=== PATIENT | female | born 1980 | race Caucasian/White ===

== ENCOUNTER 2020-08-27 19:33 | Outpatient (REF) | payer MEDICAID, SELFPAY ==
--- NOTE | 2020-08-27 | MR_ITS ---
MR LUMBAR SPINE WITHOUT IV CONTRAST CLINICAL INFORMATION: Lumbago with left-sided sciatica. COMPARISON: Lumbar spine radiographs 01/23/2019. TECHNIQUE: MRI of the lumbar spine was obtained using routine sequences without contrast. FINDINGS: There are 5 nonrib-bearing lumbar-type vertebral bodies. Lumbar alignment is maintained. The vertebral body heights are preserved. There is disc desiccation at the L3-L4, L4-L5, and L5-S1 levels. There is no bone marrow edema. There are no acute fractures. The conus terminates at the L2 level. There are no significant soft tissue findings. L1-L2: Disc contour is normal. No central canal stenosis and no foraminal stenosis. L2-L3: Disc contour is normal. There is no central canal stenosis and there is no foraminal stenosis. L3-L4: There is a diffuse annular disc bulge exhibiting a dorsal annular fissure and there is mild to moderate bilateral facet arthropathy. No central canal stenosis. Mild foraminal encroachment bilaterally. L4-L5: There is a diffuse annular disc bulge exhibiting a dorsal annular fissure with a superimposed broad-based central disc protrusion that results in mass effect on the traversing L5 nerve roots within the subarticular zones bilaterally. There is moderate bilateral facet arthropathy. There is no central canal stenosis. There is mild foraminal encroachment bilaterally. L5-S1: There is a diffuse annular disc bulge the superimposed left paracentral disc protrusion that results in mass effect on the traversing left S1 nerve root within the left subarticular zone. There is mild bilateral facet arthropathy. There is mild foraminal encroachment bilaterally. Dorsal annular fissure IMPRESSION: - At L4-L5, a broad-based central disc protrusion results in mass effect on the traversing L5 nerve roots within the subarticular zones bilaterally. - At L5-S1, a left paracentral disc protrusion results in mass effect on the traversing left S1 nerve root within the left subarticular zone. - Additional degenerative changes as discussed above. There are dorsal annular fissures at the L3-L4, L4-L5, and L5-S1 levels.
== END 2020-08-27 19:34 | disposition home or self-care (01) ==
LOC: HO.MRI 19:33
PROVIDERS: Visit Provider Nurse Practitioner Primary Care
DX: M54.41 Lumbago with sciatica, right side (principal); M54.42 Lumbago with sciatica, left side
CPT/HCPCS: 72148

== ENCOUNTER 2020-11-15 12:49 | Emergency (ER) | payer MEDICAID, SELFPAY ==
[2020-11-15 13:51] VITALS: BP 122/78; PULSE 78; RESP 18; TEMP 36.8; O2SAT 99; BMI 28.5
--- NOTE | 2020-11-15 14:21 | ED_ITS ---
HPI - Neck Pain/Injury General Chief Complaint: Neck Pain/Injury Stated Complaint: NECK PAIN Time Seen by Provider: 11/15/20 14:21 Source: patient Mode of arrival: ambulatory Limitations: no limitations History of Present Illness HPI Narrative: 40-year-old female presenting with right-sided neck pain ongoing since this morning she woke up with this. States she usually sleeps on her left side and last night she was tired she fell asleep in a recliner in a sitting position on the right side felt sore and stiff on the right side having pain right-sided neck with certain positions pain will radiate to the right arm. States she has long history of back problems she is awaiting for drilling fluids specialist appointment by her primary care doctor. She otherwise denies any midline neck pain or lower back pain. No headache. No fever or chills. No weight loss. No history of CA. States she has had MRI here for the lower back pain and at over and referred by her primary care doctor for further evaluation by drilling fluids specialist and PT. complaint: neck pain Onset (ago): hour(s) Place: home Severity: moderate Duration: intermittent Associated symptoms: none Treatments prior to arrival: none Related Data Previous Rx's Medication Instructions Recorded cyclobenzaprine 5 mg PO TID PRN #14 tab 11/15/20 ibuprofen 800 mg PO Q8H PRN #30 tab 11/15/20 lidocaine 1 patch TOPICAL Q24H PRN #10 ea 11/15/20 Allergies Allergy/AdvReac Type Severity Reaction Status Date / Time No Known Allergies Allergy Verified 11/15/20 13:55 [No Known Allergies*] cucumbers, pickles Allergy Unknown Unknown Uncoded 11/15/20 13:55 Review of Systems Review of Systems: Constitutional: No Weight loss, No Fever, No Chills, No Night Sweats, No Fatigue, No Malaise ENT/Mouth: No Hearing loss, No Ear Pain, No Nasal Congestion, No Sinus Pain, No Hoarseness, No sore throat, No Rhinorrhea, No Swallowing Difficulty Eyes: No Eye Pain, No Swelling, No Redness, No Foreign Body, No Discharge, No Vision Changes Cardiovascular: No Chest Pain, No SOB, No Dyspnea on Exertion, No Orthopnea, No Edema, No Palpitations Respiratory: No Cough, No Sputum, No Wheezing, No Smoke Exposure, No Dyspnea Gastrointestinal: No Nausea, No Vomiting, No Diarrhea, No Constipation, No abdominal Pain, No Hematochezia, No Melena Genitourinary: no irregular bleeding, No Dysuria, No Urinary Frequency, No Hematuria, No Urinary Incontinence, No Urgency, No Flank Pain Musculoskeletal: No joint pain, No Myalgias, No Joint Swelling, noted in HPI Skin: No Skin Lesions, No rash Neuro: No Weakness, No Numbness, No Loss of Consciousness, No Dizziness, No Headache Psych: No Social Issues Heme/Lymph: No Bruising, No Bleeding,No Lymphadenopathy Endocrine: No Polyuria, No Polydipsia, No Temperature Intolerance Yes all other systems are reviewed and are negative [facility] Past Medical History Surgical History (Updated 11/15/20 @ 13:54 by Mackenzie Blank RN) Hx of laparoscopic gastric banding Physical Exam Vital Signs: Vital Signs: Last Vital Signs Temp 98.3 F 11/15/20 13:51 Pulse 78 11/15/20 13:51 Resp 18 11/15/20 13:51 BP 122/78 11/15/20 13:51 Pulse Ox 99 11/15/20 13:51 Body Mass Index 28.5 Reviewed Const: General: cooperative and healthy appearing; No acute distress or intoxicated appearing Nutritional Appearance: average body habitus Orientation/consciousness: patient oriented x3 HENMT: Head: Yes normal to inspection Ears: hearing grossly normal vanesa aterally Eyes: General: appearance normal, both eyes and all related structures Visual Shirley: normal visual shirley by confrontation Neck: Neck: Yes normal visual inspection, No lymphadenopathy, No midline deformity, No positive Brudzinski's sign, No positive Kernig's sign and Yes torticollis (Right-sided. He is with slight massaging. No swelling.) Thyroid: Thyroid normal Chest: Chest palpation & inspection: normal inspection of the chest Resp: Effort & Inspection: normal respiratory effort Auscultation: clear to auscultation bilaterally Cardio: Jugular venous distension: no JVD Rhythm: regular rhythm Heart sounds: S2 normal heart sound present : General: Yes no CVA tenderness Back/Spine/Pelvis: Back: no CVA tenderness Skin: General skin exam: no rashes or lesions noted Neuro: General: patient oriented x3 Cranial nerves: Yes CN's II-XII intact bilaterally Extrem: General: Yes normal to inspection Course Course Course Narrative: Overall nontoxic appearing. Ambulatory status with gait. No red flags. Hemodynamically stable. Will trial short course muscle relaxant, NSAID and topical item with clear return follow-up instructions. Stable for discharge. Discharge Plan Discharge Clinical Impression: Torticollis Patient Disposition: Home, Self-Care Instructions: Spasmodic Torticollis (ED) Additional Instructions: Warm compresses Gentle stretching Take medication prescribed No drinking alcohol or driving while taking the muscle relaxant Follow-up with her primary care and drilling fluids specialist as instructed Return if any concerns or worsening symptoms Thank you Prescriptions: New cyclobenzaprine 5 mg tablet 5 mg PO TID PRN (Reason: muscle spasm) Qty: 14 RF: 0 lidocaine 4 % adhesive patch,medicated 1 patch topical Q24H PRN (Reason: pain) Qty: 10 RF: 0 ibuprofen 800 mg tablet 800 mg PO Q8H PRN (Reason: pain) Qty: 30 RF: 0 Referrals: [facility] [Primary Care Provider] - 2 weeks
== END 2020-11-15 14:53 | disposition home or self-care (01) ==
LOC: HO.ED 14:45
PROVIDERS: Emergency Provider Emergency Medicine
DX: M43.6 Torticollis (principal)
CPT/HCPCS: 99283

== ENCOUNTER 2021-01-11 15:12 | Outpatient (REF) | payer MEDICAID, SELFPAY ==
--- NOTE | ~2021-01-11 | US_ITS ---
EXAMINATION: US PELVIS COMPLETE US PELVIS TRANSVAGINAL CLINICAL INFORMATION: Heavy menses. COMPARISON: None TECHNIQUE: Transabdominal and transvaginal ultrasound of the pelvis was performed. FINDINGS: The uterus is anteverted measuring 10.2 cm in length, 5.5 cm in AP and 5.9 cm in width. The uterus is homogeneous in echotexture with no focal lesions seen. The endometrial thickness is 1.6 cm. There is a hypoechoic lesion in the endometrial canal measuring 1.3 x 0.7 x 1.0 cm, question polyp. Right ovary measures 3.8 x 2.4 x 2.7 cm and volume 12.8 mL. There is anechoic cyst measuring 2.1 x 1.9 x 2.1 cm. Left ovary measures 2.3 x 1.6 x 1.5 cm, volume 3.2 mL. There is no free fluid in cul-de-sac. US/US transvaginal IMPRESSION: 1. Suspect small endometrial polyp. Consider ultrasound-guided hysterosonograph. 2. Right ovarian small cyst. The right ovary itself measures 3.8 x 2.4 x 2.7 cm. 3. Unremarkable left ovary. 4. No free fluid in the cul-de-sac.
--- NOTE | ~2021-01-11 | US_ITS ---
EXAMINATION: US PELVIS COMPLETE US PELVIS TRANSVAGINAL CLINICAL INFORMATION: Heavy menses. COMPARISON: None TECHNIQUE: Transabdominal and transvaginal ultrasound of the pelvis was performed. FINDINGS: The uterus is anteverted measuring 10.2 cm in length, 5.5 cm in AP and 5.9 cm in width. The uterus is homogeneous in echotexture with no focal lesions seen. The endometrial thickness is 1.6 cm. There is a hypoechoic lesion in the endometrial canal measuring 1.3 x 0.7 x 1.0 cm, question polyp. Right ovary measures 3.8 x 2.4 x 2.7 cm and volume 12.8 mL. There is anechoic cyst measuring 2.1 x 1.9 x 2.1 cm. Left ovary measures 2.3 x 1.6 x 1.5 cm, volume 3.2 mL. There is no free fluid in cul-de-sac. US/US pelvic complete IMPRESSION: 1. Suspect small endometrial polyp. Consider ultrasound-guided hysterosonograph. 2. Right ovarian small cyst. The right ovary itself measures 3.8 x 2.4 x 2.7 cm. 3. Unremarkable left ovary. 4. No free fluid in the cul-de-sac.
== END 2021-01-11 15:13 | disposition home or self-care (01) ==
LOC: HO.US 15:12
PROVIDERS: Visit Provider Nurse Practitioner Primary Care
DX: N92.6 Irregular menstruation, unspecified (principal); N93.9 Abnormal uterine and vaginal bleeding, unspecified
CPT/HCPCS: 76830; 76856

== ENCOUNTER 2021-09-15 09:01 | Outpatient (REF) | payer MEDICAID, SELFPAY ==
--- NOTE | ~2021-09-15 | US_ITS ---
EXAMINATION: US ABDOMEN COMPLETE CLINICAL INFORMATION: Epigastric pain. Rule out gallstones. COMPARISON: None TECHNIQUE: Real-time imaging of the abdominal viscera. FINDINGS: PANCREAS: Normal. ABDOMINAL AORTA: The proximal, mid, and distal segments are normal in caliber. INFERIOR VENA CAVA: Visualized portions are normal. LIVER: Normal. The liver is normal in size. The liver contour is normal. Parenchymal echogenicity is normal. No focal hepatic lesion. There is no intrahepatic biliary duct dilatation seen. GALLBLADDER: Normal. The gallbladder is physiologically distended without evidence of stones, sludge, polyps, wall thickening or pericholecystic fluid. COMMON BILE DUCT: Normal in caliber measuring 0.41 cm in diameter. RIGHT KIDNEY: Normal. No hydronephrosis. No renal calculi or focal parenchymal lesions. The kidney measures 11.2 cm in maximum dimension. LEFT KIDNEY: Normal. No hydronephrosis. No renal calculi or focal parenchymal lesions. The kidney measures 11.8 cm in maximum dimension. SPLEEN: Normal. The spleen measures 11.1 cm in maximum dimension. FREE FLUID: None. US/US abdomen complete IMPRESSION: Normal abdominal ultrasound.
== END 2021-09-15 09:02 | disposition home or self-care (01) ==
LOC: HO.HMGCX 09:01
PROVIDERS: PCP Nurse Practitioner Primary Care; Visit Provider Emergency Medicine
DX: R10.13 Epigastric pain (principal)
CPT/HCPCS: 76700

== ENCOUNTER 2022-07-29 15:45 | Emergency (ER) | payer MEDICAID, SELFPAY ==
[2022-07-29 16:32] VITALS: BP 118/75; PULSE 72; RESP 16; TEMP 37.2; O2SAT 98; BMI 31.6
== END 2022-07-29 21:47 | disposition left against medical advice (07) ==
PROVIDERS: Emergency Provider Emergency Medicine
DX: K08.89 Other specified disorders of teeth and supporting structures (principal); R68.84 Jaw pain
CPT/HCPCS: 99281

== ENCOUNTER 2023-07-10 15:12 | Emergency (ER) | payer MEDICAID, SELFPAY ==
[2023-07-10 15:58] VITALS: BP 146/96; PULSE 96; RESP 16; TEMP 36.7; O2SAT 94; BMI 34.3
--- NOTE | 2023-07-10 15:58 | ED.GENADULT ---
HPI - General Adult General Chief complaint: Abdominal Pain Stated complaint: stomach pain / cramping Related Data Home Medications Medication Instructions Recorded Confirmed duloxetine 30 mg capsule,delayed 30 mg PO DAILY depressive disorder 07/09/23 release hydroxyzine HCl 10 mg tablet 10 - 20 mg PO DAILY PRN anxiety 07/09/23 lidocaine 5 % topical patch 1 patch transdermal DAILY 07/09/23 meloxicam 15 mg tablet 15 mg PO DAILY 07/09/23 naproxen 500 mg tablet 500 mg PO BID 07/09/23 sertraline 50 mg tablet 75 mg PO QAM depressive disorder 07/09/23 trazodone 100 mg tablet 100 mg PO BEDTIME PRN 07/09/23 trazodone 50 mg tablet 50 mg PO BEDTIME PRN insomnia 07/09/23 Previous Rx's Medication Instructions Recorded cyclobenzaprine 5 mg tablet 5 mg PO TID PRN muscle spasm #14 11/15/20 tabs ibuprofen 800 mg tablet 800 mg PO Q8H PRN pain #30 tabs 11/15/20 lidocaine 4 % topical patch 1 patch topical Q24H PRN pain #10 11/15/20 ea Allergies Allergy/AdvReac Type Severity Reaction Status Date / Time No Known Allergies Allergy Verified 11/15/20 13:55 [No Known Allergies*] cucumbers, pickles Allergy Unknown Unknown Uncoded 11/15/20 13:55 [facility] Past Medical History Medical History (Updated 07/16/23 @ 10:52 by Oksana Marie NP) Chronic low back pain with bilateral sciatica Chronic neck pain Pain in joint, multiple sites Polymyalgia Surgical History (Updated 11/15/20 @ 13:54 by Mackenzie Blank RN) Hx of laparoscopic gastric banding Family History Family History (Updated 07/09/23 @ 14:45 by LUCAS Noel) Mother No problems noted. Father No problems noted. Social History Social History Advance Directives: No Advance Directives Information Provided: No Physical Exam ED Vital Signs: BMI result Body Mass Index 34.3 Course Course Course Narrative: This is a rapid medical exam: Additional HPI, ROS, PE not included below will be deferred to primary provider. Patient is a 42-year-old female with history of gastric sleeve presenting to the emergency department with complaint of epigastric/LUQ abdominal pain for the past few days, worse today. Yesterday had a headache. Has had one episode of diarrhea, denies nausea or vomiting. Denies fevers. Plan: labs, UA Medical Decision Making Lab Data 07/10/23 16:16 07/10/23 16:16 Labs: Lab Results 07/10/23 07/10/23 Range/Units 16:16 16:16 WBC 8.9 (4.8-10.8) X10*3/uL RBC 4.95 (4.20-5.50) X10*6/uL Hgb 12.1 (12.0-16.0) g/dl Hct 38.4 (37.0-47.0) % MCV 77.6 L (80.0-98.0) fL MCH 24.4 L (27.0-33.0) pg MCHC 31.5 (31.0-35.0) g/dl RDW 16.2 H (11.0-16.0) % Plt Count 347 (160-400) X10*3/uL MPV 9.7 (9.4-12.3) fL Immature Gran % (Auto) 0.3 (0.0-0.4) % Neut % (Auto) 65.4 (45-73) % Lymph % (Auto) 26.5 (20-40) % Crenshaw % (Auto) 5.1 (2-11) % Eos % (Auto) 2.1 (0-4) % Baso % (Auto) 0.6 (0-2) % Lymph # (Auto) 2.4 (1.2-4.9) X10*3/uL Crenshaw # (Auto) 0.5 (0.1-1.2) X10*3/uL Eos # (Auto) 0.2 (0.0-0.4) X10*3/uL Baso # (Auto) 0.1 (0.0-0.2) X10*3/uL Abs Immat Gran (auto) 0.03 (0.00-0.03) X10*3/uL Absolute Neuts (auto) 5.8 (2.0-8.3) x10*3/uL Absolute Nucleated RBC 0.000 (0.0-0.012) X10*3/uL Nucleated RBC % (auto) 0.0 (0.0-0.2) /100WBC Sodium 138 (135-145) mmol/L Potassium 4.5 (3.3-5.1) mmol/L Chloride 107 (96-108) mmol/L Carbon Dioxide 22 (22-29) mmol/L Anion Gap 14 (12-20) BUN 18 H (9-16) mg/dL Creatinine 0.75 (0.5-1.4) mg/dL Estim Creat Clear Calc 108.7 Estimated GFR > 60 Random Glucose 189 H (60-115) mg/dL Calcium 9.6 (8.4-10.2) mg/dL Total Bilirubin 0.4 (0.0-1.0) mg/dL AST 18 (5-31) U/L ALT 13 (0-31) U/L Alkaline Phosphatase 71 (39-117) U/L Total Protein 8.2 H (6.5-8.0) g/dL Albumin 4.3 (3.5-5.0) g/dL Lipase 24 (8-78) U/L Beta HCG, Quant < 2 mIU/mL Discharge Plan Discharge Clinical Impression: Abdominal pain Patient Disposition: Elopement Prescriptions: No Action cyclobenzaprine 5 mg tablet 5 mg PO TID PRN (Reason: muscle spasm) Qty: 14 0RF lidocaine 4 % adhesive patch,medicated 1 patch topical Q24H PRN (Reason: pain) Qty: 10 0RF Rx Instructions: may leave on for up to 12 hrs ibuprofen 800 mg tablet 800 mg PO Q8H PRN (Reason: pain) Qty: 30 0RF naproxen 500 mg tablet 500 mg PO BID lidocaine 5 % adhesive patch,medicated 1 patch transdermal DAILY duloxetine 30 mg capsule,delayed release(DR/EC) 30 mg PO DAILY sertraline 50 mg tablet 75 mg PO QAM trazodone 100 mg tablet 100 mg PO BEDTIME PRN hydroxyzine HCl 10 mg tablet 10 - 20 mg PO DAILY PRN (Reason: anxiety) trazodone 50 mg tablet 50 mg PO BEDTIME PRN (Reason: insomnia) meloxicam 15 mg tablet 15 mg PO DAILY Discharge Date/Time: 07/10/23 21:39
[2023-07-10 16:22] LABS: MANUAL DIFF FLAG NO
[2023-07-10 16:46] LABS: Alanine Aminotransferase 13 U/L (0-31); Albumin Level 4.3 g/dL (3.5-5.0); Alkaline Phosphatase 71 U/L (39-117); Anion Gap 14 (12-20); Aspartate Amino Transferase 18 U/L (5-31); Bilirubin Total 0.4 mg/dL (0.0-1.0); Blood Urea Nitrogen 18 mg/dL (9-16); Calcium 9.6 mg/dL (8.4-10.2); Carbon Dioxide 22 mmol/L (22-29); Chloride 107 mmol/L (96-108); Creatinine Clr Calc Pharmacy 108.7; Estimated Glomerular Filt Rate > 60; Glucose Random 189 mg/dL (60-115); HCG Quantitative < 2 mIU/mL; Lipase 24 U/L (8-78); Potassium 4.5 mmol/L (3.3-5.1); Sodium 138 mmol/L (135-145); Total Protein 8.2 g/dL (6.5-8.0)
[2023-07-10 16:58] LABS: Basophils Absolute Auto 0.1 X10*3/uL (0.0-0.2); Basophils Percent Auto 0.6 % (0-2); Eosinophils Absolute Auto 0.2 X10*3/uL (0.0-0.4); Eosinophils Percent Auto 2.1 % (0-4); Hematocrit 38.4 % (37.0-47.0); Hemoglobin 12.1 g/dl (12.0-16.0); Imm Gran Abs Auto 0.03 X10*3/uL (0.00-0.03); Imm Gran Pct Auto 0.3 % (0.0-0.4); Lymphocytes Absolute Auto 2.4 X10*3/uL (1.2-4.9); Lymphocytes Percent Auto 26.5 % (20-40); Mean Corpuscular HGB Conc 31.5 g/dl (31.0-35.0); Mean Corpuscular Hemoglobin 24.4 pg (27.0-33.0); Mean Corpuscular Volume 77.6 fL (80.0-98.0); Mean Platelet Volume 9.7 fL (9.4-12.3); Monocytes Absolute Auto 0.5 X10*3/uL (0.1-1.2); Monocytes Percent Auto 5.1 % (2-11); Neutrophils Absolute Auto 5.8 x10*3/uL (2.0-8.3); Neutrophils Percent Auto 65.4 % (45-73); Platelet Count 347 X10*3/uL (160-400); Red Blood Count 4.95 X10*6/uL (4.20-5.50); Red Cell Distribution Width 16.2 % (11.0-16.0); White Blood Count 8.9 X10*3/uL (4.8-10.8)
== END 2023-07-10 21:39 | disposition left against medical advice (07) ==
PROVIDERS: Registered Nurse Emergency; Emergency Provider Emergency Medicine; PCP Nurse Practitioner Primary Care
DX: R10.30 Lower abdominal pain, unspecified (principal); Z79.899 Other long term (current) drug therapy
CPT/HCPCS: 36415; 80053; 83690; 84702; 85025; 99281; 99283

== ENCOUNTER → 2023-07-19 09:11 | Outpatient (REF) | payer MEDICAID, SELFPAY ==
--- NOTE | 2023-07-19 09:14 | HM_ITS ---
Conclusion: 1. Patient was monitored for total period of 2 days 2. Baseline was normal sinus rhythm with average heart of 87 beats per minute 3. No significant pauses noted 4. No significant arrhythmias noted 5. No patient reported events MTDD
== END ==
LOC: HO.CARD 09:11
PROVIDERS: Visit Provider Nurse Practitioner Primary Care
DX: R42 Dizziness and giddiness (principal); R55 Syncope and collapse
CPT/HCPCS: 93225; 99202

== ENCOUNTER → 2023-07-19 09:14 | Outpatient (BNV) | payer MEDICAID, SELFPAY | PROVIDERS: Visit Provider Internal Medicine Cardiovascular Disease | DX: R55 Syncope and collapse (principal) | CPT/HCPCS: 93227 ==

== ENCOUNTER 2023-07-19 14:30 | Outpatient (AMB) | payer MEDICAID, SELFPAY ==
[2023-07-19 14:54] VITALS: BP 122/74; PULSE 79; TEMP 36.4; O2SAT 98; BMI 34.8
--- NOTE | 2023-07-19 14:54 | A.OFFVIS_ITS ---
Intake Vital Signs 07/19/23 14:54 Height 5 ft 4 in Weight 203 lb 0.732 oz BMI 34.8 BP 122/74 Blood Pressure Location Rt brachial Position Sitting Pulse 79 Pulse Source Pulse Oximeter Temp 97.5 F Temp Source Skin Pulse Oximetry (%) 98 Intake Visit Reasons: LBP Intake Note: New pt presents today for consult. C/o pain in hands, hips, back and knees [employer] Consultant Required: No Accompanied by: Son Allergies No Known Allergies [No Known Allergies*] Allergy (Verified 07/19/23 15:06) cucumbers, pickles Allergy (Unknown, Uncoded 07/19/23 15:06) Unknown Medication List - Last Reconciled 07/19/23 by Eliz Madden MD dulaglutide (Trulicity) 0.75 mg subcut QWEEK duloxetine 30 mg PO DAILY ibuprofen 800 mg PO Q8H PRN lidocaine 5% 1 patch transdermal DAILY metformin mg PO naproxen 500 mg PO BID HPI HPI Comments History of Present Illness Details This is a 43-year-old female who was referred for evaluation of diffuse pain. Patient states that she started having diffuse pain around 5 years ago. She has pain in her arms, hands, elbows, back, hips. She cannot think of anything that makes the pain better or worse. Patient takes care of her 13-year-old son who has spina bifida. She has history of obstructive sleep apnea, she had a bariatric surgery procedure a few years ago and lost more than 100 lb with resolution of obstructive sleep apnea. However over the last few years she has gained some of the weight back. She denies any history of DVT/PE. States that she has a cousin with lupus. Mother has fibromyalgia. She was recently evaluated by slip maker for syncope/presyncope and she has a Holter monitor inserted today [facility] Medical History Polymyalgia Chronic neck pain Chronic low back pain with bilateral sciatica Pain in joint, multiple sites Surgical History S/P cubital tunnel release Hx of laparoscopic gastric banding Family History Mother Hypertension Arthritis Father Diabetes Social History Household Members: Children Alcohol intake: current Alcohol intake frequency: does not drink Patient Tobacco Use Status: Never used Tobacco Current occupational status: employed 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 Female Reproductive History Menstrual Total pregnancies: 2 Number of Living Children: 2 Review of Systems Const Reports fatigue, Reports weakness and Reports weight gain Eyes Reports blurry vision ENT Reports dizziness and Reports tinnitus Musc Reports arthralgias and Reports joint swelling Skin/Breast Reports unusual bruising Neuro Reports dizziness and Reports weakness Psych Reports abnormal sleep pattern, Reports anxiety and Reports depression Endo Reports fatigue Physical Exam Vital Signs: Last Vital Signs Temp 97.5 F 07/19/23 14:54 Pulse 79 07/19/23 14:54 BP 122/74 07/19/23 14:54 Pulse Ox 98 07/19/23 14:54 BMI result Body Mass Index 34.8 Const General: cooperative, healthy appearing and comfortable Nutritional Appearance: obese Orientation/consciousness: patient oriented x3 Limitations: no limitations HEENT Head: Yes normocephalic and Yes atraumatic Mouth: moist mucous membranes Resp Effort & Inspection: normal respiratory effort and able to speak in complete sentences Auscultation: clear to auscultation bilaterally Cardio Other: Holter monitor on chest Rate: regular rate Rhythm: regular rhythm Neuro General: patient oriented x3 Extrem Other: No active synovitis Normal nailfold capillaroscopy Diffuse fibromyalgia tender points Results Reviewed Results Reviewed: Labs 03/2023 ABDIRASHID by IFA negative ESR 22 Assessment & Plan Assessment & Plan (1) Fibromyalgia, primary: Code(s): M79.7 - Fibromyalgia Plan: This is a 43-year-old female who presents for evaluation of diffuse pain. I do not see any evidence of autoimmune rheumatic disease. Clinical picture consistent with fibromyalgia Discussed management of fibromyalgia with patient. Is a noninflammatory, non- autoimmune central afferent processing disorder leading to a diffuse pain syndrome. Patient follows up regularly with a psychologist and a psychiatrist. Try to follow sleep hygiene practices. Discuss CBT for sleep with psychologist. She might need a repeat sleep study to evaluate for obstructive sleep apnea. Patient would benefit from increased physical activity, either through formal physical therapy or by joining a gym. Advised patient that she should start activity slowly and increase as tolerated. Consider low-impact exercises such as walking, swimming, aqua therapy stretching, yoga. She is on duloxetine 40 mg daily prescribed by PCP. Follow-up as needed Plan I spent 32 minutes reviewing patient's chart, evaluating patient, ordering diagnostic workup, counseling patient and documenting in the chart Coding Level of Care Code New Pt Level 3 (03642) Diagnoses Fibromyalgia, primary M79.7
== END 2023-07-19 15:35 | disposition home or self-care (01) ==
PROVIDERS: PCP Nurse Practitioner Primary Care; Visit Provider Student in an Organized Health Care Education/Training Program
DX: M79.7 Fibromyalgia (principal)
CPT/HCPCS: 99203

== ENCOUNTER 2023-08-28 10:56 | Outpatient (REF) | payer MEDICAID, SELFPAY ==
[2023-08-28 11:43] LABS: MANUAL DIFF FLAG NO
[2023-08-28 11:49] LABS: Basophils Absolute Auto 0.1 X10*3/uL (0.0-0.2); Eosinophils Absolute Auto 0.2 X10*3/uL (0.0-0.4); Eosinophils Percent Auto 3.2 % (0-4); Hematocrit 39.5 % (37.0-47.0); Imm Gran Abs Auto 0.02 X10*3/uL (0.00-0.03); Imm Gran Pct Auto 0.3 % (0.0-0.4); Lymphocytes Absolute Auto 2.4 X10*3/uL (1.2-4.9); Lymphocytes Percent Auto 38.7 % (20-40); Mean Corpuscular HGB Conc 30.4 g/dl (31.0-35.0); Mean Corpuscular Hemoglobin 24.3 pg (27.0-33.0); Mean Corpuscular Volume 80.1 fL (80.0-98.0); Mean Platelet Volume 8.8 fL (9.4-12.3); Monocytes Absolute Auto 0.6 X10*3/uL (0.1-1.2); Monocytes Percent Auto 9.1 % (2-11); Neutrophils Percent Auto 47.7 % (45-73); Platelet Count 323 X10*3/uL (160-400); Red Blood Count 4.93 X10*6/uL (4.20-5.50); White Blood Count 6.3 X10*3/uL (4.8-10.8)
[2023-08-28 11:53] LABS: Appearance Urine Clear; Color Urine Yellow; Glucose Urine UA Negative (Negative); Leukocyte Esterase Urine Negative (Negative); Nitrite Urine Negative (Negative); PH 7.5 (5.0-9.0); Specific Gravity - Urine >= 1.030 (1.005-1.025); Urine Blood Negative (Negative); Urine Ketones Negative (Negative); Urine Protein Negative (Neg-Trace)
[2023-08-28 11:59] LABS: Bacteria Urine None Seen (None Seen); Hyaline Casts Urine 0-2 /LPF (0-2); RBC Urine 0-2 /HPF (0-2); Squamous Epithelial Cell Urine 0-2 /HPF (0-2); WBC Urine 0-5 /HPF (0-5)
[2023-08-28 12:41] LABS: Iron 39 mcg/dL (30-160); Percent Iron Saturation 10 % (15-50); Total Iron Binding Capacity 388 mcg/dL (228-428); Unsaturated Iron Binding 349 ug/dL
[2023-08-28 12:45] LABS: Ferritin 9 ng/mL (10-250)
[2023-08-28 12:52] LABS: Vitamin B12 448 pg/mL (200-900)
[2023-08-28 12:54] LABS: Creatinine Urine 164.35 mg/dL; Microalbum/Creatinine Ratio Ur 4.8 ug/mg cr (<30)
== END 2023-08-28 10:57 | disposition home or self-care (01) ==
LOC: HO.HHCL 10:56
PROVIDERS: Visit Provider Nurse Practitioner Primary Care
DX: E11.59 Type 2 diabetes mellitus with other circulatory complications (principal); I15.2 Hypertension secondary to endocrine disorders; R23.3 Spontaneous ecchymoses
CPT/HCPCS: 36415; 81001; 82043; 82570; 82607; 82728; 83540; 85025

== ENCOUNTER 2023-09-12 11:46 | Emergency (ER) | payer MEDICAID, SELFPAY ==
[2023-09-12 11:56] VITALS: BP 147/104; PULSE 91; RESP 16; TEMP 36.3; O2SAT 98; BMI 34.1
--- NOTE | 2023-09-12 11:56 | ED.URI ---
HPI - URI/Sore Throat General Chief Complaint: Upper Respiratory Symptoms Stated Complaint: flu like symptoms Time Seen by Provider: 09/12/23 14:04 Source: patient Mode of arrival: ambulatory Limitations: no limitations History of Present Illness HPI Narrative: 43 yo female presenting with nasal congestion and slight cough since yesterday. here with 13 yo son who is also sick. they just went on a cruise. patient's mother who they live with has enterovirus and rhinovirus no fever, chills, N/V/D, abd pain, SOB or difficulty breathing MD elicited complaint: nasal congestion Onset (ago): day(s) (1) Consistency: constant Severity: moderate Description of mucous: clear and watery Able to tolerate fluids by mouth: Yes Exacerbating factors: nothing Relieving factors: OTC cold medicine Context: sick contacts and recent travel Associated symptoms: nasal congestion and cough Treatments prior to arrival: none Related Data Home Medications Medication Instructions Recorded Confirmed duloxetine 30 mg capsule,delayed 30 mg PO DAILY depressive disorder 07/09/23 release lidocaine 5 % topical patch 1 patch transdermal DAILY 07/09/23 naproxen 500 mg tablet 500 mg PO BID 07/09/23 dulaglutide 0.75 mg/0.5 mL 0.75 mg subcut QWEEK 07/19/23 subcutaneous pen injector (Trulicity) metformin 1,000 mg tablet mg PO 07/19/23 Previous Rx's Medication Instructions Recorded ibuprofen 800 mg tablet 800 mg PO Q8H PRN pain #30 tabs 11/15/20 prednisone 20 mg tablet See Taper PO DAILY #18 tabs 09/14/23 Allergies Allergy/AdvReac Type Severity Reaction Status Date / Time No Known Allergies Allergy Verified 07/19/23 15:06 [No Known Allergies*] cucumbers, pickles Allergy Unknown Unknown Uncoded 07/19/23 15:06 Review of Systems Review of Systems: Yes all other systems are reviewed and are negative PMFSH Past Medical History Medical History Polymyalgia Chronic neck pain Chronic low back pain with bilateral sciatica Pain in joint, multiple sites Surgical History S/P cubital tunnel release Hx of laparoscopic gastric banding Family History Family History Mother Hypertension Arthritis Father Diabetes Social History Social History Household Members: Children Alcohol intake: current Alcohol intake frequency: does not drink Patient Tobacco Use Status: Never used Tobacco Advance Directives: No Patient : No Current occupational status: employed 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 Oriented X3. No acute distress. Head: normocephalic, atraumatic. Eyes: Pupils equal, round and reactive to light. ENT: Pharynx normal. No tonsillar swelling or exudate. Neck: Normal inspection. Neck supple. CVS: Normal heart rate and rhythm. Pulses normal. Respiratory: No respiratory distress. Breath sounds normal. Skin: Skin warm and dry. Normal skin color. Normal skin turgor. No rashes. Extremities: No lower extremity edema. No joint swelling. Neuro/psych: Oriented X 3. grossly normal, nonfocal Medical Decision Making Medical Decision Making MDM Narrative: 43 yo female with history of fibromyalgia who is presenting with sinus pressure & nasal congestion that started yesterday. No fever.She is here with her 13 yo son who has similar symptoms and a sore throat. They recently traveled to [place] on a cruise. +exposure to rhinovirus and enterovirus. covid and flu swabs neg here. vss and exam unremarkable sxs likely due to rhino vs enterovirus. supportive care discussed. stable for d/c home Differential Diagnosis Differential Diagnoses: The differential diagnosis associated with the presentation includes strep, covid, flu, rsv, other viral syndrome, bronchitis, pneumonia, sinusitis Lab Data [facility] Lab Attestation statement: I reviewed the patient's lab results. Labs: Lab Results 09/12/23 Range/Units 12:07 COVID-19 ([facility]NEY) Negative (Negative) COVID-19 Clin Com See Note Influenza Type A (MARKOS) Negative (Negative) Influenza Type B ([facility]OS) Negative (Negative) Influenza A & B Note See Note Prescription Management I considered prescription management with: Antibiotic Critical Care Time Critical Care Time Critical Care Time: No Discharge Plan Discharge Clinical Impression: Acute viral syndrome Patient Disposition: Home, Self-Care Instructions: Viral Syndrome (ED) Additional Instructions: you tested negative COVID and Flu your symptoms are most likely viral and from the virus your mother has treatment is supportive care - rest and drink plenty of fluids take over the counter cold/flu medications as needed for yours symptoms follow up with your doctor as needed If you develop new or worsening symptoms call 911 or come back to the ER for further evaluation. Prescriptions: No Action ibuprofen 800 mg tablet 800 mg PO Q8H PRN (Reason: pain) Qty: 30 0RF prednisone 20 mg tablet See Taper PO DAILY Qty: 18 0RF Taper: Prednisone 60 mg daily for 3 Days and 0 Hour 40 mg daily for 3 Days and 0 Hour 20 mg daily for 3 Days and 0 Hour Rx Instructions: 60 mg for 3 days, 40 mg for 3 days, 20 mg for 3 days naproxen 500 mg tablet 500 mg PO BID lidocaine 5 % adhesive patch,medicated 1 patch transdermal DAILY duloxetine 30 mg capsule,delayed release(DR/EC) 30 mg PO DAILY metformin 1,000 mg tablet PO Trulicity 0.75 mg/0.5 mL pen injector 0.75 mg subcut QWEEK Interventions: ED Discharge Assessment Last Done: 09/12/23 14:26 Discharge Date/Time: 09/12/23 14:27
[2023-09-12 12:38] LABS: COVID-19 Test Negative (Negative); IDNOW Serial# 9DB6401D; IDNOW Serial# BCCEAD1C; Influenza A Negative (Negative); Influenza B2 Negative (Negative)
== END 2023-09-12 14:27 | disposition home or self-care (01) ==
LOC: HO.ED 14:21
PROVIDERS: Physician Assistant; Emergency Provider Emergency Medicine Emergency Medical Services; PCP Nurse Practitioner Primary Care
DX: B34.9 Viral infection, unspecified (principal); R09.81 Nasal congestion; R05.9 Cough, unspecified; Z11.52 Encounter for screening for COVID-19
CPT/HCPCS: 87502; 87635; 99283

== ENCOUNTER 2023-09-14 18:29 | Emergency (ER) | payer MEDICAID, SELFPAY ==
[2023-09-14 19:40] VITALS: BP 129/80; PULSE 92; RESP 17; TEMP 36.6; O2SAT 97; BMI 33.8
--- NOTE | 2023-09-14 19:45 | ED.GENADULT ---
HPI - General Adult General Chief complaint: General Medical Stated complaint: rash on elbow and back of knees 2-3 days Time Seen by Provider: 09/14/23 19:46 Source: patient Mode of arrival: ambulatory Limitations: no limitations History of Present Illness HPI narrative: Patient is a 43-year-old female presenting to the emergency department with complaint pruritic rash to right elbow and bilateral posterior lower legs for the past 3 days. She denies any new foods, soaps, etc.. States that she was recently on a cruise and was outdoors in [place]. Has been using a hydrocortisone cream prescribed by her PCP with little relief. States that her PCP referred her to a creative services manager and she is waiting for an appointment. Denies any recent insect bites, fevers, body aches, fatigue. complaint: rash Onset (ago): day(s) Location: upper extremity and lower extremity Radiation: non-radiation Severity: moderate Quality: other (pruritic) Relieving factors: none Associated symptoms: denies other symptoms Treatments prior to arrival: other (hydrocortisone cream) Related Data Home Medications Medication Instructions Recorded Confirmed duloxetine 30 mg capsule,delayed 30 mg PO DAILY depressive disorder 07/09/23 release lidocaine 5 % topical patch 1 patch transdermal DAILY 07/09/23 naproxen 500 mg tablet 500 mg PO BID 07/09/23 dulaglutide 0.75 mg/0.5 mL 0.75 mg subcut QWEEK 07/19/23 subcutaneous pen injector (Trulicity) metformin 1,000 mg tablet mg PO 07/19/23 Previous Rx's Medication Instructions Recorded ibuprofen 800 mg tablet 800 mg PO Q8H PRN pain #30 tabs 11/15/20 prednisone 20 mg tablet See Taper PO DAILY #18 tabs 09/14/23 Allergies Allergy/AdvReac Type Severity Reaction Status Date / Time No Known Allergies Allergy Verified 07/19/23 15:06 [No Known Allergies*] cucumbers, pickles Allergy Unknown Unknown Uncoded 07/19/23 15:06 Review of Systems Review of Systems: As per HPI. Yes all other systems are reviewed and are negative Constitutional: Constitutional: Reports as per HPI [facility] Past Medical History Medical History Polymyalgia Chronic neck pain Chronic low back pain with bilateral sciatica Pain in joint, multiple sites Surgical History S/P cubital tunnel release Hx of laparoscopic gastric banding Family History Family History Mother Hypertension Arthritis Father Diabetes Social History Social History Household Members: Children Alcohol intake: current Alcohol intake frequency: does not drink Patient Tobacco Use Status: Never used Tobacco Advance Directives: No Current occupational status: employed 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 Blood pressure normal. Heart rate normal. Respiratory rate normal. Temperature normal. Oxygen saturation normal. Const General: cooperative, healthy appearing and no acute distress Orientation/consciousness: oriented to person, oriented to place, oriented to time and patient oriented x3 Limitations: no limitations HENMT Head: Yes normocephalic and Yes atraumatic Ears: external ears normal General nose exam: Normal external nose present Face and sinus: Yes face symmetric Mouth: oropharynx normal and moist mucous membranes Throat: Yes uvula midline Eyes Pupils: Equal, round and reactive pupils present Neck Neck: Yes normal visual inspection and Yes supple Resp Effort & Inspection: normal respiratory effort and able to speak in complete sentences Auscultation: clear to auscultation bilaterally Cardio Rate: regular rate Rhythm: regular rhythm Heart sounds: S1 normal heart sound present and S2 normal heart sound present GI Palpation (GI): Soft to palpation and nontender Auscultation: normoactive bowel sounds General: Yes no CVA tenderness Back/Spine/Pelvis Back: no CVA tenderness Skin General skin exam: elasticity normal and turgor normal Rashes: rashes noted maculopapular rash right elbow borders irregular, color red and surface blanching, dry, erythematous and with an erythematous base; fluctuant not assessed and other (rash to posterior lower legs with same appearance as elbow) Neuro General: oriented to person, oriented to place, oriented to time, patient oriented x3, moves all extremities, no focal motor deficits and CN's II-XI intact bilaterally Cranial nerves: Yes Equal, round and reactive pupils present Cognition (Neuro): normal cognition Extrem General: Yes full ROM, Yes no pedal edema and Yes no calf tenderness Psych Mental Status: mental status grossly normal Affect: normal affect Thought process: Normal thought process present Medical Decision Making Medical Decision Making [facility] Narrative: Patient is a 43-year-old female presenting to the emergency department with complaint pruritic rash to right elbow and bilateral posterior lower legs for the past 3 days. On exam patient is awake, A+Ox3, VS WNL, afebrile, normal neurological exam without focal deficits, physical exam findings as above. Given reported symptoms and physical exam findings, initial differential includes contact dermatitis, atopic dermatitis, dyshydrotic eczema. Rash not consistent with zoster, scabies, tinea. Unlikely viral exanthem as patient denies other symptoms. Do not suspect DRESS, TTP, TEN/SJS, SSSS. Will prescribe prednisone taper. Patient states she has already been referred to dermatology and is awaiting an appointment. Return precautions discussed. Patient verbalized understanding of and agreement with plan. Differential Diagnosis Differential Diagnoses: The differential diagnosis associated with the presentation includes As per MDM. External Record Review External record reviewed: Inpatient record, Office record and Outpatient record Prescription Management I considered prescription management with: Other Discharge Plan Discharge Clinical Impression: Rash and nonspecific skin eruption Patient Disposition: Home, Self-Care Instructions: Contact Dermatitis (DC), Acute Rash (ED) Additional Instructions: You were evaluated in the emergency department today for a rash. You are being prescribed a tapering course of a steroid called prednisone. Please complete the full course as prescribed. You should avoid extremes in water temperature when showering, use lukewarm water. Please follow up with dermatology for further evaluation. Return to the emergency department if the rash spreads, if you develop fever, or any other concerning symptoms. Prescriptions: New prednisone 20 mg tablet See Taper PO DAILY Qty: 18 0RF Taper: Prednisone 60 mg daily for 3 Days and 0 Hour 40 mg daily for 3 Days and 0 Hour 20 mg daily for 3 Days and 0 Hour Rx Instructions: 60 mg for 3 days, 40 mg for 3 days, 20 mg for 3 days No Action ibuprofen 800 mg tablet 800 mg PO Q8H PRN (Reason: pain) Qty: 30 0RF naproxen 500 mg tablet 500 mg PO BID lidocaine 5 % adhesive patch,medicated 1 patch transdermal DAILY duloxetine 30 mg capsule,delayed release(DR/EC) 30 mg PO DAILY metformin 1,000 mg tablet PO Trulicity 0.75 mg/0.5 mL pen injector 0.75 mg subcut QWEEK
== END 2023-09-14 21:04 | disposition home or self-care (01) ==
PROVIDERS: Emergency Provider Emergency Medicine; PCP Nurse Practitioner Primary Care
DX: L29.9 Pruritus, unspecified (principal); R21 Rash and other nonspecific skin eruption; Z79.899 Other long term (current) drug therapy
CPT/HCPCS: 99283; 99284

== ENCOUNTER 2023-10-09 07:19 | Outpatient (REF) | payer MEDICAID, SELFPAY ==
--- NOTE | ~2023-10-09 | XR_ITS ---
EXAMINATION: XR SHOULDER, RIGHT CLINICAL INFORMATION: Pain in right shoulder. COMPARISON: None available. TECHNIQUE: Two views of the right shoulder. FINDINGS: Degenerative changes on limited views of the upper thoracic spine. Mild degenerative changes in the acromioclavicular joint with joint space narrowing and hypertrophic change. Small calcification in the soft tissues along the superior aspect of the acromioclavicular joint. Degenerative changes with hypertrophic change along the inferior aspect of the glenoid. XR/XR shoulder RT min 2V IMPRESSION: Mild degenerative changes.
== END 2023-10-09 07:20 | disposition home or self-care (01) ==
LOC: HO.HOSX 07:19
PROVIDERS: Visit Provider Orthopaedic Surgery
DX: M25.511 Pain in right shoulder (principal); G47.19 Other hypersomnia; G47.30 Sleep apnea, unspecified
CPT/HCPCS: 73030; 99202; 99212

== ENCOUNTER 2023-10-09 08:20 | Outpatient (AMB) | payer MEDICAID, SELFPAY ==
--- NOTE | 2023-10-09 08:33 | MHC.OFFVIS ---
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 The patient states that she injured her right shoulder approximately 1 year ago while helping lift her 15-year-old son with special needs. She had acute onset of pain. She has had cortisone injections in the past which gave her minimal relief. She has also done physical therapy for 12 weeks over the last 6 months which aggravated her pain. The patient has tried Tylenol and anti-inflammatory medicines which gave her minimal relief. The patient reports weakness when lifting her right hand above shoulder height. Allergies No Known Allergies [No Known Allergies*] Allergy (Verified 10/09/23 08:35) cucumbers, pickles Allergy (Unknown, Uncoded 10/09/23 08:35) Unknown Medication List - Last Reconciled 10/09/23 by Ash Mccoy MD dulaglutide (Trulicity) 0.75 mg subcut QWEEK duloxetine 30 mg PO DAILY ibuprofen 800 mg PO Q8H PRN lidocaine 5% 1 patch transdermal DAILY metformin mg PO naproxen 500 mg PO BID PFSH Medical History Polymyalgia Chronic neck pain Chronic low back pain with bilateral sciatica Pain in joint, multiple sites Surgical History S/P cubital tunnel release Hx of laparoscopic gastric banding Family History Mother Hypertension Arthritis Father Diabetes (Updated 10/09/23 @ 08:49 by MALLIKA Novak) Household Members: Children Alcohol intake: current Alcohol intake frequency: does not drink Patient Tobacco Use Status: Never used Tobacco Current occupational status: employed Current occupation: [employer], 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 Physical Exam Vital Signs: BMI result Body Mass Index 33.8 Const Other: Well-nourished well-developed very friendly female awake alert and oriented x3 in no acute distress Extrem Other: Bilateral upper extremity examination shows good capillary refill, no skin lesions noted, normal sensation light touch Right shoulder examination shows decreased range of motion when compared to her left shoulder, 4+ out of 5 strength with supraspinatus testing, positive impingement signs, tenderness over her acromioclavicular joint, no instability Results Reviewed Results Reviewed: X-rays of the patient's right shoulder show severe acromioclavicular joint narrowing, a type 2 acromion, no acute bony abnormalities Assessment & Plan Assessment & Plan (1) Right shoulder pain: Code(s): M25.511 - Pain in right shoulder Plan Ms. Horace Carballo presents with right shoulder pain and weakness possibly due to a rotator cuff tear. Thus, I will send the patient for an MRI of her right shoulder for further evaluation. I will see her back once the MRI is completed to discuss the findings and treatment options. She will continue with her range of motion exercises in the meantime to prevent stiffness. Feel free to call me at any time should questions regarding her orthopedic management arise. Thank you very much for asking me to see this very friendly patient. I spent 22 minutes in reviewing the patient's records and imaging studies, seeing the patient and documenting in the medical record. Orders: Orders MR shoulder RT wo con Today M25.511 - Pain in right shoulder XR shoulder RT min 2V Today M25.511 - Pain in right shoulder Coding Level of Care Code New Pt Level 2 (59327) Diagnoses Right shoulder pain M25.511
[2023-10-09 08:49] VITALS: BMI 33.8
== END 2023-10-09 08:58 | disposition home or self-care (01) ==
PROVIDERS: PCP Nurse Practitioner Primary Care; Visit Provider Orthopaedic Surgery
DX: M25.511 Pain in right shoulder (principal)
CPT/HCPCS: 99202

== ENCOUNTER 2023-10-09 10:41 | Outpatient (AMB) | payer MEDICAID, SELFPAY ==
[2023-10-09 10:49] VITALS: BP 132/82; PULSE 92; O2SAT 95; BMI 34.6
--- NOTE | 2023-10-09 10:49 | MHC.OFFVIS ---
Intake Vital Signs 10/09/23 10:49 Height 5 ft 4 in Weight 201 lb 8 oz BMI 34.6 BP 132/82 Blood Pressure Location Lt brachial Position Sitting Pulse 92 Pulse Source Pulse Oximeter Pulse Oximetry (%) 95 Oxygen Delivery Method Room Air Intake Visit Reasons: ENP-SEEMA/Confirmed Intake Note: Pt presents to the office today for a new patient visit for SEEMA. Allergies cucumbers, pickles Allergy (Unknown, Uncoded 10/09/23 10:49) Unknown HPI HPI Comments History of Present Illness Details 43 y/o female patient with hx of sleep apnea presents for new in-person visit for sleep consultation. Pt reports she was diagnosed with SEEMA about 6 years ago and treated with CPAP. Pt had a gastric sleeves done 4 years ago and lost more than 100 lb. She did not have a repeat sleep study but stopped using CPAP. Pt reports difficulty falling asleep and staying sleep. Having difficulty sleeping started after her father passed. She also can't sleep well due to body pain and shoulder pain. She reports that she was evaluated for fibromyalgia, and her vp foundation also recommend to have sleep study. Pt reports non refreshing sleep with daytime sleepiness. Sleep questionnaire: Have you ever been diagnosed with a sleep disorder? SEEMA, about 6 years ago. Have you ever had a sleep study in the past? Yes. Have you ever been treated for a sleep disorder? Yes, CPAP but stopped using it after bariatric surgery done, she lost more than 100 lb. Do you take medications for a sleep disorder? No. Do you snore? Maybe, not sure. Do you wake up gasping at night? No. Do you have episodes of apneas? No. If yes, are they witnessed? No. Do you have episodes of nocturnal chest pain or dyspnea? No. Do you have difficulty initiating sleep? Yes. Do you have difficulty maintaining sleep? Yes. Do you wake up tired? Yes. Do you have headaches upon awakening? Yes, sometimes. Do you wake up with dry mouth or throat? Yes, sometimes. Do you have GERD? Yes. Do you have nocturia? No. Do you have nocturnal leg cramps? No. Do you have symptoms of restless legs? No. Do you act out your dreams? Yes, sometimes. Sleep hygiene questionnaire: What is your usual sleep routine? Usual bedtime is at 11:30 pm; Usual wake up time is at 6 am. Do you take naps? No. Is your sleep environment cool, dark, and quiet? Yes. Do you exercise? No. Do you take caffeine or other stimulants? No. Do you use electronics in bed? Yes, sometimes. What is your work schedule? 10 am to 2:30 pm. Hypersomnolence questionnaire: Do you have daytime tiredness or fatigue? Yes. Do you easily fall asleep when inactive? Yes, sometimes. Have you ever had episodes of sudden weakness? No. Have you ever had episodes of sudden weakness associated with strong emotions? No. 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 Review of Systems Const All systems reviewed & are unremarkable except as noted in HPI and below ENT Reports Normal hearing present Neuro Reports Normal hearing present Physical Exam Vital Signs: Last Vital Signs Pulse 92 10/09/23 10:49 BP 132/82 10/09/23 10:49 Pulse Ox 95 10/09/23 10:49 Oxygen Delivery Method Room Air 10/09/23 10:49 BMI result Body Mass Index 34.6 Const General: cooperative and tired appearing Nutritional Appearance: obese Orientation/consciousness: patient oriented x3 Neck Neck: Yes full ROM and Yes supple Resp Effort & Inspection: normal respiratory effort and able to speak in complete sentences Neuro General: patient oriented x3, gait normal and moves all extremities Cranial nerves: Yes Bilaterally intact EOM present, Yes Normal facial strength present, Yes Midline tongue present, Yes Symmetric palate elevation present, Yes Normal hearing present, Yes Ability to bilaterally rotate head present and Yes Ability to bilaterally elevate shoulders present Cognition (Neuro): normal cognition Gait exam (Neuro): Normal gait present Motor exam (neuro): 5/5 motor strength present throughout, Pronator motor function not present and no tremor noted Psych Appearance: grossly normal Mental Status: mental status grossly normal Speech and movement: Normal speech and movement present Affect: normal affect Attitude: cooperative Assessment & Plan Assessment & Plan (1) Excessive daytime sleepiness: Code(s): G47.19 - Other hypersomnia (2) Sleep apnea treated with continuous positive airway pressure (CPAP): Code(s): G47.30 - Sleep apnea, unspecified Plan Pt is advised to undergo in-lab sleep study to assess for sleep apnea, PLMD. Will f/u with pt after study to discuss results and appropriate treatment options. Sleep hygiene education provided, limit electronic use, and caffeine use before bedtime. Increase physical activity and exercise. Pt to call with any worsening concerns or questions. Orders: Orders RT PSG in-lab sleep study Today E11.9 - Type 2 diabetes mellitus without complications, E66.9 - Obesity, unspecified, G47.19 - Other hypersomnia, G47.30 - Sleep apnea, unspecified, M79.7 - Fibromyalgia Coding Level of Care Code New Pt Level 3 (41293) Diagnoses Excessive daytime sleepiness G47.19 Sleep apnea treated with continuous positive airway pressure (CPAP) G47.30
== END 2023-10-09 11:26 | disposition home or self-care (01) ==
PROVIDERS: PCP Nurse Practitioner Primary Care; Visit Provider Nurse Practitioner Family
DX: G47.19 Other hypersomnia (principal); G47.30 Sleep apnea, unspecified
CPT/HCPCS: 99203

== ENCOUNTER → 2023-10-17 20:30 | Outpatient (REF) | payer MEDICAID, SELFPAY | LOC: HO.SL 20:30 | PROVIDERS: PCP Nurse Practitioner Primary Care; Visit Provider Nurse Practitioner Family | DX: G47.33 Obstructive sleep apnea (adult) (pediatric) (principal); G47.19 Other hypersomnia; E66.9 Obesity, unspecified | CPT/HCPCS: 95810 ==

== ENCOUNTER → 2023-10-17 21:23 | Outpatient (BNV) | payer MEDICAID, SELFPAY | PROVIDERS: PCP Nurse Practitioner Primary Care; Visit Provider Psychiatry & Neurology Neurology | DX: G47.33 Obstructive sleep apnea (adult) (pediatric) (principal) | CPT/HCPCS: 95810 ==

== ENCOUNTER 2023-11-16 12:10 | Emergency (ER) | payer OTHER, MEDICAID, SELFPAY ==
[2023-11-16 13:06] VITALS: BP 128/79; PULSE 107; RESP 16; TEMP 36; O2SAT 98; BMI 34.2
--- NOTE | 2023-11-16 13:06 | ED.LOWEXIN ---
HPI - Extremity Injury (Lower) General Chief Complaint: Fall Stated Complaint: fall , knee and back pain Time Seen by Provider: 11/16/23 14:42 Related Data Home Medications Medication Instructions Recorded Confirmed duloxetine 30 mg capsule,delayed 30 mg PO DAILY depressive disorder 07/09/23 10/09/23 release lidocaine 5 % topical patch 1 patch transdermal DAILY 07/09/23 10/09/23 naproxen 500 mg tablet 500 mg PO BID 07/09/23 10/09/23 dulaglutide 0.75 mg/0.5 mL 0.75 mg subcut QWEEK 07/19/23 10/09/23 subcutaneous pen injector (Trulicity) metformin 1,000 mg tablet mg PO 07/19/23 10/09/23 Previous Rx's Medication Instructions Recorded ibuprofen 800 mg tablet 800 mg PO Q8H PRN pain #30 tabs 11/15/20 Allergies Allergy/AdvReac Type Severity Reaction Status Date / Time cucumbers, pickles Allergy Intermediate Rash Uncoded 11/16/23 13:06 PMFSH Past Medical History Onset Date is defined in the Problem List Problems that require an onset date and time if occurred within 24 hrs of arrival to the ED Aortic Dissection and Rupture; Neurologic impairment; Cardiopulmonary Arrest; Endotracheal Intubation; Insertion or Replacement of Mechanical Circulatory Assist Device Medical History Polymyalgia Chronic neck pain Chronic low back pain with bilateral sciatica Pain in joint, multiple sites Surgical History S/P cubital tunnel release Hx of laparoscopic gastric banding Family History Family History Mother Hypertension Arthritis Father Diabetes Social History Social History Household Members: Children Alcohol intake: current Alcohol intake frequency: does not drink Patient Tobacco Use Status: Never used Tobacco Advance Directives: No Advance Directives Information Provided: No Current occupational status: employed 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 +hit head, denies LOC or taking AC. denies sx prior to fall, urinary incontinence or retention XRs ordered Full HPI, ROS and PE to be performed by primary ED provider. Discharge Plan Discharge Clinical Impression: Knee pain Patient Disposition: Left W/O Completing Treatment Prescriptions: No Action ibuprofen 800 mg tablet 800 mg PO Q8H PRN (Reason: pain) Qty: 30 0RF naproxen 500 mg tablet 500 mg PO BID lidocaine 5 % adhesive patch,medicated 1 patch transdermal DAILY duloxetine 30 mg capsule,delayed release(DR/EC) 30 mg PO DAILY metformin 1,000 mg tablet PO Trulicity 0.75 mg/0.5 mL pen injector 0.75 mg subcut QWEEK Discharge Date/Time: 11/16/23 16:21
== END 2023-11-16 16:21 | disposition left against medical advice (07) ==
PROVIDERS: Emergency Provider Emergency Medicine; PCP Nurse Practitioner Primary Care
DX: S39.92XA Unspecified injury of lower back, initial encounter (principal); M25.561 Pain in right knee; M54.6 Pain in thoracic spine; W01.10XA Fall on same level from slipping, tripping and stumbling with subsequent striking against unspecified object, initial encounter; Y93.9 Activity, unspecified; Y92.9 Unspecified place or not applicable; Y99.9 Unspecified external cause status; Z79.899 Other long term (current) drug therapy
CPT/HCPCS: 72072; 72100; 73562; 99281; 99283

== ENCOUNTER 2023-11-22 17:57 | Outpatient (REF) | payer MEDICAID, SELFPAY ==
--- NOTE | ~2023-11-22 | MR_ITS ---
EXAMINATION: MR SHOULDER WITHOUT CONTRAST, RIGHT CLINICAL INFORMATION: Pain in the right shoulder COMPARISON: X-ray right shoulder September 2023 TECHNIQUE: MRI of the shoulder without contrast was performed on a high-field scanner. FINDINGS: ROTATOR CUFF: Supraspinatus: This some minimal linear increased signal just proximal to the insertion of the middle third portion supraspinatus tendon compatible with focal tendinosis or some minimal interstitial intrasubstance partial tearing but no measurable defect or tendon retraction. Muscle normal. Remaining rotator cuff muscles and tendons normal. BICEPS: Normal. CORACOACROMIAL ARCH: The undersurface of the acromion is curved with no subacromial spur. Is moderate hypertrophic osteoarthritis of the acromioclavicular joint with marginal osteophytes subchondral cystic change and some edema. LABRUM/CAPSULE: Normal. GLENOHUMERAL JOINT/MARROW: Normal. MR/MR shoulder RT wo con IMPRESSION: 1. Moderate hypertrophic osteoarthritis of the acromioclavicular joint. 2. Minimal abnormality of the supraspinatus compatible with tendinosis or minimal interstitial partial tearing but no measurable defect or tendon retraction.
== END 2023-11-22 17:58 | disposition home or self-care (01) ==
LOC: HO.MRI 17:57
PROVIDERS: PCP Nurse Practitioner Primary Care; Visit Provider Orthopaedic Surgery
DX: M25.511 Pain in right shoulder (principal)
CPT/HCPCS: 73221

== ENCOUNTER 2023-12-04 08:06 | Outpatient (AMB) | payer OTHER, MEDICAID, SELFPAY ==
[2023-12-04 08:08] VITALS: BMI 34.2
--- NOTE | 2023-12-04 08:08 | A.OFFVIS_ITS ---
Intake Vital Signs 12/04/23 08:08 Height 5 ft 4 in Weight 199 lb BMI 34.2 Intake Visit Reasons: ov- Right shoulder MRI review Intake Note: [place] is a 43 year old female who presents for MRI review of her Right shoulder. The patient states that her right shoulder pain has gotten worse over the last few years in spite of continued non operative treatments. She has had multiple injections which gave her minimal relief. She has also done physical therapy exercises which aggravated her pain. She has tried Tylenol and anti- inflammatory medicines which gave her minimal relief. She reports difficulty lifting her right hand above shoulder height. Allergies cucumbers, pickles Allergy (Intermediate, Uncoded 11/16/23 13:06) Rash Medication List - Last Reconciled 12/04/23 by Ash Mccoy MD dulaglutide (Trulicity) 0.75 mg subcut QWEEK duloxetine 30 mg PO DAILY ibuprofen 800 mg PO Q8H PRN lidocaine 5% 1 patch transdermal DAILY metformin mg PO naproxen 500 mg PO BID PFSH Medical History Polymyalgia Chronic neck pain Chronic low back pain with bilateral sciatica Pain in joint, multiple sites Surgical History S/P cubital tunnel release Hx of laparoscopic gastric banding Family History Mother Hypertension Arthritis Father Diabetes Social History Household Members: Children Alcohol intake: current Alcohol intake frequency: does not drink Patient Tobacco Use Status: Never used Tobacco Current occupational status: employed 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, 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 Physical Exam Vital Signs: BMI result Body Mass Index 34.2 Const Other: Well-nourished well-developed very friendly female awake alert and oriented x3 in no acute distress Extrem Other: Bilateral upper extremity examination shows good capillary refill, no skin lesions noted, normal sensation light touch Right shoulder examination shows decreased range of motion when compared to her left shoulder, 4+ out of 5 strength with supraspinatus testing, positive impingement signs, tenderness over her acromioclavicular joint, no instability Results Reviewed Results Reviewed: MRI of the patient's right shoulder show severe acromioclavicular joint narrowing, a type 2 acromion, signal change within the supraspinatus tendon due to rotator cuff tendinosis, no full-thickness rotator cuff tear noted Assessment & Plan Assessment & Plan (1) Right shoulder pain: Code(s): M25.511 - Pain in right shoulder Plan Ms. Horace Carballo presents with right shoulder pain due to impingement syndrome and acromioclavicular joint arthritis. I had a lengthy discussion with the patient regarding the treatment options. At point she appears to failing continued non operative treatments. The risks and benefits of right shoulder surgery were discussed at length with the patient. The patient wishes to proceed with surgery later this year. She will contact my office to pick a surgery date when she is ready to do so. She will continue with her range of m otion exercises in the meantime. Feel free to call me at any time should questions regarding her orthopedic management arise. I spent 22 minutes in reviewing the patient's records and imaging studies, seeing the patient and documenting in the medical record. Coding Level of Care Code Est Pt Level 2 (82161) Diagnoses Right shoulder pain M25.511
== END 2023-12-04 08:38 | disposition home or self-care (01) ==
PROVIDERS: PCP Nurse Practitioner Primary Care; Visit Provider Orthopaedic Surgery
DX: M75.42 Impingement syndrome of left shoulder (principal); M19.011 Primary osteoarthritis, right shoulder; Z04.2 Encounter for examination and observation following work accident
CPT/HCPCS: 99213

== ENCOUNTER → 2023-12-04 08:06 | Outpatient (BNVA) | payer MEDICAID, SELFPAY | PROVIDERS: PCP Nurse Practitioner Primary Care; Visit Provider Orthopaedic Surgery | DX: M75.41 Impingement syndrome of right shoulder (principal); M19.011 Primary osteoarthritis, right shoulder | CPT/HCPCS: 99212 ==

== ENCOUNTER 2023-12-06 08:58 | Outpatient (REF) | payer OTHER, MEDICAID, SELFPAY ==
--- NOTE | 2023-12-06 09:01 | EMG_ITS ---
Left median and ulnar motor and sensory studies were performed. Left radial sensory study was performed, and paraspinal muscles were tested with a needle. IMPRESSION: Mild left ulnar neuropathy across cubital tunnel. MD ARJUN Higginbotham/ROSITA / [id number]
== END 2023-12-06 08:59 | disposition home or self-care (01) ==
LOC: HO.NEURO 08:58
PROVIDERS: PCP Nurse Practitioner Primary Care; Visit Provider Nurse Practitioner Primary Care
DX: R20.0 Anesthesia of skin (principal); R20.2 Paresthesia of skin
CPT/HCPCS: 95886; 95909

== ENCOUNTER 2023-12-27 09:28 | Outpatient (AMB) | payer OTHER, MEDICAID, SELFPAY ==
[2023-12-27 09:29] VITALS: BMI 34.2
--- NOTE | 2023-12-27 09:29 | A.OFFVIS_ITS ---
Intake Vital Signs 12/27/23 09:29 Height 5 ft 4 in Weight 199 lb BMI 34.2 Intake Visit Reasons: Pre-Rt Shld 01/11/24 Intake Note: [place] is a 43 year old female who states that her right shoulder pain has gotten worse over the last few years in spite of continued non operative treatments. She has had multiple injections which gave her minimal relief. She has also done physical therapy exercises which aggravated her pain. She has tried Tylenol and anti-inflammatory medicines which gave her minimal relief. She reports difficulty lifting her right hand above shoulder height. Allergies cucumbers, pickles Allergy (Intermediate, Uncoded 11/16/23 13:06) Rash Medication List - Last Reconciled 12/27/23 by Ash Mccoy MD dulaglutide (Trulicity) 0.75 mg subcut QWEEK duloxetine 30 mg PO DAILY ibuprofen 800 mg PO Q8H PRN lidocaine 5% 1 patch transdermal DAILY metformin mg PO naproxen 500 mg PO BID PFSH Medical History Polymyalgia Chronic neck pain Chronic low back pain with bilateral sciatica Pain in joint, multiple sites Surgical History S/P cubital tunnel release Hx of laparoscopic gastric banding Family History Mother Hypertension Arthritis Father Diabetes Social History Household Members: Children Alcohol intake: current Alcohol intake frequency: does not drink Patient Tobacco Use Status: Never used Tobacco Current occupational status: employed 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, 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 Physical Exam Vital Signs: BMI result Body Mass Index 34.2 Const Other: Well-nourished well-developed very friendly female awake alert and oriented x3 in no acute distress Lungs - clear to auscultation bilaterally with symmetric expansion Cardiovascular exam - regular rate and rhythm Abdominal exam - soft nontender nondistended Extrem Other: Bilateral upper extremity examination shows good capillary refill, no skin lesions noted, normal sensation light touch Right shoulder shows slightly decreased range of motion when compared to her left shoulder, 4+ out of 5 strength with supraspinatus testing, positive impingement signs, tenderness over her acromioclavicular joint, no instability Results Reviewed Results Reviewed: MRI of the patient's right shoulder show severe acromioclavicular joint narrowing, a type 2 acromion, signal change within the supraspinatus tendon most likely due to rotator cuff tendinosis Assessment & Plan Assessment & Plan (1) Impingement of right shoulder: Code(s): M25.811 - Other specified joint disorders, right shoulder Plan Ms. Horace Carballo presents with right shoulder pain due to impingement syndrome, acromioclavicular joint arthritis and rotator cuff tendinosis. I had a lengthy discussion with the patient regarding the treatment options. At this point she has failed continued non operative treatments. The risks and benefits of right shoulder surgery were discussed at length with the patient. The patient wishes to proceed with surgery. Surgery will most likely involve right shoulder diagnostic arthroscopy with distal clavicle excision and acromioplasty. The patient was given a prescription for Percocet at her preoperative appointment. She will follow-up as instructed. Feel free to call me at any time should questions regarding her orthopedic management arise. I spent 22 minutes in reviewing the patient's records and imaging studies, seeing the patient and documenting in the medical record. Medications: New oxycodone-acetaminophen 5-325 mg (Percocet) Partial Fill upon patient request. 2 tabs PO Q4H PRN 40 tabs 0RF pain Coding Level of Care Code Est Pt Level 2 (94939) Diagnoses Impingement of right shoulder M25.811
== END 2023-12-27 10:01 | disposition home or self-care (01) ==
PROVIDERS: PCP Nurse Practitioner Primary Care; Visit Provider Orthopaedic Surgery
DX: M25.811 Other specified joint disorders, right shoulder (principal)
CPT/HCPCS: 99213

== ENCOUNTER → 2023-12-27 09:28 | Outpatient (BNVA) | payer MEDICAID, SELFPAY | PROVIDERS: PCP Nurse Practitioner Primary Care; Visit Provider Orthopaedic Surgery | DX: M25.811 Other specified joint disorders, right shoulder (principal); M19.011 Primary osteoarthritis, right shoulder | CPT/HCPCS: 99212 ==

== ENCOUNTER 2024-01-11 08:34 | Day surgery (SDC) | payer MEDICAID, SELFPAY ==
[2024-01-09 07:34] VITALS: BMI 34.2
--- NOTE | 2024-01-10 09:28 | P.CONAN_ITS ---
Documented by User: Bernadette Garsia NP 01/10/24 09:32 HPI - Anesthesia Eval Consult details Narrative: 43yo F for Right Shoulder Arthroscopy with distal clavicle excision, acromioplasty Anesthesia Pre-Procedure Meds Is the patient on any of the following meds?: Dulaglutide (Trulicity) PMFSH Active Problems Active Problems: All Active Problems (Updated 12/27/23 @ 12:57 by Ash Mccoy MD) Impingement of right shoulder (Acute) Excessive daytime sleepiness (Acute) Sleep apnea treated with continuous positive airway pressure (CPAP) (Acute) Right shoulder pain (Acute) Fibromyalgia, primary (Acute) Past Medical History Medical History Polymyalgia Chronic neck pain Chronic low back pain with bilateral sciatica Pain in joint, multiple sites Family History Family History Mother Hypertension Arthritis Father Diabetes Surgical History Surgical History S/P cubital tunnel release Hx of laparoscopic gastric banding Social History Social History Household Members: Children Alcohol intake: current Alcohol intake frequency: does not drink Patient Tobacco Use Status: Never used Tobacco Are you DNR?: No Advance Directives: No Advance Directives Information Provided: Yes Nutrition Risks: No Nutritional Risk Current occupational status: employed 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, 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 Meds Allergies Allergy/AdvReac Type Severity Reaction Status Date / Time cucumbers, pickles Allergy Intermediate Rash Uncoded 11/16/23 13:06 Home Medications Medication Instructions Recorded Confirmed Last Taken Type duloxetine 30 mg capsule,delayed 30 mg PO DAILY depressive disorder 07/09/23 12/27/23 Unknown History release lidocaine 5 % topical patch 1 patch transdermal DAILY 07/09/23 12/27/23 Unknown History naproxen 500 mg tablet 500 mg PO BID 07/09/23 12/27/23 Unknown History dulaglutide 0.75 mg/0.5 mL 0.75 mg subcut QWEEK 07/19/23 12/27/23 Unknown History subcutaneous pen injector (Trulicity) metformin 1,000 mg tablet mg PO 07/19/23 12/27/23 Unknown History Exam Height,Weight and Vital Signs: Height 5 ft 4 in Weight 90.265 kg Pertinent Lab Results Pertinent Lab Results: Laboratory Tests 07/10/23 07/10/23 07/10/23 16:16 16:16 16:16 WBC Hgb Hct Plt Count Sodium 138 Potassium 4.5 Chloride 107 Carbon Dioxide 22 BUN 18 H Creatinine 0.75 08/28/23 08/28/23 11:02 11:02 WBC 6.3 Hgb 12.0 Hct 39.5 Plt Count 323 Sodium Potassium Chloride Carbon Dioxide BUN Creatinine Narrative Narrative: Holter 07/2023 Conclusion: 1. Patient was monitored for total period of 2 days 2. Baseline was normal sinus rhythm with average heart of 87 beats per minute 3. No significant pauses noted 4. No significant arrhythmias noted 5. No patient reported events Assessment and Plan Assessment Anesthesia Assessment: Chart Reviewed Documented by User: Antonella Lin MD 01/11/24 10:12 HPI - Anesthesia Eval Anesthesia Pre-Procedure Meds If Yes to any meds - educate patient: Pt education - increased risk of aspiration and Pt education - possibility of cancelled proc at provider's discretion PMFSH Past Medical History Medical History Polymyalgia Chronic neck pain Chronic low back pain with bilateral sciatica Pain in joint, multiple sites Family History Family History Mother Hypertension Arthritis Father Diabetes Family history of problems with anesthesia: No Surgical History Surgical History S/P cubital tunnel release Hx of laparoscopic gastric banding History of Problems with Anesthesia: No Social History Social History Household Members: Children Alcohol intake: current Alcohol intake frequency: does not drink Patient Tobacco Use Status: Never used Tobacco Are you DNR?: No Advance Directives: No Advance Directives Information Provided: Yes Nutrition Risks: No Nutritional Risk Current occupational status: employed 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, 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 Meds Allergies Allergy/AdvReac Type Severity Reaction Status Date / Time cucumbers, pickles Allergy Intermediate Rash Uncoded 11/16/23 13:06 Home Medications Medication Instructions Recorded Confirmed Last Taken Type duloxetine 30 mg capsule,delayed 30 mg PO DAILY depressive disorder 07/09/23 12/27/23 Unknown History release lidocaine 5 % topical patch 1 patch transdermal DAILY 07/09/23 12/27/23 Unknown History naproxen 500 mg tablet 500 mg PO BID 07/09/23 12/27/23 Unknown History dulaglutide 0.75 mg/0.5 mL 0.75 mg subcut QWEEK 07/19/23 12/27/23 Unknown History subcutaneous pen injector (Trulicity) metformin 1,000 mg tablet mg PO 07/19/23 12/27/23 Unknown History Exam Airway Heart: rrr Lungs: cta Assessment and Plan Assessment Anesthesia Assessment: Anesthesia Plan Discussed Final Anesthetic Review Family History of Problems with Anesthesia: No History of Problems with Anesthesia: No NPO: Yes ASA Class: III Final Preanesthetic Review: No Changes in Pt Med Stat, Meds/Allgs Chart Reviewed, Consent Obtained/Reviewed and Anes Risks/Benef Reviewed Patient Risk: Intermediate Procedure Risk: Intermediate Anesthetic Plan Anesthetic Plan: GA and Regional Block Disposition: Standard PACU
[2024-01-11] VITALS (8 sets, daily range): BP systolic 120–147; BP diastolic 71–89; PULSE 71–84; RESP 16–20; TEMP 36.1–36.6; O2SAT 94–97; BMI 36.0
[2024-01-11 10:14] LABS: Glucose, Whole Blood 117 mg/dL (60-115)
[2024-01-11] MEDS: Lactated Ringers 1,000 ML 100 ML IVCONT (10:14)
--- NOTE | 2024-01-11 14:01 | PM.OP ---
Brief Operative Note Date of Service: 01/11/24 Pre-op diagnosis: Right shoulder impingement syndrome, right shoulder acromioclavicular joint arthritis Post-op diagnosis: same Procedure: Right shoulder diagnostic arthroscopy with right shoulder arthroscopic acromioplasty, right shoulder arthroscopic distal clavicle excision Implants: None Surgeon: Ash Mccoy MD Anesthesia: GETA and regional Was an Energy Project Manager used for this Procedure?: No Estimated blood loss (mL): 10 Pathology: none sent Condition: stable Disposition: PACU
--- NOTE | 2024-01-11 14:02 | P.OP_ITS ---
Operative Note Operative Note Date of Service: 01/11/24 Narrative: After the patient was identified as [place] Carballo and her right shoulder was initialed by myself the patient was brought to the holding area where a right shoulder interscalene regional block was performed by the anesthesiologist in routine fashion. The patient was then brought to the operating room where general anesthesia was induced by the anesthesiologist in routine fashion. The patient was given 2 g of IV Ancef preoperatively for infection prophylaxis. Examination under anesthesia of the patient's right shoulder showed full passive range of motion of the patient's left shoulder when compared to the left. The patient was gently positioned in the beach chair position with all bony prominences well padded. The patient's right shoulder region and upper extremity were prepped and draped in sterile fashion. A formal time-out was completed. A #11 scalpel blade was used to make a posterior portal 2 cm inferior and 1 cm medial to the posterolateral corner of the acromion. Blunt trocar technique was used to enter the glenohumeral joint in routine fashion. An anterior portal was made just lateral to the coracoid process after proper positioning was confirmed using a spinal needle. Diagnostic arthroscopy showed minimal degenerative changes of the glenoid articular surface. There were diffuse grade 1 and 2 degenerative changes of the humeral head articular surface. The articular surface was smooth so no chondroplasty was indicated. There was no evidence of rotator cuff tearing. There was no evidence of injury to the biceps tendon or its insertion onto the glenoid. There was no inflam mation of the anterior joint capsule. The arthroscope was then placed from the posterior portal into the subacromial space. A lateral portal was made 2 fingerbreadths lateral to the anterior lateral corner of the acromion. The ArthroCare Wand was used to ablate soft tissues along the undersurface of the acromion as well as to excise the coracoacromial ligament. There was a sharp spur along the undersurface of the acromion which was removed using the hooded bur. The arthroscope was then placed into the lateral portal and the acromioplasty was completed with the bur in the posterior portal using the posterior aspect of the acromion as a cutting block. At this point the procedure the surgical physician assistant was moving the #11 scalpel blade when the blade fell and penetrated her surgical gown. The patient did suffer a laceration to her forearm. There was no contamination of the surgical field. The scalpel blade simply fell to the floor. The surgical physician assistant left the room and [facility] A 2nd surgical physician assistant assisted during the remainder of the case. The ArthroCare Wand was then brought in through the anterior portal and was used to ablate soft tissues along the acromioclavicular joint and distal clavicle. The posterior and superior ligamentous structures were left intact. A distal clavicle excision of 8 mm was performed using the hooded bur. Any remaining bursal tissue was removed using the arthroscopic shaver. The subacromial space was irrigated and then drained. All arthroscopic instruments were removed. The 3 portals were closed with 3-0 nylon interrupted suture. The subacromial space was injected with Marcaine. Dry sterile dressing was placed over all incisions. The patient's right upper extremity was placed into a sling. The patient was awoken and extubated in the operating room. The patient was transferred to the recovery room in stable condition. I had a discussion with the patient regarding the laceration that occurred on the surgical technicians forearm with the scalpel blade. The patient agreed to having her blood drawn for evaluation of possible HIV or hepatitis previous exposure.
[2024-01-11 14:55] LABS: ~HepC Num1 0.14 S/CO (0.00-0.79); ~Hepatitis C Antibody Nonreactive (Nonreactive)
[2024-01-11 14:56] LABS: HBS Num1 5.54 mIU/mL (0-7.99); HBc Num1 0.23 S/CO (0.00-0.79); HBsAGNum1 0.61 S/CO (0.00-0.99); HIV AB/AG Nonreactive (Nonreactive); HIV Num 1 0.07 S/CO (0.00-0.99); Hepatitis B Core Antibody Nonreactive (Nonreactive); Hepatitis B Surface Antigen Negative (Negative); ~Hepatitis B Surface Antibody NONREACTIVE (Nonreactive)
== END 2024-01-11 14:40 | disposition home or self-care (01) ==
PROVIDERS: PCP Nurse Practitioner Primary Care; Visit Provider Orthopaedic Surgery
PROC: (CPT 29805; principal; 2024-01-11 10:50)
DX: M75.41 Impingement syndrome of right shoulder (principal); M19.011 Primary osteoarthritis, right shoulder
CPT/HCPCS: 29824; 29826; 36415; 82947; 86704; 86706; 86803; 87340; J0131; J0171; J0665; J0690; J1100; J2250; J2405; J2704; J2795; J3010

== ENCOUNTER → 2024-01-11 08:34 | Outpatient (BNV) | payer MEDICAID, SELFPAY | PROVIDERS: PCP Nurse Practitioner Primary Care; Visit Provider Orthopaedic Surgery | DX: M19.011 Primary osteoarthritis, right shoulder (principal); M75.41 Impingement syndrome of right shoulder | CPT/HCPCS: 29824; 29826 ==

== ENCOUNTER 2024-01-24 09:50 | Outpatient (AMB) | payer MEDICAID, SELFPAY ==
--- NOTE | 2024-01-24 09:59 | A.OFFVIS_ITS ---
Intake Vital Signs 01/24/24 10:02 Height 5 ft 4 in Weight 200 lb BMI 34.3 Intake Visit Reasons: PO-Rt Shld 01/11/24 Intake Note: [place] a 43 year old female presents today for a post operative right shoulder on 01/11/24 DR. Zuniga reports tape caused skin to become red and itchy, she used her epi pen. Currently she feels sharp pain in her bicep area and that her bone is going in and out. Allergies cucumbers, pickles Allergy (Intermediate, Uncoded 01/24/24 10:01) Rash HPI PO-Rt Shld 01/11/24 HPI Details 43-year-old female who [facility] right shoulder , 01/11/[address] Mccoy. She currently states she has sharp pain in her bicep area and reports she feels that her ?bone is going in and out? with movement of her shoulder. She also c/o redness and itchiness on her skin due to tape and she used her EpiPen. She is doing well otherwise and has no other concerns today. 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 No erythema or drainage. She has good ROM is all planes. NVI. Results Reviewed Results Reviewed: Brief Operative Note Date of Service: 01/11/24 Pre-op diagnosis: Right shoulder impingement syndrome, right shoulder acromioclavicular joint arthritis Post-op diagnosis: same Procedure: Right shoulder diagnostic arthroscopy with right shoulder arthroscopic acromioplasty, right shoulder arthroscopic distal clavicle excision Implants: None Surgeon: Ash Mccoy MD Assessment & Plan Assessment & Plan (1) Impingement of right shoulder: Code(s): M25.811 - Other specified joint disorders, right shoulder Plan Sutures removed today, steri strips applied. She will begin a course of physical therapy to work on ROM, RTC and periscapular stabilization. She will remain out of work till I see her back in [address] Mccoy, sooner if needed. Orders: Orders PT Evaluation and Treatment Today M25.811 - Other specified joint disorders, right shoulder Patient Instructions: Scribed for Krista Warren PA-C, by Deo Hernandez medical care manager, on 01/24/2024 at 10:30 AM EST. I, Krista Warren PA-C, have personally reviewed and agree with the information entered by the scribe. Coding Level of Care Code Global (93042) Diagnoses Impingement of right shoulder M25.811
[2024-01-24 10:02] VITALS: BMI 34.3
== END 2024-01-24 10:53 | disposition home or self-care (01) ==
PROVIDERS: PCP Nurse Practitioner Primary Care; Visit Provider Physician Assistant
DX: M25.811 Other specified joint disorders, right shoulder (principal)
CPT/HCPCS: 99024

== ENCOUNTER → 2024-01-24 09:50 | Outpatient (BNVA) | payer OTHER, MEDICAID, SELFPAY | PROVIDERS: PCP Nurse Practitioner Primary Care; Visit Provider Physician Assistant | DX: M25.811 Other specified joint disorders, right shoulder (principal) | CPT/HCPCS: 99212 ==

== ENCOUNTER 2024-02-07 09:05 | Outpatient (AMB) | payer MEDICAID, SELFPAY ==
--- NOTE | 2024-02-07 09:06 | MHC.OFFVIS ---
Intake Vital Signs 02/07/24 09:07 Height 5 ft 4 in Weight 202 lb BMI 34.7 BP 142/84 H Blood Pressure Location Lt brachial Position Sitting Respiration 17 Pulse 100 Pulse Source Palpation Intake Visit Reasons: Follow up SEEMA Intake Note: Pt presents for 4 month follow up for SEEMA. 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 The PSG sleep study result was significant for a mild degree of sleep apnea with increased severity in REM sleep. The AHI was 9/hr, REM AHI was 24/hr and oxygen katie was 84%. The CPAP compliance and therapy response (01/08/24-02/06/24) reviewed. She is on APAP [id number]. The usage days were 63% and the average usage hours 4 hrs. The max pressure was 8.3 and the residual AHI was 0.6/hr. She had shoulder surgery and had pain. She needs to sleep on her left, and the mask keep moving and leaking. She could not sleep well with CPAP due the shoulder pain and mask leaking. 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 Review of Systems Const All systems reviewed & are unremarkable except as noted in HPI and below ENT Reports Normal hearing present Neuro Reports Normal hearing present Physical Exam Vital Signs: Last Vital Signs Pulse 100 02/07/24 09:07 Resp 17 02/07/24 09:07 BP 142/84 H 02/07/24 09:07 BMI result Body Mass Index 34.7 Const General: cooperative Nutritional Appearance: obese Orientation/consciousness: patient oriented x3 Neck Neck: Yes full ROM and Yes supple Resp Effort & Inspection: normal respiratory effort and able to speak in complete sentences Neuro General: patient oriented x3, gait normal and moves all extremities Cranial nerves: Yes Bilaterally intact EOM present, Yes Normal facial strength present, Yes Midline tongue present, Yes Symmetric palate elevation present, Yes Normal hearing present, Yes Ability to bilaterally rotate head present and Yes Ability to bilaterally elevate shoulders present Cognition (Neuro): normal cognition Gait exam (Neuro): Normal gait present Motor exam (neuro): 5/5 motor strength present throughout, Pronator motor function not present and no tremor noted Psych Appearance: grossly normal Mental Status: mental status grossly normal Speech and movement: Normal speech and movement present Affect: normal affect Attitude: cooperative Assessment & Plan Assessment & Plan (1) SEEMA on CPAP: Comment: Mild degree of sleep apnea with increased severity in REM sleep. The AHI was 9/hr, REM AHI was 24/hr and oxygen katie was 84%. Code(s): G47.33 - Obstructive sleep apnea (adult) (pediatric) Plan Advised patient to continue to use APAP at [id number]. New CPAP mask fitting order with [facility] walk in information given to patient. Stressed compliance, use CPAP nightly and more than 4 hrs. Coding Level of Care Code Est Pt Level 3 (16509) Diagnoses SEEMA on CPAP G47.33
[2024-02-07 09:07] VITALS: BP 142/84; PULSE 100; RESP 17; BMI 34.7
== END 2024-02-07 09:47 | disposition home or self-care (01) ==
PROVIDERS: PCP Nurse Practitioner Primary Care; Visit Provider Nurse Practitioner Family
DX: G47.33 Obstructive sleep apnea (adult) (pediatric) (principal)
CPT/HCPCS: 99213

== ENCOUNTER → 2024-02-07 09:05 | Outpatient (BNVA) | payer MEDICAID, SELFPAY | PROVIDERS: PCP Nurse Practitioner Primary Care; Visit Provider Nurse Practitioner Family | DX: G47.33 Obstructive sleep apnea (adult) (pediatric) (principal) | CPT/HCPCS: 99212 ==

== ENCOUNTER 2024-02-21 09:14 | Outpatient (AMB) | payer OTHER, MEDICAID, SELFPAY ==
[2024-02-21 09:17] VITALS: BMI 34.7
--- NOTE | 2024-02-21 09:17 | MHC.OFFVIS ---
Intake Vital Signs 02/21/24 09:17 Height 5 ft 4 in Weight 202 lb BMI 34.7 Intake Visit Reasons: PO-Rt Shld 01/11/24 DR-follow up Intake Note: [place] is a 43 year old Right hand dominate female who presents for her post operative appointment s/p Right shoulder 01/11/2024. Patient reports she is having some pain and difficult time with some ROM, more so with reaching forward and behind her back. She is going to physical therapy here at [facility]. She denies any fevers or chills. Allergies cucumbers, pickles Allergy (Intermediate, Uncoded 02/07/24 09:07) Rash Medication List - Last Reconciled 02/21/24 by Ash Mccoy MD dulaglutide (Trulicity) 0.75 mg subcut QWEEK duloxetine 30 mg PO DAILY hydroxyzine HCl 10 mg PO Q8H PRN 3 days ibuprofen 800 mg PO Q8H PRN lidocaine 5% 1 patch transdermal DAILY metformin mg PO naproxen 500 mg PO BID oxycodone-acetaminophen 5-325 mg (Percocet) 1 tab PO Q6H PRN PFSH Medical History (Updated 02/08/24 @ 12:04 by Pop Huitron CNP) Polymyalgia Chronic neck pain Chronic low back pain with bilateral sciatica Pain in joint, multiple sites Surgical History (Updated 02/21/24 @ 09:25 by Shantelle Rosenbaum CMA) Hx of shoulder surgery (01/11/24) Hx of hysterectomy S/P cubital tunnel release Hx of laparoscopic gastric banding Family History Mother Hypertension Arthritis Father Diabetes Social History Household Members: Children Alcohol intake: current Alcohol intake frequency: does not drink Patient Tobacco Use Status: Never used Tobacco Current occupational status: employed 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, 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 Physical Exam Vital Signs: BMI result Body Mass Index 34.7 Const Other: Well-nourished well-developed very friendly female awake alert and oriented x3 in no acute distress Extrem Other: Bilateral upper extremity examination shows good capillary refill, no skin lesions noted, normal sensation light touch Right shoulder examination shows slightly decreased range of motion when compared to her left shoulder, mild discomfort with resisted forward flexion, 5/5 strength with supraspinatus testing, no instability Assessment & Plan Assessment & Plan (1) Right shoulder pain: Code(s): M25.511 - Pain in right shoulder Plan Ms. Horace Carballo continues to do well after undergoing right shoulder arthroscopic surgery on 01/11/2024. She will continue going to formal physical therapy for now. She will gradually transition to a home exercise program. The do's and don'ts of lifting were discussed at length with the patient. I did clear the patient to return to work. She will contact me prior to her follow-up appointment in 2 months should any questions or concerns arise. Feel free to call me at any time should questions regarding her orthopedic management arise. Medications: Changed From oxycodone-acetaminophen 5-325 mg (Percocet) Partial Fill upon patient request. 2 tabs PO Q4H PRN 40 tabs 0RF pain To oxycodone-acetaminophen 5-325 mg (Percocet) Partial Fill upon patient request. 1 tab PO Q6H PRN 30 tabs 0RF pain Coding Level of Care Code Global (55210) Diagnoses Right shoulder pain M25.511
== END 2024-02-21 09:38 | disposition home or self-care (01) ==
PROVIDERS: PCP Nurse Practitioner Primary Care; Visit Provider Orthopaedic Surgery
DX: M25.511 Pain in right shoulder (principal)
CPT/HCPCS: 99024

== ENCOUNTER → 2024-02-21 09:14 | Outpatient (BNVA) | payer OTHER, MEDICAID, SELFPAY | PROVIDERS: PCP Nurse Practitioner Primary Care; Visit Provider Orthopaedic Surgery | DX: Z47.89 Encounter for other orthopedic aftercare (principal) | CPT/HCPCS: 99212 ==

== ENCOUNTER 2024-02-22 09:00 | Outpatient (RCR) | payer MEDICAID, SELFPAY ==
--- NOTE | 2024-01-29 11:58 | MHC.PT.EP ---
[facility] [place] Office [place] Office [place] Office [address] [phone] F: [phone] F: [phone] F: [phone] F: [phone] Physical Therapy Plan of Care Date of Evaluation: 01/29/24 Date of Surgery: 01/11/24 Diagnosis: R SHOULDER ARTHROSCOPIC SURGERY. PER OP REPORT: SAD, DCE, BURSECTOMY Assessment: Pt IS 43 YO F REFERRED TO PT FROM ORTHO ([facility]) S/P R SHLDER SURGERY (PER OP REPORT SAD, DCE, BURSECTOMY) ON 01/11/24. Pt IS NOW 18 DAYS PO AND PRESENTS TO PT WITH LIMITED SHLDER ROM AND STRENGTH WITH PAIN REPORTED. Pt WORKS A [employer] AND HAS A 13 YO SON WITH DISABILITIES. SHOULD BENEFIT FROM PT TO HELP DECREASE SHOULDER PAIN AND HELP IMPROVE SHOULDER/UPPER BODY MOBILITY AND STRENGTH Frequency and Duration: The patient will be seen 2X/WK X 6 WKS Short Term Goals: 1. INCREASED POSTURE AWARENESS AND AWARENESS OF SHLDER CARE 2. I KT FOR SUPPORT IF INDICATED Rehabilitation Coordinator Goals: 1. I HEP WITH DC EX PLAN 2. INCREASED R SHOULDER ROM FLEX TO 160,ABDUCTION TO 130, ER TO 60 3. DECREASED R SHLDER PAIN AT LEAST 50% WITH ADLS Treatment Plan: Modalities to reduce pain, spasms and effusion. Manual therapy to restore motion and function. Therapeutic exercise to improve strength and flexibility. Neuromuscular re-education for posture and balance. Therapeutic activities to return to functional activities of daily living. Electronically signed by: ALEXANDRA COOK PT Please sign and return to therapist. Thank you for your referral.
--- NOTE | 2024-04-30 14:09 | MHC.PT.DC ---
[facility] [place] Office [place] Office [place] Office [address] [place] [address] [phone] F: [phone] F: [phone] F: [phone] F: [phone] Physical Therapy Discharge Report Diagnosis: R SHOULDER ARTHROSCOPIC SURGERY. 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 Minimal cuiing throughout and demonstrating near full AAROM w/table slides and pulleys Pt THEN CANCELLED NEXT APPT THEN NO SHOW X 2 Electronically signed by: ALEXANDRA COOK PT Please sign and return to therapist. Thank you for your referral.
== END 2024-04-30 14:09 | disposition home or self-care (01) ==
LOC: HO.PT 09:00
PROVIDERS: PCP Nurse Practitioner Primary Care; Visit Provider Physician Assistant
DX: M25.811 Other specified joint disorders, right shoulder (principal)
CPT/HCPCS: 97110; 97140; 97161; 97535

== ENCOUNTER 2024-05-19 09:40 | Outpatient (AMB) | payer MEDICAID, SELFPAY ==
[2024-05-19 09:44] VITALS: BMI 34.3
--- NOTE | 2024-05-19 09:44 | MHC.OFFVIS ---
Vital Signs 05/19/24 09:44 Height 5 ft 4 in Weight 200 lb BMI 34.3 Intake Visit Reasons: ov-Rt shoulder follow up Intake Note: [place] is a 43 yr old female who presents with complaints of mild intermittent discomfort in her right shoulder after undergoing right shoulder arthroscopic surgery on 01/11/2024. She denies any fevers or chills. She has taken Tylenol which gives her fairly good relief. She continues with her home stretching program. Allergies cucumbers, pickles Allergy (Intermediate, Uncoded 05/19/24 09:45) Rash Medication List - Last Reconciled 05/19/24 by Ash Mccoy MD dulaglutide (Trulicity) 0.75 mg subcut QWEEK duloxetine 30 mg PO DAILY hydroxyzine HCl 10 mg PO Q8H PRN 3 days lidocaine 5% 1 patch transdermal DAILY metformin mg PO PFSH Medical History (Updated 02/08/24 @ 12:04 by Pop Huitron CNP) Polymyalgia Chronic neck pain Chronic low back pain with bilateral sciatica Pain in joint, multiple sites Surgical History (Updated 02/21/24 @ 09:25 by Shantelle Rosenbaum CMA) Hx of shoulder surgery (01/11/24) Hx of hysterectomy S/P cubital tunnel release Hx of laparoscopic gastric banding Family History Mother Hypertension Arthritis Father Diabetes Social History Household Members: Children Alcohol intake: current Alcohol intake frequency: does not drink Patient Tobacco Use Status: Never used Tobacco Current occupational status: employed 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, 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 Physical Exam Vital Signs: BMI result Body Mass Index 34.3 Const Other: Well-nourished well-developed very friendly female awake alert and oriented x3 in no acute distress Extrem Other: Bilateral upper extremity examination shows good capillary refill, no skin lesions noted, normal sensation light touch Right shoulder examination shows that the surgical incisions are well healed, no erythema, almost full range of motion when compared to her left shoulder, 5/5 strength with supraspinatus testing, mild discomfort with resisted forward flexion, no instability Assessment & Plan Assessment & Plan (1) Right shoulder pain: Code(s): M25.511 - Pain in right shoulder Category: Medical Plan Ms. Horace Carballo continues to do fairly well after undergoing right shoulder arthroscopic surgery on 01/11/2024. I discussed with the patient the fact that her discomfort should continue to improve over the next few months. The do's and don'ts of lifting were discussed at length with the patient. She will contact me prior to her follow-up appointment in 2 months should any questions or concerns arise feel free to call me at any time should questions regarding her orthopedic management arise. I spent 20 minutes in reviewing the patient's records and imaging studies, seeing the patient and documenting in the medical record. Coding Level of Care Code Est Pt Level 3 (82544) Diagnoses Right shoulder pain M25.511
== END 2024-05-19 09:59 | disposition home or self-care (01) ==
PROVIDERS: PCP Nurse Practitioner Primary Care; Visit Provider Orthopaedic Surgery
DX: M25.511 Pain in right shoulder (principal)
CPT/HCPCS: 99213

== ENCOUNTER → 2024-05-19 09:40 | Outpatient (BNVA) | payer MEDICAID, SELFPAY | PROVIDERS: PCP Nurse Practitioner Primary Care; Visit Provider Orthopaedic Surgery | DX: M25.511 Pain in right shoulder (principal) | CPT/HCPCS: 99212 ==

== ENCOUNTER 2024-07-09 07:43 | Outpatient (AMB) | payer MEDICAID, SELFPAY ==
--- NOTE | 2024-07-09 08:08 | MHC.OFFVIS ---
Vital Signs 07/09/24 08:12 Height 5 ft 4 in Weight 220 lb BMI 37.8 BP 139/82 Blood Pressure Location Rt brachial Position Sitting Intake Visit Reasons: 5 mo f/u Intake Note: Patient presents for 5 month follow up. Allergies cucumbers, pickles Allergy (Intermediate, Uncoded 07/09/24 08:10) Rash Medication List - Last Reconciled 07/09/24 by BRIAN Le dulaglutide (Trulicity) 0.75 mg subcut QWEEK duloxetine 30 mg PO DAILY hydroxyzine HCl 10 mg PO Q8H PRN 3 days lidocaine 5% 1 patch transdermal DAILY metformin mg PO HPI Comments Details: 43-yr-old female presents for follow-up visit of sleep apnea. Pt denies any significant interval medical history changes. Pt reports she has not been able to use her APAP since the last visit, as she received a new mask however it is missing the connection piece to connect the mask to the tube. When she uses the APAP, she usually sleeps better. She also notes difficulty sleeping at times due to chronic back, neck, and shoulder pain, which can make it difficult to reposition/roll-over when sleeping. She states her back pain started after her son was born, and she had to sleep on the hospital floor for 6 months while her son required hospital care. Since, she has lost the natural curve of her back. She does have to help her 14 yo disabled son w/ most ADLs- so does need to lift/transfer him. States the base of her spine feels like it twists and can be numb in that area. She has seen chiropractor before, who advised her to see pain management. She is hoping to see a back doctor and plans to discuss w/ her current ortho at 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 General: patient oriented x3 Deep tendon reflexes (DTR's): Right patellar reflex intensity grade: 2+ and Left patellar reflex intensity grade: 2+ Psych Mental Status: mental status grossly normal Speech and movement: Clear speech present Attitude: cooperative Results Reviewed Results Reviewed: PAP compliance report- see HPI Assessment & Plan Assessment & Plan (1) SEEMA on CPAP: Comment: Mild degree of sleep apnea with increased severity in REM sleep. The AHI was 9/hr, REM AHI was 24/hr and oxygen katie was 84%. Code(s): G47.33 - Obstructive sleep apnea (adult) (pediatric) Category: Medical (2) Back pain: Code(s): M54.9 - Dorsalgia, unspecified Category: Medical Plan Resume APAP 5-20 cmH2O nightly > 4 hours, as pt has had good clinical effect from use. and is only not using as she does not have adequate supplies. Will request new mask fitting and supplies. Clean CPAP machine and supplies routinely. Change CPAP supplies routinely. Pt to contact us or respiratory company with any questions or concerns. Advised simple strategies to improve bed mobility- use bed sheets w/ less friction, consider adding a bedrail. Pt will f/u w/ ortho r/t back pain- advised may f/u w/ us if ortho request neuro eval. Coding Level of Care Code Est Pt Level 3 (79311) Diagnoses SEEMA on CPAP G47.33 Back pain M54.9
[2024-07-09 08:12] VITALS: BP 139/82; BMI 37.8
== END 2024-07-09 08:39 | disposition home or self-care (01) ==
PROVIDERS: PCP Nurse Practitioner Primary Care; Visit Provider Nurse Practitioner Family
DX: G47.33 Obstructive sleep apnea (adult) (pediatric) (principal); M54.9 Dorsalgia, unspecified
CPT/HCPCS: 99213

== ENCOUNTER → 2024-07-09 07:43 | Outpatient (BNVA) | payer MEDICAID, SELFPAY | PROVIDERS: PCP Nurse Practitioner Primary Care; Visit Provider Nurse Practitioner Family | DX: G47.33 Obstructive sleep apnea (adult) (pediatric) (principal); M54.9 Dorsalgia, unspecified; Z99.89 Dependence on other enabling machines and devices | CPT/HCPCS: 99212 ==

== ENCOUNTER 2024-07-22 08:46 | Outpatient (AMB) | payer MEDICAID, SELFPAY ==
[2024-07-22 08:48] VITALS: BMI 37.8
--- NOTE | 2024-07-22 08:48 | MHC.OFFVIS ---
Vital Signs 07/22/24 08:48 Height 5 ft 4 in Weight 220 lb BMI 37.8 Intake Visit Reasons: OV-Rt shoulder follow up, Low back pain Intake Note: [place] is a 43 yr old female who presents with complaints of progressively worsening low back pain which radiates into the posterior aspects of both of her legs. The patient did undergo right shoulder arthroscopic surgery on 01/11/2024. She reports minimal discomfort in her right shoulder. She describes her low back pain as sharp in nature. The patient has low back pain has gotten worse over the last 3-4 years. The patient states that she had an MRI of her lumbar spine 3 years ago which showed ?a disc problem?. Patient states that she intermittently has ?sciatica pain? which radiates down both of her legs. She also reports intermittent weakness in her legs. She has tried Tylenol, anti-inflammatory medicines and Cymbalta which gave her minimal relief. The patient has failed the last 6 weeks of conservative treatment. Allergies cucumbers, pickles Allergy (Intermediate, Uncoded 07/09/24 08:10) Rash Medication List - Last Reconciled 07/22/24 by Ash Mccoy MD dulaglutide (Trulicity) 0.75 mg subcut QWEEK duloxetine 30 mg PO DAILY hydroxyzine HCl 10 mg PO Q8H PRN 3 days lidocaine 5% 1 patch transdermal DAILY metformin mg PO PFSH Medical History (Updated 07/22/24 @ 09:06 by Ash Mccoy MD) Polymyalgia Chronic neck pain Chronic low back pain with bilateral sciatica Pain in joint, multiple sites Surgical History Hx of shoulder surgery (01/11/24) Hx of hysterectomy S/P cubital tunnel release Hx of laparoscopic gastric banding Family History Mother Hypertension Arthritis Father Diabetes Social History Household Members: Children Alcohol intake: current Alcohol intake frequency: does not drink Patient Tobacco Use Status: Never used Tobacco Current occupational status: employed 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, 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 Physical Exam Vital Signs: BMI result Body Mass Index 37.8 Const Other: Well-nourished well-developed very friendly female awake alert and oriented x3 in no acute distress Back/Spine/Pelvis Other: Low back examination shows bilateral paraspinal muscle tenderness, pain with range of motion, positive straight leg raise test bilaterally at 70 degrees Extrem Other: Right shoulder examination shows that the surgical incisions are well healed, no erythema, full range of motion when compared to her left shoulder, minimal discomfort with range of motion Assessment & Plan Assessment & Plan (1) Low back pain radiating to both legs: Code(s): M54.50 - Low back pain, unspecified; M79.604 - Pain in right leg; M79.605 - Pain in left leg Category: Medical Plan Ms. Horace Carballo continues to do well after undergoing right shoulder arthroscopic surgery on 01/11/2024. She does have progressively worsening low back pain which radiates into both of her legs most likely due to lumbar stenosis or a disc herniation. Thus, I will send the patient for an MRI of her lumbar spine for further evaluation. I will see her back once the MRI is completed to discuss the findings and treatment options. She will call me prior to that time should her symptoms worsen in any way. Feel free to call me at any time should questions regarding her orthopedic management arise. I spent 20 minutes in reviewing the patient's records and imaging studies, seeing the patient and documenting in the medical record. Orders: Orders MR lumbar spine wo con Today M54.50 - Low back pain, unspecified, M79.604 - Pain in right leg, M79.605 - Pain in left leg Coding Level of Care Code Est Pt Level 3 (55900) Complex EM visit Add On G2211 Diagnoses Low back pain radiating to both legs M54.50; M79.604; M79.605
== END 2024-07-22 09:09 | disposition home or self-care (01) ==
PROVIDERS: PCP Nurse Practitioner Primary Care; Visit Provider Orthopaedic Surgery
DX: M54.50 Low back pain, unspecified (principal); M79.604 Pain in right leg; M79.605 Pain in left leg
CPT/HCPCS: 99213; G2211

== ENCOUNTER → 2024-07-22 08:46 | Outpatient (BNVA) | payer OTHER, MEDICAID, SELFPAY | PROVIDERS: PCP Nurse Practitioner Primary Care; Visit Provider Orthopaedic Surgery | DX: M54.50 Low back pain, unspecified (principal); M79.605 Pain in left leg; M79.604 Pain in right leg | CPT/HCPCS: 99212 ==

== ENCOUNTER 2024-07-27 18:52 | Emergency (ER) | payer MEDICAID, SELFPAY ==
--- NOTE | 2024-07-27 19:08 | ED_ITS ---
HPI - General Adult General Chief complaint: Headache Stated complaint: Headache + hypertension Time Seen by Provider: 07/27/24 22:53 Source: patient Mode of arrival: ambulatory Limitations: no limitations History of Present Illness ED Provider: geraldine CHEN narrative: Patient's history of SEEMA no CPAP for last 3 months, fibromyalgia history of hypertension off medicine for 5 years comes here for having headache on the top of the head since last night checked her blood pressure was in 160s on arrival patient's blood pressure was 1419/93 other than headache patient feel nauseated with light sensitivity no projectile vomiting no head injury Related Data Home Medications ?Medication ?Instructions ?Recorded ?Confirmed duloxetine 30 mg capsule,delayed 30 mg PO DAILY depressive disorder 07/09/23 07/22/24 release lidocaine 5 % topical patch 1 patch transdermal DAILY 07/09/23 07/22/24 dulaglutide 0.75 mg/0.5 mL 0.75 mg subcut QWEEK 07/19/23 07/22/24 subcutaneous pen injector (Trulicity) metformin 1,000 mg tablet mg PO 07/19/23 07/22/24 Previous Rx's ?Medication ?Instructions ?Recorded hydroxyzine HCl 10 mg tablet 10 mg PO Q8H PRN itching 3 days #9 01/21/24 tabs amlodipine 5 mg tablet 5 mg PO DAILY #30 tabs 07/28/24 motgsgavig-bowyzaimfmxhz-ffjfoowz 1 tab PO Q6H PRN haeadace #20 tabs 07/28/24 50 mg-325 mg-40 mg tablet Allergies Allergy/AdvReac Type Severity Reaction Status Date / Time cucumbers, pickles Allergy Intermediate Rash Uncoded 07/27/24 19:15 Review of Systems 2 Review of Systems: Yes all other systems are reviewed and are negative [facility] Past Medical History Medical History Polymyalgia Chronic neck pain Chronic low back pain with bilateral sciatica Pain in joint, multiple sites Surgical History Hx of shoulder surgery (01/11/24) Hx of hysterectomy S/P cubital tunnel release Hx of laparoscopic gastric banding Family History Family History Mother Hypertension Arthritis Father Diabetes Social History Social History Household Members: Children Alcohol intake: current Alcohol intake frequency: does not drink Patient Tobacco Use Status: Never used Tobacco Advance Directives: No Advance Directives Information Provided: No Do you have a plan to hurt others: No Plan Current occupational status: employed 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 Oriented X3. No acute distress. Eyes: PERRLA, No Nystagmus ENT: Pharynx normal. Oral Mucosa moist no temporal artery tenderness Neck: Normal inspection. Neck supple. CVS: Normal heart rate and rhythm. Pulses normal. Respiratory: No respiratory distress. Equal air entry bilateral, no wheezing/rales/rhonchi Abdomen: Soft and nontender. Bowel sounds are present, no mass palpable, no CVA tenderness Skin: Skin warm and dry. Normal skin color. Normal skin turgor. Extremities: No lower extremity edema. No calf tenderness Neuro: Oriented X 3. No motor deficit. No sensory deficit.No cerebellar signs , cranial nerves II-XII intact Course Course Course Narrative: This is an RME performed by Parker Santoro CNP: Additional HPI, ROS, PE not included below will be deferred to primary provider. Patient is a 44-year-old female who presents to the emergency department for evaluation of a bilateral parietal Headache, onset yesterday night and has been constant in nature, describes having diffuse pressure throughout the head like swelling , checked her blood pressure tonight and it was 160/107. Has a history of hypertension, has not been taking antihypertensives over the past 5 years as she lost weight and no longer needed it. Denies associated dizziness, lightheadedness, vision changes, shortness of breath, chest pain. No focal neurological deficits. Medications Administered Discontinued Medications Generic Name Dose Route Start Last Admin Trade Name Freq PRN Reason Stop Dose Admin Ondansetron HCl 4 mg 07/27/24 23:23 07/28/24 00:02 Ondansetron Odt 4 Mg Tab.Rapdis TRANSLINGU 07/27/24 23:24 4 mg ONCE ONE Administration Medical Decision Making Medical Decision Making [facility] Narrative: Patient with hypertension history came as elevated blood pressure with headache likely not thunderclap headache patient has had gradual onset of headache no focal deficit no vomiting blood pressure on the right arm was 159/93 left arm 167/88 patient does have strong family history of hypertension has gained weight again after losing weight few years ago will start patient on amlodipine 5 mg daily also for headache likely she has migraine headache will give Fioricet Differential Diagnosis Differential Diagnoses: The differential diagnosis associated with the presentation includes Subarachnoid hemorrhage/hypertension headache/migraine Lab Data [facility] Lab Attestation statement: I reviewed the patient's lab results. 07/27/24 19:32 07/27/24 19:32 Labs: Lab Results 07/27/24 Range/Units 19:32 WBC 8.0 (4.8-10.8) X10*3/uL RBC 4.52 (4.20-5.50) X10*6/uL Hgb 11.2 L (12.0-16.0) g/dl Hct 35.5 L (37.0-47.0) % MCV 78.5 L (80.0-98.0) fL MCH 24.8 L (27.0-33.0) pg MCHC 31.5 (31.0-35.0) g/dl RDW 15.7 (11.0-16.0) % Plt Count 333 (160-400) X10*3/uL MPV 8.3 L (9.4-12.3) fL Immature Gran % (Auto) 0.2 (0.0-0.4) % Neut % (Auto) 54.5 (45-73) % Lymph % (Auto) 36.0 (20-40) % Martin % (Auto) 7.2 (2-11) % Eos % (Auto) 1.6 (0-4) % Baso % (Auto) 0.5 (0-2) % Lymph # (Auto) 2.9 (1.2-4.9) X10*3/uL Martin # (Auto) 0.6 (0.1-1.2) X10*3/uL Eos # (Auto) 0.1 (0.0-0.4) X10*3/uL Baso # (Auto) 0.0 (0.0-0.2) X10*3/uL Abs Immat Gran (auto) 0.02 (0.00-0.03) X10*3/uL Absolute Neuts (auto) 4.4 (2.0-8.3) x10*3/uL Absolute Nucleated RBC 0.000 (0.0-0.012) X10*3/uL Nucleated RBC % (auto) 0.0 (0.0-0.2) /100WBC Sodium 140 (135-145) mmol/L Potassium 3.8 (3.3-5.1) mmol/L Chloride 108 (96-108) mmol/L Carbon Dioxide 21 L (22-29) mmol/L Anion Gap 15 (12-20) BUN 13 (9-16) mg/dL Creatinine 0.62 (0.5-1.4) mg/dL Estim Creat Clear Calc 128.9 Estimated GFR > 60 Random Glucose 139 H (60-115) mg/dL Calcium 9.5 (8.4-10.2) mg/dL Total Bilirubin 0.3 (0.0-1.0) mg/dL AST 16 (5-31) U/L ALT 12 (0-31) U/L Alkaline Phosphatase 70 (39-117) U/L Total Protein 7.7 (6.5-8.0) g/dL Albumin 4.2 (3.5-5.0) g/dL Influenza Type A (PCR) NEGATIVE (Negative) Influenza Type B (PCR) NEGATIVE (Negative) RSV RNA Qual (PCR) NEGATIVE (Negative) SARS-CoV-2 RNA (RT-PCR) NEGATIVE (Negative) Discharge Plan Discharge Clinical Impression: Headache, Essential hypertension Patient Disposition: Home, Self-Care Instructions: Acute Headache (ED), Hypertension (ED) Additional Instructions: Decrease salt intake Start taking blood pressure medicine daily as prescribed Check the blood pressure before taking the medicine and before going to bed it should be less than 135/85 Follow with your PCP Prescriptions: New ebupmpyisg-zyjnjvqvjalqd-faad 50-325-40 mg tablet 1 tab PO Q6H PRN (Reason: haeadace) Qty: 20 0RF amlodipine 5 mg tablet 5 mg PO DAILY Qty: 30 0RF No Action hydroxyzine HCl 10 mg tablet 10 mg PO Q8H PRN (Reason: itching) 3 Days Qty: 9 0RF lidocaine 5 % adhesive patch,medicated 1 patch transdermal DAILY duloxetine 30 mg capsule,delayed release(DR/EC) 30 mg PO DAILY metformin 1,000 mg tablet PO Trulicity 0.75 mg/0.5 mL pen injector 0.75 mg subcut QWEEK Print Language: Mexican
[2024-07-27 19:13] VITALS: BP 141/93; PULSE 99; RESP 18; TEMP 37.1; O2SAT 98; BMI 34.3
[2024-07-27 19:36] LABS: MANUAL DIFF FLAG NO
[2024-07-27 19:39] LABS: Basophils Percent Auto 0.5 % (0-2); Eosinophils Absolute Auto 0.1 X10*3/uL (0.0-0.4); Eosinophils Percent Auto 1.6 % (0-4); Hematocrit 35.5 % (37.0-47.0); Hemoglobin 11.2 g/dl (12.0-16.0); Imm Gran Abs Auto 0.02 X10*3/uL (0.00-0.03); Imm Gran Pct Auto 0.2 % (0.0-0.4); Lymphocytes Absolute Auto 2.9 X10*3/uL (1.2-4.9); Mean Corpuscular HGB Conc 31.5 g/dl (31.0-35.0); Mean Corpuscular Hemoglobin 24.8 pg (27.0-33.0); Mean Corpuscular Volume 78.5 fL (80.0-98.0); Mean Platelet Volume 8.3 fL (9.4-12.3); Monocytes Absolute Auto 0.6 X10*3/uL (0.1-1.2); Monocytes Percent Auto 7.2 % (2-11); Neutrophils Absolute Auto 4.4 x10*3/uL (2.0-8.3); Neutrophils Percent Auto 54.5 % (45-73); Platelet Count 333 X10*3/uL (160-400); Red Blood Count 4.52 X10*6/uL (4.20-5.50); Red Cell Distribution Width 15.7 % (11.0-16.0)
[2024-07-27 19:57] LABS: Alanine Aminotransferase 12 U/L (0-31); Albumin Level 4.2 g/dL (3.5-5.0); Alkaline Phosphatase 70 U/L (39-117); Anion Gap 15 (12-20); Aspartate Amino Transferase 16 U/L (5-31); Bilirubin Total 0.3 mg/dL (0.0-1.0); Blood Urea Nitrogen 13 mg/dL (9-16); Calcium 9.5 mg/dL (8.4-10.2); Carbon Dioxide 21 mmol/L (22-29); Chloride 108 mmol/L (96-108); Creatinine Clr Calc Pharmacy 128.9; Estimated Glomerular Filt Rate > 60; Glucose Random 139 mg/dL (60-115); Potassium 3.8 mmol/L (3.3-5.1); Sodium 140 mmol/L (135-145); Total Protein 7.7 g/dL (6.5-8.0)
[2024-07-27 20:17] LABS: Influenza A PCR NEGATIVE (Negative); Influenza B PCR NEGATIVE (Negative); Resp Syncy Virus RNA Qual PCR NEGATIVE (Negative); SARS COV2 PCR INHOUSE NEGATIVE (Negative)
[2024-07-28] MEDS: Ondansetron ODT 4 MG TAB.RAPDIS TRANSLINGU (00:02)
[2024-07-28 00:29] VITALS: BP 175/90; PULSE 76; RESP 17; O2SAT 98
[2024-07-28] MEDS: amLODIPine Besylate 5 MG TABLET PO ×2 (00:31→02:06)
[2024-07-28] MEDS: Butalb/Acetamin/Caff 50/325/40 TABLET 1 TAB PO (00:31)
[2024-07-28 00:42] VITALS: BP 173/78; PULSE 82; RESP 16; TEMP 36.6; O2SAT 97
[2024-07-28 01:49] VITALS: BP 190/91; PULSE 73; RESP 19; O2SAT 99
[2024-07-28 01:59] VITALS: BP 179/95
[2024-07-28 02:29] VITALS: BP 179/95; PULSE 78; RESP 20; TEMP 36.1; O2SAT 98
== END 2024-07-28 02:30 | disposition home or self-care (01) ==
PROVIDERS: Nurse Practitioner Family; Emergency Provider Internal Medicine; PCP Nurse Practitioner Primary Care
DX: R51.9 Headache, unspecified (principal); I10 Essential (primary) hypertension; Z79.899 Other long term (current) drug therapy; Z03.818 Encounter for observation for suspected exposure to other biological agents ruled out
CPT/HCPCS: 0241U; 80053; 85025; 99283

== ENCOUNTER 2024-08-06 19:23 | Outpatient (REF) | payer MEDICAID, SELFPAY ==
--- NOTE | ~2024-08-06 | MR_ITS ---
EXAMINATION: MR LUMBAR SPINE WITHOUT CONTRAST CLINICAL INFORMATION: Lower back pain COMPARISON: MRI lumbar spine 08/27/2020 TECHNIQUE: MRI of the lumbar spine was obtained using routine sequences without contrast. FINDINGS: Trace anterolisthesis of L4 on L5. No suspicious marrow signal or focal osseous lesion. T12-L1 endplate Schmorl's nodes. No significant marrow edema The vertebral body heights are maintained. Disc desiccation and mild height loss from L3-L4 to L5-S1. The conus medullaris terminates at the level of L2. The distal spinal cord is normal in appearance. The cauda equina nerve roots appear normal. No significant abnormalities of the paraspinal musculature. Limited evaluation of the intra-abdominal structures without significant abnormalities. The abdominal aorta is of normal contour and caliber. SPINAL LEVELS: T12-L1: No significant spinal canal or neural foraminal narrowing L1-L2: No significant spinal canal or neuroforaminal narrowing. L2-L3: No significant spinal canal or neuroforaminal narrowing. L3-L4: Shallow central disc protrusion with posterior annular fissure and mild facet arthropathy. No significant spinal canal or neural foraminal narrowing L4-L5: Trace anterolisthesis of posterior disc and covering. Moderate facet arthropathy, right worse than left. Shallow disc bulge with posterior annular fissure. Ligament and flavum thickening. Stable subarticular zone narrowing and mild bilateral neural foraminal narrowing. No significant central spinal canal stenosis. L5-S1: Central disc protrusion with left posterior annular fissure. Mild facet arthropathy. No significant central spinal canal stenosis. Stable left subarticular zone narrowing and mild bilateral neural foraminal narrowing. MR/MR lumbar spine wo con IMPRESSION: Mild degenerative changes of the lumbar spine as detailed above appear stable compared to MRI from 08/27/2020. No significant central spinal canal stenosis, high-grade neural foraminal narrowing, or evidence of nerve impingement. Electronically signed by: Leobardo Phipps MD 08/18/2024 09:33 PM EDT
== END 2024-08-06 19:24 | disposition home or self-care (01) ==
LOC: HO.MRI 19:23
PROVIDERS: PCP Nurse Practitioner Primary Care; Visit Provider Orthopaedic Surgery
DX: M54.50 Low back pain, unspecified (principal); M79.604 Pain in right leg; M79.605 Pain in left leg
CPT/HCPCS: 72148

== ENCOUNTER 2024-08-08 09:29 | Outpatient (REF) | payer MEDICAID, SELFPAY ==
--- NOTE | ~2024-08-08 | XR_ITS ---
EXAMINATION: XR HIP, LEFT CLINICAL INFORMATION: M25.552 - Pain in left hip, worse left side. COMPARISON: None available. TECHNIQUE: AP pelvis, and 2 views left hip. FINDINGS: Normal bone mineralization. No fracture, dislocation, or suspicious bone lesion. Hip joint spaces are largely preserved. Femoral head is normal in contour. Perhaps minimal degenerative arthritis. Overriding acetabulum noted, configuration suggestive of pincer-type GALE. This was also present on the right. Moderate degenerative changes of both SI joints. Mild degenerative disc and facet changes lower lumbar spine. Soft tissues appear normal. XR/XR hip LT min 2V IMPRESSION: 1. No acute findings left hip. 2. 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 Electronically signed by: Leovn Vazquez MD 10/17/2024 01:11 PM [facility]
--- NOTE | ~2024-08-08 | XR_ITS ---
EXAMINATION: XR HIP, RIGHT CLINICAL INFORMATION: M25.551 - Pain in right hip COMPARISON: None available. TECHNIQUE: AP pelvis, and 2 views right hip. FINDINGS: Normal bone mineralization. No fracture, dislocation, or suspicious bone lesion. Hip joint spaces are largely preserved. Femoral head is normal in contour. Perhaps minimal degenerative arthritis. Overriding acetabulum noted, configuration suggestive of pincer-type GALE. This was also present on the right. Moderate degenerative changes of both SI joints. Mild degenerative disc and facet changes lower lumbar spine. Soft tissues appear normal. XR/XR hip RT min 2V IMPRESSION: 1. No acute findings right hip. 2. 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 Electronically signed by: Levon Vazquez MD 10/17/2024 01:12 PM [facility]
== END 2024-08-08 09:30 | disposition home or self-care (01) ==
LOC: HO.XRAY 09:29
PROVIDERS: PCP Nurse Practitioner Primary Care; Visit Provider Physician Assistant
DX: M25.552 Pain in left hip (principal); M25.551 Pain in right hip
CPT/HCPCS: 20610; 73502; 99212; J1010

== ENCOUNTER → 2024-08-08 09:33 | Outpatient (BNV) | payer MEDICAID, SELFPAY | PROVIDERS: PCP Nurse Practitioner Primary Care; Visit Provider Radiology Diagnostic Radiology | DX: M25.552 Pain in left hip (principal); M25.551 Pain in right hip | CPT/HCPCS: 73502 ==

== ENCOUNTER 2024-08-08 13:33 | Outpatient (AMB) | payer MEDICAID, SELFPAY ==
--- NOTE | 2024-08-08 13:42 | MHC.OFFVIS ---
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 Patient reports her pain has been present for a while. Her pain is located on the lateral aspect of hip and radiates down her leg. Occasional numbness and tingling. NO relief with tylenol or ibuprofen. She has tried and failed PT. She had a recent MRI of her back. 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 She states she has pain at the lateral aspect of her bilateral hips that radiates down to her leg. Her pain is aggravated with stair use and at night. She also experiences occasional numbness and tingling in her feet. She finds no relief with Tylenol or ibuprofen. She has tried physical therapy with no relief. She has a history of diabetes. Her sugar level is well controlled. 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 Review of Systems Const All systems reviewed & are unremarkable except as noted in HPI and below Physical Exam Const General: cooperative, healthy appearing, comfortable, no acute distress, well developed and alert Orientation/consciousness: patient oriented x3 HEENT Head: Yes normal to inspection, Yes normocephalic and Yes atraumatic Eyes General: appearance normal, both eyes and all related structures Resp Effort & Inspection: normal respiratory effort and able to speak in complete sentences Cardio Rate: regular rate Peripheral pulses: Peripheral pulses 2+ throughout GI Palpation (GI): Soft to palpation Skin Lesions: no lesions Rashes: no rashes Neuro General: patient oriented x3 Extrem Other: Bilateral hip: Normal to inspection. No pain with ROM of the hip. Pain along the greater trochanter. No pain with hip flexion or abduction. Positive tenderness along the SI joint, Positive SLR. NVI. Office Procedures Joint Injection/Aspiration Joint Injection/Aspiration Details: left trochanteric bursa Prep: site was prepped using aseptic technique, ethochloride spray was applied and injection warnings given Injected: 40 mg of, DepoMedrol, with 8 mL of and 1% plain lidocaine Procedure: The patient tolerated the procedure well and there was some relief with the local anesthesia Coding 84645 - Glenohumeral/Tronchanteric Bursa/Intraarticular Procedure code (CPT) selection complete Results Reviewed Results Reviewed: xrays of bilat hip are negative for acute fracture or dislocations Assessment & Plan Assessment & Plan (1) Greater trochanteric bursitis of both hips: Code(s): M70.61 - Trochanteric bursitis, right hip; M70.62 - Trochanteric bursitis, left hip Category: Medical Plan We discussed options today, which include steroid injection. The patient did consent to move forward with the left hip injection, which was tolerated well. I recommended rest, ice, and elevation and OTC anti-inflammatories as needed for discomfort. We also discussed diabetes and the effect the steroid injection can have on their blood glucose levels; therefore, they will continue to monitor these very closely over the next 72 hours. If there are concerns, they should report to the ED immediately. Orders: Orders XR hip LT min 2V Today M25.552 - Pain in left hip XR hip RT min 2V Today M25.551 - Pain in right hip Patient Instructions: Scribed for Krista Warren PA-C, by Deo Hernandez, medical education coordinator, on 08/08/2024 at 2:00 PM EST.? I, Krista Warren PA-C, have personally reviewed and agree with the information entered by the scribe. Coding Level of Care Code Est Pt Level 3 (36213) Complex EM visit Add On G2211 Diagnoses Greater trochanteric bursitis of both hips M70.61; M70.62 CPT Codes Coding - Joint 7: 45623 - Glenohumeral/Tronchanteric Bursa/Intraarticular ([id number])
== END 2024-08-08 14:24 | disposition home or self-care (01) ==
PROVIDERS: PCP Nurse Practitioner Primary Care; Visit Provider Physician Assistant
DX: M70.61 Trochanteric bursitis, right hip (principal); M70.62 Trochanteric bursitis, left hip
CPT/HCPCS: 20610; 99213

== ENCOUNTER 2024-08-14 09:23 | Outpatient (AMB) | payer MEDICAID, SELFPAY ==
--- NOTE | 2024-08-14 09:39 | A.OFFVIS_ITS ---
Intake Visit Reasons: Low back pain, left knee pain Intake Note: [place] is a 44 year old female who presents with complaints of progressively worsening low back pain which radiates into both of her legs. She also reports intermittent pain in her left knee. She states that at times her left knee will give out. She has tried Tylenol and anti-inflammatory medicines which gave her minimal relief. She has also done physical therapy exercises which aggravated her pain. that presents today for bilateral knee pain. Patient states she has had pain in both knees for a while but states the left is worse than the right. Pt states she hears cracking in her knees and states it is hard to walk up stairs. Allergies cucumbers, pickles Allergy (Intermediate, Uncoded 08/14/24 09:39) Rash Medication List - Last Reconciled 08/14/24 by Ash Mccoy MD amlodipine 5 mg PO DAILY gtebshgwvm-yphzduthlkrke-dsss 50-325-40 mg 1 tab PO Q6H PRN dulaglutide (Trulicity) 0.75 mg subcut QWEEK duloxetine 30 mg PO DAILY hydroxyzine HCl 10 mg PO Q8H PRN 3 days lidocaine 5% 1 patch transdermal DAILY metformin mg PO PFSH Medical History Polymyalgia Chronic neck pain Chronic low back pain with bilateral sciatica Pain in joint, multiple sites Surgical History Hx of shoulder surgery (01/11/24) Hx of hysterectomy S/P cubital tunnel release Hx of laparoscopic gastric banding Family History Mother Hypertension Arthritis Father Diabetes Social History Household Members: Children Alcohol intake: current Alcohol intake frequency: does not drink Patient Tobacco Use Status: Never used Tobacco Current occupational status: employed 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604 - Pain in right leg; M79.605 - Pain in left leg Category: Medical Plan [place] presents with left knee pain and mechanical symptoms most likely due to a tear of her medial meniscus. She also has low back pain which radiates into both of her legs possibly due to lumbar stenosis. Thus, I will arrange for her to have a follow-up appointment in our neurosurgery department here at [facility]. She wishes to hold off on a left knee MRI for now. She will follow up with me on an as-needed basis should her symptoms worsen in any way. Feel free to call me at any time should questions regarding her orthopedic management arise. I spent 22 minutes in reviewing the patient's records and imaging studies, seeing the patient and documenting in the medical record. Orders: Orders XR knee LT 3V Today M25.562 - Pain in left knee Referrals Neuro Spine Referral M54.50 - Low back pain, unspecified, M79.604 - Pain in right leg, M79.605 - Pain in left leg Coding Level of Care Code Est Pt Level 3 (99826) Complex EM visit Add On G2211 Diagnoses Low back pain radiating to both legs M54.50; M79.604; M79.605
== END 2024-08-14 10:07 | disposition home or self-care (01) ==
PROVIDERS: PCP Nurse Practitioner Primary Care; Referring Provider Nurse Practitioner Primary Care; Visit Provider Orthopaedic Surgery
DX: M54.50 Low back pain, unspecified (principal); M79.604 Pain in right leg; M79.605 Pain in left leg; M25.562 Pain in left knee
CPT/HCPCS: 99213

== ENCOUNTER → 2024-08-14 09:26 | Outpatient (BNV) | payer MEDICAID, SELFPAY | PROVIDERS: Visit Provider Radiology Diagnostic Radiology | DX: M25.562 Pain in left knee (principal) | CPT/HCPCS: 73562 ==

== ENCOUNTER 2024-08-14 11:11 | Outpatient (REF) | payer MEDICAID, SELFPAY ==
--- NOTE | ~2024-08-14 | XR_ITS ---
EXAMINATION: XR KNEE, LEFT CLINICAL INFORMATION: M25.562 - Pain in left knee COMPARISON: None available. TECHNIQUE: Four views of the left knee. FINDINGS: Normal bone mineralization. No fracture, dislocation, or suspicious bone lesion. Normal alignment of the knee joint. Minimal medial compartment and patellofemoral compartment joint space narrowing with subtle osteophytic spurring. Lateral compartment appears preserved. There is no joint effusion in the suprapatellar bursa. Soft tissues demonstrate early vascular calcifications. XR/XR knee LT 3V IMPRESSION: 1. No acute findings left knee. 2. Early patellofemoral and medial compartment arthritis. Electronically signed by: Levon Vazquez MD 10/17/2024 01:13 PM [facility]
== END 2024-08-14 11:12 | disposition home or self-care (01) ==
LOC: HO.HOSX 11:11
PROVIDERS: Visit Provider Orthopaedic Surgery
DX: M25.562 Pain in left knee (principal); M54.50 Low back pain, unspecified; M79.604 Pain in right leg; M79.605 Pain in left leg
CPT/HCPCS: 73562; 99212

== ENCOUNTER 2024-08-18 08:42 | Outpatient (AMB) | payer MEDICAID, SELFPAY ==
--- NOTE | 2024-08-18 09:03 | HO.SPINEOV ---
Intake Visit Reasons: LBP Intake Note: Ms. Horace Carballo is here today c/o low back pain. MRI done @ [facility]. 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 She is a very nice 44 female presents today for evaluation of back pain. She does have pain throughout her whole spine but most of it is located in her lower lumbar spine. She will have occasional radicular pains down her legs, left greater than right. Occasionally urinary urgency but no priti incontinence. The pain started 14 years ago when her disabled son was in the intensive care unit in [place] and she had to sleep on the floor for about 6 months. Since that time, she has had on and off daily back pain the only seems to have gotten worse. 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 She has to carry him up the stairs multiple times a day, sometimes putting him over her shoulder and walking him up a flight of stairs. She will also have to do all of his basic health care, showering, hygiene etc., lifting him in and out of her car etc.. She has tried to treat this back pain with conservative treatments including physical therapy, chiropractic, acupuncture. She has been to see the [facility] and did have an injection in her neck but nothing in her back yet. She comes in today to follow-up on an MRI that was done here at [place]. PMH: Diabetic, or A1cs usually between 6 and 7, hypertension, elbow surgery, right shoulder surgery, hysterectomy, gastric sleeve, Social hx: She does not smoke, drink or use any recreational drugs Medications: Please see the [employer] list Allergies: No medication allergies Physical exam: She is awake alert oriented no acute distress, she is slow to get up on the examining table but can do it independently. Strength and reflexes are normal. Imaging review: Lumbar MRI done at [place], does not have a formal radiology read back on a yet, but to my eyes it looks very similar to what she had in 2020 where she has some mild disc bulging at L4-5 and L5-S1. There is no misalignment, no significant facet arthropathy and really no nerve compression despite the radiology read from 2020 suggesting that there is lateral recess stenosis. I do not see any evidence of Modic endplate changes or severe discogenic disease. Impression: This is a 44-year-old female who has had back pain for the last 14 years that started when she was sleeping on a floor for 6 months in [place], that has only gotten steadily worse over time. Her MRI shows some mild degenerative changes. 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 She also has to do all of his basic hygiene care, transitioning him in and out of bed, car etc.. I think what she is dealing with here is muscular strain an overuse. She does not need surgery as her MRI does show some mild degenerative changes, and no evidence of any overt nerve compression. What she needs some kind of social assistance to make her living arrangement with her son a bit more manageable in terms of how much physical stress yet to place on her body. She is working on getting a new living environment on the 1st floor housing but it has been difficult. She has also been looking into getting a new vehicle that will make the situation with the wheelchair more manageable. If something changes down the road I told her to give me a call and we could re-evaluate. Thank you for allowing us to care for your patient. The total time spent with this visit with this patient was 45 minutes reviewing history, physical exam, lumbar imaging review, and implementation of treatment plan or further diagnostic testing Maykel Schuler MD,PhD [facility] Coding Level of Care Code New Pt Level 4 (68056) Diagnoses Back pain M54.9
== END 2024-08-18 09:37 | disposition home or self-care (01) ==
PROVIDERS: PCP Nurse Practitioner Primary Care; Referring Provider Orthopaedic Surgery; Visit Provider Physician Assistant
DX: M54.9 Dorsalgia, unspecified (principal)
CPT/HCPCS: 99204

== ENCOUNTER → 2024-08-18 08:42 | Outpatient (BNVA) | payer MEDICAID, SELFPAY | PROVIDERS: PCP Nurse Practitioner Primary Care; Visit Provider Physician Assistant | DX: M54.9 Dorsalgia, unspecified (principal) | CPT/HCPCS: 99212 ==

== ENCOUNTER 2024-08-19 12:44 | Outpatient (AMB) | payer MEDICAID, SELFPAY ==
--- NOTE | 2024-08-19 13:05 | MHC.OFFVIS ---
Intake Visit Reasons: OV-Right hip injection Intake Note: [place] a 44 year old female who presents today for a right hip injection. Allergies cucumbers, pickles Allergy (Intermediate, Uncoded 08/19/24 13:06) Rash Medication List - Last Reconciled 08/19/24 by Krista Warren PA-C amlodipine 5 mg PO DAILY hxxtbxfbbh-jxedfbifsvsfq-msaa 50-325-40 mg 1 tab PO Q6H PRN dulaglutide (Trulicity) 0.75 mg subcut QWEEK duloxetine 30 mg PO DAILY hydroxyzine HCl 10 mg PO Q8H PRN 3 days lidocaine 5% 1 patch transdermal DAILY metformin mg PO HPI HPI OV-Right hip injection: Details: 44-year-old female returns to the office today for right hip pain. She had an injection in the left hip a few weeks ago which gave her some good relief. She continues to have pain in the right hip with sleeping on the right side and standing for long periods of time. 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 No pain with ROM of the hip. Pain along the greater trochanter. No pain with hip flexion or abduction.There is tenderness along the si joint, Negative SLR. NVI. Office Procedures Joint Injection/Aspiration Joint Injection/Aspiration Details: Right trochanteric bursa Prep: site was prepped using aseptic technique, ethochloride spray was applied and injection warnings given Injected: 40 mg of, DepoMedrol, with 8 mL of and 1% plain lidocaine Procedure: The patient tolerated the procedure well and there was some relief with the local anesthesia Coding 92284 - Glenohumeral/Tronchanteric Bursa/Intraarticular Procedure code (CPT) selection complete Assessment & Plan Assessment & Plan (1) Trochanteric bursitis, right hip: Code(s): M70.61 - Trochanteric bursitis, right hip Category: Medical Plan: We discussed options today, which include steroid injection. The patient did consent to move forward with the injection, which was tolerated well.? I recommended rest, ice and elevation and OTC antiinflammatories prn for discomfort. If symptoms persist over the next 6-8 weeks, they will contact our office, otherwise, prn We also discussed their diabetes and the effect the steroid can have on thier blood glucose levels; therefore, they will continue to monitor these very closely over the next 72 hours Coding Level of Care Code Est Pt Level 3 (73966) Complex EM visit Add On G2211 Diagnoses Trochanteric bursitis, right hip M70.61 CPT Codes Coding - Joint 7: 75981 - Glenohumeral/Tronchanteric Bursa/Intraarticular ([id number])
== END 2024-08-19 13:24 | disposition home or self-care (01) ==
PROVIDERS: PCP Nurse Practitioner Primary Care; Visit Provider Physician Assistant
DX: M70.61 Trochanteric bursitis, right hip (principal)
CPT/HCPCS: 20610; 99213

== ENCOUNTER → 2024-08-19 12:44 | Outpatient (BNVA) | payer MEDICAID, SELFPAY | PROVIDERS: PCP Nurse Practitioner Primary Care; Visit Provider Physician Assistant | DX: M70.61 Trochanteric bursitis, right hip (principal) | CPT/HCPCS: 20610; 99212; J1010; J2003 ==

== ENCOUNTER 2024-09-10 10:56 | Outpatient (AMB) | payer MEDICAID, SELFPAY ==
--- NOTE | 2024-09-10 11:03 | A.OFFVIS_ITS ---
Intake Visit Reasons: OV-Rt shoulder follow up Intake Note: [place] is a 44 year old female who presents with complaints of mild intermittent discomfort in her right shoulder after undergoing right shoulder arthroscopic surgery on 01/11/2024. She denies any fevers or chills. She does not take any medicines for her discomfort. She continues with her home stretching program. Allergies cucumbers, pickles Allergy (Intermediate, Uncoded 08/19/24 13:06) Rash Medication List - Last Reconciled 09/10/24 by Ash Mccoy MD amlodipine 5 mg PO DAILY mxlicppniy-yqzhsrfohlupb-qqtz 50-325-40 mg 1 tab PO Q6H PRN dulaglutide (Trulicity) 0.75 mg subcut QWEEK duloxetine 30 mg PO DAILY hydroxyzine HCl 10 mg PO Q8H PRN 3 days lidocaine 5% 1 patch transdermal DAILY metformin mg PO PFSH Medical History Polymyalgia Chronic neck pain Chronic low back pain with bilateral sciatica Pain in joint, multiple sites Surgical History Hx of shoulder surgery (01/11/24) Hx of hysterectomy S/P cubital tunnel release Hx of laparoscopic gastric banding Family History Mother Hypertension Arthritis Father Diabetes Social History Household Members: Children Alcohol intake: current Alcohol intake frequency: does not drink Patient Tobacco Use Status: Never used Tobacco Current occupational status: employed 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, 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 Physical Exam Const Other: Well-nourished well-developed very friendly female awake alert and oriented x3 in no acute distress Extrem Other: Bilateral upper extremity examination shows good capillary refill, no skin lesions noted, normal sensation light touch Right shoulder examination shows that the surgical incisions are well healed, no erythema, full range of motion when compared to her left shoulder, 5/5 strength with supraspinatus testing, no instability Assessment & Plan Assessment & Plan (1) Right shoulder pain: Code(s): M25.511 - Pain in right shoulder Category: Medical Plan [place] continues to do well after undergoing right shoulder arthroscopic surgery on 01/11/2024. She will continue with her home stretching program to prevent stiffness. The do's and don'ts of lifting were discussed at length with the patient. She will follow up with me on an as-needed basis should her symptoms worsen in any way. Feel free to call me at any time should questions regarding her orthopedic management arise. I spent 21 minutes in reviewing the patient's records and imaging studies, seeing the patient and documenting in the medical record. Coding Level of Care Code Est Pt Level 3 (78136) Complex EM visit Add On G2211 Diagnoses Right shoulder pain M25.511
== END 2024-09-10 11:17 | disposition home or self-care (01) ==
LOC: HO.HOS 10:56
PROVIDERS: PCP Nurse Practitioner Primary Care; Visit Provider Orthopaedic Surgery
DX: M25.511 Pain in right shoulder (principal)
CPT/HCPCS: 99213

== ENCOUNTER → 2024-09-10 10:56 | Outpatient (BNVA) | payer MEDICAID, SELFPAY | PROVIDERS: PCP Nurse Practitioner Primary Care; Visit Provider Orthopaedic Surgery | DX: M25.511 Pain in right shoulder (principal) | CPT/HCPCS: 99212 ==

== ENCOUNTER 2025-01-29 10:46 | Outpatient (REF) | payer MEDICAID, SELFPAY ==
--- NOTE | ~2025-01-29 | XR_ITS ---
CLINICAL HISTORY: bilateral shoulder pain, history of right shoulder surgery 2 view bilateral shoulder Comparison: None Findings: Bones intact. No dislocations. No significant loss of joint space or osteophytes. No erosions. No radiopaque foreign body. IMPRESSION: 1. No acute findings This document has been electronically signed by: Reinier Steinberg MD on 01/30/2025 08:14:02
--- NOTE | ~2025-01-29 | XR_ITS ---
CLINICAL HISTORY: pain in right shoulder 2 view right shoulder Comparison: 10/09/2023 Findings: Bones intact. No dislocations. No significant loss of joint space or osteophytes. No erosions. No radiopaque foreign body. IMPRESSION: 1. No acute findings This document has been electronically signed by: Reinier Steinberg MD on 01/30/2025 08:30:25
== END 2025-01-29 10:47 | disposition home or self-care (01) ==
LOC: HO.XRAY 10:46
PROVIDERS: PCP Nurse Practitioner Primary Care; Visit Provider Family Medicine
DX: M25.511 Pain in right shoulder (principal); M25.512 Pain in left shoulder; G89.29 Other chronic pain
CPT/HCPCS: 73030

== ENCOUNTER → 2025-01-29 10:52 | Outpatient (BNV) | payer MEDICAID, SELFPAY | PROVIDERS: PCP Nurse Practitioner Primary Care; Visit Provider Specialist | DX: M25.512 Pain in left shoulder (principal); M25.511 Pain in right shoulder | CPT/HCPCS: 73030 ==

== ENCOUNTER 2025-01-30 08:50 | Outpatient (REF) | payer MEDICAID, SELFPAY ==
--- NOTE | ~2025-01-30 | US_ITS ---
EXAMINATION: MM DIAGNOSTIC DIGITAL BREAST TOMOSYNTHESIS, RIGHT Right breast ultrasound. CLINICAL INFORMATION: Right palpable lump lower inner quadrant. Patient does not feel the palpable area today. COMPARISON: Mammography: [facility] on PACS. TECHNIQUE: Digital breast tomosynthesis is performed in both the craniocaudal and mediolateral oblique views along with computer-aided detection (CAD). Synthesized 2D images are generated from the tomosynthesis. FINDINGS: There are scattered areas of fibroglandular density (ACR BI-RADS breast composition Category b). There are no significant masses, abnormal calcifications, or other abnormalities. Targeted color Doppler ultrasound scanning in the right lower inner quadrant at 6:00 in area of previous palpable lump demonstrates normal fibroglandular breast tissue. There is no sonographic abnormality. US/US breast RT limited mamm only IMPRESSION: No mammographic or sonographic abnormality to account for the patient's intermittent and right lower inner quadrant palpable lump. Recommend clinical evaluation follow-up. ASSESSMENT: BI-RADS BI-RADS 1 - Negative RECOMMENDATION: 1 year F/U Results were provided to the patient at time of visit by the technologist. This patient's information was entered into a reminder system with a target due date for their next mammogram. Electronically signed by: Noy Haddad DO 01/30/2025 10:20 AM EDT
== END 2025-01-30 08:51 | disposition home or self-care (01) ==
LOC: HO.MAMMO 08:50
PROVIDERS: PCP Nurse Practitioner Primary Care; Visit Provider Internal Medicine
DX: N63.14 Unspecified lump in the right breast, lower inner quadrant (principal)
CPT/HCPCS: 76642; 77061; 77065

== ENCOUNTER → 2025-01-30 09:00 | Outpatient (BNV) | payer MEDICAID, SELFPAY | PROVIDERS: PCP Nurse Practitioner Primary Care; Visit Provider Internal Medicine | DX: N63.14 Unspecified lump in the right breast, lower inner quadrant (principal) | CPT/HCPCS: 76642; 77061; 77065 ==

== ENCOUNTER 2025-02-17 07:51 | Outpatient (AMB) | payer MEDICAID, SELFPAY ==
--- NOTE | 2025-02-17 07:52 | MHC.OFFVIS ---
Vital Signs 02/17/25 07:59 Height 5 ft 4 in Weight 200 lb BMI 34.3 Intake Visit Reasons: Right knee pain and giving way Intake Note: [place] is a 44 year old female who presents with complaints of progressively worsening bilateral knee pains and giving way, right greater than left. She describes her right knee pain as sharp in nature. Most of the pain is along the medial and anterior aspects of her knee. The patient states that she has difficulty going up and down stairs because of her pain and instability. She continues to take Cymbalta for fibromyalgia. She has also tried Tylenol and anti-inflammatory medicines which gave her minimal relief. Her symptoms have gotten worse over the last year in spite of continued non operative treatments. She has failed the last 6 weeks of conservative treatment which has included a home exercise program and physical therapy exercises. She states that her right knee will give out several times per day. Allergies cucumbers, pickles Allergy (Intermediate, Uncoded 02/17/25 08:03) Rash Medication List - Last Reconciled 02/17/25 by Ash Mccoy MD amlodipine 5 mg PO DAILY uxgqdiusbi-xzzbyxfzutzpj-mrvl 50-325-40 mg 1 tab PO Q6H PRN dulaglutide (Trulicity) 0.75 mg subcut QWEEK duloxetine 60 mg PO DAILY enalapril maleate 10 mg PO DAILY hydroxyzine HCl 10 mg PO Q8H PRN 3 days lidocaine 5% 1 patch transdermal DAILY metformin mg PO terbinafine HCl 250 mg PO DAILY PFSH Medical History Polymyalgia Chronic neck pain Chronic low back pain with bilateral sciatica Pain in joint, multiple sites Surgical History Hx of shoulder surgery (01/11/24) Hx of hysterectomy S/P cubital tunnel release Hx of laparoscopic gastric banding Family History Mother Hypertension Arthritis Father Diabetes Social History Household Members: Children Alcohol intake: current Alcohol intake frequency: does not drink Patient Tobacco Use Status: Never used Tobacco Current occupational status: employed 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, 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 Physical Exam Vital Signs: BMI result Body Mass Index 34.3 Const Other: Well-nourished well-developed very friendly female awake alert and oriented x3 in no acute distress Extrem Other: Bilateral lower extremity examination shows good capillary refill, no skin lesions noted, normal sensation light touch Right knee examination shows a minimal effusion, mild crepitus with range of motion, tenderness along her medial joint line, positive Lissa's test, no instability Results Reviewed Results Reviewed: Standing full weight-bearing x-rays of the patient's right knee taken previously show minimal joint space narrowing, no acute bony abnormalities Assessment & Plan Assessment & Plan (1) Tear of medial meniscus of right knee: Code(s): S83.241A - Other tear of medial meniscus, current injury, right knee, initial encounter Category: Medical Plan Ms. Horace Carballo presents with progressively worsening right knee pain and mechanical symptoms most likely due to a medial meniscus tear. Thus, I will send the patient for an MRI of her right knee for further evaluation. I will see her back once the MRI is completed to discuss the findings and treatment options. Feel free to call me at any time should questions regarding her orthopedic management arise. I spent 21 minutes in reviewing the patient's records and imaging studies, seeing the patient and documenting in the medical record. Orders: Orders MR knee RT wo con Today S83.241A - Other tear of medial meniscus, current injury, right knee, initial encounter Coding Level of Care Code Est Pt Level 3 (92641) Complex EM visit Add On G2211 Diagnoses Tear of medial meniscus of right knee S83.241A
--- OUTSIDE RECORDS SUMMARY | 2025-02-17 07:55 | XMS_ITS | Encounter Summary ---
Author Organization [facility] Address [address] [place] [address] Care Team Providers Care Application Developer Manager Name Role Phone Ivania Magallon CHLOE Primary Care Provider Encounter Details Date Type Department Care Team ([facility] st Contact Info) Description 02/13/2025 1:45 PM EDT Office Visit [facility] MEDICINE [address], [place] [id number] Derek Peña MD [address] [place] [address] Nummular dermatitis (Primary Dx) Social History Tobacco Use Types Packs/Day Years Used Date Smoking Tobacco: Never Passive Smoke Exposure: Never Smokeless Tobacco: Never Alcohol Use Standard Drinks/Week Comments Never 0 (1 standard drink = 0.6 oz pur e alcohol) Depression Answer Date Recorded Patient Health Questionnaire-9 Score 9 01/20/2025 Patient Health Questionnaire-9 Score 9 01/20/2025 Last PHQ-9: Questionnaire Data Not on file 0 01/20/2025 Housing Stability Answer Date Recorded What is your housing situation today? I have segundowillie agosto 10/02/[address] you li ve. Do you have problems with any of the following? None of the above 10/02/2024 Food Insecurity Answer Date Recorded Within the past 12 months, y ou worried that your food would run out before you got money to buy more: Never True 10/02/2024 Within the past 12 months,th e food you bought just didn't last and you didn't have enough money to get more: Never True Transportation Answer Date Recorded In the past 12 months, has l ack of transportation kept you from medical appts, meetings, work or from getting things needed for daily living? No 10/02/2024 Utilities Answer Date Recorded In the past 12 months, has t he electric, gas, oil or water company threatened to shut off services in your home? No 10/02/2024 Depression Answer Date Recorded Patient Health Questionnaire-2 Score 3 01/20/2025 Internet Access Answer Date Recorded Internet Access Q1 Yes 10/02/2024 Internet Access Q2 Not on file 10/02/2024 Comments No Sex and Gender Information Value Date Recorded Sex Assigned at Female 09/11/2022 10:29 AM EDT Legal Sex Female 10:29 AM EDT Gender Identity Female 09/11/2022 10:29 AM EDT Sexual Orientation Straight 09/11/2022 10 :29 AM EDT documented as of this encounter Last Filed Vital Signs Vital Sign Reading Time Taken Comments Blood Pressure 130/78 02/13/2025 1:52 PM EDT Pulse 74 02/13/2025 1:52 PM EDT Temperature 36.6 ??C (97.8 ??F) 02/13/2025 1:52 PM ED T Respiratory Rate 14 02/13/2025 1:52 PM EDT Oxygen Saturation - - Inhaled Oxygen Concentration - - Weight 96.8 kg (213 lb 8 oz) 02/13/2025 1:52 PM EDT Height 162.6 cm (5' 4 ) 02/13/2025 1:52 PM EDT Body Mass Index 36.65 02/13/2025 1:52 PM EDT documented in this encounter Progress Notes * Derek Peña MD - 02/13/2025 1:45 PM EDT Subjective Patient ID: [place] Carballo is a 44 y.o. female who presents for No chief complaint on file.. HPI 44 yr old woman with more than a year of recurring rash on extremities, itchy. Review of Systems Constitutional: Negative for diaphoresis, fatigue and fever. HENT: Negative for ear discharge, ear pain, facial swelling and hearing loss. Respiratory: Negative for cough, choking, chest tightness and shortness of breath. Cardiovascular: Negative for chest pain and leg swelling. Gastrointestinal: Negative for abdominal distention, abdominal pain and anal bleeding. Endocrine: Negative for cold intolerance and heat intolerance. Genitourinary: Negative for enuresis, flank pain and frequency. Musculoskeletal: Negative for arthralgias, back pain and gait problem. Neurological: Negative for dizziness, facial asymmetry and headaches. Psychiatric/Behavioral: Negative for agitation, behavioral problems and confusion. Objective Physical Exam Constitutional: Appearance: Normal appearance. HENT: Head: Normocephalic and atraumatic. Nose: Nose normal. Eyes: Pupils: Pupils are equal, round, and reactive to light. Pulmonary: Effort: Pulmonary effort is normal. Musculoskeletal: General: Normal range of motion. Cervical back: Normal range of motion. Skin: Comments: Erythematous scaly patches on extremities. Neurological: General: No focal deficit present. Mental Status: She is alert. Assessment/Plan Diagnoses and all orders for this visit: Nummular dermatitis Has not responded to Tac 0.1% with cerave Switch to Diprolene ointment bid for 2 weeks RTC in 4-6 weeks - betamethasone, augmented, (Diprolene) 0.05 % ointment; Apply topically 2 times daily. documented in this encounter Plan of Treatment Upcoming Encounters Date Type Department Care Team ([facility] st Contact Info) Description 02/27/2025 9:00 AM EDT Office Visit [facility] OPTOMETRY [address] [place] [address] Justus, Anjali, OD [address] [place] [address] 03/13/2025 10:00 AM EDT Office Visit [facility] MEDICINE [address] [place] [address] Derek Peña MD [address] [place] [address] documented as of this encounter Visit Diagnoses Diagnosis Nummular dermatitis- Primary Contact dermatitis and other eczema, due to unspecified cause documented in this encounter Additional Health Concerns Assessment Noted Time PHQ-9 Depression Total Score: 9 01/21/20 25 1:36 PM EDT documented as of this encounter Care Teams Application Developer Manager Relationship Specialty Start Date End Date Ivania Magallon ANP [address] [place] [address] PCP - General Family Medicine 04/30/20 documented as of this encounter
--- OUTSIDE RECORDS SUMMARY | 2025-02-17 07:55 | XMS_ITS | Clinical Summary ---
Author Organization [facility] Address [address] [place] [address] Care Team Providers Care Manager Business Planning Name Role Phone Shona Cheng CHLOE Primary Care Provider [phone] Allergies Active Allergy Reactions Criticality Noted Date Comments Paris Extract High 09/07/2021 Other reaction(s): GI Problems, Hives / Skin Rash Mixed Vespid Venom Hives 09/07/2021 mosquito Medications DULoxetine (Cymbalta) [address] capsuleIndicat ions:Fibromyal reva Syndrome Take 60 mg by mouth Once per day. 023 Active EPINEPHrine (Epipen) 0.3 MG/0.3ML injection syringeIndicat ions:Allergy to insect bites INJECT 0.3 ML INTRAMUSCULARLY ONCE NEEDED FOR ANAPHYLAXIS 1 each 1 023 Active triamcinolone (Kenalog) 0.1 % creamIndicatio ns:Atopic dermatitis, unspecified type Apply topically if needed in the morning and at bedtime (pain and swelling). Mix with Cerave and apply after showers 80 g 2 023 Active dulaglutide (Trulicity) 3 MG/0.5ML solution pen-injectorIn dications:Hype rtension associated with diabetes (CMS/HCC) Inject 3 mg under the skin 1 (one) time per week. 4 each 11 024 Active metFORMIN (Glucophage) 1000 MG tabletIndicati ons:Hypertensi on associated with diabetes (CMS/HCC) 1 TAB TWICE A DAY WITH MEALS 180 tablet 1 024 Active enalapril (Vasotec) 10 MG tablet Take 1 tablet (10 mg) by mouth Once per day. 90 tablet 1 024 2024 Active butalbital-qian taminophen-caf feine 50-325-40 MG tablet TAKE 1 TABLET BY MOUTH EVERY 6 HOURS NEEDED FOR HEADACHE 20 tablet 024 Active fexofenadine (Marianne) 180 MG tabletIndicati ons:Atopic dermatitis, unspecified type TAKE 1 TABLET (180 MG) BY MOUTH IF NEEDED EACH DAY (ALLERGIES). 90 tablet 1 024 Active naproxen (Naprosyn) 500 MG tabletIndicati ons:Polyarthra lgia,Chronic neck pain,Chronic bilateral low back pain with bilateral sciatica TAKE 1 TABLET (500 MG) BY MOUTH WITH BREAKFAST AND WITH EVENING MEAL as needed for pain 60 tablet 024 Active nystatin (Mycostatin) 237805 UNIT/GM powder Apply topically 2 times daily. 60 g 1 025 2025 Active triamcinolone (Kenalog) 0.1 % cream Apply topically if needed in the morning and at bedtime (pain and swelling). 30 g 5 025 Active lidocaine (Lidoderm) 5 % patch APPLY 1 PATCH BY TRANSDERMAL ROUTE EVERY DAY (MAY WEAR UP TO 12 HOURS) 30 patch 3 025 Active celecoxib (CeleBREX) 200 MG capsule Take 1 capsule by mouth once or twice daily as needed for moderate to severe pain 60 capsule 025 Active betamethasone, augmented, (Diprolene) 0.05 % ointmentIndica tions:Nummular dermatitis Apply topically 2 times daily. 45 g 025 Active lidocaine (Lidoderm) 5 % patch APPLY 1 PATCH BY TRANSDERMAL ROUTE EVERY DAY (MAY WEAR UP TO 12 HOURS) 30 patch 3 024 2024 Discontinued Active Problems Problem Noted Date Diagnosed Date COVID-19 12/16/2024 Assessment & Plan (12/16/2024 1:11 PM EST): Pt with c/o new onset of nasal congestion and dry cough x 1 day, no fever or any other associated symptoms, exam unremarkable Plan: Paxlovid, supportive measures Follow up if worsening or no improvement Mass of lower inner quadrant of right breast 02/2025 Assessment & Plan (12/16/2024 1:18 PM EST): Pt c/o noticing a tiny lump on her right inner breast, she also reports she had a mammogram back in June but I was unable to locate it. On exam she has a small area of nodularity/induration around 3 O'clock right breast no larger than 2-3 mm, very superficial Plan: diagnostic mammogram on the right. Follow up with PCP, pt tells me she already has an appointment in January Adjustment disorder with mixed emotional feature s 07/04/2023 Binge eating disorder 07/04/2023 History of surgical procedure 07/04/2023 Morbid obesity with BMI of 40.0-44.9, adult 06/13 Weight loss 07/04/2023 Obstructive sleep apnea syndrome 05/31/2018 08/27/2023 Overview (07/11/2024): On APAP and following with sleep medicine Pt cont to benefit from and require CPAP/APAP/BiPAP therapy. Chronic low back pain 04/26/2018 Diabetes mellitus 03/07/2016 Hypertension associated with diabetes 03/07/2016 Overview (07/11/2024): A1c goal </= 7.0 A1c above goal Agrees to Trulicity increase. Stop Trulicity 1.5. Start Trulicity 3 mg once weekly. Continue metformin 1000 mg twice daily. Assessment & Plan (01/28/2025 6:40 PM EDT): Pt states home BP readings are always < 140/80 usually in 120s Here elevated BP today -advised pt to bring home BP readings at next apt w PCP -scheduled for next week - Ordered X-Rays on 01/28/25 Assessment & Plan (08/22/2023 10:08 AM EDT): Pt states home BP readings are always < 140/80 usually in 120s Here elevated BP today -advised pt to bring home BP readings at next apt w PCP -scheduled for next week Resolved Problems Problem Noted Date Diagnosed Date Resolved Date Stye 08/22/2023 08/21/2024 Assessment & Plan (08/22/2023 10:09 AM EDT): Reports initially left which resolved and now right stye with mild blepharitis currently only in right eye otherwise normal eye exam -advised to use warm compresses QID in eye -hand hygiene -px doxycycline BID for 7 days-explained possible SE and to avoid sun exposure -ophthalmology pt has apt in 09/2023 -alarm signs and symptoms discussed -if continue to recur will need to eval if possible from uncontrol DM -last h1AC was 7.9 in 07/12/2023 -Pt has apt w PCP next week to monitor chronic conditions Subconjunctival hemorrhage 04/17/2018 1 Encounters Date Type Department Care Team Description 02/13/2025 1:45 PM EDT Office Visit [facility] MEDICINE [address] [place] [phone] Derek Peña MD Nummular dermatitis (Primary Dx) 02/13/2025 Travel 02/05/2025 Telephone [facility] MEDICINE [address] [place] [address] Shona Cheng ANP [facility] 02/03/[address] [phone] Shona Cheng ANP Appointment Request 02/03/[address] [phone] Shona Cheng ANP DME from [facility] 01/30/2025 Telephone [facility] MEDICINE [address] [place] [phone] Patricia Mcgregor RN Results 01/28/2025 11:00 AM EDT Office Visit [address] [address] Ange Enciso MD Hypertension associated with diabetes (CMS/HCC) (CMS/HCC) (Primary Dx); Chronic pain of both shoulders 01/28/2025 Travel 01/26/2025 Telephone [facility] MEDICINE [address] [place] [phone] Shona Cheng ANP Nurse Triage 01/23/2025 Population Health Risk Score [facility] ([facility]) [address] [phone] Provider, Population Health Generic 01/23/2025 Refill [facility] MEDICINE [address] [place] [phone] Johanny Downey DO 01/21/[address] [address] Shona Cheng ANP Durable Medical Equipment (Liners/incontinenc e pads) 01/20/2025 1:00 PM EDT Office Visit [address] [address] Shona Cheng ANP Hypertension associated with diabetes (CMS/HCC) (CMS/HCC) (Primary Dx); Urinary incontinence, mixed 01/20/2025 Travel 01/09/2025 Patient Outreach [address] [address] Shona Cheng ANP Pre-visit Planning (SDOH Screening negative and Tobacco screening negative) 01/01/2025 Orders Only [address] [address] Dayton Llamas MD Mass of lower inner quadrant of right breast (Primary Dx) 12/31/2024 Telephone [facility] [address] [place] [phone] Dyaton Llamas MD MAMMO DIAGNOSTIC ORDER 12/24/2024 5:20 PM EST Office Visit [facility] WALK[facility] [address] [place] [address] Brayan Lynch MD Tinea corporis (Primary Dx); Allergic eczema 12/24/2024 Travel 12/24/[address] [phone] Shona Cheng ANP Nurse Triage 12/16/2024 1:00 PM EST Office Visit [address] [address] Dayton Llamas MD COVID-19 (Primary Dx); Nasal congestion; Mass of lower inner quadrant of right breast 12/16/2024 Travel 12/15/[address] [address] Shona Cheng ANP Nurse Triage 11/21/2024 Telephone [facility] MEDICINE [address] [place], [place] [phone] Hiral Bower [place] January recall from Last 3 Months Immunizations Name Administration Dates Next Due Hep B, adult 02/27/2024,09/25/2023,08/28/2023 Influenza Injectable Quadriv alant Preservative Free IIV4 MDCK 09/22/2022 Influenza injectable quadriv alent IIV4 with preservative 10/09/2016 Influenza injectable quadriv alent preservative free 08/08/2021,09/27/2020,08/08/2019,2016 Influenza, Injectable, MDCK, preservative free 07/30/2024 Pfizer Covid-19 Vaccine 12+ 11/23/2023 Pneumococcal Conjugate PCV 20 11/23/2023 Tdap 01/08/2017 Family History Medical History Relation Name Comments Prostate cancer Maternal Grandfather Fibromyalgia Mother Breast cancer Mother's Sister Lupus Other Relation Name Status Comments Maternal Grandfather Mother Mother's Sister Other Social History Tobacco Use Types Packs/Day Years Used Date Smoking Tobacco: Never Passive Smoke Exposure: Never Smokeless Tobacco: Never Tobacco Cessation:Counseling Given: Not Answered Alcohol Use Standard Drinks/Week Comments Never 0 (1 standard drink = 0.6 oz pur e alcohol) Depression Answer Date Recorded Patient Health Questionnaire-9 Score 9 01/20/2025 Patient Health Questionnaire-9 Score 9 01/20/2025 Last PHQ-9: Questionnaire Data Not on file 0 01/20/2025 Housing Stability Answer Date Recorded What is your housing situation today? I have [place] ag[place] 10/02/[address] you [...] Orientation Straight 09/11/2022 10 :29 AM EDT Last Filed Vital Signs Vital Sign Reading Time Taken Comments Blood Pressure 130/78 02/13/2025 1:52 PM EDT Pulse 74 02/13/2025 1:52 PM EDT Temperature 36.6 ??C (97.8 ??F) 02/13/2025 1:52 PM ED T Respiratory Rate 14 02/13/2025 1:52 PM EDT Oxygen Saturation 98% 01/20/2025 1:09 PM EDT Inhaled Oxygen Concentration - - Weight 96.8 kg (213 lb 8 oz) 02/13/2025 1:52 PM EDT Height 162.6 cm (5' 4 ) 02/13/2025 1:52 PM EDT Body Mass Index 36.65 02/13/2025 1:52 PM EDT Plan of Treatment Upcoming Encounters Date Type Department Care Team (Late st Contact Info) Description 02/27/2025 9:00 AM EDT Office Visit [facility] OPTOMETRY [address] [place] [address] Anjali Jerome, OD [address] [place] [address] 03/13/2025 10:00 AM EDT Office Visit [facility] MEDICINE [address] [place] [address] Derek Peña MD [address] [place] [address] Health Maintenance Due Date Last Done Comments Diabetes: Foot Exam 1992 Family Planning (PISQ) 1997 Lipid Panel 09/07/2023 09/07/2022, 12/30/2020 Diabetes: Urine Protein Screening 08/28/2024 08/28/2023, 08/04/2020 Depression Monitoring (PHQ-9) 07/23/2025 01/20/2025, 01/20/2025 Diabetes: Hemoglobin A1C 07/23/2025 025, 10/14/2024, 07/11/2024, Additional history exists Eye Exam 10/02/2025 10/02/2023, 09/13, 10/02/2023, Additional history exists SDOH Screening 01/09/2026 01/09/2025 Alcohol/Substance Use Screening 01/20/2026 01/20/2025 Depression Screening 01/20/2026 01/20/2025, 01/21/20 25 Tobacco Screening 01/28/2026 01/28/2025 Mammogram 01/30/2026 01/30/2025, 01/11, 01/30/2025 DTaP/Tdap/Td Vaccines (2 - Td or Tdap) 01/08/2027 01/08/2017 Zoster Vaccines (1 of 2) 2032 RSV Patients and Patients Aged 60 years or older (1 - 1-dose 75+ series) 2057 Cervical Cancer Screening Discontinued HPV/Cotest Discontinued 01/30/2018, 11/01/2016 Pneumococcal Vaccine: Pediatrics (0 to 5 Years) and At-Risk Patients (6 to 49) Years) Completed 11/23/2023 HIV Screening Completed 01/11/2024 Hepatitis C Screening Completed 01/11/2024 Hepatitis B Vaccines Completed 02/27/2024, 09/25/2023, 08/28/2023 COVID-19 Vaccine Completed 07/30/2024, 10/2024, 08/11/2021, Additional history exists Influenza Vaccine Completed 07/30/2024, , 08/08/2021, Additional history exists HIB Vaccines Aged Out No longer eligi ble based on patient's age to complete this topic HPV Vaccines Aged Out No longer eligi ble based on patient's age to complete this topic Hepatitis A Vaccines Aged Out No long er eligible based on patient's age to complete this topic IPV Vaccines Aged Out No longer eligi ble based on patient's age to complete this topic Meningococcal Vaccine Aged Out No kalia nelli eligible based on patient's age to complete this topic Pap Smear Discontinued RSV under 20 months Aged Out No longe r eligible based on patient's age to complete this topic Rotavirus Vaccines Aged Out No longer eligible based on patient's age to complete this topic Procedures Procedure Name Priority Date/Time Associated Diagnosis Comments BI US BREAST LIMITED RIGHT Routine 01/30/2025 9:12 AM EDT Mass of lower inner quadrant of right breast BI MAMMOGRAM DIAGNOSTIC TOMOSYNTHESIS RIGHT Routine 01/30/2025 9:00 AM EDT Mass of lower inner quadrant of right breast XR SHOULDER 2+ VIEWS RIGHT Routine 01/30/2025 8:30 AM EDT Hypertension associated with diabetes (CMS/HCC) (CMS/HCC) Chronic pain of both shoulders XR SHOULDER 2+ VIEWS LEFT Routine 01/30/2025 8:14 AM EDT Hypertension associated with diabetes (CMS/HCC) (CMS/HCC) Chronic pain of both shoulders AMB REFERRAL TO ORTHOPAEDIC SURGERY Routine 01/23/2025 Bilateral hip pain Chronic pain of both knees POCT GLYCATED HEMOGLOBIN, TOTAL Routine 01/20/2025 1:12 PM EDT Hypertension associated with diabetes (CMS/HCC) (CMS/HCC) POCT GLUCOSE Routine 01/20/2025 1:11 PM EDT Hypertension associated with diabetes (CMS/HCC) (CMS/HCC) POC RUEDA ID NOW STREP A Routine 12/16/2024 1:10 PM EST Nasal congestion POCT RAPID COVID ANTIGEN Routine 12/16/2024 1:10 PM EST Nasal congestion HEPATITIS C ANTIBODY Routine 01/11/2024 2:05 PM EST HIV AB/AG EXPOSURE SOURCE Routine 01/11/2024 2:05 PM EST ALBUMIN, RANDOM URINE W/CREATININE Routine 08/28/2023 10:58 AM EDT Hypertension associated with diabetes (CMS/HCC) LIPID PANEL, STANDARD Routine 09/07/2022 8:37 AM EDT ZZZ HISTORICAL HPV MRNA E6/E7 Routine 01/30/2018 10:13 AM EDT from Last 3 Months or Most Recently Relevant to Health Maintenance Results * BI US Breast Limited Right (01/30/2025 9:12 AM EDT) Anatomical Region Laterality Modality Breast Right Ultrasound 01/30/2025 9:12 AM EDT Narrative 01/30/2025 10:23 AM EDT ? [facility] [place] ? [address] ?[place] [address] ? Ultrasound Report ? Signed ? Patient: [place]ia Robles ?MR#: [id number] ?? [id number] ? : 1980 ?Acct:[id number] ? Age/Sex: 44 / F ?ADM Date: 01/30/25 ? Loc: HO.MAMMO ? Attending Dr: Dayton Frazier MD ? Ordering Physician: Dayton Frazier MD ?? Date of Service: 01/30/25 ?? Procedure(s): US breast RT limited mamm only ?? Accession Number(s): [id number] ? cc: Dayton Frazier MD; SHONA CHENG NP ? EXAMINATION: ?? MM DIAGNOSTIC DIGITAL BREAST TOMOSYNTHESIS, RIGHT ?? Right breast ultrasound. ? CLINICAL INFORMATION: ? Right palpable lump lower inner quadrant. Patient does not feel the ?? palpable area today. ? COMPARISON: ?? Mammography: [facility] on PACS. ? TECHNIQUE: ?? Digital breast tomosynthesis is performed in both the craniocaudal and ?? mediolateral oblique views along with computer-aided detection (CAD). ?? Synthesized 2D images are generated from the tomosynthesis. ? FINDINGS: ?? There are scattered areas of fibroglandular density (ACR BI-RADS breast ?? composition Category b). ? There are no significant masses, abnormal calcifications, or other ?? abnormalities. ? Targeted color Doppler ultrasound scanning in the right lower inner ?? quadrant at 6:00 in area of previous palpable lump demonstrates normal ?? fibroglandular breast tissue. ??There is no sonographic abnormality. ? US/US breast RT limited mamm only ?? IMPRESSION: ?? No mammographic or sonographic abnormality to account for the patient's ?? intermittent and right lower inner quadrant palpable lump. Recommend ?? clinical evaluation follow-up. ? ASSESSMENT: ? BI-RADS BI-RADS 1 - Negative ? RECOMMENDATION: ?? 1 year F/U ? Results were provided to the patient at time of visit by the ?? technologist. ? This patient's information was entered into a reminder system with a ?? target due date for their next mammogram. ? Electronically signed by: ??Noy Haddad DO ??01/30/2025 10:20 AM EDT ? Dictated By: ?Noy Haddad DO ? Signed By: ?<Electronically signed by Noy Haddad, DO in OV> ? 01/30/25 1020 ? DD/ 0912 ? TD/TT: 01/30/25 0935 ? Theatrical Agent: ? Procedure Note Raymon, Image - 01/30/2025 [facility] [address] [place] [address] Ultrasound Report Signed Patient: Robert Robles#: [id number] : 1980Acct:[id number] Age/Sex: 44 / FADM Date: 01/30/25 Loc: HO.[place] Attending Dr: Dayton Frazier MD Ordering Physician: Dayton Frazier MD Date of Service: 01/30/25 Procedure(s): US breast RT limited mamm only Accession Number(s): [id number] cc: Dayton Frazier MD; SHONA CHENG NP EXAMINATION: MM DIAGNOSTIC DIGITAL BREAST TOMOSYNTHESIS, RIGHT Right breast ultrasound. CLINICAL INFORMATION: Right palpable lump lower inner quadrant. Patient does not feel the palpable area today. COMPARISON: Mammography: [facility] on PACS. TECHNIQUE: Digital breast tomosynthesis is performed in both the craniocaudal and mediolateral oblique views along with computer-aided detection (CAD). Synthesized 2D images are generated from the tomosynthesis. FINDINGS: There are scattered areas of fibroglandular density (ACR BI-RADS breast composition Category b). There are no significant masses, abnormal calcifications, or other abnormalities. Targeted color Doppler ultrasound scanning in the right lower inner quadrant at 6:00 in area of previous palpable lump demonstrates normal fibroglandular breast tissue. There is no sonographic abnormality. US/US breast RT limited mamm only IMPRESSION: No mammographic or sonographic abnormality to account for the patient's intermittent and right lower inner quadrant palpable lump. Recommend clinical evaluation follow-up. ASSESSMENT: BI-RADS BI-RADS 1 - Negative RECOMMENDATION: 1 year F/U Results were provided to the patient at time of visit by the technologist. This patient's information was entered into a reminder system with a target due date for their next mammogram. Electronically signed by: Noy Haddad DO 01/30/2025 10:20 AM EDT Dictated By: Noy Haddad DO Signed By: <Electronically signed by Noy Haddad DO in OV> 01/30/25 1020 DD/ 0912 TD/TT: 01/30/25 0935 Theatrical Agent: us Dayton Perez MD IMG US PROCEDURES Fin al Result * BI Mammogram Diagnostic Tomosynthesis Right (01/30/2025 9:00 AM EDT) Anatomical Region Laterality Modality Breast Right Mammography 01/30/2025 9:00 AM EDT Narrative 01/30/2025 10:23 AM EDT ? [facility] ? [address] ?[place] [address] ?[phone] ? Mammography Report ? Signed ? Patient: Vu Carballo,[place] ?MR#: [id number] ?? [id number] ? : 1980 ?Acct:[id number] ? Age/Sex: 44 / F ?ADM Date: 01/30/25 ? Loc: HO.MAMMO ? Attending Dr: Dayton Frazier MD ? Ordering Physician: Dayton Frazier MD ?Resu ?? lts: 1Negative ? Date of Service: 01/30/25 ?Follow Up: 1 Year From Orig ?? inal Mammogram ? Procedure(s): MM tomosynthesis diagnostic RT ?? Accession Number(s): [id number] ? cc: Dayton Frazier MD; SHONA CHENG NP ? EXAMINATION: ?? MM DIAGNOSTIC DIGITAL BREAST TOMOSYNTHESIS, RIGHT ?? Right breast ultrasound. ? CLINICAL INFORMATION: ? Right palpable lump lower inner quadrant. Patient does not feel the ?? palpable area today. ? COMPARISON: ?? Mammography: [facility] on PACS. ? TECHNIQUE: ?? Digital breast tomosynthesis is performed in both the craniocaudal and ?? mediolateral oblique views along with computer-aided detection (CAD). ?? Synthesized 2D images are generated from the tomosynthesis. ? FINDINGS: ?? There are scattered areas of fibroglandular density (ACR BI-RADS breast ?? composition Category b). ? There are no significant masses, abnormal calcifications, or other ?? abnormalities. ? Targeted color Doppler ultrasound scanning in the right lower inner ?? quadrant at 6:00 in area of previous palpable lump demonstrates normal ?? fibroglandular breast tissue. ??There is no sonographic abnormality. ? MM/MM tomosynthesis diagnostic RT ?? IMPRESSION: ?? No mammographic or sonographic abnormality to account for the patient's ?? intermittent and right lower inner quadrant palpable lump. Recommend ?? clinical evaluation follow-up. ? ASSESSMENT: ? BI-RADS BI-RADS 1 - Negative ? RECOMMENDATION: ?? 1 year F/U ? Results were provided to the patient at time of visit by the ?? technologist. ? This patient's information was entered into a reminder system with a ?? target due date for their next mammogram. ? Electronically signed by: ??Noy Haddad DO ??01/30/2025 10:20 AM EDT ? Dictated By: ?Noy Haddad DO ? Signed By: ?<Electronically signed by Noy Haddad, DO in OV> ? 01/30/25 1020 ? DD/ 0900 ? TD/TT: 01/30/25 0910 ? Theatrical Agent: ? Procedure Note Demarcusashleighemilyanderson, Image - 01/30/2025 [facility] [address] [place] [address] Mammography Report Signed Patient: Robert Robles#: [id number] : 1980Acct:[id number] Age/Sex: 44 / FADM Date: 01/30/25 Loc: [facility] Attending Dr: Dayton Frazier MD Ordering Physician: Dayton Frazier MDResu lts: 1Negative Date of Service: 01/30/25Follow Up: 1 Year From Orig inal Mammogram Procedure(s): MM tomosynthesis diagnostic RT Accession Number(s): [id number] cc: aDyton Frazier MD; SHONA CHENG NP EXAMINATION: MM DIAGNOSTIC DIGITAL BREAST TOMOSYNTHESIS, RIGHT Right breast ultrasound. CLINICAL INFORMATION: Right palpable lump lower inner quadrant. Patient does not feel the palpable area today. COMPARISON: Mammography: [facility] on PACS. TECHNIQUE: Digital breast tomosynthesis is performed in both the craniocaudal and mediolateral oblique views along with computer-aided detection (CAD). Synthesized 2D images are generated from the tomosynthesis. FINDINGS: There are scattered areas of fibroglandular density (ACR BI-RADS breast composition Category b). There are no significant masses, abnormal calcifications, or other abnormalities. Targeted color Doppler ultrasound scanning in the right lower inner quadrant at 6:00 in area of previous palpable lump demonstrates normal fibroglandular breast tissue. There is no sonographic abnormality. MM/MM tomosynthesis diagnostic RT IMPRESSION: No mammographic or sonographic abnormality to account for the patient's intermittent and right lower inner quadrant palpable lump. Recommend clinical evaluation follow-up. ASSESSMENT: BI-RADS BI-RADS 1 - Negative RECOMMENDATION: 1 year F/U Results were provided to the patient at time of visit by the technologist. This patient's information was entered into a reminder system with a target due date for their next mammogram. Electronically signed by: Noy Haddad DO 01/30/2025 10:20 AM EDT Dictated By: oNy Haddad DO Signed By: <Electronically signed by Noy Haddad DO in OV> 01/30/25 1020 DD/ 0900 TD/TT: 01/30/25 0910 Theatrical Agent: us Dayton Perez MD IMG BI PROCEDURES Fin al Result * XR Shoulder 2+ Views Right (01/30/2025 8:30 AM EDT) Anatomical Region Laterality Modality Upper Extremities, Shoulder Right Radi ographic Imaging 01/30/2025 8:30 AM EDT Narrative 01/30/2025 8:31 AM EDT ? [facility] ?[address] ?[place] [address] ?XRay Report ? Signed ? Patient: Vu Carballo,[place] ?MR#: [id number] ?? [id number] ? : 1980 ?Acct:[id number] ? Age/Sex: 44 / F ?ADM Date: 01/29/25 ? Loc: HO.XRAY ? Attending Dr: Ange Enciso MD ? Ordering Physician: Ange Enciso MD ?? Date of Service: 01/29/25 ?? Procedure(s): XR shoulder RT min 2V ?? Accession Number(s): [id number] ? cc: SHONA CHENG NP; Ange Enciso MD ? CLINICAL HISTORY: pain in right shoulder ? 2 view right shoulder ? Comparison: 10/09/2023 ? Findings: ?? Bones intact. No dislocations. ?? No significant loss of joint space or osteophytes. ?? No erosions. No radiopaque foreign body. ? IMPRESSION: ?? 1. No acute findings ? This document has been electronically signed by: Reinier Steinberg MD on ?? 01/30/2025 08:30:25 ? Dictated By: ?Reinier Steinberg MD ? Signed By: ?<Electronically signed by Reinier Steinberg MD in OV> ?01/30/25 0830 ? DD/ 9 ? TD/TT: 01/30/25829 ? Theatrical Agent: ? Procedure Note Mar Ennis - 01/30/2025 [place] [address] XRay Report Signed Patient: Robert Robles#: [id number] : 1980Acct:[id number] Age/Sex: 44 / FADM Date: 01/29/25 Loc: HO.GRETAAY Attending Dr: Ange Enciso MD Ordering Physician: Ange Enciso MD Date of Service: 01/29/25 Procedure(s): XR shoulder RT min 2V Accession Number(s): [id number] cc: SHONA CHENG [employer]; Ange Enciso MD CLINICAL HISTORY: pain in right shoulder 2 view right shoulder Comparison: 10/09/2023 Findings: Bones intact. No dislocations. No significant loss of joint space or osteophytes. No erosions. No radiopaque foreign body. IMPRESSION: 1. No acute findings This document has been electronically signed by: Reinier Steinberg MD on 01/30/2025 08:30:25 Dictated By: Reinier Steinberg MD Signed By: <Electronically signed by Reinier Steinberg MD in OV> 01/30/25829 DD/ 9 TD/TT: 01/30/25829 Theatrical Agent: us Ange Enciso MD IMG XR PROCEDURES Final Result * XR Shoulder 2+ Views Left (01/30/2025 8:14 AM EDT) Anatomical Region Laterality Modality Upper Extremities, Shoulder Left Radi ographic Imaging 01/30/2025 8:14 AM EDT Narrative 01/30/2025 8:15 AM EDT ? [facility] ?[address] ?[place] [address] ?XRay Report ? Signed ? Patient: Albania Robles ?MR#: [id number] ? : 1980 ?Acct:[id number] ? Age/Sex: 44 / F ?ADM Date: 01/29/25 ? Loc: HO.XRAY ? Attending Dr: Ange Enciso MD ? Ordering Physician: Ange Enciso MD ?? Date of Service: 01/29/25 ?? Procedure(s): XR shoulder LT min 2V ?? Accession Number(s): [id number] ? cc: SHONA CHENG NP; Ange Enciso MD ? CLINICAL HISTORY: bilateral shoulder pain, history of right shoulder surgery ? 2 view bilateral shoulder ? Comparison: None ? Findings: ?? Bones intact. No dislocations. ?? No significant loss of joint space or osteophytes. ?? No erosions. No radiopaque foreign body. ? IMPRESSION: ?? 1. No acute findings ? This document has been electronically signed by: Reinier Steinberg MD on ?? 01/30/2025 08:14:02 ? Dictated By: ?Reinier Steinberg MD ? Signed By: ?<Electronically signed by Reinier Steinberg MD in OV> ?01/30/25 0815 ? DD/ 0814 ? TD/TT: 01/30/25 0814 ? Theatrical Agent: ? Procedure Note Raymon, Image - 01/30/[address] [address] XRay Report Signed Patient: Robert Robles#: [id number] : 1980Acct:[id number] Age/Sex: 44 / FADM Date: 01/29/25 Loc: HO.GRETAAY Attending Dr: Ange Enciso MD Ordering Physician: Ange Enciso MD Date of Service: 01/29/25 Procedure(s): XR shoulder LT min 2V Accession Number(s): [id number] cc: SHONA CHENG [employer]; Ange Enciso MD CLINICAL HISTORY: bilateral shoulder pain, history of right shouldersurgery 2 view bilateral shoulder Comparison: None Findings: Bones intact. No dislocations. No significant loss of joint space or osteophytes. No erosions. No radiopaque foreign body. IMPRESSION: 1. No acute findings This document has been electronically signed by: Reinier Steinberg MD on 01/30/2025 08:14:02 Dictated By: Reinier Steinberg MD Signed By: <Electronically signed by Reinier Steinberg MD in OV> 01/30/25814 DD/ 3 TD/TT: 01/30/25813 Theatrical Agent: Ange Enciso MD IMG XR PROCEDURES Final Result * Referral to Orthopaedic Surgery (01/23/2025) us Shona CORONA OUTPATIENT REFERRAL ORDERABLES F inal Result * (ABNORMAL) POCT HGB A1C (01/20/2025 1:12 PM EDT) Hemoglobin A1C 6.6(A) 4.0 - 6.0 % QC Media Lot # [id number] Lot# Expiration Date Blood 01/20/2025 1:12 PM EDT us Shona CORONA POINT OF CARE TEST ENTER/EDIT OR DERABLES Final Result * POCT Glucose (01/20/2025 1:11 PM EDT) [facility] Glucose Blood, POC 158 60 - 200 mg/dL QC Media Lot # [id number] Lot# Expiration Date Blood Capillary blood specimen / Unknown 01/20/2025 1:11 PM EDT Shona CORONA POINT OF CARE TEST ENTER/EDIT OR DERABLES Final Result * POCT Rapid Strep A RUEDA ID NOW (12/16/2024 1:10 PM EST) [facility] Rapid Strep A Screen Negative Negative, None Detected QC Media Lot # [id number] Lot# Expiration Date Swab 12/16/2024 1:10 PM EST Dayton Perez MD POINT OF CARE TEST EN TER/EDIT ORDERABLES Final Result * (ABNORMAL) POCT Rapid Covid-19 BinaxNOW (12/16/2024 1:10 PM EST) [facility] Rapid COVID Ag Positive QC Media Lot # [id number] Lot# Expiration Date Swab 12/16/2024 1:10 PM EST Result [facility] Dayton Perez MD POINT OF CARE TEST EN TER/EDIT ORDERABLES Final Result * HIV Ab/Ag Exposure Source (01/11/2024 2:05 PM EST) [facility] HIV AB/AG Nonreactive Nonreactive [facility] Comment:HIV-1 p24 Ag and/or HIV-1/HIV-2 Ab not detected.A test result that is nonreactive does not exclude thepossibility of exposure to or infection with HIV-1 and/orHIV-2. Nonreactive results in this assay for individualswith prior exposure to HIV-1 and/or HIV-2 may be due toantigen and antibody levels that are below the limit ofdetection of this assay.The Rueda AliniNanoTune HIV Ag/Ab Combo assay result andsupplemental assay results should be interpreted inconjunction with the patient's clinical presentation,history and other laboratory results. If the results areinconsistent with clinical evidence, additional testing issuggested to confirm the result. 01/11/2024 2:05 PM EST 01/11/2024 2:07 PM EST Generic External Data Provider LAB BLOOD ORDERAB LES Final Result Performing Organization Address [facility] de Phone Number [facility] [address] [place] [phone] * Hepatitis C Ab (01/11/2024 2:05 PM EST) Hepatitis C Antibody Nonreactive Nonreactive [facility] Comment:Antibodies to HCV no t detected; does not exclude early acuteHCV infection. 01/11/2024 2:05 PM EST 01/11/2024 2:07 PM EST Generic External Data Provider LAB BLOOD ORDERAB LES Final Result Performing Organization Address [facility] Phone Number [facility] [address] [place] [phone] * Albumin, Random Urine W/Creatinine (08/28/2023 10:58 AM EDT) Creatinine, Urine 164.35 mg/dL [facility] Microalbumin Urine 8.0 mg/L [facility] Microalbum Creatinine Ratio Ur 4.8 <30 ug/mg cr [facility] Comment:Albumin/Creatinine R atio Reference Ranges: Normal: < 30 ug/mg creatinine Microalbuminuria: 30 - 300 ug/mg creatinineClinical Albuminuria: > 300 ug/mg creatinine Urine (Urine, Random) 08/28/2023 10:58 AM EDT 08/28/2023 11:38 AM EDT Shona Cheng ANP LAB URINE ORDERABLES Final Resul t Performing Organization Address City/[facility]/ZIP Co de Phone Number [facility] [address] [place] [address] [phone] * (ABNORMAL) LIPID PANEL, STANDARD (09/07/2022 8:37 AM EDT) Chol/HDLC Ratio 3.7 <5.0 (calc) [facility] Cholesterol, Total 205(H) <200 mg/dL [facility] HDL Cholesterol 56 > OR = 50 mg/dL [facility] LDL Cholesterol 127(H) mg/dL (calc) [facility] Comment: Reference range: <100 ?? Desirable range <100 mg/dL for primary prevention; ?? <70 mg/dL for patients with CHD or diabetic patients ?? with > or = 2 CHD risk factors. ?? LDL-C is now calculated using the Chirag ?? calculation, which is a validated novel method providing ?? better accuracy than the Friedewald equation in the ?? estimation of LDL-C. ?? Gualberto CHO et al. MORGAN. 2013;310(19): 3681-4531 ?? (http://education.USB Prom[employer].com/faq/ANO733) Non-HDL Cholesterol 149(H) <130 mg/dL (calc) [facility] Comment: For patients with diabetes plus 1 major ASCVD risk ?? factor, treating to a non-HDL-C goal of <100 mg/dL ?? (LDL-C of <70 mg/dL) is considered a therapeutic ?? option. Triglycerides 111 <150 mg/dL [facility] 09/07/2022 8:37 AM EDT Shona Cheng ANP LAB BLOOD ORDERABLES Final Resul t [facility] * HPV mRNA E6/E7 (01/30/2018 10:13 AM EDT) HPV mRNA E6/E7 Not Detected NOT DETECTED [facility] Comment: This test was performed using the APTIMA(R) HPV Assay ([employer] This assay detects E6/E7 viral messenger RNA (mRNA) from 14 high-risk HPV types (16,18,31,33,35,39,45,51, 52,56,58,59,66,68). For additional information please refer to: http://yepme.com.[employer]/faq/GHS067f8 (This link is being provided for informational/ educational purposes only.) Test Performed by [employer] [facility], [address] [place] [id number] Jameel Swan M.D., Ph.D., Director of Laboratories , [place] [id number] Please note: ??Effective 07/24/2016, HPV testing will be performed using [employer]'s APTIMA test which targets mRNA. Detecting mRNA instead of DNA, as in older methods, offers significant improvements in specificity. 01/30/2018 10:1 3 AM EDT Tosin Putnam CNM HISTORICAL/NON ORDERABLE LABS Final Result [facility] Anywhere [address] from Last 3 Months or Most Recently Relevant to Health Maintenance Insurance C3 Care Teams Manager Business Planning Relationship Specialty Start Date End Date Shona Cheng ANP [address] [place] [phone] PCP - General Family Medicine 04/30/20
--- OUTSIDE RECORDS SUMMARY | 2025-02-17 07:55 | XMS_ITS | Encounter Summary ---
Author Organization [id number] [facility] Address [address] 7t [place] [address] Care Team Providers Care Thermal Surfacing Machine Operator Name Role Phone Ivania Magallon Primary Care Provider [phone] Reason for Visit * Reason Comments Med Refill Encounter Details Date Type Department Care Team ([facility] st Contact Info) Description 07/21/2024 Refill [facility] MEDICINE [address] [place] [address] Ivania Magallon ANP [address] [place] [address] Hypertension associated with diabetes ([facility]/HCC) [facility] Social History Tobacco Use Types Packs/Day Years Used Date Smoking Tobacco: Never Passive Smoke Exposure: Never Smokeless Tobacco: Never Alcohol Use Standard Drinks/Week Comments Never 0 (1 standard drink = 0.6 oz pur e alcohol) Depression Answer Date Recorded Patient Health Questionnaire-9 Score 0 07/12/2023 Housing Stability Answer Date Recorded What is your housing situation today? I have segundo agosto 08/27/[address] you li ve. Do you have problems with any of the following? None of the above 08/27/2023 Food Insecurity Answer Date Recorded Within the past 12 months, y ou worried that your food would run out before you got money to buy more: Never True 08/27/2023 Within the past 12 months,th e food you bought just didn't last and you didn't have enough money to get more: Never True Transportation Answer Date Recorded In the past 12 months, has l ack of transportation kept you from medical appts, meetings, work or from getting things needed for daily living? No 08/27/2023 Utilities Answer Date Recorded In the past 12 months, has t he electric, gas, oil or water company threatened to shut off services in your home? No 08/27/2023 Depression Answer Date Recorded Patient Health Questionnaire-2 Score 0 07/12/2023 Comments Unknown Sex and Gender Information Value Date Recorded Sex Assigned at Female 09/11/2022 10:29 AM EDT Legal Sex Female 10:29 AM EDT Gender Identity Female 09/11/2022 10:29 AM EDT Sexual Orientation Straight 09/11/2022 10 :29 AM EDT documented as of this encounter Plan of Treatment Upcoming Encounters Date Type Department Care Team (Late st Contact Info) Description 02/27/2025 9:00 AM EDT Office Visit [facility] OPTOMETRY [address] [place], [place] [phone] Anjali Jerome, OD [address] [place] [address] 03/13/2025 10:00 AM EDT Office Visit [facility] MEDICINE [address] [place] [address] Derek Peña MD [address] [place] [address] documented as of this encounter Visit Diagnoses Diagnosis Hypertension associated with diabetes (CMS/HCC) Unspecified essential hypertension documented in this encounter Additional Health Concerns Assessment Noted Time PHQ-9 Depression Total Score: 0 07/12/20 23 12:00 PM EDT documented as of this encounter Care Teams Thermal Surfacing Machine Operator Relationship Specialty Start Date End Date Ivania Magallon ANP [address] [place] [address] PCP - General Family Medicine 04/30/20 documented as of this encounter
--- OUTSIDE RECORDS SUMMARY | 2025-02-17 07:55 | XMS_ITS | Encounter Summary ---
Author Organization [employer] [facility] Address [address] [place] [address] 7 [place] [address] Care Team Providers Care Vegetable Vendor Name Role Phone Ivania Magallon Primary Care Provider [phone] Reason for Visit * Reason Onset Date Comments Med Refill 08/01/2023 Encounter Details Date Type Department Care Team (Late st Contact Info) Description 08/01/2023 Refill [facility] MEDICINE [address] [place] [address] Ivania Magallon ANP [address] [place] [address] Hypertension associated with diabetes (CMS/HCC) Social History Tobacco Use Types Packs/Day Years Used Date Smoking Tobacco: Never Smokeless Tobacco: Never Alcohol Use Standard Drinks/Week Comments Never 0 (1 standard drink = 0.6 oz pur e alcohol) Depression Answer Date Recorded Patient Health Questionnaire-9 Score 0 07/12/2023 Depression Answer Date Recorded Patient Health Questionnaire-2 [...] Description 02/27/2025 9:00 AM EDT Office Visit [facility] OPTOMETRY [address] [place] [address] Anjali Jerome, OD [address] [place] [address] 03/13/2025 10:00 AM EDT Office Visit [facility] [address] [facility] [place] [address] Derek Peña MD [address] [place] [address] documented as of this encounter Visit Diagnoses Diagnosis Hypertension associated with diabetes (CMS/[facility]) Unspecified essential hypertension documented in this encounter Additional Health Concerns Assessment Noted Time PHQ-9 Depression Total Score: 0 07/12/20 23 12:00 PM EDT documented as of this encounter Care Teams Vegetable Vendor Relationship Specialty Start Date End Date Ivania Magallon ANP [address] [facility] [place] [address] PCP - General Family Medicine 04/30/20 documented as of this encounter
--- OUTSIDE RECORDS SUMMARY | 2025-02-17 07:55 | XMS_ITS | Clinical Summary ---
Author Organization [address] [facility] Address [address] [place] [address] Phone Care Team Providers Care Storage Management Consultant Name Role Phone NaunIvania Mark Anthony MOSCOSO Primary Care Provider [phone] Allergies No known active allergies Medications terbinafine (LamISIL) 250 mg tabletIndication s:Onychomycosis Take 1 tablet (250 mg total) by mouth 1 (one) time each day. 30 tablet 2 02/12/2025 5 Active Encounters Date Type Department Care Team Description 01/29/2025 9:00 AM EDT Consult Orthopedic Surgery [facility] [address] [phone] Noe Randhawa DPM Controlled type 2 diabetes with neuropathy (CMS/HCC) (Primary Dx); Ingrown left big toenail; Tinea unguium from Last 3 Months Social History Tobacco Use Types Packs/Day Years Used Date Smoking Tobacco: Never Assessed Comments Unknown Sex and Gender Information Value Date Recorded Sex Assigned at Not on file Legal Sex Female 10:20 AM EST Gender Identity Not on file Sexual Orientation Not on file Plan of Treatment Health Maintenance Due Date Last Done Comments Breast Cancer Screening 1982 Diabetes: Annual GFR (Glomerular Filtration Rate) 1982 Diabetes: Annual Foot Exam 1992 Diabetes: Annual Retina Eye Exam 1992 Cervical Cancer Screening: Pap Smear 2003 HIV Screening 12/09/2024 Hepatitis C Screening 12/09/2024 Social Influencers of Health Screening 12/09/2024 Diabetes: Annual Urine Albumin-Creatinine Ratio (uACR) 01/29/2025 Hypertension/CHF/CAD Annual BMP Blood Test 01/29/2025 Diabetes: Blood Sugar Control Test (HGBA1C) 07/23/2025 01/20/2025 Depression Screening 01/20/2026 01/20/2025 DTaP,Tdap,and Td Vaccines (2 - Td or Tdap) 01/08/2027 01/08/2017 Cholesterol Screening (Lipid Panel) 09/07/2027 09/07/2022 Pneumococcal Vaccine: Pediatrics (0 to 5 Years) and At-Risk Patients (6 to 64 Years) Completed 11/23/2023 Hepatitis B Vaccines Completed 02/27/2024, 09/25/2023, 08/28/2023 [...] on patient's age to complete this topic MMR Vaccines Aged Out No longer eligi ble based on patient's age to complete this topic Meningococcal ACWY Vaccine Aged Out N o longer eligible based on patient's age to complete this topic Meningococcal B Vaccine Aged Out No l onger eligible based on patient's age to complete this topic RSV Immunization Patients Under 20 months Aged Out No longer eligible based on patient's age to complete this topic Varicella Vaccines Aged Out No longer eligible based on patient's age to complete this topic Insurance [place]ICAID - [place] Care Teams Storage Management Consultant Relationship Specialty Start Date End Date Ivania Magallon NP [address] [place] [phone] PCP - General 12/09/24
--- OUTSIDE RECORDS SUMMARY | 2025-02-17 07:55 | XMS_ITS | Encounter Summary ---
Author Organization [facility] Address [address] [place] [address] [address] [place] [address] Care Team Providers Care Director Of Sustainability Programs Name Role Phone Ivania Magallon Primary Care Provider [phone] Encounter Details Date Type Department Care Team (Latest Contact Info) Description 04/14/2021 Abstract [facility] CONVERSIONS Dental, Provider, DDS Social History Tobacco Use Types Packs/Day Years [...] Upcoming Encounters Date Type Department Care Team ( st Contact Info) Description 02/27/2025 9:00 AM EDT Office Visit [facility] OPTOMETRY [address] [place] [address] Anjali Jerome, OD [address] [place] [address] 03/13/2025 10:00 AM EDT Office Visit [facility] MEDICINE [address] [place] [address] Derek Peña MD [address] [place] [address] documented as of this encounter Visit Diagnoses Not on filedocumented in this encounter Care Teams Director Of Sustainability Programs Relationship Specialty Start Date End Date Ivania Magallon ANP [address] [place] [address] PCP - General Family Medicine 04/30/20 documented as of this encounter
--- OUTSIDE RECORDS SUMMARY | 2025-02-17 07:55 | XMS_ITS | Encounter Summary ---
Author Organization [employer] Address [address] [place] [address] Care Team Providers Care Sewage Reticulation Drafting Officer Name Role Phone Ivania Magallon CHLOE Primary Care Provider [phone] Encounter Details Date Type Department Care Team (Latest Contact Info) Description 02/13/2025 Travel Social History Tobacco Use Types Packs/Day Years [...] Description 02/27/2025 9:00 AM EDT Office Visit [facility] OPTOMETRY [address] [place] [address] Anjali Jerome, OD [address] [place] [address] 03/13/2025 10:00 AM EDT Office Visit [facility] MEDICINE [address] [place] [address] Derek Peña MD [address] [place] [address] documented as of this encounter Visit Diagnoses Not on filedocumented in this encounter Additional Health Concerns Assessment Noted Time PHQ-9 Depression Total Score: 9 01/21/20 25 1:36 PM EDT documented as of this encounter Care Teams Sewage Reticulation Drafting Officer Relationship Specialty Start Date End Date Ivania Magallon ANP [address] [place] [address] PCP - General Family Medicine 04/30/20 documented as of this encounter
--- OUTSIDE RECORDS SUMMARY | 2025-02-17 07:55 | XMS_ITS | Encounter Summary ---
Author Organization [employer] [facility] Address [address] [place] [address] Care Team Providers Care Apparel Sales Leader Name Role Phone Ivania Magallon Primary Care Provider [phone] Reason for Visit * Reason Onset Date Comments Med Refill 09/25/2023 Encounter Details Date Type Department Care Team ([facility] st Contact Info) Description 09/25/2023 Refill [facility] MEDICINE [address] [place], [place] [phone] Ivania Magallon ANP [address] [place] [address] Hypertension associated with diabetes (CMS/HCC) Social History [...] Description 02/27/2025 9:00 AM EDT Office Visit [facility] OPTOMETRY [address] [place] [address] Anjali Jerome, OD [address] [place] [address] 03/13/2025 10:00 AM EDT Office Visit [facility] MEDICINE [address] [place] [address] Derek Peña MD [address] [place] [address] documented as of this encounter Visit Diagnoses Diagnosis Hypertension associated with diabetes (CMS/HCC) Unspecified essential hypertension documented in this encounter Additional Health Concerns Assessment Noted Time PHQ-9 Depression Total Score: 0 07/12/20 23 12:00 PM EDT documented as of this encounter Care Teams Apparel Sales Leader Relationship Specialty Start Date End Date Ivania Magallon ANP [address] [place] [address] PCP - General Family Medicine 04/30/20 documented as of this encounter
--- OUTSIDE RECORDS SUMMARY | 2025-02-17 07:55 | XMS_ITS | Encounter Summary ---
Author Organization [employer] [facility] Address [address] 7t [place] [address] Care Team Providers Care Tray Setter Name Role Phone Ivania Magallon Primary Care Provider [phone] Reason for Visit * Reason Onset Date Comments Nurse Triage 12/24/2024 Encounter Details Date Type Department Care Team ([facility] st Contact Info) Description 12/24/2024 Telephone [facility] MEDICINE [address] [place], [place] [phone] Ivania Magallon ANP [address] [place] [address] Nurse Triage Social History Tobacco Use Types Packs/Day Years Used Date Smoking Tobacco: Never Passive Smoke Exposure: Never Smokeless Tobacco: Never Alcohol Use Standard Drinks/Week Comments Never 0 (1 standard drink = 0.6 oz pur e alcohol) Depression Answer Date Recorded Patient Health Questionnaire-9 Score 16 10/14/2024 Patient Health Questionnaire-9 Score 16 10/14/2024 Last PHQ-9: Questionnaire Data Not on file 1 12/15/2023 Housing Stability Answer Date Recorded What is [...] Answer Date Recorded Patient Health Questionnaire-2 Score 5 10/14/2024 Internet Access Answer Date Recorded Internet Access Q1 Yes 10/02/2024 Internet Access Q2 Not on file 10/02/2024 Comments Unknown Sex and Gender Information Value Date Recorded Sex Assigned at Female 09/11/2022 10:29 AM EDT Legal Sex Female 10:29 AM EDT Gender Identity Female 09/11/2022 10:29 AM EDT Sexual Orientation Straight 09/11/2022 10 :29 AM EDT documented as of this encounter Miscellaneous Notes * Telephone Encounter - Reina Scott RN - 12/24/2024 4:10 PM EST Triage call Pt reports wide spread rash , red, itchy with hive like bumps on hands. Pt was dx with covid 12/16/24 in [facility] and was feeling better. Then rash developed over the last few days. Very itchy all over. Pt has tried antihistamine , jemal and hydrocortisone cream without effect. Pt reports did not take paxlovid as prescribed because it wasn't available in pharmacy and since was feeling better didn't feel it was needed. Pt is advised to come to [facility] after 5pm for provider to see Pt. [facility] is open till 8pm. Pt agrees with disposition . Unable to verify insurance due to computer error. Protocol Used: Rash or Redness - Widespread (Adult) Protocol-Based Disposition: See in Office or Video Visit Today or Tomorrow Video visit not offered Positive Triage Question: * Mild widespread rash (Exception: Heat rash lasting 3 days or less.) * All higher-acuity triage questions were negative Care Advice Discussed: * Reassurance and Education - Widespread Rash * Antihistamine Medicines for Moderate to Severe Itching * Hydrocortisone Cream for Itching * Reasons To Call Back - Rash becomes purple or blood-colored or blister-like - Fever occurs or severe itching - You become worse * Telephone Encounter - Brandy Lee - 12/24/2024 3:54 PM EST Symptom: Hives Outcome: Schedule an urgent appointment (within 1 hour) or talk to a nurse or provider soon Reason: Hives or rash all over the body The caller accepted this outcome. documented in this encounter Plan of Treatment Upcoming Encounters Date Type Department Care Team (Late st Contact Info) Description 02/27/2025 9:00 AM EDT Office Visit [facility] OPTOMETRY [address] [place] [address] Anjali Jerome, OD [address] [place] [address] 03/13/2025 10:00 AM EDT Office Visit [facility] MEDICINE [address] [place] [address] Derek Peña MD [address] [place] [address] documented as of this encounter Visit Diagnoses Not on filedocumented in this encounter Additional Health Concerns Assessment Noted Time PHQ-9 Depression Total Score: 16 024 9:54 AM EST documented as of this encounter Care Teams Tray Setter Relationship Specialty Start Date End Date Ivania Magallon ANP [address] [place] [address] PCP - General Family Medicine 04/30/20 documented as of this encounter
--- OUTSIDE RECORDS SUMMARY | 2025-02-17 07:55 | XMS_ITS | Encounter Summary ---
Author Organization [employer] [facility] Address [address] [place] [address] 7 [place] [address] Care Team Providers Care Rod Mill Operator Name Role Phone Ivania Magallon Primary Care Provider [phone] Encounter Details Date Type Department Care Team (Latest Contact Info) Description 07/14/2022 Abstract [facility] CONVERSIONS Dental, Provider, DDS Social History [...] Description 02/27/2025 9:00 AM EDT Office Visit [facility] OPTOMETRY [address] [place] [address] Anjali Jerome, OD [address] [place] [address] 03/13/2025 10:00 AM EDT Office Visit [facility] MEDICINE [address] [place] [address] Derek Peña MD [address] [place] [address] documented as of this encounter Visit Diagnoses Not on filedocumented in this encounter Care Teams Rod Mill Operator Relationship Specialty Start Date End Date Ivania Magallon ANP [address] [place] [address] PCP - General Family Medicine 04/30/20 documented as of this encounter
--- OUTSIDE RECORDS SUMMARY | 2025-02-17 07:55 | XMS_ITS | Data Portability ---
Author Organization [facility] [facility], [facility] Address [address] [place] [address] Care Team Providers Care Sports Marketing Specialist Name Role Phone SHONA CHENG Primary Care Provider Assessment Encounter Date Assessment Date Assessment LastModified by Organization Details LastModified Time 11/07/2024 11/07/2024 A/ L cubital tunnel syndrome, now ready to proceed with surgical scheduling for ulnar nerve decompression with possible transposition. P/surgical booking sheet is completed for left ulnar nerve decompression, possible transposition. We have discussed the postoperative recovery course for the recommended surgery. Risks of surgery include but are not limited to: Infection, bleeding, damage normal tissues, need for future surgeries, and recurrent or recalcitrant symptoms after surgery. Questions asked and answered to the patient's satisfaction; surgery to be scheduled with my dental secretary. [email or web address] Not available 11/07/2024 10:54:05 01/23/2025 01/23/2025 A/ status post left ulnar nerve transposition 12/04/2024 Plan: Return to work note is provided today. Follow-up as scheduled for what may be final recheck for this problem in about 6 to 8 weeks time. [email or web address] Not available 01/23/2025 14:28:36 Plan of Treatment Reminders Order Date Submit Date Provider Last Modified By Organization Details Last Modified Time Details Appointments RECHECK 15 2024 01:00P M Maribel carrasco MD Not available Not available Not available Lab None recorde d. Referral None recorde d. Procedures None recorde d. Surgeries None recorde d. Imaging None recorde d. Medication Orders None recorde d. Patient TargetsNo targets recorded. Patient InstructionsNo instructions recorded. Reason for Referral None Reported. Results Created Date Observation Date Name Description Value Unit Range Abnormal Flag Note LastModifiedBy Organization Detail LastModifiedTime 11/26/1911/26/2024 GLUCO SE glucose 120 mg/dL 70-99 above high normal Not Available [facility] ([facility]) [address], [place], [address], 11/27/2024 00:05:19 Result Notes None recorded. Problems Name Problem SNOMED Code Status Onset Date Resolution Date Notes Provider Name and Address Organization Details Recorded Time No complaints [id number] Active Status : 'A'; Not Available [facility] 09:24:13 Problem Notes None recorded. Procedures Surgical History Date Name Laterality Status Provider Name and Address Organization Details Recorded Time 12/04/19 ULNAR NERVE TRANSPOSITION SUBCUTANEOUS ELBOW (SURG) completed DORA GAONA [place] - [facility] 12/05/2024 14:16:03 Imaging Results None recorded. Procedure Notes None recorded. Medical Equipment None Reported. Allergies No known drug allergies Medications Name Sig Start Date Stop Date Status Note LastModified by Organization Details LastModified Time enalapril maleate 10 mg tablet TAKE 1 TABLET BY MOUTH ONCE DAILY active Not Available Not Available No t Available fexofenadine 180 mg tablet TAKE 1 TABLET (180 MG) BY MOUTH IF NEEDED EACH DAY (ALLERGIES) . active Not Available Not Available No t Available amlodipine 5 mg tablet TAKE 1 TABLET BY MOUTH ONCE DAILY active Not Available Not Available No t Available triamcinolon e acetonide 0.1 % topical cream APPLY TOPICALLY TO THE AFFECTED AREA, MIX WITH cerave AND APPLY AFTER showers - IF needed IN THE MORNING AND AT BEDTIME FOR pain/swelli ng active Not Available Not Available No t Available butalbital-a cetaminophen -caffeine 50 mg-325 mg-40 mg tablet TAKE 1 TABLET BY MOUTH EVERY 6 HOURS NEEDED FOR HEADACHE active Not Available Not Available No t Available oxycodone-ac etaminophen 5 mg-325 mg tablet TAKE 1 TABLET BY MOUTH EVERY 6 HOURS NEEDED FOR PAIN active Not Available Not Available No t Available metformin 1,000 mg tablet TAKE 1 TABLET BY MOUTH two (2) times a day WITH MEALS active Not Available Not Available No t Available lidocaine 5 % topical patch APPLY 1 PATCH BY TRANSDERMAL ROUTE EVERY DAY (MAY WEAR UP TO 12 HOURS) active Not Available Not Available No t Available hydroxyzine HCl 10 mg tablet TAKE 1 TO 2 TABLETS BY MOUTH EVERY NIGHT AT BEDTIME NEEDED FOR SLEEP active Not Available Not Available No t Available naproxen 500 mg tablet TAKE 1 TABLET (500 MG) BY MOUTH WITH BREAKFAST AND WITH EVENING MEAL as needed for pain active Not Available Not Available No t Available oxycodone 5 mg tablet Take 1 tablet every 6 hours by oral route as needed, for pain. 2024 active Not Available Not Available Not Avai lable hydroxyzine pamoate 25 mg capsule Take 1-2 capsule by mouth every night at bedtime as needed for insomnia active Not Available Not Available No t Available duloxetine 60 mg capsule,leticia yed release TAKE 1 CAPSULE BY MOUTH ONCE DAILY active Not Available Not Available No t Available guanfacine ER 1 mg tablet,exten ded release 24 hr TAKE 1 TABLET BY MOUTH EVERY MORNING FOR ANXIETY active Not Available Not Available No t Available Trulicity 1.5 mg/0.5 mL subcutaneous pen injector Inject 1.5 mg under the skin 1 (one) time per week. Do not start before June 10, 2024. active Not Available Not Available No t Available Trulicity 3 mg/0.5 mL subcutaneous pen injector INJECT 3 MG UNDER THE SKIN EVERY WEEK active Not Available Not Available No t Available Vitals Date Recorded Body height Body mass index (BMI) Body weight Provider Name and Address Organization Details Last Updated DateTime 11/07/2024 162.56 cm 36.4 kg/m2 07467.58 g [facility] 11/07/2024 10:33:54 Date Recorded Body height Body mass index (BMI) Body weight Provider Name and Address Organization Details Last Updated DateTime 01/23/2025 162.56 cm 36.6 kg/m2 60759.17 g [facility] 01/23/2025 13:10:11 Social History None recorded. Functional Status None recorded. Mental Status None recorded. Family History Nothing Reported. Medical History No medical history recorded. Gynecological HistoryNo gynecological history recorded. Obstetrics History GPAL:G 0 P 0 0 0 0 Past Encounters Encounter ID Performer Location Encounter Start Date Encounter Closed Date Diagnosis/Indication Diagnosis SNOMED-CT Code Diagnosis ICD10 Code Diagnosis Note [id number] MD [facility] [address] [place] [address] 11/07/2024 10:22:58 11/27/2024 07:17:19 Lesion of left ulnar nerve [id number] 48860 G56.22 [id number] Jimmy Figueroa PA-C [facility] [place] [address] [place] [address] 12/07/2024 11:38:39 12/07/2024 11:40:36 [id number] Alexandra Anton, OTR/L,CHT [facility] [place] [address] [place] [address] 12/22/2024 09:31:07 12/22/2024 10:10:55 Postoperative visit [id number] Z48.89 The suture tails are clipped. Scar massage was instructed with a handout given to the patient. Home exercises focusing on AROM of the shoulder, elbow, forearm and wrist are reviewed with a handout issued. If any redness, swelling, drainage were to appear from the incision site, the patient is instructed to call us immediatel y. Patient is instructed in the following: not lift anything heavier than a coffee cup with the involved extremity ; to remain non weight bearing of the upper extremity; to continue participat ing in active range of motion to the elbow without straining for the next 4 weeks. The next post op follow up appointmen t will be in 4 weeks time at 6 weeks post op. Entrapment of left ulnar nerve [id number] 90768 G56.22 This visit was completed today under the supervisio n of Dr. Aguirre. Examinatio n: The incision is inspected. It is found to be clean and dry with an intact running suture with tails. The patient had removed the postoperat skylar dressing at day 3 after having allergic reaction. She identifies several areas on her skin which she calls fox where there is some obvious discolorat ions which she states was not there prior to surgery. Patient has intact neurovascu lar structures with only slight tenderness along the sides of the distal portion of the incision. No surroundin g erythema, wound drainage, warmth or signs of infection. Full motion of the digits. Shoulder AROM not limited. Elbow and forearm active range of motion not limited. Impression : 19 days postop - status post ulnar nerve transposit ion [id number] MD [facility] [address] [place] [address] 01/23/2025 12:33:28 02/09/2025 07:36:31 Lesion of left ulnar nerve [id number] 83654 G56.22 Health Concerns Section Related Observation LastModified by Organization Detai ls LastModified Time None Recorded Concern Status LastModified by Organization Details LastModified Time None Recorded Advance Directives Directive None Recorded Payers Encounter Date Sequence Insurance Name Policy Number Policy Moreno Covered Member ID Moreno Member ID Guarantor Name 11/07/2024 1 [place] Vu Carballo [id number] [place] Vu Carballo 12/07/2024 1 [place] Vu Carballo [id number] [place] Vu Carballo 12/22/2024 1 [place] Vu Carballo [id number] [place] Vu Carballo 01/23/2025 1 [place] Vu Carballo [id number] [place] Vu Carballo Notes Date Note Type Note Provider Name and Address Organization Details Recorded Time 11/07/2024 text/html 44-year-old sulma devine last seen in January 2024 who has been treated for left cubital tunnel syndrome, we had planned to proceed with scheduling for a left ulnar nerve decompression with possible transposition but surgery was put off due to other issues in her life such as a different surgery for herself and the of a grandchild which occurred last week. Maribel Sherman MD [facility] [address], [place], [address], [facility] - [facility] 11/07/2024 10:58:52 12/07/2024 text/html Patient contacte d the on-call service on 12/06/2024. She is 4 days status post medial ulnar nerve decompression. States that she noticed some blistering and some redness around the incision. Incision area itchy. Some things happen similar to the contralateral side at that surgery. May trial Benadryl or other antihistamine Swinger symptoms seem most consistent with allergic dermatitis can clean the area not the incision itself if progressively gets worse to contact our office. Jimmy Figueroa PA-C [address], [place], [address], [facility] 12/07/2024 11:40:35 12/22/2024 text/html This is a 44-year-old mother with a child in a wheelchair who had the nondominant left elbow ulnar nerve anterior transposition surgery on 12/04/[address] Sherman. She previously had the dominant right elbow same procedure several years ago at an outside institution and did quite well. She presents to the office today for first postoperative hand therapy visit to assess the surgical sites and advise on the home program Alexandra Anton, OTR/L,CHT [address], [place], [address], [facility] 12/22/2024 10:07:34 01/23/2025 text/html 44-year-old femklaudia devine seen for postoperative evaluation status post left ulnar nerve transposition 12/04/2024. She is doing well, except that she had a fall last week, landed on both arms. She has had some pain and swelling around the surgical site after that injury happened. Otherwise denies numbness in the hands. Feels she could return to work in the next couple of weeks. Maribel Sherman MD [address], [place], [address], [facility] 01/23/2025 14:28:52 OBGyn Episode No OBEpisode recorded.
[2025-02-17 07:59] VITALS: BMI 34.3
== END 2025-02-17 08:21 | disposition home or self-care (01) ==
LOC: HO.HOS 07:51
PROVIDERS: PCP Nurse Practitioner Primary Care; Visit Provider Orthopaedic Surgery
DX: S83.241A Other tear of medial meniscus, current injury, right knee, initial encounter (principal)
CPT/HCPCS: 99213

== ENCOUNTER → 2025-02-17 07:51 | Outpatient (BNVA) | payer MEDICAID, SELFPAY | PROVIDERS: PCP Nurse Practitioner Primary Care; Visit Provider Orthopaedic Surgery | DX: S83.241A Other tear of medial meniscus, current injury, right knee, initial encounter (principal) | CPT/HCPCS: 99212 ==

== ENCOUNTER → 2025-02-21 10:24 | Outpatient (BNV) | payer MEDICAID, SELFPAY | PROVIDERS: PCP Nurse Practitioner Primary Care; Visit Provider Radiology Diagnostic Radiology | DX: M22.41 Chondromalacia patellae, right knee (principal) | CPT/HCPCS: 73721 ==

== ENCOUNTER 2025-02-21 10:25 | Outpatient (REF) | payer MEDICAID, SELFPAY ==
--- NOTE | ~2025-02-21 | MR_ITS ---
EXAMINATION: MRI RIGHT KNEE WITHOUT CONTRAST HISTORY: S83.241A - Other tear of medial meniscus, current injury, right knee COMPARISON: Correlation is made with plain films of the right knee dated 11/16/2023. TECHNIQUE: Coronal T1 and fat-suppressed proton density, sagittal proton density and fat-suppressed proton density, and axial fat suppressed T2 weighted MR images of the right knee were obtained. FINDINGS: Bone marrow: There is a small focus of marrow edema in the medial aspect of the patella, which could represent a bone contusion. Bone marrow signal intensity is otherwise normal. Joint effusion: There is no significant joint effusion. Lara's cyst: There is no Lara's cyst. Articular cartilage: There is moderate thinning of the patellar cartilage involving the lateral patellar facet. Muscles/soft tissues: The visualized muscles demonstrate normal signal intensity. Anterior cruciate ligament: Intact Posterior cruciate ligament: Intact Medial collateral ligament: Intact Lateral collateral ligament: Intact Medial meniscus: Intact Lateral meniscus: There is degenerative signal involving the anterior horn of the lateral meniscus, without evidence of a tear. The remainder of the lateral meniscus is unremarkable in appearance. Flexor mechanism: The popliteus, gastrocnemius, and hamstring tendons are intact. Quadriceps tendon: Intact Patellar tendon: Intact Patellar retinacula: Intact MR/MR knee RT wo con IMPRESSION: 1. Moderate thinning of the patellar cartilage involving the lateral patellar facet. 2. Probable small bone contusion involving the medial aspect of the patella. Electronically signed by: Easton Lopez MD 02/23/2025 07:58 AM EDT
--- OUTSIDE RECORDS SUMMARY | 2025-02-21 10:28 | XMS_ITS | Encounter Summary ---
Author Organization [employer] [facility] Address [address] [place] [address] 7t [place] [address] Care Team Providers Care Pattern Weaver Name Role Phone Ivania Magallon Primary Care Provider [phone] Encounter Details Date Type Department Care Team (Latest Contact Info) Description 04/14/2021 Abstract [facility] CONVERSIONS Dental, Provider, DDS Social History [...] Description 02/27/2025 9:00 AM EDT Office Visit [facility] OPTOMETRY [address] [place] [address] Anjali Jerome, OD [address] [place] [address] 03/13/2025 10:00 AM EDT Office Visit [facility] MEDICINE [address] [place] [address] Derek Peña MD [address] [place] [address] 06/02/2025 10:15 AM EDT Office Visit [facility] MEDICINE [address] [place] [address] Ivania Magallon ANP [address] [place] [address] documented as of this encounter Visit Diagnoses Not on filedocumented in this encounter Care Teams Pattern Weaver Relationship Specialty Start Date End Date Ivania Magallon ANP [address] [place] [address] PCP - General Family Medicine 04/30/20 documented as of this encounter
--- OUTSIDE RECORDS SUMMARY | 2025-02-21 10:28 | XMS_ITS | Encounter Summary ---
Author Organization [email or web address] [facility] Address [address] [place] [address] 7t [place] [address] Care Team Providers Care Concept Artist Name Role Phone Ivania Magallon Primary Care Provider [phone] Encounter Details Date Type Department Care Team (Latest Contact Info) Description 07/14/2022 Abstract [facility] CONVERSIONS Dental, Provider, DDS Social History [...] Description 02/27/2025 9:00 AM EDT Office Visit [facility] OPTOMETRY [address] [place] [address] Anjali Jerome, OD [address] [place] [address] 03/13/2025 10:00 AM EDT Office Visit [facility] MEDICINE [address] [place] [address] Derek Peña MD [address] [place] [address] 06/02/2025 10:15 AM EDT Office Visit [facility] MEDICINE [address] [place] [address] Ivania Maglalon ANP [address] [place] [address] documented as of this encounter Visit Diagnoses Not on filedocumented in this encounter Care Teams Concept Artist Relationship Specialty Start Date End Date Ivania Magallon ANP [address] [place] [address] PCP - General Family Medicine 04/30/20 documented as of this encounter
--- OUTSIDE RECORDS SUMMARY | 2025-02-21 10:28 | XMS_ITS | Encounter Summary ---
Author Organization [employer] [facility] Address [address] [facility] [address] [place] [address] Care Team Providers Care Refractory Grinder Operator Name Role Phone Ivania Magallon Primary Care Provider [phone] Reason for Visit * Reason Onset Date Comments Med Refill 09/25/2023 Encounter Details Date Type Department Care Team ([facility] st Contact Info) Description 09/25/2023 Refill [facility] MEDICINE [address] [place], [place] [phone] Ivania Magallon ANP [address] [place] [address] Hypertension associated with diabetes (CMS/HCC) Social History [...] Description 02/27/2025 9:00 AM EDT Office Visit [facility] OPTOMETRY [address] [place] [address] JustusAnjali trejo, OD [address] [place] [address] 03/13/2025 10:00 AM EDT Office Visit [facility] MEDICINE [address] [place] [address] Derek Peña MD [address] [place] [address] 06/02/2025 10:15 AM EDT Office Visit [facility] MEDICINE [address] [place] [address] Ivania Magallon ANP [address] [place] [address] documented as of this encounter Visit Diagnoses Diagnosis Hypertension associated with diabetes (CMS/HCC) Unspecified essential hypertension documented in this encounter Additional Health Concerns Assessment Noted Time PHQ-9 Depression Total Score: 0 07/12/20 23 12:00 PM EDT documented as of this encounter Care Teams Refractory Grinder Operator Relationship Specialty Start Date End Date Ivania Magallon ANP [address] [place] [address] PCP - General Family Medicine 04/30/20 documented as of this encounter
--- OUTSIDE RECORDS SUMMARY | 2025-02-21 10:28 | XMS_ITS | Encounter Summary ---
Author Organization [employer] [facility] Address [address] [place] [address] [address] [place] [address] Care Team Providers Care Soft Tile Setter Name Role Phone Ivania Magallon Primary Care Provider [phone] Reason for Visit * Reason Onset Date Comments Med Refill 08/01/2023 Encounter Details Date Type Department Care Team (Late st Contact Info) Description 08/01/[address] [facility] MEDICINE [address] [place] [address] Ivania Magallon ANP [address] [place] [address] Hypertension associated with diabetes (CMS/HCC) Social History [...] Description 02/27/2025 9:00 AM EDT Office Visit [facility] OPTOMETRY [address] [place] [address] Anjali Jerome, OD [address] [place] [address] 03/13/2025 10:00 AM EDT Office Visit [facility] MEDICINE [address] [place] [address] Derek Peña MD [address] [place] [address] 06/02/2025 10:15 AM EDT Office Visit [facility] MEDICINE [address] [place] [address] Ivania Magallon ANP [address] [place] [address] documented as of this encounter Visit Diagnoses Diagnosis Hypertension associated with diabetes (CMS/HCC) Unspecified essential hypertension documented in this encounter Additional Health Concerns Assessment Noted Time PHQ-9 Depression Total Score: 0 07/12/20 23 12:00 PM EDT documented as of this encounter Care Teams Soft Tile Setter Relationship Specialty Start Date End Date Ivania Magallon ANP [address] [place] [address] PCP - General Family Medicine 04/30/20 documented as of this encounter
--- OUTSIDE RECORDS SUMMARY | 2025-02-21 10:28 | XMS_ITS | Encounter Summary ---
Author Organization [employer] [facility] Address [address] 7[address] [place] [address] Care Team Providers Care Fish Smoker Name Role Phone Ivania Magallon Primary Care Provider [phone] Reason for Visit * Reason Onset Date Comments Nurse Triage 12/24/2024 Encounter Details Date Type Department Care Team ([facility] st Contact Info) Description 12/24/2024 Telephone [facility] MEDICINE [address] [place], [place] [phone] Ivania Magallon ANP [address] [place] [address] Nurse Triage Social History Tobacco Use Types [...] needed. Pt is advised to come to [facility] after 5pm for provider to see Pt. [facility] is open till 8pm. Pt [...] You become worse * Telephone Encounter - Augieaurelia Lee - 12/24/2024 3:54 PM EST Symptom: Hives Outcome: Schedule an urgent appointment (within 1 hour) or talk to a nurse or provider soon Reason: Hives or rash all over the body The caller accepted this outcome. documented in this encounter Plan of Treatment Upcoming Encounters Date Type Department Care Team (Late st Contact Info) Description 02/27/2025 9:00 AM EDT Office Visit [facility] OPTOMETRY [address] [place] [address] Anjali Jerome, OD [address] [place] [address] 03/13/2025 10:00 AM EDT Office Visit [facility] MEDICINE [address] [place] [address] Derek Peña MD [address] [place] [address] 06/02/2025 10:15 AM EDT Office Visit [facility] MEDICINE [address] [place] [address] Ivania Magallon ANP [address] [place] [address] documented as of this encounter Visit Diagnoses Not on filedocumented in this encounter Additional Health Concerns Assessment Noted Time PHQ-9 Depression Total Score: 16 024 9:54 AM EST documented as of this encounter Care Teams Fish Smoker Relationship Specialty Start Date End Date Ivania Magallon ANP [address] [place] [address] PCP - General Family Medicine 04/30/20 documented as of this encounter
--- OUTSIDE RECORDS SUMMARY | 2025-02-21 10:28 | XMS_ITS | Data Portability ---
Author Organization [facility], [facility] Address [address] [place] [address] Care Team Providers Care Pneumatic Hoist Operator Name Role Phone SHONA CHENG Primary Care [...] satisfaction; surgery to be scheduled with my corporate secretary. [email or web address] Not available 11/07/2024 10:54:05 01/23/2025 [...] 70-99 above high normal Not Available [facility] ([facility]) [address], [place], [address], 11/27/2024 00:05:19 Result Notes None recorded. Problems Name Problem SNOMED Code Status Onset Date Resolution Date Notes Provider Name and Address Organization Details Recorded Time No complaints 944081518 Active Status : 'A'; Not Available [facility] 09:24:13 Problem Notes None recorded. Procedures Surgical History Date Name Laterality Status Provider Name and Address Organization Details Recorded Time 12/04/19 ULNAR NERVE TRANSPOSITION SUBCUTANEOUS ELBOW (SURG) completed DORA GAONA [place] - [place] [facility] 12/05/2024 14:16:03 Imaging Results None recorded. [...] Updated DateTime 11/07/2024 162.56 cm 36.4 kg/m2 33783.58 g [facility] 11/07/2024 10:33:54 Date Recorded Body height Body mass index (BMI) Body weight Provider Name and Address Organization Details Last Updated DateTime 01/23/2025 162.56 cm 36.6 kg/m2 59177.17 g [facility] 01/23/2025 13:10:11 Social History None recorded. Functional Status None recorded. Mental Status None recorded. Family History Nothing Reported. Medical History No medical history recorded. Gynecological HistoryNo gynecological history recorded. Obstetrics History GPAL:G 0 P 0 0 0 0 Past Encounters Encounter ID Performer Location Encounter Start Date Encounter Closed Date Diagnosis/Indication Diagnosis SNOMED-CT Code Diagnosis ICD10 Code Diagnosis Note [id number] MD Sanjana Braga [address] [place] [address] 11/07/2024 10:22:58 11/27/2024 07:17:19 Lesion of left ulnar nerve 0464559844 60567 G56.22 [id number] Jimmy Figueroa PA-C [facility] [place] [address] [place] [address] 12/07/2024 11:38:39 12/07/2024 11:40:36 [id number] Alexandra Anton, OTR/L,CHT [facility] [place] [address] [place] [address] 12/22/2024 09:31:07 12/22/2024 10:10:55 Postoperative visit [id number] Z48.89 The suture tails are clipped. Scar [...] post op. Entrapment of left ulnar nerve 2876480135 06461 G56.22 This visit was completed today under [...] - status post ulnar nerve transposit ion [id number] MD [facility] Br[facility] [address] [place] [address] 01/23/2025 12:33:28 02/09/2025 07:36:31 Lesion of left ulnar nerve 8417342292 54942 G56.22 Health Concerns Section Related Observation LastModified by Organization Detai ls LastModified Time None Recorded Concern Status LastModified by Organization Details LastModified Time None Recorded Advance Directives Directive None Recorded Payers Encounter Date Sequence Insurance Name Policy Number Policy Moreno Covered Member ID Moreno Member ID Guarantor Name 11/07/2024 1 [place] Vu Carballo [id number] [place] Vu Carballo 12/07/2024 1 [place] Vu Carballo [id number] [place] Carballo 12/22/2024 1 [place] Vu Carballo [id number] [place] Vu Carballo 01/23/2025 1 [place] Vu Carballo [id number] [place] Vu Carballo Notes Date Note Type [...] which occurred last week. Maribel Sherman MD [facility] [address], [place], [address], [facility] - [facility] 11/07/2024 10:58:52 12/07/2024 text/html [...] contact our office. Jimmy Figueroa PA-C [address], [place], [address], [facility] 12/07/2024 11:40:35 12/22/2024 text/html This is [...] the home program Alexandra Anton, OTR/L,CHT [address], [place], [address], [facility] 12/22/2024 10:07:34 01/23/2025 text/html 44-year-old femklaudia [...] couple of weeks. Maribel Sherman MD [address], [place], [address], [facility] 01/23/2025 14:28:52 OBGyn Episode No OBEpisode recorded.
--- OUTSIDE RECORDS SUMMARY | 2025-02-21 10:28 | XMS_ITS | Clinical Summary ---
Author Organization [address] [facility] Address [address] [place] [address] Phone Care Team Providers Care Chemical Laboratory Tester Name Role Phone MagallonIvania Mark Anthony MOSCOSO Primary Care Provider [phone] Allergies No known active allergies Medications terbinafine (LamISIL) 250 mg tabletIndication s:Onychomycosis Take 1 tablet (250 mg total) by mouth 1 (one) time each day. 30 tablet 2 02/12/2025 5 Active Encounters Date Type Department Care Team Description 01/29/2025 9:00 AM EDT Consult Orthopedic Surgery [facility] [address] [address] Noe Randhawa DPM Controlled type 2 diabetes with neuropathy (CMS/HCC V24, CMS/HCC V28) (Primary Dx); Ingrown left big toenail; Tinea [...] to complete this topic Insurance [place] Care Teams Chemical Laboratory Tester Relationship Specialty Start Date End Date Ivania Magallon NP [address] [place] [phone] PCP - General 12/09/24
--- OUTSIDE RECORDS SUMMARY | 2025-02-21 10:28 | XMS_ITS | Encounter Summary ---
Author Organization [employer] [facility] Address [address] [place] [address] Care Team Providers Care Health Program Director Name Role Phone Ivania Magallon Primary Care Provider [phone] Reason for Visit * Reason Onset Date Comments May recall 02/19/2025 Encounter Details Date Type Department Care Team ([facility] st Contact Info) Description 02/19/2025 Telephone [facility] MEDICINE [address] [place], [place] [phone] Ivania Magallon ANP [address] [place] [address] May recall Social History Tobacco Use Types Packs/Day Years [...] encounter Miscellaneous Notes * Telephone Encounter - Hiral Bower MA - 02/19/2025 10:29 AM EDT Telephone call to patient to schedule the following recall: Visit type: Office visit Appointment notes: DM Patient agree to appointment on 06/02/25 at 10:15 AM with Naun. documented in this encounter Plan of Treatment Upcoming Encounters Date Type Department Care Team (Late st Contact Info) Description 02/27/2025 9:00 AM EDT Office Visit [facility] OPTOMETRY [address] [place] [address] Anjali Jerome, OD [address] [place] [address] 03/13/2025 10:00 AM EDT Office Visit [facility] MEDICINE [address] [place] [address] Derek Peña MD [address] [place] [address] 06/02/2025 10:15 AM EDT Office Visit [facility] MEDICINE [address] [place] [address] Ivania Magallon ANP [address] [place] [address] documented as of this encounter Visit Diagnoses Not on filedocumented in this encounter Additional Health Concerns Assessment Noted Time PHQ-9 Depression Total Score: 9 01/21/20 25 1:36 PM EDT documented as of this encounter Care Teams Health Program Director Relationship Specialty Start Date End Date Ivania Magallon ANP [address] [place] [address] PCP - General Family Medicine 04/30/20 documented as of this encounter
--- OUTSIDE RECORDS SUMMARY | 2025-02-21 10:28 | XMS_ITS | Clinical Summary ---
Author Organization [employer] [facility] Address [address] [place] [address] Care Team Providers Care Unified Communications Architect Name Role Phone Shona Cheng CHLOE Primary Care Provider [phone] Allergies Active Allergy Reactions Criticality Noted Date Comments Burden Extract High 09/07/2021 Other reaction(s): GI Problems, [...] pain 60 tablet 024 Active nystatin (Mycostatin) 021767 UNIT/GM powder Apply topically 2 times daily. [...] Encounters Date Type Department Care Team Description 02/19/2025 Telephone [facility] [place] [address] Shona Cheng ANP May02/13/2025 1:45 PM EDT Office Visit [facility] [place] [address] Derek Peña MD Nummular dermatitis (Primary Dx) 02/13/2025 Travel 02/05/2025 Telephone [facility] [place] [address] Shona Cheng ANP [facility] 02/03/2025 Telephone [facility] [place] [address] Shona Cheng ANP Appointment Request 02/03/2025 Telephone [facility] [place] [address] Shona Cheng ANP DME from [employer] 01/30/2025 Telephone [facility] [place] [address] Patricia Mcgregor, RN Results 01/28/2025 11:00 AM EDT Office Visit [facility] [place] [address] Ange Enciso MD Hypertension associated with diabetes (CMS/HCC) (CMS/HCC) (Primary Dx); Chronic pain of both shoulders 01/28/2025 Travel 01/26/2025 Telephone [facility] [place] [address] Shona Cheng ANP Nurse Triage 01/23/2025 Population Health Risk Score [facility] (C3) Department [address] [place] [phone] Provider, Population Health Generic 01/23/2025 Refill [facility] [address] [place] [address] Johanny Downey DO 01/21/[address] [address] Shona Cheng ANP Durable Medical Equipment (Liners/incontinenc e pads) 01/20/2025 1:00 PM EDT Office Visit [address] [address] Shona Cheng ANP Hypertension associated with diabetes (CMS/HCC) (CMS/HCC) (Primary Dx); Urinary incontinence, mixed 01/20/2025 Travel 01/09/2025 Patient Outreach [address] [address] Shona Cheng ANP Pre-visit Planning (SDOH Screening negative and Tobacco screening negative) 01/01/2025 Orders Only [address] [address] Dayton Llamas MD Mass of lower inner quadrant of right breast (Primary Dx) 12/31/2024 Telephone [facility] [address] [place] [address] Dayton Llamas MD MAMMO DIAGNOSTIC ORDER 12/24/2024 5:20 PM EST Office Visit [facility] [address] [place] [address] Brayan Lynch MD Tinea corporis (Primary Dx); Allergic eczema 12/24/2024 Travel 12/24/2024 Telephone [facility] [address] [place] [address] Shona Cheng ANP Nurse Triage 12/16/2024 1:00 PM EST Office Visit [address] [address] Dayton Llamas MD COVID-19 (Primary Dx); Nasal congestion; Mass of lower inner quadrant of right breast 12/16/2024 Travel 12/15/2024 Telephone [facility] [address] [place] [address] Shona Cheng, ANP Nurse Triage from Last 3 Months Immunizations Name Administration [...] Description 02/27/2025 9:00 AM EDT Office Visit [facility] [address] [place] [address] Justus, Anjali, OD [address] [place] [address] 03/13/2025 10:00 AM EDT Office Visit [facility] [address] [place] [address] Derek Peña MD [address] [place] [address] 06/02/2025 10:15 AM EDT Office Visit [facility] [address] [place] [address] Shona Cheng ANP [address] [place] [address] Health Maintenance Due Date Last Done Comments Diabetes: Foot Exam 1992 Family Planning (PISQ) 1997 Lipid Panel 09/07/2023 09/07/2022, 12/30/2020 Diabetes: Urine Protein Screening 08/28/2024 08/28/2023, 08/04/2020 Depression Monitoring 07/23/2025 01/20/2025, 025 Diabetes: Hemoglobin A1C 07/23/2025 025, 10/14/2024, 07/11/2024, [...] EDT Narrative 01/30/2025 10:23 AM EDT ? [facility] ? [address] ?[place] [address] ? Ultrasound Report ? Signed ? Patient: [place]ia Robles ?MR#: [id number] ?? [id number] ? : 1980 ?Acct:[id number] ? Age/Sex: 44 / F ?ADM Date: 01/30/25 ? Loc: HO.MAMMO ? Attending Dr: Dayton Frazier MD ? Ordering Physician: Dayton Frazier MD ?? Date of Service: 01/30/25 ?? Procedure(s): US breast RT limited mamm only ?? Accession Number(s): [id number] ? cc: Dayton Frazier MD; SHONA CHENG [...] ??Noy Haddad DO ??01/30/2025 10:20 AM EDT ?? RP ? Dictated By: ?Noy Haddad DO ? Signed By: ?<Electronically signed by Noy Haddad DO in OV> ? 01/30/25 1020 ? DD/ 0912 ? TD/TT: 01/30/25 0935 ? Rolfer: ? Procedure Note Raymon, Image - 01/30/2025 [facility] [address] [place] [address] Dr. [place], [place] [address] Ultrasound Report Signed Patient: Robert Robles#: [id number] : 1980Acct:[id number] Age/Sex: 44 / FADM Date: 01/30/25 Loc: HO.MAMMO Attending Dr: Dayton Frazier MD Ordering Physician: Dayton Frazier MD Date of Service: 01/30/25 Procedure(s): US breast RT limited mamm only Accession Number(s): [id number] cc: Dayton Frazier MD; SHONA CHENG NP [...] 01/30/25 1020 DD/ 0912 TD/TT: 01/30/25 0935 Rolfer: aDyton Perez MD IMG US PROCEDURES Fin al Result * BI Mammogram Diagnostic Tomosynthesis Right (01/30/2025 9:00 AM EDT) Anatomical Region Laterality Modality Breast Right Mammography 01/30/2025 9:00 AM EDT Narrative 01/30/2025 10:23 AM EDT ? [place] [facility] ? [address] ?[place] [address] ?[phone] ? Mammography Report ? Signed ? Patient: Albania Robles ?MR#: [id number] ?? [id number] ? : 1980 ?Acct:[id number] ? Age/Sex: 44 / F ?ADM Date: 01/30/25 ? Loc: HO.MAMMO ? Attending Dr: Dayton Frazier MD ? Ordering Physician: Dayton Frazier MD ?Resu ?? lts: 1Negative ? Date of Service: 01/30/25 ?Follow Up: 1 Year From Orig ?? inal Mammogram ? Procedure(s): MM tomosynthesis diagnostic RT ?? Accession Number(s): [id number] ? cc: Dayton Frazier MD; SHONA CHENG [...] DD/ 0900 ? TD/TT: 01/30/25 0910 ? Rolfer: ? Procedure Note Raymon, Image - 01/30/2025 [facility] [address] [place] [address] [place] [address] Mammography Report Signed Patient: Robert Robles#: [id number] : 1980Acct:[id number] Age/Sex: 44 / FADM Date: 01/30/25 Loc: HO.MAMMO Attending Dr: Dayton Frazier MD Ordering Physician: Dayton Frazier lts: 1Negative Date of Service: 01/30/25Follow Up: 1 Year From Orig inal Mammogram Procedure(s): MM tomosynthesis diagnostic RT Accession Number(s): [id number] cc: Dayton Frazier MD; SHONA CHENG NP [...] 01/30/25 1020 DD/ 0900 TD/TT: 01/30/25 0910 Rolfer: us Dayton Perez MD IMG BI PROCEDURES Fin al Result * XR Shoulder 2+ Views Right (01/30/2025 8:30 AM EDT) Anatomical Region Laterality Modality Upper Extremities, Shoulder Right Radi ographic Imaging 01/30/2025 8:30 AM EDT Narrative 01/30/2025 8:31 AM EDT ? [facility] ?[address] ?[place] [address] ?XRay Report ? Signed ? Patient: Horace Carballo,[place] ?MR#: [id number] ?? [id number] ? : 1980 ?Acct:[id number] ? Age/Sex: 44 / F ?ADM Date: 01/29/25 ? Loc: HO.XRAY ? Attending Dr: Ange Enciso MD ? Ordering Physician: Ange Enciso MD ?? Date of Service: 01/29/25 ?? Procedure(s): XR shoulder RT min 2V ?? Accession Number(s): [id number] ? cc: SHONA CHENG NP; Ange Enciso [...] signed by Reinier Steinberg MD in OV> ?01/30/[address] ? DD/ 9 ? TD/TT: 01/30/258[address] ? Rolfer: ? Procedure Note Raymon, Mar - 01/30/[address] [address] XRay Report Signed Patient: Robert Robles#: [id number] : 1980Acct:[id number] Age/Sex: 44 / FADM Date: 01/29/25 Loc: AUGUSTIN Attending Dr: Ange Enciso MD Ordering Physician: Ange Enciso MD Date of Service: 01/29/25 Procedure(s): XR shoulder RT min 2V Accession Number(s): [id number] cc: SHONA CHENG NP; Ange Enciso MD CLINICAL HISTORY: pain in [...] in OV> 01/30/25829 DD/ 9 TD/TT: 01/30/25829 Rolfer: Ange Enciso MD IMG XR PROCEDURES Final Result * XR Shoulder 2+ Views Left (01/30/2025 8:14 AM EDT) Anatomical Region Laterality Modality Upper Extremities, Shoulder Left Radi ographic Imaging 01/30/2025 8:14 AM EDT Narrative 01/30/2025 8:15 AM EDT ? [facility] ?[address] ?[place] [address] ?XRay Report ? Signed ? Patient: Albania Robles ?MR#: [id number] ?? [id number] ? : 1980 ?Acct:[id number] ? Age/Sex: 44 / F ?ADM Date: 01/29/25 ? Loc: HO.XRAY ? Attending Dr: Ange Enciso MD ? Ordering Physician: Ange Enciso MD ?? Date of Service: 01/29/25 ?? Procedure(s): XR shoulder LT min 2V ?? Accession Number(s): [id number] ? cc: SHONA CHENG NP; Ange Encsio MD ? CLINICAL HISTORY: bilateral shoulder pain, [...] DD/ 0814 ? TD/TT: 01/30/25 0814 ? Rolfer: ? Procedure Note Raymon, Image - 01/30/2025 [place] [address] XRay Report Signed Patient: Robert Robles#: [id number] : 1980Acct:[id number] Age/Sex: 44 / FADM Date: 01/29/25 Loc: AUGUSTIN Attending Dr: Ange Enciso MD Ordering Physician: Ange Enciso MD Date of Service: 01/29/25 Procedure(s): XR shoulder LT min 2V Accession Number(s): [id number] cc: SHONA CHNEG QUANTITATIVE CONSULTANT; Ange Enciso MD CLINICAL HISTORY: bilateral shoulder [...] in OV> 01/30/25814 DD/ 3 TD/TT: 01/30/25813 Rolfer: Ange Enciso MD IMG XR PROCEDURES Final Result * Referral to Orthopaedic Surgery (01/23/2025) us Shona Cheng ANP OUTPATIENT REFERRAL ORDERABLES F inal Result * (ABNORMAL) POCT HGB A1C (01/20/2025 1:12 PM EDT) Hemoglobin A1C 6.6(A) 4.0 - 6.0 % QC Media Lot # [id number] Lot# Expiration Date Blood 01/20/2025 1:12 PM EDT us Shona CORONA POINT OF CARE TEST ENTER/EDIT OR DERABLES Final Result * POCT Glucose (01/20/2025 1:11 PM EDT) [facility] Glucose Blood, POC 158 60 - 200 mg/dL QC Media Lot # [id number] Lot# Expiration Date Blood Capillary blood specimen / Unknown 01/20/2025 1:11 PM EDT Result [facility] Shona CORONA POINT OF CARE TEST ENTER/EDIT OR DERABLES Final Result * POCT Rapid Strep A RUEDA ID NOW (12/16/2024 1:10 PM EST) [facility] Rapid Strep A Screen Negative Negative, None Detected Media Lot # [id number] Lot# Expiration Date Swab 12/16/2024 1:10 PM EST Result [facility] Dayton Perez MD POINT OF CARE TEST EN TER/EDIT ORDERABLES Final Result * (ABNORMAL) POCT Rapid Covid-19 BinaxNOW (12/16/2024 1:10 PM EST) [facility] Rapid COVID Ag Positive QC Media Lot # [id number] Lot# Expiration Date Swab 12/16/2024 1:10 PM EST Result [facility] Dayton Perez MD POINT OF CARE TEST EN TER/EDIT ORDERABLES Final Result * HIV Ab/Ag Exposure Source (01/11/2024 2:05 PM EST) [facility] HIV AB/AG Nonreactive Nonreactive [facility] Comment:HIV-1 p24 Ag and/or HIV-1/HIV-2 Ab not detected.A test result that is nonreactive does not exclude thepossibility of exposure to or infection with HIV-1 and/orHIV-2. Nonreactive results in this assay for individualswith prior exposure to HIV-1 and/or HIV-2 may be due toantigen and antibody levels that are below the limit ofdetection of this assay.The [employer] HIV Ag/Ab Combo assay result andsupplemental assay results should be interpreted inconjunction with the patient's clinical presentation,history and other laboratory results. If the results areinconsistent with clinical evidence, additional testing issuggested to confirm the result. 01/11/2024 2:05 PM EST 01/11/2024 2:07 PM EST Generic External Data Provider LAB BLOOD ORDERAB LES Final Result Performing Organization Address [facility]/ZIP Co de Phone Number [facility] [address] [place] [phone] * Hepatitis C Ab (01/11/2024 2:05 PM EST) Hepatitis C Antibody Nonreactive Nonreactive [facility] Comment:Antibodies to HCV no t detected; does not exclude early acuteHCV infection. 01/11/2024 2:05 PM EST 01/11/2024 2:07 PM EST Generic External Data Provider LAB BLOOD ORDERAB LES Final Result Performing Organization Address [facility] Co de Phone Number [facility] [address] [place] [phone] * Albumin, Random Urine W/Creatinine (08/28/2023 10:58 AM EDT) Creatinine, Urine 164.35 mg/dL [facility] Microalbumin Urine 8.0 mg/L [facility] Microalbum Creatinine Ratio Ur 4.8 <30 ug/mg cr [facility] Comment:Albumin/Creatinine R atio Reference Ranges: Normal: < 30 ug/mg creatinine Microalbuminuria: 30 - 300 ug/mg creatinineClinical Albuminuria: > 300 ug/mg creatinine Urine (Urine, Random) 08/28/2023 10:58 AM EDT 08/28/2023 11:38 AM EDT us Shona Cheng ANP LAB URINE ORDERABLES Final Resul t Performing Organization Address City/[facility]/ZIP Co de Phone Number [facility] [address] [place] [phone] * (ABNORMAL) LIPID PANEL, STANDARD (09/07/2022 [...] ?? LDL-C is now calculated using the Gualberto-Romero ?? calculation, which is a validated novel method providing ?? better accuracy than the Friedewald equation in the ?? estimation of LDL-C. ?? Gualberto CHO et al. MORGAN. 2013;310(19): 9874-3339 ?? (http://education.Fabulyzer.com/faq/BUU836) Non-HDL Cholesterol 149(H) <130 mg/dL (calc) [facility] Comment: For patients with diabetes plus 1 major ASCVD risk ?? factor, treating to a non-HDL-C goal of <100 mg/dL ?? (LDL-C of <70 mg/dL) is considered a therapeutic ?? option. Triglycerides 111 <150 mg/dL [facility] 09/07/2022 8:37 AM EDT us Shona Cheng ANP LAB BLOOD ORDERABLES Final Resul t Performing Organization Address City/[facility]/ZIP Co de Phone Number [facility] * HPV mRNA E6/E7 (01/30/2018 10:13 AM EDT) HPV mRNA E6/E7 Not Detected NOT DETECTED [facility] Comment: This test was performed using the APTIMA(R) HPV Assay ([employer] This assay detects E6/E7 viral messenger RNA (mRNA) from 14 high-risk HPV types (16,18,31,33,35,39,45,51, 52,56,58,59,66,68). For additional information please refer to: http://education.QFPay/faq/OMY479c2 (This link is being provided for informational/ educational purposes only.) Test Performed by [employer], [facility], [address] [place] [phone] Jameel Swan M.D., Ph.D., Director of Laboratories , [facility] [id number] Please note: ??Effective 07/24/2016, HPV testing will be performed using [employer]'s APTIMA test which targets mRNA. Detecting mRNA instead of DNA, as in older methods, offers significant improvements in specificity. 01/30/2018 10:1 3 AM EDT us [place] Putnam CNM HISTORICAL/NON ORDERABLE LABS Final Result [facility] [address] from Last 3 Months or Most Recently Relevant to Health Maintenance [facility] Care Teams Unified Communications Architect Relationship Specialty Start Date End Date Shona Cheng ANP [address] [place] [phone] PCP - General Family Medicine 04/30/20
--- OUTSIDE RECORDS SUMMARY | 2025-02-21 10:28 | XMS_ITS | Encounter Summary ---
Author Organization [employer] [facility] Address [address] 7[address] [place] [address] Care Team Providers Care Mediation Commissioner Name Role Phone Ivania Magallon Primary Care Provider [phone] Reason for Visit * Reason Comments Med Refill Encounter Details Date Type Department Care Team ([facility] st Contact Info) Description 07/21/2024 Refill [facility] [address] [place] [address] Ivania Magallon ANP [address] [place] [address] Hypertension associated with diabetes (CMS/HCC) ([facility]/HCC) Social History Tobacco Use Types Packs/Day [...] Description 02/27/2025 9:00 AM EDT Office Visit [facility] [address] [place] [address] Anjali Jerome, OD [address] [place] [address] 03/13/2025 10:00 AM EDT Office Visit [facility] [address] [place] [address] Derek Peña MD [address] [place] [address] 06/02/2025 10:15 AM EDT Office Visit [facility] [address] [place] [address] Ivania Magallon ANP [address] [place] [address] documented as of this encounter Visit Diagnoses Diagnosis Hypertension associated with diabetes (CMS/HCC) Unspecified essential hypertension documented in this encounter Additional Health Concerns Assessment Noted Time PHQ-9 Depression Total Score: 0 07/12/20 23 12:00 PM EDT documented as of this encounter Care Teams Mediation Commissioner Relationship Specialty Start Date End Date Ivania Magallon ANP [address] [place] [phone] PCP - General Family Medicine 04/30/20 documented as of this encounter
== END 2025-02-21 10:26 | disposition home or self-care (01) ==
LOC: HO.MRI 10:25
PROVIDERS: PCP Nurse Practitioner Primary Care; Visit Provider Orthopaedic Surgery
DX: S83.241A Other tear of medial meniscus, current injury, right knee, initial encounter (principal)
CPT/HCPCS: 73721

== ENCOUNTER 2025-02-24 11:38 | Outpatient (AMB) | payer MEDICAID, SELFPAY ==
--- NOTE | 2025-02-24 11:41 | MHC.OFFVIS ---
Vital Signs 02/24/25 11:46 Height 5 ft 4 in Weight 200 lb BMI 34.3 Intake Visit Reasons: Right knee pain and giving way Intake Note: [place] is a 44 year old female who presents with complaints of progressively worsening bilateral knee pains and giving way, right greater than left. She describes her right knee pain as sharp in nature. Most of the pain is along the medial and anterior aspects of her knee. The patient states that she has difficulty going up and down stairs because of her pain and instability. She continues to take Cymbalta for fibromyalgia. She has also tried Tylenol and anti-inflammatory medicines which gave her minimal relief. Her symptoms have gotten worse over the last year in spite of continued non operative treatments. She has failed the last 6 weeks of conservative treatment which has included a home exercise program and physical therapy exercises. She states that her right knee will give out several times per day. Allergies cucumbers, pickles Allergy (Intermediate, Uncoded 02/24/25 11:45) Rash Medication List - Last Reconciled 02/24/25 by Ash Mccoy MD amlodipine 5 mg PO DAILY gdezeqitep-nalfackgljbue-izde 50-325-40 mg 1 tab PO Q6H PRN dulaglutide (Trulicity) 0.75 mg subcut QWEEK duloxetine 60 mg PO DAILY enalapril maleate 10 mg PO DAILY hydroxyzine HCl 10 mg PO Q8H PRN 3 days lidocaine 5% 1 patch transdermal DAILY metformin mg PO terbinafine HCl 250 mg PO DAILY PFSH Medical History Polymyalgia Chronic neck pain Chronic low back pain with bilateral sciatica Pain in joint, multiple sites Surgical History Hx of shoulder surgery (01/11/24) Hx of hysterectomy S/P cubital tunnel release Hx of laparoscopic gastric banding Family History Mother Hypertension Arthritis Father Diabetes Social History Household Members: Children Alcohol intake: current Alcohol intake frequency: does not drink Patient Tobacco Use Status: Never used Tobacco Current occupational status: employed 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, 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 Physical Exam Vital Signs: BMI result Body Mass Index 34.3 Const Other: Well-nourished well-developed very friendly female awake alert and oriented x3 in no acute distress Extrem Other: Bilateral lower extremity examination shows good capillary refill, no skin lesions noted, normal sensation light touch Right knee examination shows a minimal effusion, minimal crepitus with range of motion, tenderness along her lateral joint line, positive Lissa's test, no instability Results Reviewed Results Reviewed: Standing full weight-bearing x-rays of the patient's right knee show mild diffuse joint space narrowing, no acute bony abnormalities MRI of the patient's right knee shows mild diffuse degenerative changes as well as a tear of the lateral meniscus Assessment & Plan Assessment & Plan (1) Tear of lateral meniscus of right knee: Code(s): S83.281A - Other tear of lateral meniscus, current injury, right knee, initial encounter Category: Medical Plan Ms. Horace Carballo presents with progressively worsening right knee pain and mechanical symptoms due to knee lateral meniscus tear. I had a lengthy discussion with the patient regarding the treatment options. At this point she has failed continued non operative treatments. The risks and benefits of right knee arthroscopic surgery were discussed at length with the patient. The patient wishes to proceed with surgery. Surgery will most likely involve right knee arthroscopic partial lateral meniscectomy. She does understand that she may not get 100% relief of her symptoms depending on the severity of her degenerative changes. The patient will be scheduled for next available date. She will follow-up as instructed. Feel free to call me at any time should questions regarding her orthopedic management arise. I spent 22 minutes in reviewing the patient's records and imaging studies, seeing the patient and documenting in the medical record. Coding Level of Care Code Est Pt Level 3 (11895) Complex EM visit Add On G2211 Diagnoses Tear of lateral meniscus of right knee S83.281A
[2025-02-24 11:46] VITALS: BMI 34.3
--- OUTSIDE RECORDS SUMMARY | 2025-02-24 14:26 | XMS_ITS | Encounter Summary ---
Author Organization [facility] Address [address] [facility] 7t [place] [address] Care Team Providers Care Coating And Baking Operator Name Role Phone Ivania Magallon Primary Care Provider [phone] Reason for Visit * Reason Comments Med Refill Encounter Details Date Type Department Care Team ([facility] st Contact Info) Description 07/21/2024 Refill [facility] MEDICINE [address] [place] [address] Ivania Magallon ANP [address] [place] [address] Hypertension associated with diabetes (CMS/HCC) ([facility]/HCC) Social History Tobacco Use Types Packs/Day Years [...] 02/27/2025 9:00 AM EDT Office Visit [facility] OPTOMETRY [address] [place] [address] Anjali Jerome, OD [address] [place] [address] 03/13/2025 10:00 AM EDT Office Visit [facility] MEDICINE [address] [place] [address] Derek Peña MD [address] [place] [address] 06/02/2025 10:15 AM EDT Office Visit [facility] MEDICINE [address] [place] [address] Ivania Magallon ANP [address] [place] [address] documented as of this encounter Visit Diagnoses Diagnosis Hypertension associated with diabetes (CMS/HCC) Unspecified essential hypertension documented in this encounter Additional Health Concerns Assessment Noted Time PHQ-9 Depression Total Score: 0 07/12/20 23 12:00 PM EDT documented as of this encounter Care Teams Coating And Baking Operator Relationship Specialty Start Date End Date Ivania Magallon ANP [address] [place] [address] PCP - General Family Medicine 04/30/20 documented as of this encounter
--- OUTSIDE RECORDS SUMMARY | 2025-02-24 14:26 | XMS_ITS | Encounter Summary ---
Author Organization [facility] Address [address] [place] [address] 7t [place] [address] Care Team Providers Care Airway Controller Name Role Phone Ivania Magallon Primary Care Provider [phone] Encounter Details Date Type Department Care Team (Latest Contact Info) Description 07/14/2022 Abstract [facility] CONVERSIONS Dental, Provider, DDS Social History [...] Description 02/27/2025 9:00 AM EDT Office Visit [facility] OPTOMETRY [address] [place] [address] Anjali Jerome, OD [address] [place] [address] 03/13/2025 10:00 AM EDT Office Visit [facility] MEDICINE [address] [place] [address] Derek Peña MD [address] [place] [address] 06/02/2025 10:15 AM EDT Office Visit [facility] MEDICINE [address] [place] [address] Ivania Magallon ANP [address] [place] [address] documented as of this encounter Visit Diagnoses Not on filedocumented in this encounter Care Teams Airway Controller Relationship Specialty Start Date End Date Ivania Magallon ANP [address] [place] [address] PCP - General Family Medicine 04/30/20 documented as of this encounter
--- OUTSIDE RECORDS SUMMARY | 2025-02-24 14:26 | XMS_ITS | Encounter Summary ---
Author Organization [facility] Address [address] [facility] 7t [place] [address] Care Team Providers Care Electrical Installation Inspector Name Role Phone Ivania Magallon Primary Care Provider [phone] Reason for Visit * Reason Onset Date Comments Med Refill 09/25/2023 Encounter Details Date Type Department Care Team ([facility] st Contact Info) Description 09/25/2023 Refill [facility] MEDICINE [address] [place], [place] [phone] Ivania Magallon ANP [address] [place] [address] Hypertension associated with diabetes (CMS/HCC) Social History [...] Description 02/27/2025 9:00 AM EDT Office Visit [facility] OPTOMETRY [address] [place] [address] JustusAnjali trejo, OD [address] [place] [address] 03/13/2025 10:00 AM EDT Office Visit [facility] MED[facility]INE [address] [place] [address] Derek Peña MD [address] [place] [address] 06/02/2025 10:15 AM EDT Office Visit [facility] MEDIC[facility] [address] [place] [address] Ivania Magallon ANP [address] [place] [address] documented as of this encounter Visit Diagnoses Diagnosis Hypertension associated with diabetes (CMS/HCC) Unspecified essential hypertension documented in this encounter Additional Health Concerns Assessment Noted Time PHQ-9 Depression Total Score: 0 07/12/20 23 12:00 PM EDT documented as of this encounter Care Teams Electrical Installation Inspector Relationship Specialty Start Date End Date Ivania Magallon ANP [address] [place] [address] PCP - General Family Medicine 04/30/20 documented as of this encounter
--- OUTSIDE RECORDS SUMMARY | 2025-02-24 14:26 | XMS_ITS | Encounter Summary ---
Author Organization [facility] Address [address] [address] [facility] [address] 7[address] [place] [address] Care Team Providers Care Board Handler Name Role Phone Naun Shona CORONA Primary Care Provider [phone] Encounter Details Date Type Department Care Team (Late st Contact Info) Description 02/21/2025 Orders Only [facility] External Provider, [facility] Social History Tobacco Use Types Packs/Day Years [...] Description 02/27/2025 9:00 AM EDT Office Visit [facility] OPTOMETRY [address] [place] [address] Anjali Jerome, OD [address] [place] [address] 03/13/2025 10:00 AM EDT Office Visit [facility] MEDICINE [address] [place] [address] Derek Peña MD [address] [place] [address] 06/02/2025 10:15 AM EDT Office Visit [facility] MEDICINE [address] [place] [address] Shona Cheng ANP [address] [place] [address] documented as of this encounter Procedures Procedure Name Priority Date/Time Associated Diagnosis Comments MR KNEE WO CONTRAST RIGHT Routine 02/21/2025 10:35 AM EDT documented in this encounter Results * MR Knee w/o Contrast Right (02/21/2025 10:35 AM EDT) Anatomical Region Laterality Modality Magnetic Resonan ce 02/21/2025 10:3 5 AM EDT Narrative 02/23/2025 8:01 AM EDT ? [facility] ?[address] ?[place] [address] ? Magnetic Resonance Report ? Signed ? Patient: Vu Carballo,[place] ?MR#: [id number] ?? [id number] ? : 1980 ?Acct:[id number] ? Age/Sex: 44 / F ?ADM Date: 02/21/25 ? Loc: HO.MRI ? Attending Dr: Ash Mccoy MD ? Ordering Physician: Ash Mccoy MD ?? Date of Service: 02/21/25 ?? Procedure(s): MR knee RT wo con ?? Accession Number(s): [id number] ? cc: Ash Mccoy MD; SHONA CHENG NP ? EXAMINATION: MRI RIGHT KNEE WITHOUT CONTRAST ? HISTORY: S83.241A - Other tear of medial meniscus, current injury, ?? right knee ? COMPARISON: Correlation is made with plain films of the right knee ?? dated 11/16/2023. ? TECHNIQUE: ??Coronal T1 and fat-suppressed proton density, sagittal ?? proton density and fat-suppressed proton density, and axial fat ?? suppressed T2 weighted MR images of the right knee were obtained. ? FINDINGS: ? Bone marrow: There is a small focus of marrow edema in the medial ?? aspect of the patella, which could represent a bone contusion. Bone ?? marrow signal intensity is otherwise normal. ? Joint effusion: There is no significant joint effusion. ? Lara's cyst: There is no Lara's cyst. ? Articular cartilage: There is moderate thinning of the patellar ?? cartilage involving the lateral patellar facet. ? Muscles/soft tissues: The visualized muscles demonstrate normal signal ?? intensity. ? Anterior cruciate ligament: Intact ? Posterior cruciate ligament: Intact ? Medial collateral ligament: Intact ? Lateral collateral ligament: Intact ? Medial meniscus: Intact ? Lateral meniscus: There is degenerative signal involving the anterior ?? horn of the lateral meniscus, without evidence of a tear. The remainder ?? of the lateral meniscus is unremarkable in appearance. ? Flexor mechanism: The popliteus, gastrocnemius, and hamstring tendons ?? are intact. ? Quadriceps tendon: Intact ? Patellar tendon: Intact ? Patellar retinacula: Intact ? MR/MR knee RT wo con ?? IMPRESSION: ? 1. Moderate thinning of the patellar cartilage involving the lateral ?? patellar facet. ? 2. Probable small bone contusion involving the medial aspect of the ?? patella. ? Electronically signed by: ??Easton Lopez MD ??02/23/2025 07:58 AM EDT ? Dictated By: ?Easton Lopez MD ? Signed By: ?<Electronically signed by Easton Lopez MD in OV> ?02/23/25 0758 ? DD/ 1035 ? TD/TT: 02/21/25 1050 ? Card Cleaner: ? Procedure Note Raymon, Mar - 02/23/2025 [place] [address] Magnetic Resonance Report Signed Patient: Robert Robles#: [id number] : 1980Acct:[id number] Age/Sex: 44 / FADM Date: 02/21/25 Loc: HO.MRI Attending Dr: Ash Mccoy MD Ordering Physician: Ash Mccoy MD Date of Service: 02/21/25 Procedure(s): MR knee RT wo con Accession Number(s): [id number] cc: Ash Mccoy MD; SHONA CHENG NP EXAMINATION: MRI RIGHT KNEE WITHOUT CONTRAST HISTORY: S83.241A - Other tear of medial meniscus, current injury, right knee COMPARISON: Correlation is made with plain films of the right knee dated 11/16/2023. TECHNIQUE: Coronal T1 and fat-suppressed proton density, sagittal proton density and fat-suppressed proton density, and axial fat suppressed T2 weighted MR images of the right knee were obtained. FINDINGS: Bone marrow: There is a small focus of marrow edema in the medial aspect of the patella, which could represent a bone contusion. Bone marrow signal intensity is otherwise normal. Joint effusion: There is no significant joint effusion. Lara's cyst: There is no Lara's cyst. Articular cartilage: There is moderate thinning of the patellar cartilage involving the lateral patellar facet. Muscles/soft tissues: The visualized muscles demonstrate normal signal intensity. Anterior cruciate ligament: Intact Posterior cruciate ligament: Intact Medial collateral ligament: Intact Lateral collateral ligament: Intact Medial meniscus: Intact Lateral meniscus: There is degenerative signal involving the anterior horn of the lateral meniscus, without evidence of a tear. The remainder of the lateral meniscus is unremarkable in appearance. Flexor mechanism: The popliteus, gastrocnemius, and hamstring tendons are intact. Quadriceps tendon: Intact Patellar tendon: Intact Patellar retinacula: Intact MR/MR knee RT wo con IMPRESSION: 1. Moderate thinning of the patellar cartilage involving the lateral patellar facet. 2. Probable small bone contusion involving the medial aspect of the patella. Electronically signed by: Easton Lopez MD 02/23/2025 07:58 AM EDT RP Dictated By: Easton Lopez MD Signed By: <Electronically signed by Easton Lopez MD in OV> 02/23/25 0758 DD/ 1035 TD/TT: 02/21/25 1050 Card Cleaner: [facility] External Provider IMG MRI PROCEDURES Edited Result - Final documented in this encounter Visit Diagnoses Not on filedocumented in this encounter Additional Health Concerns Assessment Noted Time PHQ-9 Depression Total Score: 9 01/21/20 25 1:36 PM EDT documented as of this encounter Care Teams Board Handler Relationship Specialty Start Date End Date Shona Cheng ANP [address] [place] [address] PCP - General Family Medicine 04/30/20 documented as of this encounter
--- OUTSIDE RECORDS SUMMARY | 2025-02-24 14:26 | XMS_ITS | Clinical Summary ---
Author Organization [facility] Address [address] [place] [address] Phone Care Team Providers Care Deck Cadet Name Role Phone MagallonIvania Mark Anthony MOSCOSO Primary Care Provider [phone] Allergies No known active allergies Medications terbinafine (LamISIL) 250 mg tabletIndication s:Onychomycosis Take 1 tablet (250 mg total) by mouth 1 (one) time each day. 30 tablet 2 02/12/2025 5 Active Encounters Date Type Department Care Team Description 01/29/2025 9:00 AM EDT Consult Orthopedic Surgery [facility] [address] [phone] Noe Randhawa DPM Controlled type [...] to complete this topic Insurance MEDICAID - [place] Care Teams Deck Cadet Relationship Specialty Start Date End Date Ivania Magallon NP [address] [place] [phone] PCP - General 12/09/24
--- OUTSIDE RECORDS SUMMARY | 2025-02-24 14:26 | XMS_ITS | Encounter Summary ---
Author Organization [employer] [facility] Address [address] [place] [address] 7 [place] [address] Care Team Providers Care Dietary Aide Teacher Name Role Phone Ivania Magallon Primary Care Provider [phone] Reason for Visit * Reason Onset Date Comments Med Refill 08/01/2023 Encounter Details Date Type Department Care Team (Late st Contact Info) Description 08/01/2023 Refill [facility] MEDICINE [address] [place] [address] Ivania Magallon ANP [address] [place] [address] Hypertension associated with diabetes (CMS/HCC) Social History [...] Description 02/27/2025 9:00 AM EDT Office Visit [facility] OPTOMETRY [address] [place] [address] Anjali Jerome, OD [address] [place] [address] 03/13/2025 10:00 AM EDT Office Visit [facility] MEDICINE [address] [place] [address] Derek Peña MD [address] [place] [address] 06/02/2025 10:15 AM EDT Office Visit [facility] MEDICINE [address] [place] [address] Ivania Magallon ANP [address] [place] [address] documented as of this encounter Visit Diagnoses Diagnosis Hypertension associated with diabetes (CMS/HCC) Unspecified essential hypertension documented in this encounter Additional Health Concerns Assessment Noted Time PHQ-9 Depression Total Score: 0 07/12/20 23 12:00 PM EDT documented as of this encounter Care Teams Dietary Aide Teacher Relationship Specialty Start Date End Date Ivania Magallon ANP [address] [place] [address] PCP - General Family Medicine 04/30/20 documented as of this encounter
--- OUTSIDE RECORDS SUMMARY | 2025-02-24 14:26 | XMS_ITS | Clinical Summary ---
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 07/04/20 23 Active EPINEPHrine (Epipen) 0.3 MG/0.3ML injection syringeIndicati ons:Allergy to insect bites INJECT 0.3 ML INTRAMUSCULARLY ONCE NEEDED FOR ANAPHYLAXIS 1 each 1 07/12/20 23 Active triamcinolone (Kenalog) 0.1 % creamIndication s:Atopic dermatitis, unspecified type Apply topically if needed in the morning and at bedtime (pain and swelling). Mix with Cerave and apply after showers 80 g 2 09/21/20 23 Active dulaglutide (Trulicity) 3 MG/0.5ML solution pen-injectorInd ications:Hypert ension associated with diabetes (CMS/HCC) Inject 3 mg under the skin 1 (one) time per week. 4 each 07/11/20 24 Active metFORMIN (Glucophage) 1000 MG tabletIndicatio ns:Hypertension associated with diabetes (CMS/HCC) 1 TAB TWICE A DAY WITH MEALS 180 tablet 1 07/11/20 24 Active enalapril (Vasotec) 10 MG tablet Take 1 tablet (10 mg) by mouth Once per day. 90 tablet 1 08/21/20 24 025 Active butalbital-acet aminophen-caffe ine 50-325-40 MG tablet TAKE 1 TABLET BY MOUTH EVERY 6 HOURS NEEDED FOR HEADACHE 20 tablet 08/26/20 24 Active fexofenadine (Marianne) 180 MG tabletIndicatio ns:Atopic dermatitis, unspecified type TAKE 1 TABLET (180 MG) BY MOUTH IF NEEDED EACH DAY (ALLERGIES). 90 tablet 1 09/25/20 24 Active naproxen (Naprosyn) 500 MG tabletIndicatio ns:Polyarthralg ia,Chronic neck pain,Chronic bilateral low back pain with bilateral sciatica TAKE 1 TABLET (500 MG) BY MOUTH WITH BREAKFAST AND WITH EVENING MEAL as needed for pain 60 tablet 10/14/20 24 Active nystatin (Mycostatin) 571167 UNIT/GM powder Apply topically 2 times daily. 60 g 1 12/24/19 25 026 Active triamcinolone (Kenalog) 0.1 % cream Apply topically if needed in the morning and at bedtime (pain and swelling). 30 g 5 12/24/19 25 Active lidocaine (Lidoderm) 5 % patch APPLY 1 PATCH BY TRANSDERMAL ROUTE EVERY DAY (MAY WEAR UP TO 12 HOURS) 30 patch 3 01/24/20 25 Active celecoxib (CeleBREX) 200 MG capsule Take 1 capsule by mouth once or twice daily as needed for moderate to severe pain 60 capsule 01/29/20 25 Active betamethasone, augmented, (Diprolene) 0.05 % ointmentIndicat ions:Nummular dermatitis Apply topically 2 times daily. 45 g 02/14/20 25 Active Active Problems Problem Noted Date Diagnosed Date [...] Encounters Date Type Department Care Team Description 02/21/2025 Orders Only [facility] External Provider, [facility] 02/19/2025 Telephone [facility] [place] [address] Shona Cheng ANP May02/13/2025 1:45 PM EDT Office Visit [address] [address] Derek Peña MD Nummular dermatitis (Primary Dx) 02/13/2025 Travel 02/05/2025 Telephone [facility] [place] [address] Shona Cheng ANP [facility] 02/03/[address] [address] Shona Cheng ANP Appointment Request 02/03/[address] [address] Shona Cheng ANP DME from [facility] 01/30/[address] [address] Patricia Mcgregor, RN Results 01/28/2025 11:00 AM EDT Office Visit [address] [address] Ange Enciso MD Hypertension associated with diabetes (CMS/HCC) (CMS/HCC) (Primary Dx); Chronic pain of both shoulders 01/28/2025 Travel 01/26/2025 Telephone [facility] [address] [place] [address] [phone] Shona Cheng ANP Nurse Triage 01/23/2025 Population Health Risk Score [facility] (C3) Department [address] [place] [phone] Provider, Population Health Generic 01/23/2025 Refill [facility] [address] [place] [address] Johanny Downey DO 01/21/[address] [address] Shona Cheng ANP Durable Medical Equipment (Liners/incontinenc e pads) 01/20/2025 1:00 PM EDT Office Visit [address] [address] Shona Cheng ANP Hypertension associated with diabetes (CMS/HCC) (CMS/HCC) (Primary Dx); Urinary incontinence, mixed 01/20/2025 Travel 01/09/2025 Patient Outreach [address] [address] Shona Cheng ANP Pre-visit Planning (SDOH Screening negative and Tobacco screening negative) 01/01/2025 Orders Only [address] [address] Dayton Llamas MD Mass of lower inner quadrant of right breast (Primary Dx) 12/31/2024 Telephone [facility] [address] [place] [address] Dayton Llamas MD MAMMO DIAGNOSTIC ORDER 12/24/2024 5:20 PM EST Office Visit [facility] [address] [place] [address] [phone] Brayan Lynch MD Tinea corporis (Primary Dx); Allergic eczema 12/24/2024 Travel 12/24/[address] [phone] Shona Cheng ANP Nurse Triage 12/16/2024 1:00 PM EST Office Visit [address] [address] Dayton Llamas MD COVID-19 (Primary Dx); Nasal congestion; Mass of lower inner quadrant of right breast 12/16/2024 Travel 12/15/2024 Telephone [facility] [address] [place] [address] Shona Cheng, CHLOE Nurse Triage from Last 3 Months Immunizations [...] Description 02/27/2025 9:00 AM EDT Office Visit [facility] [address] [place] [address] Anjali Jerome, ROBERTA [address] [place] [address] 03/13/2025 10:00 AM EDT Office Visit [facility] [address] [place] [address] Derek Peña MD [address] [place] [address] 06/02/2025 10:15 AM EDT Office Visit [facility] [address] [place] [address] Shona Cheng, CHLOE [address] [place] [address] Health Maintenance Due Date Last Done Comments [...] CONTRAST RIGHT Routine 02/21/2025 10:35 AM EDT BI US BREAST LIMITED RIGHT Routine 01/30/2025 [...] Recently Relevant to Health Maintenance Results * MR Knee w/o Contrast Right (02/21/2025 10:35 AM EDT) Anatomical Region Laterality Modality Magnetic Resonan ce 02/21/2025 10:3 5 AM EDT Narrative 02/23/2025 8:01 AM EDT ? [facility] ?[address] ?[place] [address] ? Magnetic Resonance Report ? Signed ? Patient: Albania Robles ?MR#: [id number] ?? [id number] ? : 1980 ?Acct:[id number] ? Age/Sex: 44 / F ?ADM Date: 02/21/25 ? Loc: HO.MRI ? Attending Dr: Ash Mccoy MD ? Ordering Physician: Ash Mccoy MD ?? Date of Service: 02/21/25 ?? Procedure(s): MR knee RT wo con ?? Accession Number(s): [id number] ? cc: Ash Mccoy MD; SHONA CHENG NP ? EXAMINATION: MRI RIGHT KNEE WITHOUT CONTRAST ? HISTORY: S83.681A - Other tear of medial meniscus, current [...] ??Easton Lopez MD ??02/23/2025 07:58 AM EDT ?? RP ? Dictated By: ?Easton Lopez MD ? Signed By: ?<Electronically signed by Easton Lopez MD in OV> ?02/23/25 0758 ? DD/ 1035 ? TD/TT: 02/21/25 1050 ? [employer] Converter: ? Procedure Note Raymon, Image - 02/23/[address] [address] Magnetic Resonance Report Signed Patient: Robert Robles#: [id number] : 1980Acct:[id number] Age/Sex: 44 / FADM Date: 02/21/25 Loc: HO.MRI Attending Dr: Ash Mccoy MD Ordering Physician: Ash Mccoy MD Date of Service: 02/21/25 Procedure(s): MR knee RT wo con Accession Number(s): [id number] cc: Ash Mccoy MD; SHONA CHENG NP [...] 02/23/25 0758 DD/ 1035 TD/TT: 02/21/25 1050 [employer] Converter: [facility] External Provider IMG MRI PROCEDURES Edited Result - Final * BI US Breast Limited Right (01/30/2025 9:12 AM EDT) Anatomical Region Laterality Modality Breast Right Ultrasound 01/30/2025 9:12 AM EDT Narrative 01/30/2025 10:23 AM EDT ? [facility] ? [address] ?[place] [address] ? Ultrasound Report ? Signed ? Patient: Horace HarisAlbania ?MR#: [id number] ?? [id number] ? : 1980 ?Acct:[id number] ? Age/Sex: 44 / F ?ADM Date: 01/30/25 ? Loc: HO.MAMMO ? Attending Dr: Dayton Frazier MD ? Ordering Physician: Dayton Frazier MD ?? Date of Service: 01/30/25 ?? Procedure(s): US breast RT limited mamm only ?? Accession Number(s): [id number] ? cc: Dayton Frazier MD; SHONA CHENG [...] 01/30/25 1020 ? DD/ 0912 ? TD/TT: 01/30/2535 ? [employer] Converter: ? Procedure Note Mar Ennis - 01/30/2025 [facility] [facility] [address] [place] [address] Ultrasound Report Signed Patient: Robert Robles#: [id number] : 1980Acct:[id number] Age/Sex: 44 / FADM Date: 01/30/25 Loc: HO.MAMMO Attending Dr: Dayton Frazier MD Ordering Physician: Dayton Frazier MD Date of Service: 01/30/25 Procedure(s): US breast RT limited mamm only Accession Number(s): [id number] cc: Dayton Frazier MD; SHONA CHENG NP [...] 01/30/25 1020 DD/ 0912 TD/TT: 01/30/25 0935 [employer] Converter: Dayton Perez MD IMG US PROCEDURES Fin al Result * BI Mammogram Diagnostic Tomosynthesis Right (01/30/2025 9:00 AM EDT) Anatomical Region Laterality Modality Breast Right Mammography 01/30/2025 9:00 AM EDT Narrative 01/30/2025 10:23 AM EDT ? [facility] ? [address] ?[place] [address] ?[phone] ? Mammography Report ? Signed ? Patient: Vu Carballo,Albania ?MR#: [id number] ?? [id number] ? : 1980 ?Acct:[id number] ? Age/Sex: 44 / F ?ADM Date: 03/21/25 ? Loc: HO.MAMMO ? Attending Dr: Dayton Frazier MD ? Ordering Physician: Dayton Frazier MD ?Resu ?? lts: 1Negative ? Date of Service: 01/30/25 ?Follow Up: 1 Year From Orig ?? inal Mammogram ? Procedure(s): MM tomosynthesis diagnostic RT ?? Accession Number(s): [id number] ? cc: Dayton Frazier MD; SHONA CHENG [...] DD/ 0900 ? TD/TT: 01/30/25 0910 ? [employer] Converter: ? Procedure Note Raymon, Image - 01/30/2025 [place] [facility] [address] [place] [address] Mammography Report Signed Patient: Robert Robles#: [id number] : 1980Acct:[id number] Age/Sex: 44 / FADM Date: 01/30/25 Loc: ZULMA Attending Dr: Dayton Frazier MD Ordering Physician: Dayton Frazier MDResu lts: 1Negative Date of Service: 01/30/25Follow Up: 1 Year From Orig inal Mammogram Procedure(s): MM tomosynthesis diagnostic RT Accession Number(s): [id number] cc: Dayton Frazier MD; SHONA CHENG NP [...] 01/30/25 1020 DD/ 0900 TD/TT: 01/30/25 0910 [employer] Converter: us Dayton Perez MD IMG BI PROCEDURES Fin al Result * XR Shoulder 2+ Views Right (01/30/2025 8:30 AM EDT) Anatomical Region Laterality Modality Upper Extremities, Shoulder Right Radi ographic Imaging 01/30/2025 8:30 AM EDT Narrative 01/30/2025 8:31 AM EDT ? [facility] ?[address] ?[place] [address] ?XRay Report ? Signed ? Patient: Vu Carballo,Albania ?MR#: [id number] ?? [id number] ? : 1980 ?Acct:[id number] ? Age/Sex: 44 / F ?ADM Date: 03/20/25 ? Loc: HO.XRAY ? Attending Dr: Ange Enciso MD ? Ordering Physician: Ange Enciso MD ?? Date of Service: 01/29/25 ?? Procedure(s): XR shoulder RT min 2V ?? Accession Number(s): [id number] ? cc: SHONA CHENG NP; Ange Enciso [...] MD in OV> ?01/30/25 0830 ? DD/ ? TD/TT: 01/30/25829 ? [employer] Converter: ? Procedure Note Mar Ennis - 01/30/[address] [address] XRay Report Signed Patient: Robert Robles#: [id number] : 1980Acct:[id number] Age/Sex: 44 / FADM Date: 01/29/25 Loc: HO.GRETAAY Attending Dr: Ange Enciso MD Ordering Physician: Ange Enciso MD Date of Service: 01/29/25 Procedure(s): XR shoulder RT min 2V Accession Number(s): [id number] cc: SHONA CHENG MANAGER DECISION SUPPORT; Ange Enciso MD CLINICAL HISTORY: pain in [...] in OV> 01/30/25829 DD/ 9 TD/TT: 01/30/25829 [employer] Converter: us Ange Enciso MD IMG XR PROCEDURES Final Result * XR Shoulder 2+ Views Left (01/30/2025 8:14 AM EDT) Anatomical Region Laterality Modality Upper Extremities, Shoulder Left Radi ographic Imaging 01/30/2025 8:14 AM EDT Narrative 01/30/2025 8:15 AM EDT ? [facility] ?[address] ?[place] [address] ?XRay Report ? Signed ? Patient: Horace BrionesAlbania thornton ?MR#: [id number] ?? [id number] ? : 1980 ?Acct:[id number] ? Age/Sex: 44 / F ?ADM Date: 01/29/25 ? Loc: HO.XRAY ? Attending Dr: Ange Enciso MD ? Ordering Physician: Ange Enciso MD ?? Date of Service: 01/29/25 ?? Procedure(s): XR shoulder LT min 2V ?? Accession Number(s): [id number] ? cc: SHONA CHENG NP; Ange Enciso [...] DD/ 0814 ? TD/TT: 01/30/25 0814 ? [employer] Converter: ? Procedure Note Mar Ennis - 01/30/2025 [place] [address] [facility] [place] [address] XRay Report Signed Patient: Robert Robles#: [id number] : 1980Acct:[id number] Age/Sex: 44 / FADM Date: 01/29/25 Loc: HO.GRETAAY Attending Dr: Ange Enciso MD Ordering Physician: Ange Enciso MD Date of Service: 01/29/25 Procedure(s): XR shoulder LT min 2V Accession Number(s): [id number] cc: SHONA CHENG MANAGER DECISION SUPPORT; Ange Enciso MD CLINICAL HISTORY: bilateral shoulder [...] in OV> 01/30/25814 DD/ 3 TD/TT: 01/30/25813 [employer] Converter: Ange Enciso MD IMG XR PROCEDURES Final Result * Referral to Orthopaedic Surgery (01/23/2025) Result Nicole Cheng ANP OUTPATIENT REFERRAL ORDERABLES F inal Result * (ABNORMAL) POCT HGB A1C (01/20/2025 1:12 PM EDT) Hemoglobin A1C 6.6(A) 4.0 - 6.0 % QC Media Lot # [id number] Lot# Expiration Date ,026 Blood 01/20/2025 1:12 PM EDT Result Nicole Cheng ANP POINT OF CARE TEST ENTER/EDIT OR DERABLES Final Result * POCT Glucose (01/20/2025 1:11 PM EDT) Glucose Blood, POC 158 60 - 200 mg/dL QC Media Lot # [id number] Lot# Expiration Date ,224 Blood Capillary blood specimen / Unknown 01/20/2025 1:11 PM EDT Shona Cheng CHLOE POINT OF CARE TEST ENTER/EDIT OR DERABLES Final Result * POCT Rapid Strep A RUEDA ID NOW (12/16/2024 1:10 PM EST) [facility] Rapid Strep A Screen Negative Negative, None Detected QC Media Lot # [id number] Lot# Expiration Date Swab 12/16/2024 1:10 PM EST Result [facility] Dayton Perez MD POINT OF CARE TEST EN TER/EDIT ORDERABLES Final Result * (ABNORMAL) POCT Rapid Covid-19 BinaxNOW (12/16/2024 1:10 PM EST) [facility] Rapid COVID Ag Positive QC Media Lot # [id number] Lot# Expiration Date Swab 12/16/2024 1:10 PM EST Result [facility] Dayton Perez MD POINT OF CARE TEST EN TER/EDIT ORDERABLES Final Result * HIV Ab/Ag Exposure Source (01/11/2024 2:05 PM EST) [facility] HIV AB/AG Nonreactive Nonreactive [facility] Comment:HIV-1 p24 Ag and/or HIV-1/HIV-2 Ab not detected.A test result that is nonreactive does not exclude thepossibility of exposure to or infection with HIV-1 and/orHIV-2. Nonreactive results in this assay for individualswith prior exposure to HIV-1 and/or HIV-2 may be due toantigen and antibody levels that are below the limit ofdetection of this assay.The Rueda Alinity HIV Ag/Ab Combo assay result andsupplemental assay results should be interpreted inconjunction with the patient's clinical presentation,history and other laboratory results. If the results areinconsistent with clinical evidence, additional testing issuggested to confirm the result. 01/11/2024 2:05 PM EST 01/11/2024 2:07 PM EST Generic External Data Provider LAB BLOOD ORDERAB LES Final Result Performing Organization Address [facility] Co de Phone Number [facility] [address] [place] [phone] * Hepatitis C Ab (01/11/2024 2:05 PM EST) Hepatitis C Antibody Nonreactive Nonreactive [facility] Comment:Antibodies to HCV no t detected; does not exclude early acuteHCV infection. 01/11/2024 2:05 PM EST 01/11/2024 2:07 PM EST [facility] External Data Provider LAB BLOOD ORDERAB LES Final Result Performing Organization Address [facility] Phone Number [facility] [address] [place] [phone] * Albumin, Random Urine W/Creatinine (08/28/2023 10:58 AM EDT) Creatinine, Urine 164.35 mg/dL [facility] Microalbumin Urine 8.0 mg/L [facility] Microalbum Creatinine Ratio Ur 4.8 <30 ug/mg cr [facility] Comment:Albumin/Creatinine R atio Reference Ranges: Normal: < 30 ug/mg creatinine Microalbuminuria: 30 - 300 ug/mg creatinineClinical Albuminuria: > 300 ug/mg creatinine Urine (Urine, Random) 08/28/2023 10:58 AM EDT 08/28/2023 11:38 AM EDT us [facility] LAB URINE ORDERABLES Final Resul t Performing Organization Address [facility] Co de Phone Number [facility] [address] [place] [phone] * (ABNORMAL) LIPID PANEL, STANDARD (09/07/2022 8:37 AM EDT) Pathologist [facility] Chol/HDLC Ratio 3.7 <5.0 (calc) CONVERTED LEGACY [...] ?? Gualberto CHO et al. MORGAN. 2013;310(19): 5464-0230 ?? (http://education.iGrow - Dein Lernprogramm im Leben/faq/CQG598) Non-HDL Cholesterol 149(H) <130 mg/dL (calc) CONVERTED LEGACY LABS Comment: For patients with diabetes plus 1 major ASCVD risk ?? factor, treating to a non-HDL-C goal of <100 mg/dL ?? (LDL-C of <70 mg/dL) is considered a therapeutic ?? option. Triglycerides 111 <150 mg/dL CONVE RTED LEGACY LABS 09/07/2022 8:37 AM EDT [facility] LAB BLOOD ORDERABLES Final Resul t CONVERTED LEGACY LABS * HPV mRNA E6/E7 (01/30/2018 10:13 AM EDT) Pathologist [facility] HPV mRNA E6/E7 Not Detected NOT DETECTED [facility] Comment: This test was performed using the APTIMA(R) HPV Assay ([employer] This assay detects E6/E7 viral messenger RNA (mRNA) from 14 high-risk HPV types (16,18,31,33,35,39,45,51, 52,56,58,59,66,68). For additional information please refer to: http://education.Jiberish/faq/FLJ882i5 (This link is being provided for informational/ educational purposes only.) Test Performed by Veronica Gr, [employer] [facility], [address] [place] [phone] Jameel Swan M.D., Ph.D., Director of Laboratories , [facility] [id number] Please note: ??Effective 07/24/2016, HPV testing will be performed using [employer]'s APTIMA test which targets mRNA. Detecting mRNA instead of DNA, as in older methods, offers significant improvements in specificity. 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
--- OUTSIDE RECORDS SUMMARY | 2025-02-24 14:26 | XMS_ITS | Encounter Summary ---
Author Organization [email or web address] [facility] Address [address] [facility] 7t [place] [address] Care Team Providers Care Rn Occupational Name Role Phone Ivania Magallon Primary Care Provider [phone] Reason for Visit * Reason Onset Date Comments May recall 02/19/2025 Encounter Details Date Type Department Care Team ([facility] st Contact Info) Description 02/19/2025 Telephone [facility] [address] [place], [place] [phone] Ivania Magallon ANP [address] [place] [address] May recall Social History Tobacco Use Types [...] Description 02/27/2025 9:00 AM EDT Office Visit [facility] [address] [place] [address] Anjali Jerome, OD [address] [place] [address] 03/13/2025 10:00 AM EDT Office Visit [facility] [address] [place] [address] Derek Peña MD [address] [place] [address] 06/02/2025 10:15 AM EDT Office Visit [facility] [address] [place] [address] Ivania Magallon ANP [address] [place] [address] documented as of this encounter Visit Diagnoses Not on filedocumented in this encounter Additional Health Concerns Assessment Noted Time PHQ-9 Depression Total Score: 9 01/21/20 25 1:36 PM EDT documented as of this encounter Care Teams Rn Occupational Relationship Specialty Start Date End Date Ivania Magallon ANP [address] [place] [address] PCP - General Family Medicine 04/30/20 documented as of this encounter
--- OUTSIDE RECORDS SUMMARY | 2025-02-24 14:26 | XMS_ITS | Encounter Summary ---
Author Organization [employer] [facility] Address [address] [facility] [address]t [place] [address] Care Team Providers Care Tamale Machine Feeder Name Role Phone Ivania Magallon Primary Care Provider [phone] Reason for Visit * Reason Onset Date Comments Nurse Triage 12/24/2024 Encounter Details Date Type Department Care Team ([facility] st Contact Info) Description 12/24/2024 Telephone [facility] [address] [place], [place] [phone] Ivania Magallon ANP [address] [place] [address] Nurse Triage Social History Tobacco Use Types [...] needed. Pt is advised to come to [facility] after 5pm for provider to see Pt. [facility] is open till 8pm. Pt agrees [...] Description 02/27/2025 9:00 AM EDT Office Visit [facility] [address] [place] [address] Anjali Jerome, OD [address] [place] [address] 03/13/2025 10:00 AM EDT Office Visit [facility] [address] [place] [address] Derek Peña MD [address] [place] [address] 06/02/2025 10:15 AM EDT Office Visit [facility] [address] [place] [address] Ivania Magallon ANP [address] [place] [address] documented as of this encounter Visit Diagnoses Not on filedocumented in this encounter Additional Health Concerns Assessment Noted Time PHQ-9 Depression Total Score: 16 024 9:54 AM EST documented as of this encounter Care Teams Tamale Machine Feeder Relationship Specialty Start Date End Date Ivania Magallon ANP [address] [place] [address] PCP - General Family Medicine 04/30/20 documented as of this encounter
--- OUTSIDE RECORDS SUMMARY | 2025-02-24 14:26 | XMS_ITS | Encounter Summary ---
Author Organization [employer] [facility] Address [address] [place] [address] 7t [place] [address] Care Team Providers Care Flute Polisher Name Role Phone Ivania Magallon Primary Care Provider [phone] Encounter Details Date Type Department Care Team (Latest Contact Info) Description 04/14/2021 Abstract [facility] CONVERSIONS Dental, Provider, DDS Social History Tobacco [...] Office Visit [facility] OPTOMETRY [address] [place] [address] Anjali Jerome, OD [address] [place] [address] 03/13/2025 10:00 AM EDT Office Visit [facility] MEDICINE [address] [place] [address] Derek Peña MD [address] [place] [address] 06/02/2025 10:15 AM EDT Office Visit [facility] MEDICINE [address] [place] [address] Ivania Magallon ANP [address] [place] [address] documented as of this encounter Visit Diagnoses Not on filedocumented in this encounter Care Teams Flute Polisher Relationship Specialty Start Date End Date Ivania Magallon ANP [address] [place] [address] PCP - General Family Medicine 04/30/20 documented as of this encounter
== END 2025-02-24 11:58 | disposition home or self-care (01) ==
LOC: HO.HOS 11:38
PROVIDERS: PCP Nurse Practitioner Primary Care; Visit Provider Orthopaedic Surgery
DX: S83.281A Other tear of lateral meniscus, current injury, right knee, initial encounter (principal)
CPT/HCPCS: 99213

== ENCOUNTER → 2025-02-24 11:38 | Outpatient (BNVA) | payer MEDICAID, SELFPAY | PROVIDERS: PCP Nurse Practitioner Primary Care; Visit Provider Orthopaedic Surgery | DX: S83.281A Other tear of lateral meniscus, current injury, right knee, initial encounter (principal); M79.7 Fibromyalgia; X58.XXXA Exposure to other specified factors, initial encounter; Y93.9 Activity, unspecified; Y92.9 Unspecified place or not applicable; Y99.9 Unspecified external cause status; Z79.899 Other long term (current) drug therapy | CPT/HCPCS: 99212 ==

== ENCOUNTER 2025-03-03 19:06 | Emergency (ER) | payer MEDICAID, SELFPAY ==
--- NOTE | ~2025-03-03 | XR_ITS ---
CLINICAL HISTORY: Chemical expposure 1 view chest x-ray. Comparison: None Findings: The lungs are adequately expanded. No focal consolidation. No effusion or pneumothorax. Cardiac and mediastinal contours are within normal limits. No acute osseous abnormality Impression: No acute process. This document has been electronically signed by: Karlos Dyson MD on 03/03/2025 20:54:50
[2025-03-03 20:14] VITALS: BP 129/80; PULSE 101; RESP 17; TEMP 36.8; O2SAT 99; BMI 36.6
--- NOTE | 2025-03-03 20:21 | ED.MEDCLEAR ---
HPI - Medical Clearance General Chief complaint: Dyspnea Stated complaint: Chemical exposure/Difficulty breathing Time Seen by Provider: 03/03/25 23:28 Source: patient Mode of arrival: ambulatory Limitations: no limitations History of Present Illness ED Provider: DR. Bass HPI Narrative: 44-year-old female presented after had an episode of chest tightness with shortness of breath with sore throat after smelling a detergent while she cleaning the bathroom, patient has no history of asthma used updraft bronchodilator at home belong to her boyfriend, patient was given bronchodilator when she the ED before I have seen the patient and reported improved. No recent travel, no recent prolonged immobilization, no lower extremity swelling or tenderness. Related Information Home Medications ?Medication ?Instructions ?Recorded ?Confirmed lidocaine 5 % topical patch 1 patch transdermal DAILY 07/09/23 02/24/25 dulaglutide 0.75 mg/0.5 mL 0.75 mg subcut QWEEK 07/19/23 02/24/25 subcutaneous pen injector (Trulicity) metformin 1,000 mg tablet mg PO 07/19/23 02/24/25 duloxetine 60 mg capsule,delayed 60 mg PO DAILY 02/17/25 02/24/25 release enalapril maleate 10 mg tablet 10 mg PO DAILY 02/17/25 02/24/25 terbinafine HCl 250 mg tablet 250 mg PO DAILY 02/17/25 02/24/25 Previous Rx's ?Medication ?Instructions ?Recorded hydroxyzine HCl 10 mg tablet 10 mg PO Q8H PRN itching 3 days #9 01/21/24 tabs amlodipine 5 mg tablet 5 mg PO DAILY #30 tabs 07/28/24 ixcjpuccri-mjwzitvsrhela-nxwkdizn 1 tab PO Q6H PRN haeadace #20 tabs 07/28/24 50 mg-325 mg-40 mg tablet albuterol sulfate 2.5 mg/3 mL 2.5 mg (3 mL) inhalation QID PRN 03/03/25 (0.083 %) solution for nebulization shortness of breath or wheezing #75 mL prednisone 20 mg tablet 20 mg PO BID #4 tabs 03/03/25 Allergies Allergy/AdvReac Type Severity Reaction Status Date / Time cucumbers, pickles Allergy Intermediate Rash Uncoded 03/03/25 20:18 Review of Systems Review of Systems: All other systems are reviewed and are negative Constitutional: Reports as per HPI and Reports no additional constitutional complaints Eyes: Reports as per HPI and Reports no additional eye complaints Reports system reviewed and no additional complaints, except as documented Cardiovascular: Reports as per HPI and Reports no additional cardiovascular complaints Respiratory: Reports as per HPI and Reports no additional respiratory complaints Gastrointestinal: Reports as per HPI and Reports no additional gastrointestinal complaints Genitourinary: Reports no additional female genitourinary complaints Musculoskeletal: Reports no additional musculoskeletal complaints Skin/Breast: Reports system reviewed and no additional complaints, except as docu Psychiatric: Reports no additional psychiatric complaints Endocrine: Reports no additional endocrine complaints Hematologic/Lymphatic: Reports no additional hematologic/lymphatic complaints Allergic/Immunologic: Reports no additional allergic/immunologic complaints Reports system reviewed and no additional complaints, except as documented and Reports Abnormal speech present [facility] Past Medical History Medical History Polymyalgia Chronic neck pain Chronic low back pain with bilateral sciatica Pain in joint, multiple sites Surgical History Hx of shoulder surgery (01/11/24) Hx of hysterectomy S/P cubital tunnel release Hx of laparoscopic gastric banding Family History Family History Mother Hypertension Arthritis Father Diabetes Social History Social History Household Members: Children Alcohol intake: current Alcohol intake frequency: does not drink Patient Tobacco Use Status: Never used Tobacco Smoked in Last 30 Days: No Use of substances other than those prescribed or required for medical reasons: No Advance Directives: No Advance Directives Information Provided: No Do you have a plan to hurt others: No Plan Current occupational status: employed 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 Blood pressure elevated. Heart rate normal. Respiratory rate normal. Temperature normal. Oxygen saturation normal. Appearance: Alert. Oriented X3. No acute distress. Head: Normal external exam. Normocephalic. Atraumatic. No Ventura signs noted. No raccoon eyes noted Eyes: PERRLA. EOMI. Conjunctiva and sclera normal. Eyelids normal. ENT: TM's Normal. Pharynx normal. Uvula midline. Moist mucous membranes. No trismus noted. No drooling noted. No muffled voice noted. Neck: Normal inspection. Neck supple. FROM. No adenopathy. Thyroid Normal. No meningeal signs. No neck mass noted. CVS: Normal heart rate and rhythm. Heart sound normal. No murmurs noted. Pulses normal throughout. Respiratory: No respiratory distress. Painless inspiration. Breath sounds normal. No wheezes/rales/rhonchi noted. Chest nontender. No accessory muscle usage noted or decreased air movement noted. Abdomen: Soft and nontender. Bowel sounds normal in all 4 quadrants. No distention noted. No organomegaly noted. No visible injury noted. Back: No CVA tenderness. Full range of motion noted. Skin: Skin warm and dry. Normal skin color. Normal skin turgor. No rashes/lesions/lacerations noted. Extremities: No lower extremity edema. Extremities exhibit normal range of motion. Extremities nontender. Neuro: Oriented X 3. Cranial nerve exam: II-XII are grossly intact No motor deficit. No sensory deficit. Reflexes normal. Course Course Course Narrative: RME: 44-year-old female presents to ED for chest tightness headache shortness of breath after exposure to large amounts of bleed while she was cleaning in the bathroom. Patient states when she felt extreme amount of bleed she felt chest tightness and wheezing. Patient states no relief with nebulizer. Patient states also coughing. Patient denies any oral ingestion of bleach. Lungs are tight on exam. ED brown chest x-ray SARs strep ordered. Reevaluation(s) Reevaluation #1: 03/04/2025: Dr. Bass's progress note: Chest tightness after smell at detergent while she is cleaning bathroom, improved with atrial in the ED. Cardiac workup is unremarkable. No risk for pulmonary embolism with stable vital signs. Will discharge on few days of prednisone, bronchodilator, and refrain from using the same detergent. Time: 12:30 Medications Administered Discontinued Medications Generic Name Dose Route Start Last Admin Trade Name Marly PRN Reason Stop Dose Admin Prednisone 40 mg 03/03/25 23:34 03/04/25 00:10 Prednisone 20 Mg Tablet PO 03/03/25 23:35 40 mg ONCE ONE Administration Medical Decision Making Differential Diagnosis Differential Diagnoses: The differential diagnosis associated with the presentation includes (Allergic reaction, reactionary asthma, pneumonia, pneumothorax, pleural effusion, ACS, electrolyte derangement, severe anemia.) Admission/Observation Consideration of admission/observation: Escalation of care including admission/observation considered Lab Data MDM Lab Attestation statement: I reviewed the patient's lab results. 03/03/25 23:54 03/03/25 23:54 Labs: Lab Results 03/03/25 03/03/25 Range/Units 20:38 23:54 WBC 10.5 (4.8-10.8) X10*3/uL RBC 4.47 (4.20-5.50) X10*6/uL Hgb 10.9 L (12.0-16.0) g/dl Hct 34.1 L (37.0-47.0) % MCV 76.3 L (80.0-98.0) fL MCH 24.4 L (27.0-33.0) pg MCHC 32.0 (31.0-35.0) g/dl RDW 17.8 H (11.0-16.0) % Plt Count 327 (160-400) X10*3/uL MPV 8.1 L (9.4-12.3) fL Immature Gran % (Auto) 0.4 (0.0-0.4) % Neut % (Auto) 64.4 (45-73) % Lymph % (Auto) 28.8 (20-40) % Holmes % (Auto) 5.1 (2-11) % Eos % (Auto) 0.8 (0-4) % Baso % (Auto) 0.5 (0-2) % Lymph # (Auto) 3.0 (1.2-4.9) X10*3/uL Holmes # (Auto) 0.5 (0.1-1.2) X10*3/uL Eos # (Auto) 0.1 (0.0-0.4) X10*3/uL Baso # (Auto) 0.1 (0.0-0.2) X10*3/uL Abs Immat Gran (auto) 0.04 H (0.00-0.03) X10*3/uL Absolute Neuts (auto) 6.8 (2.0-8.3) x10*3/uL Absolute Nucleated RBC 0.000 (0.0-0.012) X10*3/uL Nucleated RBC % (auto) 0.0 (0.0-0.2) /100WBC Sodium 138 (135-145) mmol/L Potassium 3.8 (3.3-5.1) mmol/L Chloride 107 (96-108) mmol/L Carbon Dioxide 22 (22-29) mmol/L Anion Gap 13 (12-20) BUN 9 (9-16) mg/dL Creatinine 0.68 (0.5-1.4) mg/dL Estim Creat Clear Calc 121.6 Estimated GFR > 60 Random Glucose 136 H (60-115) mg/dL Calcium 8.7 D (8.4-10.2) mg/dL Total Bilirubin 0.2 (0.0-1.0) mg/dL Direct Bilirubin < 0.2 (0.0-0.5) mg/dL AST 21 (5-31) U/L ALT 17 (0-31) U/L Alkaline Phosphatase 72 (39-117) U/L Troponin I High Sens < 2.7 (<3.5-17.0) ng/L Total Protein 7.1 (6.5-8.0) g/dL Albumin 4.0 (3.5-5.0) g/dL Lipase 51 (8-78) U/L Influenza Type A (PCR) NEGATIVE (Negative) Influenza Type B (PCR) NEGATIVE (Negative) RSV RNA Qual (PCR) NEGATIVE (Negative) SARS-CoV-2 RNA (RT-PCR) NEGATIVE (Negative) Independent Interpretation I performed an independent interpretation of an: Plain X-Ray (Chest: No acute intrathoracic pathology.) Radiology Impression Discussion of test interpretation with radiology: I have reviewed the radiologist's reading. Discharge Plan Discharge Clinical Impression: Allergic reaction to chemical substance Patient Disposition: Home, Self-Care Instructions: General Allergic Reaction (ED) Additional Instructions: Avoid using or smelling the detergent that use today. Prescriptions: New prednisone 20 mg tablet 20 mg PO BID Qty: 4 0RF albuterol sulfate 2.5 mg /3 mL (0.083 %) solution for nebulization 2.5 mg inhalation QID PRN (Reason: shortness of breath or wheezing) Qty: 75 0RF No Action hydroxyzine HCl 10 mg tablet 10 mg PO Q8H PRN (Reason: itching) 3 Days Qty: 9 0RF gvdofgxsvl-lodewhtmdmkbk-uqrc 50-325-40 mg tablet 1 tab PO Q6H PRN (Reason: haeadace) Qty: 20 0RF amlodipine 5 mg tablet 5 mg PO DAILY Qty: 30 0RF terbinafine HCl 250 mg tablet 250 mg PO DAILY duloxetine 60 mg capsule,delayed release(DR/EC) 60 mg PO DAILY enalapril maleate 10 mg tablet 10 mg PO DAILY lidocaine 5 % adhesive patch,medicated 1 patch transdermal DAILY metformin 1,000 mg tablet PO Trulicity 0.75 mg/0.5 mL pen injector 0.75 mg subcut QWEEK Referrals: Ivania Magallon PHOTOGRAPHER APPRENTICE [employer]APH[employer] [Primary Care Provider] - Interventions: ED Discharge Assessment Last Done: 03/04/25 02:19 Discharge Date/Time: 03/04/25 02:19 Print Language: Welsh
[2025-03-03 21:21] LABS: Influenza A PCR NEGATIVE (Negative); Influenza B PCR NEGATIVE (Negative); Resp Syncy Virus RNA Qual PCR NEGATIVE (Negative); SARS COV2 PCR INHOUSE NEGATIVE (Negative)
[2025-03-03 23:16] VITALS: BP 116/73; PULSE 89; RESP 16; TEMP 36.7; O2SAT 98
--- NOTE | 2025-03-03 23:35 | ECG_ITS ---
Test Reason : CHEST PAIN Blood Pressure : */* mmHG Vent. Rate : 88 BPM Atrial Rate : 88 BPM P-R Int : 112 ms QRS Dur : 82 ms QT Int : 364 ms P-R-T Axes : 9 -9 13 degrees QTcB Int : 440 ms Normal sinus rhythm Normal ECG When compared with ECG of 15-Dec-2017 12:07, No significant change was found Referred By: Casey Bass Electronically Signed By: DANIELLE DE LA O
[2025-03-03 23:58] LABS: MANUAL DIFF FLAG NO
[2025-03-03 23:59] LABS: Basophils Absolute Auto 0.1 X10*3/uL (0.0-0.2); Basophils Percent Auto 0.5 % (0-2); Eosinophils Absolute Auto 0.1 X10*3/uL (0.0-0.4); Eosinophils Percent Auto 0.8 % (0-4); Hematocrit 34.1 % (37.0-47.0); Hemoglobin 10.9 g/dl (12.0-16.0); Imm Gran Abs Auto 0.04 X10*3/uL (0.00-0.03); Imm Gran Pct Auto 0.4 % (0.0-0.4); Lymphocytes Percent Auto 28.8 % (20-40); Mean Corpuscular Hemoglobin 24.4 pg (27.0-33.0); Mean Corpuscular Volume 76.3 fL (80.0-98.0); Mean Platelet Volume 8.1 fL (9.4-12.3); Monocytes Absolute Auto 0.5 X10*3/uL (0.1-1.2); Monocytes Percent Auto 5.1 % (2-11); Neutrophils Absolute Auto 6.8 x10*3/uL (2.0-8.3); Neutrophils Percent Auto 64.4 % (45-73); Platelet Count 327 X10*3/uL (160-400); Red Blood Count 4.47 X10*6/uL (4.20-5.50); Red Cell Distribution Width 17.8 % (11.0-16.0); White Blood Count 10.5 X10*3/uL (4.8-10.8)
[2025-03-04] MEDS: predniSONE 20 MG TABLET 40 MG PO (00:10)
[2025-03-04 00:12] LABS: Alanine Aminotransferase 17 U/L (0-31); Alkaline Phosphatase 72 U/L (39-117); Anion Gap 13 (12-20); Aspartate Amino Transferase 21 U/L (5-31); Bilirubin Direct < 0.2 mg/dL (0.0-0.5); Bilirubin Total 0.2 mg/dL (0.0-1.0); Blood Urea Nitrogen 9 mg/dL (9-16); Calcium 8.7 mg/dL (8.4-10.2); Carbon Dioxide 22 mmol/L (22-29); Chloride 107 mmol/L (96-108); Creatinine Clr Calc Pharmacy 121.6; Estimated Glomerular Filt Rate > 60; Glucose Random 136 mg/dL (60-115); Lipase 51 U/L (8-78); Potassium 3.8 mmol/L (3.3-5.1); Sodium 138 mmol/L (135-145); Total Protein 7.1 g/dL (6.5-8.0)
[2025-03-04 00:20] LABS: Troponin-I High Sensitivity < 2.7 ng/L (<3.5-17.0)
[2025-03-04 02:19] VITALS: BP 116/73; PULSE 89; RESP 16; TEMP 36.7; O2SAT 98
== END 2025-03-04 02:19 | disposition home or self-care (01) ==
PROVIDERS: Physician Assistant; Emergency Provider Emergency Medicine; PCP Nurse Practitioner Primary Care
DX: R06.02 Shortness of breath (principal); R07.89 Other chest pain; Z03.818 Encounter for observation for suspected exposure to other biological agents ruled out; Z79.899 Other long term (current) drug therapy
CPT/HCPCS: 0241U; 36415; 71045; 80048; 80076; 83690; 84484; 85025; 93005; 99283; 99285

== ENCOUNTER → 2025-03-03 20:21 | Outpatient (BNV) | payer MEDICAID, SELFPAY | PROVIDERS: PCP Nurse Practitioner Primary Care; Visit Provider Radiology Vascular & Interventional Radiology | DX: R06.02 Shortness of breath (principal); Z77.098 Contact with and (suspected) exposure to other hazardous, chiefly nonmedicinal, chemicals | CPT/HCPCS: 71045 ==

== ENCOUNTER → 2025-03-03 23:35 | Outpatient (BNV) | payer MEDICAID, SELFPAY | PROVIDERS: Emergency Provider Emergency Medicine; PCP Nurse Practitioner Primary Care; Visit Provider Internal Medicine | DX: R07.9 Chest pain, unspecified (principal) | CPT/HCPCS: 93010 ==

== ENCOUNTER 2025-03-20 09:03 | Outpatient (REF) | payer MEDICAID, SELFPAY ==
--- OUTSIDE RECORDS SUMMARY | 2025-03-20 09:15 | XMS_ITS | Clinical Summary ---
Author Organization 175 [facility] Address [address] [place] [address] Phone Care Team Providers Care Nurse Technician Name Role Phone MagallonIvania Mark Anthony [place] Primary Care Provider [phone] Allergies No known active allergies Medications terbinafine (LamISIL) 250 mg tabletIndication s:Onychomycosis Take 1 tablet (250 mg total) by mouth 1 (one) time each day. 30 tablet 2 02/12/2025 5 Active Encounters Date Type Department Care Team Description 01/29/2025 9:00 AM EDT Consult Orthopedic Surgery [facility] [address] [address] Noe Randhawa DPM Controlled type [...] to complete this topic Insurance [place] - [place] Care Teams Nurse Technician Relationship Specialty Start Date End Date Ivania Magallon NP [address] [place] [phone] PCP - General 12/09/24
[2025-03-20 11:07] LABS: MANUAL DIFF FLAG NO
[2025-03-20 11:17] LABS: Basophils Percent Auto 0.6 % (0-2); Eosinophils Absolute Auto 0.1 X10*3/uL (0.0-0.4); Eosinophils Percent Auto 1.4 % (0-4); Hematocrit 36.7 % (37.0-47.0); Hemoglobin 11.4 g/dl (12.0-16.0); Imm Gran Abs Auto 0.01 X10*3/uL (0.00-0.03); Imm Gran Pct Auto 0.2 % (0.0-0.4); Lymphocytes Absolute Auto 2.4 X10*3/uL (1.2-4.9); Lymphocytes Percent Auto 36.8 % (20-40); Mean Corpuscular HGB Conc 31.1 g/dl (31.0-35.0); Mean Corpuscular Volume 77.3 fL (80.0-98.0); Monocytes Absolute Auto 0.5 X10*3/uL (0.1-1.2); Monocytes Percent Auto 7.2 % (2-11); Neutrophils Absolute Auto 3.5 x10*3/uL (2.0-8.3); Neutrophils Percent Auto 53.8 % (45-73); Platelet Count 363 X10*3/uL (160-400); Red Blood Count 4.75 X10*6/uL (4.20-5.50); Red Cell Distribution Width 18.4 % (11.0-16.0); White Blood Count 6.5 X10*3/uL (4.8-10.8)
[2025-03-20 11:33] LABS: Anion Gap 14 (12-20); Blood Urea Nitrogen 11 mg/dL (9-16); Calcium 8.9 mg/dL (8.4-10.2); Carbon Dioxide 21 mmol/L (22-29); Chloride 105 mmol/L (96-108); Estimated Glomerular Filt Rate > 60; Glucose Random 132 mg/dL (60-115); Iron 29 mcg/dL (30-160); Percent Iron Saturation 7 % (15-50); Potassium 3.9 mmol/L (3.3-5.1); Sodium 136 mmol/L (135-145); Total Iron Binding Capacity 411 mcg/dL (228-428); Unsaturated Iron Binding 382 ug/dL
[2025-03-20 11:36] LABS: Anion Gap 12 (12-20); Blood Urea Nitrogen 12 mg/dL (9-16); Calcium 8.9 mg/dL (8.4-10.2); Carbon Dioxide 22 mmol/L (22-29); Chloride 105 mmol/L (96-108); Cholesterol 185 mg/dL (<200); Estimated Glomerular Filt Rate > 60; Glucose Random 133 mg/dL (60-115); HDL Cholesterol 52 mg/dL (>40); Iron 29 mcg/dL (30-160); LDL Cholesterol Calculated 98 mg/dL (<100); Percent Iron Saturation 7 % (15-50); Potassium 3.9 mmol/L (3.3-5.1); Sodium 135 mmol/L (135-145); Total Iron Binding Capacity 406 mcg/dL (228-428); Triglycerides 178 mg/dL (<150); Unsaturated Iron Binding 377 ug/dL
[2025-03-20 11:51] LABS: TSH reflex Free T4 1.79 uIU/mL (0.32-4.0)
[2025-03-20 11:54] LABS: Vitamin B12 218 pg/mL (200-900)
[2025-03-20 11:55] LABS: Ferritin 8 ng/mL (10-250); Free T4 (Free Thyroxine) 0.95 ng/dL (0.71-1.85); Thyroid Stimulating Hormone 1.79 uIU/mL (0.32-4.0)
== END 2025-03-20 09:04 | disposition home or self-care (01) ==
LOC: HO.HHCL 09:03
PROVIDERS: Family Medicine; Visit Provider Nurse Practitioner Primary Care
DX: I10 Essential (primary) hypertension (principal); R00.2 Palpitations; R07.9 Chest pain, unspecified; R51.9 Headache, unspecified; G89.29 Other chronic pain; E11.59 Type 2 diabetes mellitus with other circulatory complications; I15.2 Hypertension secondary to endocrine disorders; D64.9 Anemia, unspecified; G57.93 Unspecified mononeuropathy of bilateral lower limbs
CPT/HCPCS: 36415; 80048; 80061; 82043; 82570; 82607; 82728; 83540; 84439; 84443; 85025

== ENCOUNTER 2025-03-20 09:29 | Outpatient (REF) | payer MEDICAID, SELFPAY ==
--- OUTSIDE RECORDS SUMMARY | 2025-03-20 09:49 | XMS_ITS | Clinical Summary ---
Author Organization 175 [facility] Address [address] [place] [address] Phone Care Team Providers Care Lens Polisher Hand Name Role Phone MagallonIvania Mark Anthony [place]O Primary Care Provider [phone] Allergies No known active allergies Medications terbinafine (LamISIL) 250 mg tabletIndication s:Onychomycosis Take 1 tablet (250 mg total) by mouth 1 (one) time each day. 30 tablet 2 02/12/2025 5 Active Encounters Date Type Department Care Team Description 01/29/2025 9:00 AM EDT Consult Orthopedic Surgery [facility] [address] [address] Noe Randhawa DPM Controlled type [...] to complete this topic Insurance [place] - [place] Care Teams Lens Polisher Hand Relationship Specialty Start Date End Date Ivania Magallon NP [address] [place] [phone] PCP - General 12/09/24
[2025-03-20 11:37] LABS: Creatinine Urine 213.97 mg/dL; Microalbum/Creatinine Ratio Ur 5.6 ug/mg cr (<30)
== END 2025-03-20 09:30 | disposition home or self-care (01) ==
LOC: HO.HHCL 09:29
PROVIDERS: Visit Provider Nurse Practitioner Primary Care
DX: Z13.89 Encounter for screening for other disorder (principal)
CPT/HCPCS: 82043; 82570

== ENCOUNTER 2025-04-02 08:32 | Emergency (ER) | payer MEDICAID, SELFPAY ==
[2025-04-02 08:37] VITALS: BP 135/85; PULSE 124; RESP 18; TEMP 36.6; O2SAT 100; BMI 36.0
[2025-04-02 09:09] LABS: Basophils Percent Auto 0.3 % (0-2); Eosinophils Absolute Auto 0.1 X10*3/uL (0.0-0.4); Eosinophils Percent Auto 0.5 % (0-4); Hematocrit 37.5 % (37.0-47.0); Hemoglobin 12.1 g/dl (12.0-16.0); Imm Gran Abs Auto 0.03 X10*3/uL (0.00-0.03); Imm Gran Pct Auto 0.3 % (0.0-0.4); Lymphocytes Absolute Auto 0.5 X10*3/uL (1.2-4.9); Lymphocytes Percent Auto 4.8 % (20-40); MANUAL DIFF FLAG SCAN; Mean Corpuscular HGB Conc 32.3 g/dl (31.0-35.0); Mean Corpuscular Hemoglobin 24.5 pg (27.0-33.0); Mean Corpuscular Volume 76.1 fL (80.0-98.0); Mean Platelet Volume 8.4 fL (9.4-12.3); Monocytes Absolute Auto 0.2 X10*3/uL (0.1-1.2); Monocytes Percent Auto 2.4 % (2-11); Neutrophils Absolute Auto 9.1 x10*3/uL (2.0-8.3); Neutrophils Percent Auto 91.7 % (45-73); Platelet Count 331 X10*3/uL (160-400); Red Blood Count 4.93 X10*6/uL (4.20-5.50); Red Cell Distribution Width 18.1 % (11.0-16.0); SCAN SMEAR FLAG 1; White Blood Count 9.9 X10*3/uL (4.8-10.8)
[2025-04-02] MEDS: Lactated Ringers 1,000 ML 999 ML IV (09:09)
[2025-04-02] MEDS: diphenhydrAMINE HCL 50 MG/ML VIAL 25 MG IVPUSH (09:10)
[2025-04-02] MEDS: Metoclopramide HCl 10 MG/2 ML VIAL IVPUSH (09:10)
--- NOTE | 2025-04-02 09:13 | ED.NAVMDI ---
HPI - Nausea/Vomiting/Diarrhea General Chief complaint: General Medical Stated complaint: N/V/D, body aches Time Seen by Provider: 04/02/25 08:45 Source: patient and old records reviewed Mode of arrival: ambulatory Limitations: no limitations History of Present Illness ED Provider: TAMMIE CHEN Narrative: 44 yo female with PMH of polyarthralgia, SEEMA on CPAP, fibromyalgia, obesity s/p gastric sleeve 4 years ago at [facility] with Fam, she notes she developed sudden onset nausea and dry heaving at 3am but no diarrhea, had normal BM yesterday and was passing gas. She has no abdominal pain. She notes she feels all over body pain, nausea and like she has ants crawling on her. She denies CP/SOB, fevers, cough, dysuria. No recent travel or procedures no sick contacts. MD elicited complaint: nausea, vomiting and other (tingling, body pain) Onset (ago): hour(s) (3am today) Associated nausea: Yes Associated abdominal pain: No Severity: moderate Quality: other (tingling and achy body pains) Exacerbating factors: movement Relieving factors: none Associated symptoms: myalgias, loss of appetite, malaise, nausea/vomiting, weakness and anxiety Related Data Home Medications ?Medication ?Instructions ?Recorded ?Confirmed lidocaine 5 % topical patch 1 patch transdermal DAILY 07/09/23 02/24/25 dulaglutide 0.75 mg/0.5 mL 0.75 mg subcut QWEEK 07/19/23 02/24/25 subcutaneous pen injector (Trulicity) metformin 1,000 mg tablet mg PO 07/19/23 02/24/25 duloxetine 60 mg capsule,delayed 60 mg PO DAILY 02/17/25 02/24/25 release enalapril maleate 10 mg tablet 10 mg PO DAILY 02/17/25 02/24/25 terbinafine HCl 250 mg tablet 250 mg PO DAILY 02/17/25 02/24/25 Previous Rx's ?Medication ?Instructions ?Recorded hydroxyzine HCl 10 mg tablet 10 mg PO Q8H PRN itching 3 days #9 01/21/24 tabs amlodipine 5 mg tablet 5 mg PO DAILY #30 tabs 07/28/24 eesqmvbvrs-rzyrptptowoor-lyfwmmbg 1 tab PO Q6H PRN haeadace #20 tabs 07/28/24 50 mg-325 mg-40 mg tablet albuterol sulfate 2.5 mg/3 mL 2.5 mg (3 mL) inhalation QID PRN 03/03/25 (0.083 %) solution for nebulization shortness of breath or wheezing #75 mL prednisone 20 mg tablet 20 mg PO BID #4 tabs 03/03/25 ondansetron 4 mg disintegrating 4 mg PO Q8H PRN nausea and 04/02/25 tablet vomiting #20 tabs Allergies Allergy/AdvReac Type Severity Reaction Status Date / Time latex AdvReac Rash Verified 04/02/25 08:39 cucumbers, pickles Allergy Intermediate Rash Uncoded 04/02/25 08:39 Review of Systems Review of Systems: Constitutional : No Weight loss, No Fever, No Chills ENT/Mouth : No sore throat, No Rhinorrhea Eyes: No Swelling, No Redness Cardiovascular : No Chest Pain, No SOB, NoEdema Respiratory : No Cough, No Sputum, No Wheezing Gastrointestinal : Positive Nausea, Positive Vomiting, no Diarrhea, no abdominal Pain, No Hematochezia, No Melena Genitourinary : No Dysuria, No Urinary Frequency, No Hematuria, No Urgency Musculoskeletal : No joint pain, pos Myalgias, No Joint Swelling Skin : No Skin Lesions, No rash Neuro : No Weakness, pos Numbness, No Dizziness, No Headache Psych : No Anxiety/Panic, No Depression All other systems reviewed and are negative. Gastrointestinal: Gastrointestinal: Reports nausea PMFSH Past Medical History Attestation statement: The following information was validated with the patient. Source: old records reviewed Medical History Polymyalgia Chronic neck pain Chronic low back pain with bilateral sciatica Pain in joint, multiple sites Surgical History Hx of shoulder surgery (01/11/24) Hx of hysterectomy S/P cubital tunnel release Hx of laparoscopic gastric banding Family History Family History Mother Hypertension Arthritis Father Diabetes Social History Social History Household Members: Children Alcohol intake: current Alcohol intake frequency: does not drink Patient Tobacco Use Status: Never used Tobacco Advance Directives: No Advance Directives Information Provided: Yes Current occupational status: employed 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 Oriented X3. No acute distress. Anxious Eyes: Pupils equal, round and reactive to light. ENT: Pharynx normal. Neck: Normal inspection. Neck supple. CVS: Normal heart rate and rhythm. Pulses normal. Respiratory: No respiratory distress. Breath sounds normal. Abdomen: Soft and nontender. not distended, benign Skin: Skin warm and dry. Normal skin color. Normal skin turgor. Extremities: No lower extremity edema. No calf ttp Neuro: Oriented X 3. No motor deficit. No sensory deficit. CN2-12 intact Medications Administered Discontinued Medications Generic Name Dose Route Start Last Admin Trade Name Freq PRN Reason Stop Dose Admin Diphenhydramine HCl 25 mg 04/02/25 08:54 04/02/25 09:10 Diphenhydramine Hcl 50 Mg/Ml Vial IVPUSH 04/02/25 08:55 25 mg ONCE ONE Administration Lactated Ringer's 1,000 mls @ 999 mls/hr 04/02/25 08:46 04/02/25 10:10 Lr IV 04/02/25 09:46 Infused .Q1H1M ONE Infusion Metoclopramide HCl 10 mg 04/02/25 08:54 04/02/25 09:10 Metoclopramide Hcl 10 Mg/2 Ml Vial IVPUSH 04/02/25 08:55 10 mg ONCE ONE Administration Medical Decision Making Medical Decision Making MDM Narrative: 44 yo female with PMH of polyarthralgia, SEEMA on CPAP, fibromyalgia, obesity s/p gastric sleeve 4 years ago at [facility] with Fam now here with c/o body aches, nausea and tingling after waking up at 3am. She has no abdominal pain no diarrhea, she had BM yesterday her abdomen is benign she has no symptoms to suggest ischemia/internal hernia/SBO. IVF and supportive medications ordered. Differential Diagnosis Differential Diagnoses: The differential diagnosis associated with the presentation includes viral syndrome, dehydration, weakness, n/v Admission/Observation Consideration of admission/observation: Escalation of care including admission/observation considered feels much better, tolerating PO, no abdominal pain on discharge will DC with zofran and monitor at home given precautions to return Lab Data MDM Lab Attestation statement: I reviewed the patient's lab results. 04/02/25 09:04 04/02/25 09:04 Labs: Lab Results 04/02/25 Range/Units 09:04 WBC 9.9 (4.8-10.8) X10*3/uL RBC 4.93 (4.20-5.50) X10*6/uL Hgb 12.1 (12.0-16.0) g/dl Hct 37.5 (37.0-47.0) % MCV 76.1 L (80.0-98.0) fL MCH 24.5 L (27.0-33.0) pg MCHC 32.3 (31.0-35.0) g/dl RDW 18.1 H (11.0-16.0) % Plt Count 331 (160-400) X10*3/uL MPV 8.4 L (9.4-12.3) fL Immature Gran % (Auto) 0.3 (0.0-0.4) % Neut % (Auto) 91.7 H (45-73) % Lymph % (Auto) 4.8 L (20-40) % [place] % (Auto) 2.4 (2-11) % Eos % (Auto) 0.5 (0-4) % Baso % (Auto) 0.3 (0-2) % Lymph # (Auto) 0.5 L (1.2-4.9) X10*3/uL [place] # (Auto) 0.2 (0.1-1.2) X10*3/uL Eos # (Auto) 0.1 (0.0-0.4) X10*3/uL Baso # (Auto) 0.0 (0.0-0.2) X10*3/uL Abs Immat Gran (auto) 0.03 (0.00-0.03) X10*3/uL Absolute Neuts (auto) 9.1 H (2.0-8.3) x10*3/uL Absolute Nucleated RBC 0.000 (0.0-0.012) X10*3/uL Nucleated RBC % (auto) 0.0 (0.0-0.2) /100WBC Smear Tech's Comments VERIFIED Sodium 136 (135-145) mmol/L Potassium 4.4 (3.3-5.1) mmol/L Chloride 104 (96-108) mmol/L Carbon Dioxide 21 L (22-29) mmol/L Anion Gap 15 (12-20) BUN 13 (9-16) mg/dL Creatinine 0.62 (0.5-1.4) mg/dL Estim Creat Clear Calc 132.2 Estimated GFR > 60 Random Glucose 154 H (60-115) mg/dL Calcium 8.8 (8.4-10.2) mg/dL Magnesium 1.6 (1.6-2.6) mg/dL Total Bilirubin 0.5 (0.0-1.0) mg/dL Direct Bilirubin 0.2 (0.0-0.5) mg/dL AST 21 (5-31) U/L ALT 11 (0-31) U/L Alkaline Phosphatase 63 (39-117) U/L Total Creatine Kinase 95 (26-140) U/L C-Reactive Protein 0.65 H (< or = 0.50) mg/dL Total Protein 7.4 (6.5-8.0) g/dL Albumin 4.3 (3.5-5.0) g/dL Lipase 19 (8-78) U/L Beta HCG, Quant < 2 mIU/mL Influenza Type A (PCR) NEGATIVE (Negative) Influenza Type B (PCR) NEGATIVE (Negative) RSV RNA Qual (PCR) NEGATIVE (Negative) SARS-CoV-2 RNA (RT-PCR) NEGATIVE (Negative) External Record Review External record reviewed: Outpatient record Prescription Management I considered prescription management with: Other Discharge Plan Discharge Clinical Impression: Nausea, Paresthesia Patient Disposition: Home, Self-Care Instructions: Acute Nausea and Vomiting (DC), Paresthesia (ED) Additional Instructions: rest and stay hydrated today return for pain, fevers, no bowel movements, distended swollen stomach and lack of passing gas from rectum, or any other concerns very bland diet for 24 hours Prescriptions: New ondansetron 4 mg tablet,disintegrating 4 mg PO Q8H PRN (Reason: nausea and vomiting) Qty: 20 0RF No Action hydroxyzine HCl 10 mg tablet 10 mg PO Q8H PRN (Reason: itching) 3 Days Qty: 9 0RF lbwyunhcxs-beemthhcbzysu-fxts 50-325-40 mg tablet 1 tab PO Q6H PRN (Reason: haeadace) Qty: 20 0RF amlodipine 5 mg tablet 5 mg PO DAILY Qty: 30 0RF prednisone 20 mg tablet 20 mg PO BID Qty: 4 0RF albuterol sulfate 2.5 mg /3 mL (0.083 %) solution for nebulization 2.5 mg inhalation QID PRN (Reason: shortness of breath or wheezing) Qty: 75 0RF terbinafine HCl 250 mg tablet 250 mg PO DAILY duloxetine 60 mg capsule,delayed release(DR/EC) 60 mg PO DAILY enalapril maleate 10 mg tablet 10 mg PO DAILY lidocaine 5 % adhesive patch,medicated 1 patch transdermal DAILY metformin 1,000 mg tablet PO Trulicity 0.75 mg/0.5 mL pen injector 0.75 mg subcut QWEEK Print Language: Hebrew
[2025-04-02 09:28] LABS: Alanine Aminotransferase 11 U/L (0-31); Albumin Level 4.3 g/dL (3.5-5.0); Alkaline Phosphatase 63 U/L (39-117); Anion Gap 15 (12-20); Aspartate Amino Transferase 21 U/L (5-31); Bilirubin Direct 0.2 mg/dL (0.0-0.5); Bilirubin Total 0.5 mg/dL (0.0-1.0); Blood Urea Nitrogen 13 mg/dL (9-16); C Reactive Protein 0.65 mg/dL (< or = 0.50); Calcium 8.8 mg/dL (8.4-10.2); Carbon Dioxide 21 mmol/L (22-29); Chloride 104 mmol/L (96-108); Creatinine Clr Calc Pharmacy 132.2; Estimated Glomerular Filt Rate > 60; Glucose Random 154 mg/dL (60-115); Lipase 19 U/L (8-78); Magnesium 1.6 mg/dL (1.6-2.6); Potassium 4.4 mmol/L (3.3-5.1); SLIDE REVIEW VERIFIED; Sodium 136 mmol/L (135-145); Total Protein 7.4 g/dL (6.5-8.0)
[2025-04-02 09:38] LABS: HCG Quantitative < 2 mIU/mL
--- OUTSIDE RECORDS SUMMARY | 2025-04-02 09:41 | XMS_ITS | Clinical Summary ---
Author Organization [address] [facility] Address [address] [place] [address] Phone Care Team Providers Care Service Center Technician Name Role Phone MagallonIvania Mark Anthony MOSCOSO Primary Care Provider [phone] Allergies No known active allergies Medications terbinafine (LamISIL) 250 mg tabletIndication s:Onychomycosis Take 1 tablet (250 mg total) by mouth 1 (one) time each day. 30 tablet 2 02/12/2025 5 Active Encounters Date Type Department Care Team Description 01/29/2025 9:00 AM EDT Consult Orthopedic Surgery [facility] [address] [address] Noe Randhawa DPM Controlled type [...] to complete this topic Insurance MEDICAID - [place] Care Teams Service Center Technician Relationship Specialty Start Date End Date Ivania Magallon NP [address] [place] [id number] PCP - General 12/09/24
[2025-04-02 10:06] LABS: Influenza A PCR NEGATIVE (Negative); Influenza B PCR NEGATIVE (Negative); Resp Syncy Virus RNA Qual PCR NEGATIVE (Negative); SARS COV2 PCR INHOUSE NEGATIVE (Negative)
[2025-04-02 10:38] VITALS: BP 130/72; PULSE 88; RESP 15; TEMP 37; O2SAT 99
[2025-04-02 11:26] VITALS: BP 139/89; PULSE 113; RESP 16; TEMP 37; O2SAT 99
[2025-04-02 11:28] VITALS: BP 139/89; PULSE 113; RESP 16; TEMP 37; O2SAT 99
== END 2025-04-02 11:28 | disposition home or self-care (01) ==
PROVIDERS: Emergency Provider Emergency Medicine; PCP Nurse Practitioner Primary Care
DX: R11.2 Nausea with vomiting, unspecified (principal); R20.2 Paresthesia of skin; Z03.818 Encounter for observation for suspected exposure to other biological agents ruled out; E11.9 Type 2 diabetes mellitus without complications; Z79.84 Long term (current) use of oral hypoglycemic drugs; Z79.85 Long-term (current) use of injectable non-insulin antidiabetic drugs; Z79.899 Other long term (current) drug therapy
CPT/HCPCS: 0241U; 36415; 80048; 80076; 82550; 83690; 83735; 84702; 85025; 86140; 96361; 96374; 96375; 99284; J1200; J2765; J7120

== ENCOUNTER 2025-04-17 06:58 | Day surgery (SDC) | payer MEDICAID, SELFPAY ==
--- OUTSIDE RECORDS SUMMARY | 2025-03-12 08:02 | XMS_ITS | Clinical Summary ---
Author Organization [facility] Address [address] [place] [address] Care Team Providers Care Window Shade Cloth Sewer Name Role Phone Shona Cheng CHLOE Primary Care Provider [phone] Allergies Active Allergy Reactions Criticality Noted Date Comments [place] Extract High 09/07/2021 Other reaction(s): GI Problems, [...] 1 (one) time per week. 4 each 024 Active butalbital-qian taminophen-caf feine 50-325-40 MG tablet [...] pain 60 tablet 024 Active nystatin (Mycostatin) 770011 UNIT/GM powder Apply topically 2 times daily. [...] 2 times daily. 45 g 025 Active metFORMIN (Glucophage) 1000 MG tabletIndicati ons:Hypertensi on associated with diabetes (CMS/HCC) TAKE 1 TABLET BY MOUTH two (2) times a day WITH MEALS 180 tablet 1 025 Active enalapril (Vasotec) 10 MG tablet TAKE 1 TABLET BY MOUTH ONCE DAILY 90 tablet 1 025 Active metFORMIN (Glucophage) 1000 MG tabletIndicati ons:Hypertensi on associated with diabetes (CMS/HCC) 1 TAB TWICE A DAY WITH MEALS 180 tablet 1 024 2024 Discontinued enalapril (Vasotec) 10 MG tablet Take 1 tablet (10 mg) by mouth Once per day. 90 tablet 1 024 2024 Discontinued Active Problems Problem Noted Date Diagnosed Date Status post hysterectomy 03/04/2025 COVID-19 12/16/2024 Assessment & Plan (12/16/2024 1:11 [...] Encounters Date Type Department Care Team Description 03/06/2025 Travel 03/04/2025 3:00 PM EDT Office Visit [facility] MEDICINE [address] [place] [address] Shona Cheng ANP Fatigue, unspecified type (Primary Dx); Anemia, unspecified type; Generalized weakness; Neuropathic pain of both legs; Status post hysterectomy 03/04/2025 Travel 03/03/2025 Orders Only GENERIC EXTERNAL DATA DEPARTMENT Provider, Generic External Data 03/03/2025 Travel 03/03/2025 Telephone [facility] MEDICINE [address] [place] [address] Shona Cheng ANP CHART PREP 02/27/2025 9:00 AM EDT Office Visit [facility] OPTOMETRY [address] [place] [address] Justus, Anjali, OD Type 2 diabetes mellitus without complication, without long-term current use of insulin ([facility]) (Primary Dx); Lattice degeneration of left retina; Dry eye syndrome of both eyes; Myopia of both eyes 02/27/2025 Travel 02/25/2025 Refill [facility] [address] [place] [address] Shona Cheng, ANP Hypertension associated with diabetes (CMS/HCC) 02/25/2025 Telephone [facility] [address] [facility] [address] Shona Cheng ANP Nurse Triage 02/21/2025 Orders Only [facility] External Provider, [facility] 02/19/2025 Telephone [facility] [place] [address] Shona Cheng ANP May recall 02/13/2025 1:45 PM EDT Office Visit [facility] [address] Derek Peña MD Nummular dermatitis (Primary Dx) 02/13/2025 Travel 02/05/2025 Telephone [facility] [place] [address] Shona Cheng ANP [facility] 02/03/2025 Telephone [facility] [place] [address] Shona Cheng ANP Appointment Request 02/03/2025 Telephone [facility] [place] [address] Shona Cheng ANP DME from [employer] 01/30/2025 Telephone [facility] [place] [address] Patricia Mcgregor, RN Results 01/28/2025 11:00 AM EDT Office Visit [facility] [place] [address] Ange Enciso MD Hypertension associated with diabetes (CMS/HCC) (CMS/HCC) (Primary Dx); Chronic pain of both shoulders 01/28/2025 Travel 01/26/2025 Telephone [facility] [place] [address] Shona Cheng ANP Nurse Triage 01/23/2025 Population Health Risk Score [facility] ([facility]) Department [address] [phone] Provider, Population Health Generic 01/23/2025 Refill [facility] [place] [address] Johanny Downey DO 01/21/2025 Telephone [facility] [place] [address] Shona Cheng ANP Durable Medical Equipment (Liners/incontinenc e pads) 01/20/2025 1:00 PM EDT Office Visit [facility] MEDICINE [address] [place] [address] Shona Cheng ANP Hypertension associated with diabetes (CMS/HCC) (CMS/HCC) (Primary Dx); Urinary incontinence, mixed 01/20/2025 Travel 01/09/2025 Patient Outreach [address] [address] Shona Cheng ANP Pre-visit Planning (SDOH Screening negative and Tobacco screening negative) 01/01/2025 Orders Only [address] [address] Dayton Llamas MD Mass of lower inner quadrant of right breast (Primary Dx) 12/31/2024 Telephone [facility] [address] [place] [phone] Dayton Llamas MD MAMMO DIAGNOSTIC ORDER 12/24/2024 5:20 PM EST Office Visit [facility] WALK-IN CENTER [address] [place] [address] Brayan Lynch MD Tinea corporis (Primary Dx); Allergic eczema 12/24/2024 Travel 12/24/[address] [address] Shona Cheng ANP Nurse Triage 12/16/2024 1:00 PM EST Office Visit [address] [address] Dayton Llamas MD COVID-19 (Primary Dx); Nasal congestion; Mass of lower inner quadrant of right breast 12/16/2024 Travel 12/15/[address] [address] Shona Cheng ANP Nurse Triage from Last 3 Months [...] Sign Reading Time Taken Comments Blood Pressure 132/84 03/04/2025 3:35 PM EDT Pulse 100 03/04/2025 3:37 PM EDT Temperature 36.6 ??C (97.8 ??F) 02/13/2025 1:52 PM ED T Respiratory Rate 18 03/04/2025 2:57 PM EDT Oxygen Saturation 98% 01/20/2025 1:09 PM EDT Inhaled Oxygen Concentration - - Weight 95.3 kg (210 lb) 03/04/2025 2:57 PM EDT Height 162.6 cm (5' 4 ) 03/04/2025 2:57 PM EDT Body Mass Index 36.05 03/04/2025 2:57 PM EDT Plan of Treatment Upcoming Encounters Date Type Department Care Team (Late st Contact Info) Description 03/13/2025 10:00 AM EDT Office Visit [facility] [address] [place] [address] Derek Peña MD [address] [place] [address] 06/02/2025 10:15 AM EDT Office Visit [facility] MED[facility]INE [address] [place] [phone] Shona Cheng ANP [address] [place] [address] Health Maintenance Due Date Last Done Comments Diabetes: Foot Exam 1992 Family Planning (PISQ) 1997 Lipid Panel 09/07/2023 09/07/2022, 12/30/2020 Diabetes: Urine Protein Screening 08/28/2024 08/28/2023, 08/04/2020 Diabetes: Hemoglobin A1C 07/23/2025 03 025, 10/14/2024, 07/11/2024, Additional history exists SDOH Screening 01/09/2026 01/09/2025 Alcohol/Substance Use Screening 01/20/2026 01/20/2025 Depression Screening 01/20/2026 01/20/2025, 01/21/20 25 Mammogram 01/30/2026 01/30/2025, 01/11, 01/30/2025 Tobacco Screening 03/04/2026 03/04/2025 DTaP/Tdap/Td Vaccines (2 - Td or Tdap) 01/08/2027 01/08/2017 Eye Exam 02/27/2027 02/27/2025, 02/10, 02/27/2025, Additional history exists Zoster Vaccines (1 of 2) 2032 RSV [...] Procedure Name Priority Date/Time Associated Diagnosis Comments HIGH SENSITIVITY TROPONIN I Routine 03/03/2025 11:54 PM EDT LIPASE Routine 03/03/2025 11:54 PM EDT BASIC METABOLIC PANEL Routine 03/03/2025 11:54 PM EDT HEPATIC FUNCTION PANEL Routine 11:54 PM EDT CBC WITH AUTO DIFFERENTIAL Routine 03/03/2025 11:54 PM EDT XR CHEST 1 VIEW Routine 03/03/2025 8:54 PM EDT SARS COV2/INFLUENZA A/B AND RSV RNA QL NAAT Routine 03/03/2025 8:38 PM EDT MR KNEE WO CONTRAST RIGHT Routine 02/21/2025 [...] Recently Relevant to Health Maintenance Results * High Sensitivity Troponin I (03/03/2025 11:54 PM EDT) Pathologist [facility] TROPONIN I HIGH SENSITIVITY <2.7 <3.5 - 17.0 ng/L [facility] Comment:The Rueda high sens itivity Troponin-I results should beused in conjunction with other diagnostic information suchas ECG, clinical observations and information, and patientsymptoms to aid in the diagnosis of MT. 03/03/2025 11:5 4 PM EDT 03/03/2025 11:57 PM EDT us Generic External Data Provider LAB BLOOD ORDERAB LES Final Result [facility] [address] [place] [phone] * (ABNORMAL) CBC auto differential (03/03/2025 11:54 PM EDT) Pathologist [facility] White Blood Count 10.5 4.8 - 10.8 X10*3/uL [facility] Red Blood Count 4.47 4.20 - 5.50 X10*6/uL [facility] Hemoglobin 10.9(L) 12.0 - 16.0 g/dl [facility] Hematocrit 34.1(L) 37.0 - 47.0 % [facility] Mean Corpuscular Volume 76.3(L) 80.0 - 98.0 fL [facility] Mean Corpuscular Hemoglobin 24.4(L) 27.0 - 33.0 pg [facility] Mean Corpuscular HGB Conc 32.0 31.0 - 35.0 g/dl [facility] Red Cell Distribution Width 17.8(H) 11.0 - 16.0 % [facility] Platelet Count 327 160 - 400 X10*3/uL [facility] Mean Platelet Volume 8.1(L) 9.4 - 12.3 fL [facility] Neutrophils Percent Auto 64.4 45 - 73 % [facility] Imm Gran Pct Auto 0.4 0.0 - 0.4 % [facility] Lymphocytes Percent Auto 28.8 20 - 40 % [facility] Monocytes Percent Auto 5.1 2 - 11 % [facility] Eosinophils Percent Auto 0.8 0 - 4 % [facility] Basophils Percent Auto 0.5 0 - 2 % [facility] NRBC Pct Auto 0.0 0.0 - 0.2 /100WBC [facility] Neutrophils Absolute Auto 6.8 2.0 - 8.3 x10*3/uL [facility] Imm Gran Abs Auto 0.04(H) 0.00 - 0.03 X10*3/uL [facility] Lymphocytes Absolute Auto 3.0 1.2 - 4.9 X10*3/uL [facility] Monocytes Absolute Auto 0.5 0.1 - 1.2 X10*3/uL [facility] Eosinophils Absolute Auto 0.1 0.0 - 0.4 X10*3/uL [facility] Basophils Absolute Auto 0.1 0.0 - 0.2 X10*3/uL [facility] NRBC Abs Auto 0.000 0.0 - 0.012 X10*3/uL [facility] 03/03/2025 11:5 4 PM EDT 03/03/2025 11:57 PM EDT us Generic External Data Provider LAB BLOOD ORDERAB LES Final Result Performing Organization Address City/[facility]/ZIP Co de Phone Number [facility] [address] [place] [phone] * Lipase (03/03/2025 11:54 PM EDT) Lipase 51 8 - 78 U/L [facility] 03/03/2025 11:5 4 PM EDT 03/03/2025 11:57 PM EDT us Generic External Data Provider LAB BLOOD ORDERAB LES Final Result Performing Organization Address [facility] Co nh Phone Number [facility] [address] [place] [phone] * Hepatic Function Panel (03/03/2025 11:54 PM EDT) Bilirubin, Total 0.2 0.0 - 1.0 mg/dL [facility] Bilirubin, Direct <0.2 0.0 - 0.5 mg/dL [facility] Aspartate Amino Transferase 21 5 - 31 U/L [facility] Alanine Aminotransferase 17 0 - 31 U/L [facility] Total Protein 7.1 6.5 - 8.0 g/dL [facility] Albumin Level 4.0 3.5 - 5.0 g/dL [facility] Alkaline Phosphatase 72 39 - 117 U/L [facility] 03/03/2025 11:5 4 PM EDT 03/03/2025 11:57 PM EDT us Generic External Data Provider LAB BLOOD ORDERAB LES Final Result Performing Organization Address City/[facility] Co de Phone Number [facility] [address] [place] [phone] * (ABNORMAL) Basic Metabolic Panel (03/03/2025 11:54 PM EDT) Sodium 138 135 - 145 mmol/L [facility] Potassium 3.8 3.3 - 5.1 mmol/L [facility] Chloride 107 96 - 108 mmol/L [facility] Carbon Dioxide 22 22 - 29 mmol/L [facility] Anion Gap 13 12 - 20 [facility] Urea Nitrogen (BUN) 9 9 - 16 mg/dL [facility] Creatinine, Serum 0.68 0.5 - 1.4 mg/dL [facility] Creatinine Clr Calc Pharmacy 121.6 [facility] Comment:Provided height and weight: 162.56 cm,96.8 kg.eGFR (calculated from the MDRD study equation) and eCrCl(calculated from the Cockcroft-Gault equation) are based ondifferent parameters and may not yield comparable results.If eCrCl result is absurd, please check patient'sheight/weight. Estimated Glomerular Filt Rate >60 [facility] Comment:Chronic Kidney Disea se: Estimated GFR < 60 mL/min/1.74g2Edftsk Kidney Disease: Estimated GFR < 15 mL/min/1.73m2 Glucose 136(H) 60 - 115 mg/dL [facility] Calcium 8.7 8.4 - 10.2 mg/dL [facility] 03/03/2025 11:5 4 PM EDT 03/03/2025 11:57 PM EDT us Generic External Data Provider LAB BLOOD ORDERAB LES Final Result [facility] [address] [place] [phone] * XR Chest 1 View (03/03/2025 8:54 PM EDT) Anatomical Region Laterality Modality Chest Radiographic Rylee ging 03/03/2025 8:54 PM EDT Narrative 03/03/2025 8:56 PM EDT ? [facility] ?[address] ?[place] [address] ?XRay Report ? Signed ? Patient: Vu Carballo,[place] ?MR#: [id number] ?? [id number] ? : 1980 ?Acct:[id number] ? Age/Sex: 44 / F ?ADM Date: 03/03/25 ? Loc: HO.ED ? Attending Dr: ? Ordering Physician: Robert Trotter ?? Date of Service: 03/03/25 ?? Procedure(s): XR chest 1V ?? Accession Number(s): [id number] ? cc: Robert Trotter; SHONA CHENG NP ? CLINICAL HISTORY: Chemical expposure ? 1 view chest x-ray. ? Comparison: None ? Findings: ?? The lungs are adequately expanded. ?? No focal consolidation. No effusion or pneumothorax. ?? Cardiac and mediastinal contours are within normal limits. ?? No acute osseous abnormality ? Impression: ?? No acute process. ? This document has been electronically signed by: Karlos Dyson MD on ?? 03/03/2025 20:54:50 ? Dictated By: ?Karlos Dyson MD ? Signed By: ?<Electronically signed by Karlos Dyson MD in OV> ? 03/03/252054 ? DD/ 53 ? TD/TT: 03/03/252053 ? Picker Machine Operator: ? Procedure Note Raymon, Image - 03/03/2025 [place] [address] XRay Report Signed Patient: Robert Robles#: [id number] : 1980Acct:[id number] Age/Sex: 44 / FADM Date: 03/03/25 Loc: HO.ED Attending Dr: Ordering Physician: Robert Trotter Date of Service: 03/03/25 Procedure(s): XR chest 1V Accession Number(s): [id number] cc: Robert Trotter; SHONA CHENG NP CLINICAL HISTORY: Chemical expposure 1 view chest x-ray. Comparison: None Findings: The lungs are adequately expanded. No focal consolidation. No effusion or pneumothorax. Cardiac and mediastinal contours are within normal limits. No acute osseous abnormality Impression: No acute process. This document has been electronically signed by: Karlos Dyson MD on 03/03/2025 20:54:50 Dictated By: Karlos Dyson MD Signed By: <Electronically signed by Karlos Dyson MD in OV> 03/03/252054 DD/ 53 TD/TT: 03/03/252053 Picker Machine Operator: [facility] External Provider IMG XR PROCEDURES Final Result * SARS-CoV-2 RNA, Influenza A/B, and RSV RNA, Ql NAAT (03/03/2025 8:38 PM EDT) Influenza A PCR NEGATIVE Negative [facility] Influenza B PCR NEGATIVE Negative [facility] Resp Syncy Virus RNA Qual PCR NEGATIVE Negative [facility] SARS COV2 PCR NEGATIVE Negative [facility] Comment:All test results mus t be correlated with clinical findings.Negative results do not preclude SARS-CoV2, influenza Avirus, influenza B virus and/or RSV infectionand should not be used as the sole basis for treatment orother patient management decisions. Negative results must becombined with clinical observations, patient history, andepidemiological information.This test has not been evaluated for monitoring treatment ofinfection.This test has been authorized by the FDA under an EmergencyUse Authorization (EUA) for use by authorized laboratories.Testing performed on the Photo[employer] GeneXpert utilizingreal-time RT-PCR.All SARS CoV2 and positive influenza A/B results arereported to [facility]. 03/03/2025 8:38 PM EDT 03/03/2025 8:42 PM EDT Generic External Data Provider LAB MICROBIOLOGY - GENERAL ORDERABLES Final Result [facility] [address] [place] [phone] * MR Knee w/o Contrast Right (02/21/2025 10:35 AM EDT) Anatomical Region Laterality Modality Magnetic Resonan ce 02/21/2025 10:3 5 AM EDT Narrative 02/23/2025 8:01 AM EDT ? [facility] ?[address] ?[place] [address] ? Magnetic Resonance Report ? Signed ? Patient: Horace Carballo,[place] ?MR#: [id number] ?? [id number] ? : 1980 ?Acct:[id number] ? Age/Sex: 44 / F ?ADM Date: 02/21/25 ? Loc: HO.MRI ? Attending Dr: Ash Mccoy MD ? Ordering Physician: Ash Mccoy MD ?? Date of Service: 02/21/25 ?? Procedure(s): MR knee RT wo con ?? Accession Number(s): [id number] ? cc: Ash Mccoy MD; SHONA CHENG [...] DD/ 1035 ? TD/TT: 02/21/25 1050 ? Picker Machine Operator: ? Procedure Note Mar Ennis - 02/23/2025 [place] [address] Magnetic Resonance Report Signed Patient: Robert Robles#: [id number] : 1980Acct:[id number] Age/Sex: 44 / FADM Date: 02/21/25 Loc: HO.MRI Attending Dr: Ash Mccoy MD Ordering Physician: Ash Mccoy MD Date of Service: 02/21/25 Procedure(s): MR knee RT wo con Accession Number(s): [id number] cc: Ash Mccoy MD; SHONA CHENG NP [...] Easton Lopez MD 02/23/2025 07:58 AM EDT Dictated By: Easton Lopez MD Signed By: <Electronically signed by Easton Lopez MD in OV> 02/23/25 0758 DD/ 1035 TD/TT: 02/21/25 1050 Picker Machine Operator: [facility] External Provider IMG MRI PROCEDURES Edited Result - Final * BI US Breast Limited Right (01/30/2025 9:12 AM EDT) Anatomical Region Laterality Modality Breast Right Ultrasound 01/30/2025 9:12 AM EDT Narrative 01/30/2025 10:23 AM EDT ? [facility] ? [address] ?[place] [address] ? Ultrasound Report ? Signed ? Patient: Vu Carballo,[place] ?MR#: [id number] ?? [id number] ? : 1980 ?Acct:[id number] ? Age/Sex: 44 / F ?ADM Date: 03/21/25 ? Loc: HO.MAMMO ? Attending Dr: Dayton Frazier MD ? Ordering Physician: Dayton Frazier MD ?? Date of Service: 01/30/25 ?? Procedure(s): US breast RT limited mamm only ?? Accession Number(s): [id number] ? cc: Dayton Frazier MD; SHONA CHENG [...] DD/ 0912 ? TD/TT: 01/30/25 0935 ? Picker Machine Operator: ? Procedure Note Donotuseinterpreter, Image - 01/30/2025 [facility] [address] [place] [address] Ultrasound Report Signed Patient: Robert Robles#: [id number] : 1980Acct:[id number] Age/Sex: 44 / FADM Date: 01/30/25 Loc: HO.MAMMO Attending Dr: Dayton Frazier MD Ordering Physician: Dayton Frazier MD Date of Service: 01/30/25 Procedure(s): US breast RT limited mamm only Accession Number(s): [id number] cc: Dayton Frazier MD; SHONA CHENG NP [...] Noy Haddad DO 01/30/2025 10:20 AM EDT RP Dictated By: Noy Haddad DO Signed By: <Electronically signed by Noy Haddad DO in OV> 01/30/25 1020 DD/ 0912 TD/TT: 01/30/25 0935 Picker Machine Operator: us Dayton Perez MD IMG US PROCEDURES Fin al Result * BI Mammogram Diagnostic Tomosynthesis Right (01/30/2025 9:00 AM EDT) Anatomical Region Laterality Modality Breast Right Mammography 01/30/2025 9:00 AM EDT Narrative 01/30/2025 10:23 AM EDT ? [facility] ? [address] ?[place] [address] ?[phone] ? Mammography Report ? Signed ? Patient: [place] Robles ?MR#: [id number] ?? [id number] ? : 1980 ?Acct:[id number] ? Age/Sex: 44 / F ?ADM Date: 01/30/25 ? Loc: HO.MAMMO ? Attending Dr: Dayton Frazier MD ? Ordering Physician: Dayton Frazier MD ?Resu ?? lts: 1Negative ? Date of Service: 01/30/25 ?Follow Up: 1 Year From Orig ?? inal Mammogram ? Procedure(s): MM tomosynthesis diagnostic RT ?? Accession Number(s): [id number] ? cc: Dayton Frazier MD; SHONA CHENG [...] DD/ 0900 ? TD/TT: 01/30/25 0910 ? Picker Machine Operator: ? Procedure Note Raymon Image - 01/30/2025 [place] [facility] [address] [place], [place] [address] Mammography Report Signed Patient: Robert Robles#: [id number] : 1980Acct:[id number] Age/Sex: 44 / FADM Date: 01/30/25 Loc: HO.MAMMO Attending Dr: Dayton Frazier MD Ordering Physician: Dayton Frazier MDResu lts: 1Negative Date of Service: 01/30/25Follow Up: 1 Year From Orig inal Mammogram Procedure(s): MM tomosynthesis diagnostic RT Accession Number(s): [id number] cc: Dayton Frazier MD; SHONA CHENG NP [...] Noy Haddad DO 01/30/2025 10:20 AM EDT RP Dictated By: Noy Haddad DO Signed By: <Electronically signed by Noy Haddad DO in OV> 01/30/25 1020 DD/ 0900 TD/TT: 01/30/25 0910 Picker Machine Operator: us Dayton Perez MD IMG BI PROCEDURES Fin al Result * XR Shoulder 2+ Views Right (01/30/2025 8:30 AM EDT) Anatomical Region Laterality Modality Upper Extremities, Shoulder Right Radi ographic Imaging 01/30/2025 8:30 AM EDT Narrative 01/30/2025 8:31 AM EDT ? [facility] ?[address] ?[place] [address] ?XRay Report ? Signed ? Patient: [place] Robles ?MR#: [id number] ?? [id number] ? : 1980 ?Acct:[id number] ? Age/Sex: 44 / F ?ADM Date: 01/29/25 ? Loc: HO.XRAY ? Attending Dr: Ange Enciso MD ? Ordering Physician: Ange Enciso MD ?? Date of Service: 01/29/25 ?? Procedure(s): XR shoulder RT min 2V ?? Accession Number(s): [id number] ? cc: SHONA CHENG NP; Ange Enciso MD ? CLINICAL HISTORY: pain in right shoulder ? 2 view right shoulder ? Comparison: 10/09/2023 ? Findings: ?? Bones intact. No dislocations. ?? No significant loss of joint space or osteophytes. ?? No erosions. No radiopaque foreign body. ? IMPRESSION: ?? 1. No acute findings ? This document has been electronically signed by: Reiiner Steinberg MD on ?? 01/30/2025 08:30:25 ? Dictated By: ?Reinier Steinberg MD ? Signed By: ?<Electronically signed by Reinier Steinberg MD in OV> ?01/30/25 0830 ? DD/ 0830 ? TD/TT: 01/30/25 0830 ? Picker Machine Operator: ? Procedure Note Raymon, Image - 03/21/2025 [facility] [address] [facility] [address] XRay Report Signed Patient: Robert Robles#: [id number] : 1980Acct:[id number] Age/Sex: 44 / FADM Date: 01/29/25 Loc: HO.XRAY Attending Dr: Ange Enciso MD Ordering Physician: Ange Enciso MD Date of Service: 01/29/25 Procedure(s): XR shoulder RT min 2V Accession Number(s): [id number] cc: SHONA CHENG MANUFACTURING ENGINEERING PROFESSOR; Ange Enciso MD CLINICAL HISTORY: pain in [...] signed by Reinier Steinberg MD in OV> 01/30/25 0830 DD/ 0830 TD/TT: 01/30/25 0830 Picker Machine Operator: us Ange Enciso MD IMG XR PROCEDURES Final Result * XR Shoulder 2+ Views Left (01/30/2025 8:14 AM EDT) Anatomical Region Laterality Modality Upper Extremities, Shoulder Left Radi ographic Imaging 01/30/2025 8:14 AM EDT Narrative 01/30/2025 8:15 AM EDT ? [facility] ?[address] ?[place] [address] ?XRay Report ? Signed ? Patient: Vu Carballo,[place] ?MR#: [id number] ?? [id number] ? : 1980 ?Acct:[id number] ? Age/Sex: 44 / F ?ADM Date: 03/20/25 ? Loc: HO.XRAY ? Attending Dr: Ange Enciso MD ? Ordering Physician: Ange Enciso MD ?? Date of Service: 01/29/25 ?? Procedure(s): XR shoulder LT min 2V ?? Accession Number(s): [id number] ? cc: SHONA CHENG NP; Ange Enciso [...] ?01/30/25 0815 ? DD/ 0814 ? TD/TT: 01/30/2514 ? Picker Machine Operator: ? Procedure Note Donkarenter, Image - 01/30/2025 [place] [address] XRay Report Signed Patient: Robert Robles#: [id number] : 1980Acct:[id number] Age/Sex: 44 / FADM Date: 01/29/25 Loc: [place] Attending Dr: Ange Enciso MD Ordering Physician: Ange Enciso MD Date of Service: 01/29/25 Procedure(s): XR shoulder LT min 2V Accession Number(s): [id number] cc: SHONA CHENG MANUFACTURING ENGINEERING PROFESSOR; Ange Enciso MD CLINICAL HISTORY: bilateral shoulder [...] MD in OV> 01/30/25814 DD/ 3 TD/TT: 01/30/2514 Picker Machine Operator: Result [facility] Ange Enciso MD IMG XR PROCEDURES Final Result * Referral to Orthopaedic Surgery (01/23/2025) Result [facility] Shona Cheng ANP OUTPATIENT REFERRAL ORDERABLES F inal Result * (ABNORMAL) POCT HGB A1C (01/20/2025 1:12 PM EDT) [facility] Hemoglobin A1C 6.6(A) 4.0 - 6.0 % QC Media Lot # [id number] Lot# Expiration Date 026 Blood 01/20/2025 1:12 PM EDT Result [facility] Shona Cheng ANP POINT OF CARE TEST ENTER/EDIT OR DERABLES Final Result * POCT Glucose (01/20/2025 1:11 PM EDT) [facility] Glucose Blood, POC 158 60 - 200 mg/dL QC Media Lot # [id number] Lot# Expiration Date Blood Capillary blood specimen / Unknown 01/20/2025 1:11 PM EDT Result [facility] Shona Cheng ANP POINT OF CARE TEST ENTER/EDIT OR DERABLES Final Result * POCT Rapid Strep A RUEDA ID NOW (12/16/2024 1:10 PM EST) [facility] Rapid Strep A Screen Negative Negative, None Detected QC Media Lot # [id number] Lot# Expiration Date Swab 12/16/2024 1:10 PM EST Result [facility] Dayton Perez MD POINT OF CARE TEST EN TER/EDIT ORDERABLES Final Result * (ABNORMAL) POCT Rapid Covid-19 BinaxNOW (12/16/2024 1:10 PM EST) [facility] Rapid COVID Ag Positive QC Media Lot # [id number] Lot# Expiration Date Swab 12/16/2024 1:10 PM EST [place] Perez MD POINT OF CARE TEST EN TER/EDIT ORDERABLES Final Result * HIV Ab/Ag Exposure Source (01/11/2024 2:05 PM EST) HIV AB/AG Nonreactive Nonreactive [facility] Comment:HIV-1 p24 Ag and/or HIV-1/HIV-2 Ab not detected.A test result that is nonreactive does not exclude thepossibility of exposure to or infection with HIV-1 and/orHIV-2. Nonreactive results in this assay for individualswith prior exposure to HIV-1 and/or HIV-2 may be due toantigen and antibody levels that are below the limit ofdetection of this assay.The [employer]29[employer] HIV Ag/Ab Combo assay result andsupplemental assay results should be interpreted inconjunction with the patient's clinical presentation,history and other laboratory results. If the results areinconsistent with clinical evidence, additional testing issuggested to confirm the result. 01/11/2024 2:05 PM EST 01/11/2024 2:07 PM EST [employer] External Data Provider LAB BLOOD ORDERAB LES Final Result Performing Organization Address [facility] Co de Phone Number [facility] [address] [place] [phone] * Hepatitis C Ab (01/11/2024 2:05 PM EST) Hepatitis C Antibody Nonreactive Nonreactive [facility] Comment:Antibodies to HCV no t detected; does not exclude early acuteHCV infection. 01/11/2024 2:05 PM EST 01/11/2024 2:07 PM EST Generic External Data Provider LAB BLOOD ORDERAB LES Final Result Performing Organization Address [facility]/ZIP Co de Phone Number [facility] [address] [place] [phone] * Albumin, Random Urine W/Creatinine (08/28/2023 10:58 AM EDT) Creatinine, Urine 164.35 mg/dL [facility] Microalbumin Urine 8.0 mg/L H [facility] Microalbum Creatinine Ratio Ur 4.8 <30 ug/mg cr [facility] Comment:Albumin/Creatinine R atio Reference Ranges: Normal: < 30 ug/mg creatinine Microalbuminuria: 30 - 300 ug/mg creatinineClinical Albuminuria: > 300 ug/mg creatinine Urine (Urine, Random) 08/28/2023 10:58 AM EDT 08/28/2023 11:38 AM EDT Shona Cheng [facility] URINE ORDERABLES Final Resul t [facility] [address] [place] [phone] * (ABNORMAL) LIPID PANEL, STANDARD (09/07/2022 8:37 AM EDT) Pathologist [facility] Chol/HDLC Ratio 3.7 <5.0 (calc) CONVERTED LEGACY [...] ?? Gualberto CHO et al. MORGAN. 2013;310(19): 4604-0674 ?? (http://education.We[employer] Works/faq/JAJ231) Non-HDL Cholesterol 149(H) <130 mg/dL (calc) [facility] Comment: For patients with diabetes plus 1 major ASCVD risk ?? factor, treating to a non-HDL-C goal of <100 mg/dL ?? (LDL-C of <70 mg/dL) is considered a therapeutic ?? option. Triglycerides 111 <150 mg/dL CONVE RTED LEGACY LABS 09/07/2022 8:37 AM EDT us [facility] LAB BLOOD ORDERABLES Final Resul t [facility] * HPV mRNA E6/E7 (01/30/2018 10:13 AM EDT) Pathologist [facility] HPV mRNA E6/E7 Not Detected NOT DETECTED [facility] Comment: This test was performed using the APTIMA(R) HPV Assay ([employer] This assay detects E6/E7 viral messenger RNA (mRNA) from 14 high-risk HPV types (16,18,31,33,35,39,45,51, 52,56,58,59,66,68). For additional information please refer to: http://education.[employer]/faq/VYT881b6 (This link is being provided for informational/ educational purposes only.) Test Performed by [facility], ADINCON [facility], [address] [place] [address] Jameel Swan M.D., Ph.D., Director of Laboratories , [facility] [id number] Please note: ??Effective 07/24/2016, HPV testing will be performed using [employer]'s APTIMA test which targets mRNA. Detecting mRNA instead of DNA, as in older methods, offers significant improvements in specificity. 01/30/2018 10:1 3 AM EDT Tosin Putnam CNM HISTORICAL/NON ORDERABLE LABS Final Result Performing Organization Address City/[facility]/ZIP Co de Phone Number [facility] [address] from Last 3 Months or Most Recently Relevant to Health Maintenance Insurance [facility] C3 Care Teams Window Shade Cloth Sewer Relationship Specialty Start Date End Date Shona Cheng ANP [address] [place] [phone] PCP - General Family Medicine 04/30/20
--- OUTSIDE RECORDS SUMMARY | 2025-03-12 08:02 | XMS_ITS | Encounter Summary ---
Author Organization [[employer] [facility] Address [address] [place] [address] 7 [place] [address] Care Team Providers Care Plant Maintenance Supervisor Name Role Phone Ivania Magallon Primary Care Provider [phone] Encounter Details Date Type Department Care Team (Latest Contact Info) Description 07/14/2022 Abstract [facility] CONVERSIONS Dental, Provider, DDS Social History Tobacco [...] Description 03/13/2025 10:00 AM EDT Office Visit [facility] MEDICINE [address] [place] [phone] Derek Peña MD [address] [place] [address] 06/02/2025 10:15 AM EDT Office Visit [facility] MEDICINE [address] [place] [address] Ivania Magallon ANP [address] [place] [address] documented as of this encounter Visit Diagnoses Not on filedocumented in this encounter Care Teams Plant Maintenance Supervisor Relationship Specialty Start Date End Date Ivania Magallon ANP [address] [place] [address] [place] [address] PCP - General Family Medicine 04/30/20 documented as of this encounter
--- OUTSIDE RECORDS SUMMARY | 2025-03-12 08:02 | XMS_ITS | Encounter Summary ---
Author Organization [employer] [facility] Address [address] [place] [address] 7 [place] [address] Care Team Providers Care Traveling Plant Operator Name Role Phone Ivania Magallon Primary Care Provider [phone] Reason for Visit * Reason Onset Date Comments Med Refill 08/01/2023 Encounter Details Date Type Department Care Team (Late st Contact Info) Description 08/01/[address] [facility] [address] [place], [place] [phone] Ivania Magallon ANP [address] [place] [address] Hypertension associated with diabetes (CMS/HCC) Social History [...] Description 03/13/2025 10:00 AM EDT Office Visit [facility] [address] [place] [phone] Derek Peña MD [address] [place] [address] 06/02/2025 10:15 AM EDT Office Visit [facility] [address] [place] [address] Ivania Magallon ANP [address] [place] [address] documented as of this encounter Visit Diagnoses Diagnosis Hypertension associated with diabetes (CMS/HCC) Unspecified essential hypertension documented in this encounter Additional Health Concerns Assessment Noted Time PHQ-9 Depression Total Score: 0 07/12/20 23 12:00 PM EDT documented as of this encounter Care Teams Traveling Plant Operator Relationship Specialty Start Date End Date Ivania Magallon ANP [address] [place] [address] PCP - General Family Medicine 04/30/20 documented as of this encounter
--- OUTSIDE RECORDS SUMMARY | 2025-03-12 08:02 | XMS_ITS | Encounter Summary ---
Author Organization [employer] [facility] Address [address] [place] [address] 7 [place] [address] Care Team Providers Care Entry Level Manager Name Role Phone Ivania Magallon Primary Care Provider [phone] Encounter Details Date Type Department Care Team (Latest Contact Info) Description 04/14/2021 Abstract [facility] CONVERSIONS Dental, Provider, DDS Social History [...] 10:00 AM EDT Office Visit [facility] MEDICINE [address] [place] [phone] Derek Peña MD [address] [place] [address] 06/02/2025 10:15 AM EDT Office Visit [facility] MEDICINE [address] [place] [phone] Ivania Magallon ANP [address] [place] [address] documented as of this encounter Visit Diagnoses Not on filedocumented in this encounter Care Teams Entry Level Manager Relationship Specialty Start Date End Date Ivania Magallon ANP [address] [place] [address] [place] [address] PCP - General Family Medicine 04/30/20 documented as of this encounter
--- OUTSIDE RECORDS SUMMARY | 2025-03-12 08:02 | XMS_ITS | Encounter Summary ---
Author Organization [employer] [facility] Address [address] [facility] 7t [place] [address] Care Team Providers Care Rn Ccu Name Role Phone Ivania Magallon Primary Care Provider [phone] Reason for Visit * Reason Comments Med Refill Encounter Details Date Type Department Care Team ([facility] st Contact Info) Description 07/21/[address] [facility] MEDICINE [address] [place] [address] Ivania Magallon ANP 230 [place] [address] Hypertension associated with diabetes (CMS/HCC) ([facility]/HCC) Social History Tobacco Use Types Packs/Day Years [...] Description 03/13/2025 10:00 AM EDT Office Visit [facility] MEDICINE [address] [place] [phone] Derek Peña MD [address] [place] [phone] 06/02/2025 10:15 AM EDT Office Visit [facility] MEDICINE [address] [place] [phone] Ivania Magallon ANP [address] [place] [address] documented as of this encounter Visit Diagnoses Diagnosis Hypertension associated with diabetes (CMS/HCC) Unspecified essential hypertension documented in this encounter Additional Health Concerns Assessment Noted Time PHQ-9 Depression Total Score: 0 07/12/20 23 12:00 PM EDT documented as of this encounter Care Teams Rn Ccu Relationship Specialty Start Date End Date Ivania Magallon ANP [address] [place] [phone] PCP - General Family Medicine 04/30/20 documented as of this encounter
--- OUTSIDE RECORDS SUMMARY | 2025-03-12 08:02 | XMS_ITS | Encounter Summary ---
Author Organization [employer] [facility] Address [address] [facility] 7t [place] [address] Care Team Providers Care Cuff Maker Name Role Phone Ivania Magallon Primary Care Provider [phone] Reason for Visit * Reason Onset Date Comments Med Refill 09/25/2023 Encounter Details Date Type Department Care Team ([facility] st Contact Info) Description 09/25/2023 Refill [facility] MED[facility]INE [address] [place], [place] [phone] Ivania Magallon ANP [address] [place] [address] Hypertension associated with diabetes (CMS/HCC) Social History [...] Description 03/13/2025 10:00 AM EDT Office Visit [facility] [address] [place] [phone] Derek Peña MD [address] [place] [address] 06/02/2025 10:15 AM EDT Office Visit [facility] MED[facility] [address] [place] [phone] Ivania Magallon ANP [address] [place] [address] documented as of this encounter Visit Diagnoses Diagnosis Hypertension associated with diabetes (CMS/HCC) Unspecified essential hypertension documented in this encounter Additional Health Concerns Assessment Noted Time PHQ-9 Depression Total Score: 0 07/12/20 23 12:00 PM EDT documented as of this encounter Care Teams Cuff Maker Relationship Specialty Start Date End Date Ivania Magallon ANP [address] [place] [phone] PCP - General Family Medicine 04/30/20 documented as of this encounter
--- OUTSIDE RECORDS SUMMARY | 2025-03-12 08:02 | XMS_ITS | Clinical Summary ---
Author Organization 175 [facility] Address [address] [place] [address] Phone Care Team Providers Care Consultative Sales Associate Name Role Phone MagallonIvania Mark Anthony [place] Primary Care Provider [phone] Allergies No known active allergies Medications terbinafine (LamISIL) 250 mg tabletIndication s:Onychomycosis Take 1 tablet (250 mg total) by mouth 1 (one) time each day. 30 tablet 2 02/12/2025 5 Active Encounters Date Type Department Care Team Description 01/29/2025 9:00 AM EDT Consult Orthopedic Surgery [facility] [address] [phone] Noe Randhawa DPM Controlled type [...] to complete this topic Insurance [place] - [place] Care Teams Consultative Sales Associate Relationship Specialty Start Date End Date Ivania Magallon NP [address] [place] [phone] PCP - General 12/09/24
--- OUTSIDE RECORDS SUMMARY | 2025-03-12 08:02 | XMS_ITS | Encounter Summary ---
Author Organization [employer] [facility] Address [address] [facility] 7t [place] [address] Care Team Providers Care Outdoor Illuminating Engineer Name Role Phone Ivania Magallon Primary Care Provider Reason for Visit * Reason Onset Date Comments Nurse Triage 12/24/2024 Encounter Details Date Type Department Care Team ([facility] st Contact Info) Description 12/24/2024 Telephone [facility] MEDICINE [address] [place], [place] [phone] Ivania Magallon ANP 230 [place] [address] Nurse Triage Social History Tobacco Use Types [...] needed. Pt is advised to come to [facility] after 5pm for provider to see Pt. [facility] is open till 8pm. Pt agrees with [...] Office Visit [facility] MEDICINE [address] [place] [phone] Derek Peña MD [address] [place] [phone] 06/02/2025 10:15 AM EDT Office Visit [facility] MEDICINE [address] [place] [address] Ivania Magallon ANP [address] [place] [address] documented as of this encounter Visit Diagnoses Not on filedocumented in this encounter Additional Health Concerns Assessment Noted Time PHQ-9 Depression Total Score: 16 024 9:54 AM EST documented as of this encounter Care Teams Outdoor Illuminating Engineer Relationship Specialty Start Date End Date Ivania Maagllon ANP [address] [place] [phone] PCP - General Family Medicine 04/30/20 documented as of this encounter
[2025-04-15 11:14] VITALS: BMI 34.3
[2025-04-17] VITALS (7 sets, daily range): BP systolic 132–145; BP diastolic 72–92; PULSE 89–100; RESP 16–18; TEMP 36.6–37.2; O2SAT 95–98; BMI 35.6
[2025-04-17 07:38] LABS: Glucose, Whole Blood 207 mg/dL (60-115)
[2025-04-17] MEDS: Lactated Ringers 1,000 ML 100 ML IVCONT (07:42)
--- NOTE | 2025-04-17 08:40 | HO.ANESPROP2 ---
Documented by User: Bernadette Garsia NP 04/16/25 09:37 HPI - Anesthesia Eval Consult details Narrative: 44yo F for Right Knee Arthroscopy, lateral meniscectomy s/p shoulder scope 2023 with GA-ETT 7 PMFSH Active Problems Active Problems: All Active Problems Tear of lateral meniscus of right knee (Acute) Tear of medial meniscus of right knee (Acute) Trochanteric bursitis, right hip (Acute) Greater trochanteric bursitis of both hips (Acute) Left knee pain (Acute) Low back pain radiating to both legs (Acute) Back pain (Acute) SEEMA on CPAP (Acute) Impingement of right shoulder (Acute) Excessive daytime sleepiness (Acute) Sleep apnea treated with continuous positive airway pressure (CPAP) (Acute) Right shoulder pain (Acute) Fibromyalgia, primary (Acute) Past Medical History Medical History (Updated 04/17/25 @ 07:36 by Amanda Solano, RN) Diabetes SEEMA (obstructive sleep apnea) Polymyalgia Chronic neck pain Chronic low back pain with bilateral sciatica Pain in joint, multiple sites Family History Family History Mother Hypertension Arthritis Father Diabetes Family history of problems with anesthesia: No Surgical History Surgical History (Updated 04/17/25 @ 07:17 by Amanda Solano RN) History of surgery on upper extremity Hx of shoulder surgery (01/11/24) Hx of hysterectomy Hx of laparoscopic gastric banding History of Problems with Anesthesia: No Social History Social History Household Members: Children Are you a primary healthcare facility administrator to a significant other at home: No Do you presently have visiting nurse or other home services: No Alcohol intake: current Alcohol intake frequency: does not drink Patient Tobacco Use Status: Never used Tobacco Use of substances other than those prescribed or required for medical reasons: No Have you been hit, kicked, punched, or otherwise hurt by someone within the past year? 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 Meds Allergies Allergy/AdvReac Type Severity Reaction Status Date / Time latex AdvReac Intermediate Rash Verified 04/17/25 07:18 cucumbers, pickles Allergy Intermediate Rash Uncoded 04/17/25 07:18 Active Medications: Current Medications Cefazolin Sodium/Dextrose (Ancef) 2 gm in 50 mls @ 100 mls/hr IV PREOP ONE Stop: 04/17/25 05:39 Home Medications ?Medication ?Instructions ?Recorded ?Confirmed ?Last Taken ?Type lidocaine 5 % topical patch 1 patch transdermal DAILY 07/09/23 04/17/25 Unknown History dulaglutide 0.75 mg/0.5 mL 0.75 mg subcut QWEEK 07/19/23 04/17/25 04/03/25 History subcutaneous pen injector (Trulicity) metformin 1,000 mg tablet 1,000 mg PO BID 07/19/23 04/17/25 04/16/25 History duloxetine 60 mg capsule,delayed 60 mg PO DAILY 02/17/25 04/17/25 Unknown History release enalapril maleate 10 mg tablet 10 mg PO DAILY 02/17/25 04/17/25 04/17/25 History terbinafine HCl 250 mg tablet 250 mg PO DAILY 02/17/25 04/17/25 Unknown History Exam Height,Weight and Vital Signs: Height 5 ft 4 in Weight 90.718 kg Pertinent Lab Results Pertinent Lab Results: Laboratory Tests 04/02/25 09:04 WBC 9.9 Hgb 12.1 Hct 37.5 Plt Count 331 Sodium 136 Potassium 4.4 Chloride 104 Carbon Dioxide 21 L BUN 13 Creatinine 0.62 Narrative Narrative: EKG 02/2025 Vent. Rate : 88 BPM Atrial Rate : 88 BPM P-R Int : 112 ms QRS Dur : 82 ms QT Int : 364 ms P-R-T Axes : 9 -9 13 degrees QTcB Int : 440 ms Normal sinus rhythm Normal ECG When compared with ECG of 15-Dec-2017 12:07, No significant change was found Assessment and Plan Assessment Anesthesia Assessment: Chart Reviewed Final Anesthetic Review Family History of Problems with Anesthesia: No History of Problems with Anesthesia: No Documented by User: Molly Garcia DO 04/17/25 09:19 PMFSH Past Medical History Medical History (Updated 04/17/25 @ 07:36 by Amanda Solano, RN) Diabetes SEEMA (obstructive sleep apnea) Polymyalgia Chronic neck pain Chronic low back pain with bilateral sciatica Pain in joint, multiple sites Family History Family History Mother Hypertension Arthritis Father Diabetes Family history of problems with anesthesia: No Surgical History Surgical History (Updated 04/17/25 @ 07:17 by Amanda Solano, RN) History of surgery on upper extremity Hx of shoulder surgery (01/11/24) Hx of hysterectomy Hx of laparoscopic gastric banding History of Problems with Anesthesia: No Social History Social History Household Members: Children Are you a primary healthcare facility administrator to a significant other at home: No Do you presently have visiting nurse or other home services: No Alcohol intake: current Alcohol intake frequency: does not drink Patient Tobacco Use Status: Never used Tobacco Use of substances other than those prescribed or required for medical reasons: No Have you been hit, kicked, punched, or otherwise hurt by someone within the past year? 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 Meds Allergies Allergy/AdvReac Type Severity Reaction Status Date / Time latex AdvReac Intermediate Rash Verified 04/17/25 07:18 cucumbers, pickles Allergy Intermediate Rash Uncoded 04/17/25 07:18 Home Medications ?Medication ?Instructions ?Recorded ?Confirmed ?Last Taken ?Type lidocaine 5 % topical patch 1 patch transdermal DAILY 07/09/23 04/17/25 Unknown History dulaglutide 0.75 mg/0.5 mL 0.75 mg subcut QWEEK 07/19/23 04/17/25 04/03/25 History subcutaneous pen injector (Trulicity) metformin 1,000 mg tablet 1,000 mg PO BID 07/19/23 04/17/25 04/16/25 History duloxetine 60 mg capsule,delayed 60 mg PO DAILY 02/17/25 04/17/25 Unknown History release enalapril maleate 10 mg tablet 10 mg PO DAILY 02/17/25 04/17/25 04/17/25 History terbinafine HCl 250 mg tablet 250 mg PO DAILY 02/17/25 04/17/25 Unknown History Exam Exam Date and Time: 04/17/25 0840 Height,Weight and Vital Signs: Height 5 ft 4 in Weight 90.718 kg Height 5 ft 4 in Weight 94.2 kg Vital Signs Temperature 98.0 F 04/17/25 07:20 Pulse Rate 98 04/17/25 07:20 Respiratory Rate 16 04/17/25 07:20 Blood Pressure 145/92 H 04/17/25 07:20 Pulse Oximetry 98 04/17/25 07:20 Oxygen Delivery Method Room Air 04/17/25 07:20 Temperature 98.0 F 04/17/25 07:20 Pulse Rate 98 04/17/25 07:20 Respiratory Rate 16 04/17/25 07:20 Blood Pressure 145/92 H 04/17/25 07:20 Pulse Oximetry 98 04/17/25 07:20 Oxygen Delivery Method Room Air 04/17/25 07:20 Airway Mallampati Class: III TM Dist: >3cm Neck ROM: Full Loose/Missing/Broken Teeth: No (patient denies any loose or broken teeth) Heart: S1S2 Lungs: CTAB Assessment and Plan Assessment Anesthesia Assessment: Anesthesia Plan Discussed and Chart Reviewed Final Anesthetic Review Family History of Problems with Anesthesia: No History of Problems with Anesthesia: No NPO: Yes ASA Class: II Final Preanesthetic Review: No Changes in Pt Med Stat, Meds/Allgs Chart Reviewed, Consent Obtained/Reviewed and Anes Risks/Benef Reviewed Patient Risk: Low Procedure Risk: Low Anesthetic Plan Anesthetic Plan: GA and Agree w/ Assess. and Plan Disposition: Standard PACU
[2025-04-17] MEDS: ceFAZolin Sodium/Dextrose,Iso 2 GM/50 ML PIGGYBACK IV (09:05)
[2025-04-17] MEDS: Acetaminophen 1,000 MG/100 ML PIGGYBACK 400 MG IV (09:30)
--- NOTE | 2025-04-17 09:57 | P.BOP_ITS ---
Brief Operative Note Date of Service: 04/17/25 Pre-op diagnosis: Right knee lateral meniscus tear, right knee degenerative joint disease Post-op diagnosis: other (Right knee lateral meniscus tear, right knee medial meniscus tear, right knee degenerative joint disease) Procedure: Right knee arthroscopic partial medial and lateral meniscectomies, right knee arthroscopic chondroplasty of the undersurface of the patella Implants: None Surgeon: Ash Mccoy MD Anesthesia: GLMA Was an District Sales Representative used for this Procedure?: No Estimated blood loss (mL): 10 Pathology: none sent Condition: stable Disposition: PACU
--- NOTE | 2025-04-17 09:58 | W.PM.OPN ---
Operative Note Operative Note Date of Service: 04/17/25 Narrative: After the patient was identified as [place]ia Carballo and her right knee was initialed by myself they were brought to the operating room where general anesthesia was induced by the anesthesiologist in routine fashion. The patient was given 2 g of IV Ancef for infection prophylaxis. A formal time-out was completed. The patient's right lower extremity was prepped and draped in sterile fashion. Marcaine with epinephrine was injected into the planned incision sites as well as their right knee joint. A # 11 scalpel blade was used to make an anterolateral portal 1 cm proximal to the joint line and 1 cm lateral to the patellar tendon. Blunt trocar technique was used into the suprapatellar pouch with the knee in extension. Diagnostic arthroscopy showed multiple bands of thickened plica which would be excised at the end of the procedure. There were no loose bodies or abnormalities found in either the medial or lateral gutters. There were diffuse grades 1 and 2 degenerative changes of the undersurface of the patella as well as minimal degenerative changes of the trochlear groove. The patient's knee was flexed to 45 degrees and a valgus force was placed upon it. The medial compartment was entered. An anteromedial portal was made 1 cm proximal to the joint line and 1 cm medial to the patellar tendon. Probing of the medial meniscus showed a radial tear of the anterior horn. A partial medial meniscectomy was performed using the arthroscopic shaver. Following the partial meniscectomy the remainder of the meniscus tissue was stable. There were minimal degenerative changes of the medial femoral condyle and medial tibial plateau. The patient's knee was then placed into a neutral position. There was no injury to the anterior cruciate ligament. The patient's knee was then placed into the figure of 4 position and the lateral compartment was entered. There were minimal degenerative changes of the lateral femoral condyle and lateral tibial plateau. There was a radial tear of the anterior horn of the lateral meniscus. A partial lateral meniscectomy was performed using the arthroscopic shaver. The patient's knee was once again brought into extension and the suprapatellar pouch was entered. The arthroscopic shaver and the ArthroCare Wand were used to excise the thickened bands of plica. The undersurface of the patella was then made smooth using the arthroscopic shaver. The articular surface of the trochlear groove was already smooth so no chondroplasty was indicated. The knee joint was irrigated and then drained. All arthroscopic instruments were removed. The 2 portals were closed with 3-0 nylon interrupted suture. The knee joint was injected with Marcaine. Dry sterile dressing and Bob bandages were placed over the patient's knee. The patient was awoken and extubated in the operating room. They were transferred to the recovery room in stable condition.
[2025-04-17] MEDS: cefTRIAXone sodium 1 GM VIAL IVPUSH (10:05)
== END 2025-04-17 10:51 | disposition home or self-care (01) ==
PROVIDERS: PCP Nurse Practitioner Primary Care; Visit Provider Orthopaedic Surgery
PROC: (CPT 29870; principal; 2025-04-17 09:00)
DX: S83.281A Other tear of lateral meniscus, current injury, right knee, initial encounter (principal); S83.241A Other tear of medial meniscus, current injury, right knee, initial encounter; X58.XXXA Exposure to other specified factors, initial encounter; Y93.9 Activity, unspecified; Y92.9 Unspecified place or not applicable; Y99.9 Unspecified external cause status; M17.11 Unilateral primary osteoarthritis, right knee; G89.29 Other chronic pain; M25.561 Pain in right knee; M25.361 Other instability, right knee; M67.51 Plica syndrome, right knee; M79.7 Fibromyalgia; M54.2 Cervicalgia; M54.42 Lumbago with sciatica, left side; M54.41 Lumbago with sciatica, right side; G47.33 Obstructive sleep apnea (adult) (pediatric); Z79.82 Long term (current) use of aspirin; Z79.84 Long term (current) use of oral hypoglycemic drugs; Z79.85 Long-term (current) use of injectable non-insulin antidiabetic drugs; Z79.899 Other long term (current) drug therapy; Z99.89 Dependence on other enabling machines and devices; Z98.84 Bariatric surgery status; Z98.890 Other specified postprocedural states; Z91.040 Latex allergy status
CPT/HCPCS: 29880; 29876; 82947; J0131; J0171; J0690; J0696; J1100; J1885; J2003; J2250; J2371; J2405; J2704; J2795; J3010

== ENCOUNTER → 2025-04-17 06:58 | Outpatient (BNV) | payer MEDICAID, SELFPAY | PROVIDERS: PCP Nurse Practitioner Primary Care; Visit Provider Orthopaedic Surgery | DX: S83.241A Other tear of medial meniscus, current injury, right knee, initial encounter (principal); S83.281A Other tear of lateral meniscus, current injury, right knee, initial encounter | CPT/HCPCS: 29880 ==

== ENCOUNTER 2025-04-30 10:25 | Outpatient (AMB) | payer MEDICAID, SELFPAY ==
--- OUTSIDE RECORDS SUMMARY | 2025-04-27 17:20 | XMS_ITS | Encounter Summary ---
Author Organization [employer] Address [address] [place] [address] Care Team Providers Care Surveillance Director Name Role Phone Ivania Magallon CHLOE Primary Care Provider [phone] Reason for Visit * Reason Comments Oral Pain Encounter Details Date Type Department Care Team ([facility] Contact Info) Description 04/27/2025 5:20 PM EDT Office Visit [facility] [place] [address] [place] [address] Social History Tobacco Use Types Packs/Day Years [...] Sign Reading Time Taken Comments Blood Pressure 141/86 04/27/2025 5:34 PM EDT Pulse 109 04/27/2025 5:34 PM EDT Temperature 36.9 C (98.4 F) 04/27/2025 5:34 PM EDT Respiratory Rate 19 04/27/2025 5:34 PM EDT Oxygen Saturation 97% 04/27/2025 5:34 PM EDT Inhaled Oxygen Concentration - - Weight 95 kg (209 lb 6.4 oz) 04/27/2025 5:34 PM EDT Height 162.6 cm (5' 4 ) 04/27/2025 5:34 PM EDT Body Mass Index 35.94 04/27/2025 5:34 PM EDT documented in this encounter Plan of Treatment Upcoming Encounters Date Type Department Care Team (Late st Contact Info) Description 06/02/2025 10:15 AM EDT Office Visit [facility] [address] [place] [address] Ivania Magallon ANP [address] [place] [address] documented as of this encounter Visit Diagnoses Not on filedocumented in this encounter Additional Health Concerns Assessment Noted Time PHQ-9 Depression Total Score: 9 01/21/20 25 1:36 PM EDT documented as of this encounter Care Teams Surveillance Director Relationship Specialty Start Date End Date Ivania Magallon ANP [address] [place] [address] PCP - General Family Medicine 04/30/20 documented as of this encounter
[2025-04-30 10:33] VITALS: BMI 35.5
--- NOTE | 2025-04-30 10:33 | A.OFFVIS_ITS ---
Vital Signs 04/30/25 10:33 Height 5 ft 4 in Weight 207 lb BMI 35.5 Intake Visit Reasons: PO RT knee 04/17/25 DR Intake Note: [place] is a 44 year old female who presents today for her first post-operative visit after undergoing a right knee arthroscopy on 04/17/25. She reports mild intermittent discomfort in her right knee. She denies any fevers or chills. She states that her leg is weak at times and feels like her right knee will ?give out?. Impersonator Character Required: Yes Impersonator Character Language: Director Of Architecture Services: Impersonator Character Present Impersonator Character Name: JoyceMALLIKA/MARISEL Allergies latex Adverse Reaction (Intermediate, Verified 04/30/25 10:34) Rash cucumbers, pickles Allergy (Intermediate, Uncoded 04/30/25 10:34) Rash Medication List - Last Reconciled 04/30/25 by Ash Mccoy MD albuterol sulfate 2.5 mg (3 mL) inhalation QID PRN [id number]-wmjjihpdtewwx-nlgq 50-325-40 mg 1 tab PO Q6H PRN dulaglutide (Trulicity) 0.75 mg subcut QWEEK duloxetine 60 mg PO DAILY enalapril maleate 10 mg PO DAILY hydroxyzine HCl 10 mg PO Q8H PRN 3 days lidocaine 5% 1 patch transdermal DAILY metformin 1,000 mg PO BID ondansetron 4 mg PO Q8H PRN prednisone 20 mg PO BID terbinafine HCl 250 mg PO DAILY PFSH Medical History (Updated 04/30/25 @ 10:36 by Ash Mccoy MD) Diabetes SEEMA (obstructive sleep apnea) Polymyalgia Chronic neck pain Chronic low back pain with bilateral sciatica Pain in joint, multiple sites Surgical History (Updated 04/17/25 @ 07:17 by Amanda Solano RN) History of surgery on upper extremity Hx of shoulder surgery (01/11/24) Hx of hysterectomy Hx of laparoscopic gastric banding Family History Mother Hypertension Arthritis Father Diabetes Social History Household Members: Children Are you a primary medicare sales representative to a significant other at home: No Do you presently have visiting nurse or other home services: No Alcohol intake: current Alcohol intake frequency: does not drink Patient Tobacco Use Status: Never used Tobacco Current occupational status: employed 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 Her sutures were removed and Steri-Strips placed over her incisions. I did have her fitted with a knee brace because of her weakness and feelings of instability. I do find that the knee brace is a medical necessity to help prevent future falls. She will contact me prior to her follow-up appointment in 2-3 months should any questions or concerns arise. Feel free to call me at any time should questions regarding her orthopedic management arise. Coding Level of Care Code Global (59594) Diagnoses Right knee pain M25.561
== END 2025-04-30 10:45 | disposition home or self-care (01) ==
LOC: HO.HOS 10:25
PROVIDERS: PCP Nurse Practitioner Primary Care; Visit Provider Orthopaedic Surgery
DX: M25.561 Pain in right knee (principal)
CPT/HCPCS: 99024

== ENCOUNTER → 2025-04-30 10:25 | Outpatient (BNVA) | payer MEDICAID, SELFPAY | PROVIDERS: PCP Nurse Practitioner Primary Care; Visit Provider Orthopaedic Surgery | DX: M25.561 Pain in right knee (principal) | CPT/HCPCS: 99212 ==

== ENCOUNTER 2025-06-10 14:25 | Outpatient (AMB) | payer MEDICAID, SELFPAY ==
--- NOTE | 2025-06-10 14:34 | A.OFFVIS_ITS ---
Vital Signs 06/10/25 14:44 Height 5 ft 4 in Weight 206 lb 12.697 oz BMI 35.5 BP 132/70 Blood Pressure Location Lt radial Pulse 101 H Pulse Source Pulse Oximeter Pulse Oximetry (%) 98 Oxygen Delivery Method Room Air Intake Visit Reasons: fibromyalgia Intake Note: Patient presents for Fibromyalgia follow up. Allergies latex Adverse Reaction (Intermediate, Verified 06/10/25 14:41) Rash cucumbers, pickles Allergy (Intermediate, Uncoded 04/30/25 10:34) Rash Medication List - Last Reconciled 06/10/25 by Mili Wilcox MD albuterol sulfate 2.5 mg (3 mL) inhalation QID PRN wmiavkxaqv-lmibcudavaoiv-gsnq 50-325-40 mg 1 tab PO Q6H PRN dulaglutide (Trulicity) 0.75 mg subcut QWEEK duloxetine 60 mg PO DAILY enalapril maleate 10 mg PO DAILY hydroxyzine HCl 10 mg PO Q8H PRN 3 days lidocaine 5% 1 patch transdermal DAILY metformin 1,000 mg PO BID ondansetron 4 mg PO Q8H PRN prednisone 20 mg PO BID terbinafine HCl 250 mg PO DAILY HPI Comments Details: Patient is a 44-year-old female with depression, hypertension, and fibromyalgia here today for follow up Interval History: Patient last seen 07/19/[address] Madden - New patient - Eval for polyarthralgias - Diagnosed with fibromyalgia - Recommended light exercise and psych follow up Since then - has been having worsening pain - Feels like she is loosing strength and balance - Had bilateral cubital tunnel release - Had right knee meniscal repair and planning to do left knee as well Today - Continues to complain of whole body pain Rheumatologic History: Diagnosed with fibromyalgia 07/2023 Current Rheumatology Medication(s): [facility] Medical History (Updated 04/30/25 @ 10:36 by Ash Mccoy MD) Diabetes SEEMA (obstructive sleep apnea) Polymyalgia Chronic neck pain Chronic low back pain with bilateral sciatica Pain in joint, multiple sites Surgical History History of surgery on upper extremity Hx of shoulder surgery (01/11/24) Hx of hysterectomy Hx of laparoscopic gastric banding Family History Mother Hypertension Arthritis Father Diabetes Social History Household Members: Children Are you a primary rn critical care to a significant other at home: No Do you presently have visiting nurse or other home services: No Alcohol intake: current Alcohol intake frequency: does not drink Patient Tobacco Use Status: Never used Tobacco Current occupational status: employed 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, 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 Review of Systems Const Details: Review of Systems Constitutional: Denies fever, chills, weight loss ENT: Denies vision changes, eye pain or eye redness, dental caries, dry mouth GI: Denies nausea, vomiting, diarrhea, abdominal pain, change in BM Pulm: Denies SOB, CARDOZO, hemoptysis, wheezing Cards: Denies chest pain, palpitations Skin: Denies Raynaud's, rash, nail changes, photosensitivity, PERFORMANCE MANAGER: Denies headaches, weakness, paresthesias, recurrent falls MSK: as per HPI All other systems reviewed and are unremarkable except noted above Physical Exam Exam Exam: Vital signs reviewed Physical Examination CONSTITUITIONAL Patient alert and cooperative. Well appearing and in no apparent painful distress MSK Hands * Right Hand: Able to make a fist. No swelling or tenderness to palpation of these joints. No deformities noted. * Left Hand: Able to make a fist. No swelling or tenderness to palpation of these joints. No deformities noted. Wrists * Right Wrist: Full ROM. 70 degrees of wrist flexion, 80 degrees of wrist extension. No swelling or TTP * Left Wrist: Full ROM. 70 degrees of wrist flexion, 80 degrees of wrist extension. No swelling or TTP Elbows * Right Elbow: Full ROM. No swelling or TTP. TTP of the medial epicondyles * Left Elbow: Full ROM. No swelling or TTP. TTP of the lateral epicondyles Shoulders * Right shoulder: Full ROM. No swelling noted. No TTP of the AC joint, subacromial bursa or posterior shoulder * Left shoulder: Full ROM. No swelling noted. No TTP of the AC joint, subacromial bursa or posterior shoulder Hip bursa: Tenderness to palpation bilaterally Knees * Right knee: Full ROM. No swelling noted. No TTP of the knee joint lie * Left knee: Full ROM. No swelling noted. No TTP of the knee joint lie * TTP of the pes anserine bursa Ankles * Right ankle: Good ankle dorsiflexion and plantar flexion. No swelling. No TTP of the ankle joint * Left ankle: Good ankle dorsiflexion and plantar flexion. No swelling. No TTP of the ankle joint Feet * Right foot: Negative squeeze test * Left foot: Negative squeeze test Tender points? * Tenderness to palpation of the bilateral trapezius, supraspinatus, anterior costochondral junctions, bilateral suboccipital muscle insertions SKIN No rashes Vital Signs: Last Vital Signs Pulse 101 H 06/10/25 14:44 BP 132/70 06/10/25 14:44 Pulse Ox 98 06/10/25 14:44 Oxygen Delivery Method Room Air 06/10/25 14:44 BMI result Body Mass Index 35.5 Results Reviewed Results Reviewed: Laboratory Tests 04/02/25 09:04 WBC 9.9 RBC 4.93 Hgb 12.1 Hct 37.5 Plt Count 331 Sodium 136 Potassium 4.4 Chloride 104 Carbon Dioxide 21 L BUN 13 Creatinine 0.62 AST 21 ALT 11 Total Creatine Kinase 95 C-Reactive Protein 0.65 H ABDIRASHID negative Assessment & Plan Assessment & Plan (1) Fibromyalgia, primary: Code(s): M79.7 - Fibromyalgia Category: Medical Plan: #Fibromylagia Patient is a 44-year-old female with fibromyalgia here today for follow up. Having a difficult time with her diagnosis and having worsening whole-body pain. Did not tolerate gabapentin and currently only on duloxetine. We will try low- dose naltrexone Plan - Naltrexone 4.5mg nightly (instructions given on how to dilute the medication) - Encouraged exercise and stretching - RTC 4 months Plan I spent 20 minutes reviewing the record and labs, taking a history, examining the patient, discussing the treatment plan, and documenting in the medical record Medications: New naltrexone 50 mg PO QWEEK 13 tabs 1RF 90 days M79.7 - Fibromyalgia Discontinued prednisone Discontinued Reason: Patient Completed Course 20 mg PO BID 4 tabs 0RF Coding Level of Care Code Est Pt Level 3 (64818) Diagnoses Fibromyalgia, primary M79.7
[2025-06-10 14:44] VITALS: BP 132/70; PULSE 101; O2SAT 98; BMI 35.5
--- OUTSIDE RECORDS SUMMARY | 2025-06-10 15:07 | XMS_ITS | Encounter Summary ---
Author Organization [employer] Address [address] [facility] [address] [place] [address] Care Team Providers Care Hand Cloth Examiner Name Role Phone Ivania Magallon Primary Care Provider [phone] Reason for Visit * Reason Comments Med Refill Encounter Details Date Type Department Care Team ([facility] st Contact Info) Description 06/05/2025 Refill [facility] MEDICINE [address], [place] [phone] Ivania Magallon ANP [address] [place] [address] Social History Tobacco Use Types Packs/Day Years [...] Care Team (Late st Contact Info) Description 08/20/2025 9:00 AM EDT Office Visit [facility] MEDICINE [address] [place] [address] Ivania Magallon ANP [address] [place] [address] documented as of this encounter Visit Diagnoses Not on filedocumented in this encounter Additional Health Concerns Assessment Noted Time PHQ-9 Depression Total Score: 9 01/21/20 25 1:36 PM EDT documented as of this encounter Care Teams Hand Cloth Examiner Relationship Specialty Start Date End Date Ivania Magallon ANP [address] [place] [id number] PCP - General Family Medicine 04/30/20 documented as of this encounter
--- OUTSIDE RECORDS SUMMARY | 2025-06-10 15:07 | XMS_ITS | Clinical Summary ---
Author Organization [facility] Address [address] [place] [address] Phone Care Team Providers Care Excelsior Cutter Name Role Phone [facility] [phone] Social History Tobacco Use Types Packs/Day Years Used Date Smoking Tobacco: Never Assessed Comments Unknown Sex and Gender Information Value Date Recorded Sex Assigned at Not on file Legal Sex Female 3:55 AM EDT Gender Identity Not on file Sexual Orientation Not on file Plan of Treatment Not on file Care Teams Excelsior Cutter Relationship Specialty Start Date End Date [facility] [address] [place] [id number] PCP - Insurance PCP 01/21/21
--- OUTSIDE RECORDS SUMMARY | 2025-06-10 15:07 | XMS_ITS | Clinical Summary ---
Author Organization [address] [facility] Address [address] [place] [address] Phone Care Team Providers Care Ballistics Expert Name Role Phone Naun Iavnia Hopson NP Primary Care Provider [phone] Allergies No known active allergies Medications terbinafine (LamISIL) 250 mg tabletIndicatio ns:Onychomycosi s Take 1 tablet (250 mg total) by mouth 1 (one) time each day. 30 tablet 2 02/12/2025 Social History Tobacco Use Types Packs/Day Years [...] 1992 Cervical Cancer Screening: Pap Smear 2003 Depression Screening 11/12/2024 HIV Screening 12/09/2024 Hepatitis C Screening 12/09/2024 Social Influencers of Health Screening 12/09/2024 Diabetes: Annual Urine Albumin-Creatinine Ratio (uACR) 01/29/2025 Hypertension/CHF/CAD Annual BMP Blood Test 01/29/2025 Influenza Vaccine (#1) 2025 4, 09/22/2022, 08/08/2021, Additional history exists Diabetes: Blood Sugar Control Test (HGBA1C) 07/23/2025 01/20/2025 DTaP,Tdap,and Td Vaccines (2 - Td or Tdap) 01/08/2027 01/08/2017 Cholesterol Screening (Lipid Panel) 09/07/2027 09/07/2022 Pneumococcal Vaccine: Pediatrics (0 to 5 Years) and At-Risk Patients (6 to 49 Years) Completed 11/23/2023 Hepatitis B Vaccines Completed 02/27/2024, 09/25/2023, 08/28/2023 COVID-19 Vaccine Completed 07/30/2024, 10/2024, 08/11/2021, Additional history exists HIB Vaccines Aged Out [...] to complete this topic Insurance MEDICAID - [place] Care Teams Ballistics Expert Relationship Specialty Start Date End Date Ivania Magallon NP [address] [place] [phone] PCP - General 12/09/24
== END 2025-06-10 15:36 | disposition home or self-care (01) ==
LOC: HO.RHE 14:26
PROVIDERS: PCP Nurse Practitioner Primary Care; Visit Provider Student in an Organized Health Care Education/Training Program
DX: M79.7 Fibromyalgia (principal)
CPT/HCPCS: 99213

== ENCOUNTER → 2025-06-10 14:25 | Outpatient (BNVA) | payer MEDICAID, SELFPAY | PROVIDERS: PCP Nurse Practitioner Primary Care; Visit Provider Student in an Organized Health Care Education/Training Program | DX: M79.7 Fibromyalgia (principal) | CPT/HCPCS: 99212 ==

== ENCOUNTER 2025-07-07 08:36 | Outpatient (AMB) | payer MEDICAID, SELFPAY ==
--- NOTE | 2025-07-07 08:39 | A.OFFVIS_ITS ---
Vital Signs 07/07/25 08:45 Height 5 ft 4 in Weight 206 lb BMI 35.4 Intake Visit Reasons: PO RT knee 04/17/25 Intake Note: [place] is a 44 year old female who presents today as a Post Op Right knee 04/17/25 . She reports mild discomfort in her right knee. She denies any fevers or chills. She does have ?numbness and tingling? in both of her legs, right greater than left. She is due to be evaluated in our Neurology Department later today. Allergies latex Adverse Reaction (Intermediate, Verified 07/07/25 08:45) Rash cucumbers, pickles Allergy (Intermediate, Uncoded 04/30/25 10:34) Rash Medication List - Last Reconciled 07/07/25 by Ash Mccoy MD albuterol sulfate 2.5 mg (3 mL) inhalation QID PRN tvfandcfya-mcvjzdmlowbme-bkcn 50-325-40 mg 1 tab PO Q6H PRN dulaglutide (Trulicity) 0.75 mg subcut QWEEK duloxetine 60 mg PO DAILY enalapril maleate 10 mg PO DAILY hydroxyzine HCl 10 mg PO Q8H PRN 3 days lidocaine 5% 1 patch transdermal DAILY metformin 1,000 mg PO BID naltrexone 50 mg PO QWEEK 90 days ondansetron 4 mg PO Q8H PRN terbinafine HCl 250 mg PO DAILY PFSH Medical History (Updated 04/30/25 @ 10:36 by Ash Mccoy MD) Diabetes SEEMA (obstructive sleep apnea) Polymyalgia Chronic neck pain Chronic low back pain with bilateral sciatica Pain in joint, multiple sites Surgical History History of surgery on upper extremity Hx of shoulder surgery (01/11/24) Hx of hysterectomy Hx of laparoscopic gastric banding Family History Mother Hypertension Arthritis Father Diabetes Social History Household Members: Children Are you a primary intensive care ambulance paramedic to a significant other at home: No Do you presently have visiting nurse or other home services: No Alcohol intake: current Alcohol intake frequency: does not drink Patient Tobacco Use Status: Never used Tobacco Current occupational status: employed 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 Horace Carballo continues to do well after undergoing right knee arthroscopic surgery on 04/17/2025. She will continue with her home exercise program. She will follow up with neurology as scheduled later today. She will contact me prior to her follow-up appointment in 3 months should any questions or concerns arise. Coding Level of Care Code Global (25045) Diagnoses Right knee pain M25.561
[2025-07-07 08:45] VITALS: BMI 35.4
--- OUTSIDE RECORDS SUMMARY | 2025-07-07 08:50 | XMS_ITS | Encounter Summary ---
Author Organization [employer] Address [address] [facility] 7 [place] [address] Care Team Providers Care Pharmacist Helper Name Role Phone Ivania Magallon Primary Care Provider [phone] Reason for Visit * Reason Comments Med Refill Encounter Details Date Type Department Care Team ([facility] st Contact Info) Description 07/04/2025 Refill [facility] MEDICINE [address] [place] [address] Ivania Magallon ANP [address] [place] [address] Social History Tobacco Use Types Packs/Day Years [...] Description 08/20/2025 9:00 AM EDT Office Visit [facility] MEDICINE [address] [place] [address] Ivania Magallon ANP [address] [place] [address] documented as of this encounter Visit Diagnoses Not on filedocumented in this encounter Additional Health Concerns Assessment Noted Time PHQ-9 Depression Total Score: 9 01/21/20 25 1:36 PM EDT documented as of this encounter Care Teams Pharmacist Helper Relationship Specialty Start Date End Date Ivania Magallon ANP [address] [place] [id number] PCP - General Family Medicine 04/30/20 documented as of this encounter
--- OUTSIDE RECORDS SUMMARY | 2025-07-07 08:51 | XMS_ITS | Clinical Summary ---
Author Organization [employer] Address [address] [place] [address] 7 [place] [address] Care Team Providers Care Parachutist/Combatant Diver Qualified Name Role Phone Shona Cheng Primary Care Provider [phone] Allergies Active Allergy Reactions Criticality Noted Date Comments [place] Extract Rash High 09/07/2021 Other reaction(s): GI Problems, Hives / Skin Rash Latex Rash High 04/17/2025 Mixed Vespid Venom Hives 09/07/2021 mosquito Medications [...] after showers 80 g 2 023 Active fexofenadine (Marianne) 180 MG tabletIndicati ons:Atopic dermatitis, unspecified type TAKE 1 TABLET (180 MG) BY MOUTH IF NEEDED EACH DAY (ALLERGIES). 90 tablet 1 024 Active nystatin (Mycostatin) 588143 UNIT/GM powder Apply topically 2 times daily. 60 g 1 025 2025 Active triamcinolone (Kenalog) 0.1 % cream Apply topically if needed in the morning and at bedtime (pain and swelling). 30 g 5 025 Active celecoxib (CeleBREX) 200 MG capsule [...] ONCE DAILY 90 tablet 1 025 Active albuterol (2.5 MG/3ML) 0.083% nebulizer solution INHALE THE CONTENT OF 1 VIAL (3mls) VIA NEBULIZER 4 (FOUR) TIMES DAILY NEEDED FOR SHORTNESS OF BREATH OR FOR WHEEZING 025 Active terbinafine (LamISIL) 250 MG tablet Take 250 mg by mouth Once per day. Active Trulicity 3 MG/0.5ML solution auto-injector INJECT 3 MG UNDER THE SKIN EVERY WEEK 025 Active DULoxetine (Cymbalta) [address] capsule Take 1 capsule by mouth Once per day. 025 Active Cyanocobalamin (Vitamin B-12) 1000 MCG sublingual tabletIndicati ons:B12 deficiency Place 1 tablet under the tongue Once daily. 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 Do not crush, chew, or split. 45 tablet 1 025 Active butalbital-qian taminophen-caf feine 50-325-40 MG tablet TAKE 1 TABLET BY MOUTH EVERY 6 HOURS NEEDED FOR HEADACHE 20 tablet 025 Active lidocaine (Lidoderm) 5 % patch APPLY 1 PATCH TOPICALLY TO THE AFFECTED AREA ONCE DAILY. remove patch after 12 hours 30 patch 3 025 Active lidocaine (Lidoderm) 5 % patch APPLY 1 PATCH BY TRANSDERMAL ROUTE EVERY DAY (MAY WEAR UP TO 12 HOURS) 30 patch 3 01/23/2 025 2024 Discontinued Hospital, Clinic, or Other Facility Administered Medication Ordered Dose Route Frequency Start Date End Date Status cyanocobalamin (Vitamin B-12) injection 1,000 mcgIndications:B12 deficiency 1000 mcg IM Every 30 days 03/21/2025 09/17/2025 Active Active Problems Problem Noted Date Diagnosed Date Impingement of right shoulder 06/02/2025 Status post hysterectomy 03/04/2025 COVID-19 12/16/2024 Assessment [...] Encounters Date Type Department Care Team Description 07/04/2025 Refill [facility] [address] [place] [address] Shona Cheng ANP 06/05/2025 Refill [facility] [address] [place] [address] Shona Cheng ANP 06/02/2025 10:15 AM EDT Office Visit [facility] [address] [place] [address] Shona Cheng ANP Hypertension associated with diabetes (CMS/HCC) (Primary Dx); Neuropathic pain of both legs; Chronic bilateral low back pain without sciatica; Essential hypertension; Bilateral hip pain; Generalized weakness; B12 deficiency; 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; Polyarthralgia 06/02/2025 Travel 06/01/[address] [address] Shona Cheng ANP Chart Prep 05/26/2025 Patient Outreach [facility] [address] [place], [place] [phone] Shona Cheng ANP Pre-visit Planning (SDOH was already completed) 05/01/2025 Orders Only [address] [address] Shona Cheng ANP Chronic pain of both ankles (Primary Dx) 05/01/[address] [address] Shona Cheng ANP Nurse Triage 04/27/2025 5:20 PM EDT Office Visit [facility] [address] [place] [address] Breanne Quintero NP 04/27/2025 Travel 04/27/[address] [address] Shona Cheng ANP 04/21/[address] [address] Shona Cheng ANP PCP [facility] Request; TRANSFER PATIENT REQUEST 04/17/2025 Orders Only GENERIC EXTERNAL DATA DEPARTMENT Provider, Generic External Data 04/14/[address] [address] Milady Ta RN B12 Medication 04/13/2025 11:30 AM EDT Clinical Support [address] [address] Milady Ta RN B12 deficiency (Primary Dx); Deficiency of other specified B group vitamins 04/13/[address] [address] Shona Cheng ANP Balance on account 04/13/2025 Travel from Last 3 Months Immunizations Immunization Administration Dates Next Due Hep B, adult [...] Q2 Not on file 10/02/2024 Comments No Intention Date Recorded No desire to become (finding) 0 06/02/2025 Sex and Gender Information Value Date Recorded Sex Assigned at Female 09/11/2022 10:29 AM EDT Legal Sex Female 10:29 AM EDT Gender Identity Female 09/11/2022 10:29 AM EDT Sexual Orientation Straight 09/11/2022 10 :29 AM EDT Last Filed Vital Signs Vital Sign Reading Time Taken Comments Blood Pressure 134/80 06/02/2025 11:28 AM EDT Pulse 96 06/02/2025 10:17 AM EDT Temperature 36.9 C (98.4 F) 04/27/2025 5:34 PM EDT Respiratory Rate 16 06/02/2025 10:17 AM EDT Oxygen Saturation 97% 04/27/2025 5:34 PM EDT Inhaled Oxygen Concentration - - Weight 93.9 kg (207 lb) 06/02/2025 10:17 AM EDT Height 162.6 cm (5' 4 ) 06/02/2025 10:17 AM EDT Body Mass Index 35.53 06/02/2025 10:17 AM EDT Plan of Treatment Upcoming Encounters Date Type Department Care Team (Late st Contact Info) Description 08/20/2025 9:00 AM EDT Office Visit [facility] [address] [place] [address] Shona Cheng, ANP [address] [place] [address] Health Maintenance Due Date Last Done Comments Diabetes: Foot Exam 1992 HPV Vaccines (1 - 3-dose series) 1997 Influenza Vaccine (#1) 2025 , 09/22/2022, 08/08/2021, Additional history exists Depression Monitoring 07/23/2025 01/20/2025, 025 Diabetes: Hemoglobin A1C 12/03/2025 025, 01/20/2025, 10/14/2024, Additional history exists SDOH Screening 01/09/2026 01/09/2025 Alcohol/Substance Use Screening 01/20/2026 01/20/2025 Mammogram 01/30/2026 01/30/2025, 01/11, 01/30/2025 Disability Screening 03/06/2026 03/06/2025 Diabetes: Urine Protein Screening 03/20/2026 03/20/2025, 08/28/2023, 08/04/2020 Lipid Panel 03/20/2026 03/20/2025, 08/13, 12/30/2020 Family Planning (PISQ) 06/02/2026 06/02/2025 Tobacco Screening 06/02/2026 06/02/2025 DTaP/Tdap/Td Vaccines (2 - Td or Tdap) 01/08/2027 01/08/2017 Eye Exam 02/27/2027 02/27/2025, 02/10, 02/27/2025, Additional history exists Zoster Vaccines (1 of 2) 2032 RSV Patients and Patients Aged 60 years or older (1 - 1-dose 75+ series) 2057 Cervical Cancer Screening Discontinued HPV/Cotest Discontinued 01/30/2018, 11/01/2016 Pneumococcal Vaccine: Pediatrics (0 to 5 Years) and At-Risk Patients (6 to 49) Years Completed 11/23/2023 HIV Screening Completed 01/11/2024 Hepatitis [...] Procedure Name Priority Date/Time Associated Diagnosis Comments AMB REFERRAL TO ORTHOPAEDIC SURGERY Routine 06/09/2025 Chronic pain of both ankles POCT GLYCATED HEMOGLOBIN, TOTAL Routine 06/02/2025 10:35 AM EDT Hypertension associated with diabetes (CMS/HCC) POCT GLUCOSE Routine 06/02/2025 10:35 AM EDT Hypertension associated with diabetes (CMS/HCC) GLUCOSE, WHOLE BLOOD Routine 04/17/2025 7:35 AM EDT ALBUMIN, RANDOM URINE W/CREATININE Routine 03/20/2025 9:31 AM EDT Hypertension associated with diabetes (CMS/HCC) LIPID PANEL, STANDARD Routine 03/20/2025 7:07 AM EDT Hypertension associated with diabetes (CMS/HCC) BI US BREAST LIMITED RIGHT Routine 01/30/2025 9:12 AM EDT Mass of lower inner quadrant of right breast HEPATITIS C ANTIBODY Routine 01/11/2024 2:05 PM EST HIV AB/AG EXPOSURE SOURCE Routine 01/11/2024 2:05 PM EST ZZZ HISTORICAL HPV MRNA E6/E7 Routine 01/30/2018 10:13 AM EDT from Last 3 Months or Most Recently Relevant to Health Maintenance Results * Referral to Orthopaedic Surgery (06/09/2025) us Shona Cheng ANP OUTPATIENT REFERRAL ORDERABLES F inal Result * (ABNORMAL) POCT HGB A1C (06/02/2025 10:35 AM EDT) Hemoglobin A1C 6.8(A) 4.0 - 5.7 % QC Media Lot # [id number] Lot# Expiration Date ,756,033 Blood 06/02/2025 10:3 5 AM EDT us Shona Cheng ANP POINT OF CARE TEST ENTER/EDIT OR DERABLES Final Result * POCT Glucose (06/02/2025 10:35 AM EDT) Glucose Blood, POC 103 60 - 200 mg/dL QC Media Lot # [id number] Lot# Expiration Date [id number] Blood Capillary blood specimen / Unknown 06/02/2025 10:35 AM EDT Shona Cheng [facility] POINT OF CARE TEST ENTER/EDIT OR DERABLES Final Result * (ABNORMAL) Glucose, Whole Blood (04/17/2025 7:35 AM EDT) Glucose, Whole Blood 207(H) 60 - 115 mg/dL [facility] Comment:METER #: [id number] 04/17/2025 7:35 AM EDT 04/17/2025 7:38 AM EDT Generic External Data Provider LAB BLOOD ORDERAB LES Final Result Performing Organization Address [facility] Co de Phone Number [facility] [address] [place] [phone] * Albumin, Random Urine W/Creatinine (03/20/2025 9:31 AM EDT) Creatinine, Urine 213.97 mg/dL [facility] Microalbumin Urine 12.0 mg/L H [facility] Microalbum Creatinine Ratio Ur 5.6 <30 ug/mg cr [facility] Comment:Albumin/Creatinine R atio Reference Ranges: Normal: < 30 ug/mg creatinine Microalbuminuria: 30 - 300 ug/mg creatinineClinical Albuminuria: > 300 ug/mg creatinine Urine 03/20/2025 9:31 AM EDT 03/20/2025 11:02 AM EDT Shona Cheng ANP LAB URINE ORDERABLES Final Resul t Performing Organization Address City/[facility]/ZIP Co de Phone Number [facility] [address] [place] [phone] [phone] * (ABNORMAL) Lipid Panel, Standard (03/20/2025 7:07 AM EDT) Triglycerides 178(H) <150 mg/dL [facility] Comment:Desirable Triglyceri de: less than 150 mg/dLBorderline High Triglyceride 150-199 mg/dLHigh Triglyceride: 200-499 mg/dLVery High Triglyceride: greater than or equal to 5OO mg/dL Cholesterol 185 <200 mg/dL [facility] Comment:Desirable Cholestero l: less than 200 mg/dLBorderline High Cholesterol: 200-239 mg/dLHigh Cholesterol: greater than 239 mg/dL LDL Cholesterol Calculated 98 <100 mg/dL [facility] Comment:Desirable LDL: less than 100 mg/dLNear Optimal/Above Optimal LDL: 110- 129 mg/dLBorderline High LDL: 130-159 mg/dLHigh LDL: 160-189 mg/dLVery High LDL: greater than or equal to 190 mg/dL HDL Cholesterol 52 >40 mg/dL [facility] Comment:Desirable HDL: great er than 40 mg/dL Note: This HDL assay may give artificially low results in patients with liver disease. Blood Venous blood specimen / Unknown 03/20/2025 7:07 AM EDT 03/20/2025 11:01 AM EDT [facility] LAB BLOOD ORDERABLES Final Resul t [facility] [address] [place] [phone] [phone] * BI US Breast Limited Right (01/30/2025 9:12 AM EDT) Anatomical Region Laterality Modality Breast Right Ultrasound 01/30/2025 9:12 AM EDT Narrative 01/30/2025 10:23 AM EDT [facility] [address] [place] [address] Ultrasound Report Signed Patient: Albania Robles MR#: [id number] : 1980 Acct:[id number] Age/Sex: 44 / F ADM Date: 01/30/25 Loc: HO.MAMMO Attending Dr: Dayton Frazier MD Ordering Physician: Dayton Frazier MD Date of Service: 01/30/25 Procedure(s): US breast RT limited mamm only Accession Number(s): [id number] cc: Dayton Frazier MD; SHONA CHENG NP [...] 01/30/25 1020 DD/ 0912 TD/TT: 01/30/25 0935 Printmaker: Procedure Note Donotuseinterpreter, Image - 01/30/2025 [facility] [address] [place] [address] Ultrasound Report Signed Patient: Robert Robles#: [id number] : 1980Acct:[id number] Age/Sex: 44 / FADM Date: 01/30/25 Loc: HO.MAMMO Attending Dr: Dayton Frazier MD Ordering Physician: Dayton Frazier MD Date of Service: 01/30/25 Procedure(s): US breast RT limited mamm only Accession Number(s): [id number] cc: Dayton Frazier MD; SHONA CHENG NP [...] 01/30/25 1020 DD/ 0912 TD/TT: 01/30/25 0935 Printmaker: Dayton Perez MD IM US PROCEDURES Fin al Result * HIV Ab/Ag Exposure Source (01/11/2024 2:05 PM EST) HIV AB/AG Nonreactive Nonreactive [facility] Comment:HIV-1 p24 Ag and/or HIV-1/HIV-2 Ab not detected.A test result that is nonreactive does not exclude thepossibility of exposure to or infection with HIV-1 and/orHIV-2. Nonreactive results in this assay for individualswith prior exposure to HIV-1 and/or HIV-2 may be due toantigen and antibody levels that are below the limit ofdetection of this assay.The [employer] HIV Ag/Ab Combo assay result andsupplemental assay results should be interpreted inconjunction with the patient's clinical presentation,history and other laboratory results. If the results areinconsistent with clinical evidence, additional testing issuggested to confirm the result. 01/11/2024 2:05 PM EST 01/11/2024 2:07 PM EST Generic External Data Provider LAB BLOOD ORDERAB LES Final Result Performing Organization Address [facility]/ZIP Co de Phone Number [facility] [address] [place] [phone] * Hepatitis C Ab (01/11/2024 2:05 PM EST) Hepatitis C Antibody Nonreactive Nonreactive [facility] Comment:Antibodies to HCV no t detected; does not exclude early acuteHCV infection. 01/11/2024 2:05 PM EST 01/11/2024 2:07 PM EST Generic External Data Provider LAB BLOOD ORDERAB LES Final Result Performing Organization Address [facility]/ZIP Co de Phone Number [facility] [address] [place] [phone] * HPV mRNA E6/E7 (01/30/2018 10:13 AM EDT) HPV mRNA E6/E7 Not Detected NOT DETECTED [facility] Comment: This test was performed using the APTIMA(R) HPV Assay ([employer] This assay detects E6/E7 viral messenger RNA (mRNA) from 14 high-risk HPV types (16,18,31,33,35,39,45,51, 52,56,58,59,66,68). For additional information please refer to: http://education.[employer]/faq/KDQ086g4 (This link is being provided for informational/ educational purposes only.) Test Performed by [employer], [facility], [address] [place] [address] Jameel Swan M.D., Ph.D., Director of Laboratories , [facility] [id number] Please note: Effective 07/24/2016, HPV testing will be performed using [employer] APTIMA test which targets mRNA. Detecting mRNA instead of DNA, as in older methods, offers significant improvements in specificity. 01/30/2018 10:1 3 AM EDT Tosin Putnam CNM HISTORICAL/NON ORDERABLE LABS Final Result [facility] Critical access hospital Anywhere [address] from Last 3 Months or Most Recently Relevant to Health Maintenance Insurance [id number] C3 Care Teams Parachutist/Combatant Diver Qualified Relationship Specialty Start Date End Date Shona Cheng ANP [address] [place] [phone] PCP - General Family Medicine 04/30/20
--- OUTSIDE RECORDS SUMMARY | 2025-07-07 08:51 | XMS_ITS | Encounter Summary ---
Author Organization [employer] Address [address] [facility] 7 [place] [address] Care Team Providers Care Cloth Beamer Name Role Phone Ivania Magallon Primary Care Provider [phone] Reason for Visit * Reason Onset Date Comments Med Refill 09/25/2023 Encounter Details Date Type Department Care Team (Late st Contact Info) Description 09/25/2023 Refill [facility] [address] [place] [address] Ivania Magallon ANP [address] [place] [address] Hypertension associated with diabetes (CMS/HCC) Social History [...] Description 08/20/2025 9:00 AM EDT Office Visit [facility] [address] [place] [address] Ivania Magallon ANP [address] [place] [address] documented as of this encounter Visit Diagnoses Diagnosis Hypertension associated with diabetes (CMS/HCC) Unspecified essential hypertension documented in this encounter Additional Health Concerns Assessment Noted Time PHQ-9 Depression Total Score: 0 07/12/20 23 12:00 PM EDT documented as of this encounter Care Teams Cloth Beamer Relationship Specialty Start Date End Date Ivania Magallon ANP [address] [place] [phone] PCP - General Family Medicine 04/30/20 documented as of this encounter
--- OUTSIDE RECORDS SUMMARY | 2025-07-07 08:51 | XMS_ITS | Clinical Summary ---
Author Organization [facility] Address [address] [place] [address] Phone Care Team Providers Care Sales And Management Trainee Name Role Phone [facility] Social History Tobacco Use Types Packs/Day Years Used Date Smoking Tobacco: Never Assessed Comments Unknown Sex and Gender Information Value Date Recorded Sex Assigned at Not on file Legal Sex Female 3:55 AM EDT Gender Identity Not on file Sexual Orientation Not on file Plan of Treatment Not on file Care Teams Sales And Management Trainee Relationship Specialty Start Date End Date [facility] [address] [place] [address] PCP - Insurance PCP 01/21/21
--- OUTSIDE RECORDS SUMMARY | 2025-07-07 08:51 | XMS_ITS | Clinical Summary ---
Author Organization [facility] Address [address] [place] [address] Phone Care Team Providers Care Manager Community Name Role Phone Ivania Magallon NP Primary Care Provider [phone] Allergies No known active allergies Social History Tobacco Use Types Packs/Day Years [...] Blood Test 01/29/2025 Influenza Vaccine (#1) 2025 , 09/22/2022, 08/08/2021, Additional history exists Diabetes: Blood [...] topic Insurance MEDICAID - [place] Care Teams Manager Community Relationship Specialty Start Date End Date Ivania Magallon NP [address] [phone] PCP - General 12/09/24
--- OUTSIDE RECORDS SUMMARY | 2025-07-07 08:51 | XMS_ITS | Encounter Summary ---
Author Organization [employer] Address [address] [place] [address] 7 [place] [address] Care Team Providers Care Parts Finisher Name Role Phone Ivania Magallon Primary Care Provider [phone] Reason for Visit * Reason Comments Med Refill Encounter Details Date Type Department Care Team ([facility] st Contact Info) Description 07/21/[address] [facility] [address] [place] [address] Ivania Magallon ANP [address] [place] [address] Hypertension associated with diabetes (CMS/HCC) ([facility]/HCC) Social History Tobacco Use Types [...] Description 08/20/2025 9:00 AM EDT Office Visit [facility] [address] [place] [phone] Ivania Magallon ANP [address] [place] [address] documented as of this encounter Visit Diagnoses Diagnosis Hypertension associated with diabetes (CMS/HCC) Unspecified essential hypertension documented in this encounter Additional Health Concerns Assessment Noted Time PHQ-9 Depression Total Score: 0 07/12/20 23 12:00 PM EDT documented as of this encounter Care Teams Parts Finisher Relationship Specialty Start Date End Date Ivania Magallon ANP [address] [place] [phone] PCP - General Family Medicine 04/30/20 documented as of this encounter
--- OUTSIDE RECORDS SUMMARY | 2025-07-07 08:51 | XMS_ITS | Encounter Summary ---
Author Organization [employer] Address [address] [place] [address] 7 [place] [address] Care Team Providers Care Purchasing Director Name Role Phone Ivania Magallon Primary Care Provider [phone] Encounter Details Date Type Department Care Team (Latest Contact Info) Description 07/14/2022 Abstract [facility] CONVERSIONS Dental, Provider, DDS Social History Tobacco [...] Description 08/20/2025 9:00 AM EDT Office Visit [facility] [address] [place] [address] Ivania Magallon ANP [address] [place] [address] documented as of this encounter Visit Diagnoses Not on filedocumented in this encounter Care Teams Purchasing Director Relationship Specialty Start Date End Date Ivania Magallon ANP [address] [place] [address] PCP - General Family Medicine 04/30/20 documented as of this encounter
--- OUTSIDE RECORDS SUMMARY | 2025-07-07 08:51 | XMS_ITS | Encounter Summary ---
Author Organization [employer] Address [address] [place] [address] [facility] [place] [address] Care Team Providers Care Centrifugal Chiller Technician Name Role Phone Ivania Magallon Primary Care Provider [phone] Reason for Visit * Reason Onset Date Comments Med Refill 08/01/2023 Encounter Details Date Type Department Care Team (Late st Contact Info) Description 08/01/2023 Refill [facility] [address] [place] [address] Ivania Magallon ANP [address] [place] [address] Hypertension associated with diabetes (CMS/HCC) Social History [...] 9:00 AM EDT Office Visit [facility] [address] [place] [address] Ivania Magallon ANP [address] [place] [address] documented as of this encounter Visit Diagnoses Diagnosis Hypertension associated with diabetes (CMS/HCC) Unspecified essential hypertension documented in this encounter Additional Health Concerns Assessment Noted Time PHQ-9 Depression Total Score: 0 07/12/20 23 12:00 PM EDT documented as of this encounter Care Teams Centrifugal Chiller Technician Relationship Specialty Start Date End Date Ivania Magallon ANP [address] [place] [address] PCP - General Family Medicine 04/30/20 documented as of this encounter
--- OUTSIDE RECORDS SUMMARY | 2025-07-07 08:51 | XMS_ITS | Encounter Summary ---
Author Organization [employer] Address [address] [place] [address] 7 [place] [address] Care Team Providers Care Assisted Living Director Name Role Phone Ivania Magallon Primary Care Provider [phone] Encounter Details Date Type Department Care Team (Latest Contact Info) Description 04/14/2021 Abstract [facility] CONVERSIONS Dental, Provider, DDS Social History [...] Description 08/20/2025 9:00 AM EDT Office Visit [facility] [address] [place] [address] Ivania Magallon ANP [address] [place] [address] documented as of this encounter Visit Diagnoses Not on filedocumented in this encounter Care Teams Assisted Living Director Relationship Specialty Start Date End Date Ivania Magallon ANP [address] [place] [address] PCP - General Family Medicine 04/30/20 documented as of this encounter
--- OUTSIDE RECORDS SUMMARY | 2025-07-07 08:51 | XMS_ITS | Encounter Summary ---
Author Organization [employer] Address [address] [facility] 7 [place] [address] Care Team Providers Care Uniformer Name Role Phone Ivania Magallon Primary Care Provider [phone] Reason for Visit * Reason Onset Date Comments Nurse Triage 12/24/2024 Encounter Details Date Type Department Care Team ([facility] st Contact Info) Description 12/24/2024 Telephone [facility] [address] [place] [address] Ivania Magallon ANP [address] [place] [address] Nurse Triage Social History Tobacco Use Types [...] needed. Pt is advised to come to [facility] after 5pm for provider to see Pt. [facility] is open till 8pm. Pt agrees with [...] Description 08/20/2025 9:00 AM EDT Office Visit [facility] [address] [place] [address] Ivania Magallon ANP [address] [place] [address] documented as of this encounter Visit Diagnoses Not on filedocumented in this encounter Additional Health Concerns Assessment Noted Time PHQ-9 Depression Total Score: 16 024 9:54 AM EST documented as of this encounter Care Teams Uniformer Relationship Specialty Start Date End Date Ivania Magallon ANP [address] [place] [address] PCP - General Family Medicine 04/30/20 documented as of this encounter
== END 2025-07-07 08:57 | disposition home or self-care (01) ==
LOC: HO.HOS 08:37
PROVIDERS: PCP Nurse Practitioner Primary Care; Visit Provider Orthopaedic Surgery
DX: M25.561 Pain in right knee (principal)
CPT/HCPCS: 99024

== ENCOUNTER 2025-07-07 09:12 | Outpatient (REF) | payer MEDICAID, SELFPAY ==
--- NOTE | 2025-07-07 09:20 | EMG_ITS ---
Patient Complaints:Mononeuropathy of bilateral lower extremity Procedure done: NCV / EMG Bilateral tibial and peroneal motor studies were performed bilateral superficial peroneal, sural, and median lateral mixed plantars sensory studies were performed tibial H reflexes were obtained and paraspinal muscles were tested with a needle. 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
== END 2025-07-07 09:13 | disposition home or self-care (01) ==
LOC: HO.NEURO 09:12
PROVIDERS: PCP Nurse Practitioner Primary Care; Visit Provider Nurse Practitioner Primary Care
DX: G57.93 Unspecified mononeuropathy of bilateral lower limbs (principal); M25.561 Pain in right knee; Z98.890 Other specified postprocedural states
CPT/HCPCS: 95886; 95913; 99212

== ENCOUNTER → 2025-07-07 09:20 | Outpatient (BNV) | payer MEDICAID, SELFPAY | PROVIDERS: PCP Nurse Practitioner Primary Care; Visit Provider Psychiatry & Neurology Neurology | DX: G57.53 Tarsal tunnel syndrome, bilateral lower limbs (principal) | CPT/HCPCS: 95886; 95913 ==

== ENCOUNTER 2025-09-02 15:10 | Emergency (ER) | payer OTHER, SELFPAY ==
[2025-09-02 15:13] VITALS: BP 133/79; PULSE 99; RESP 17; TEMP 36.6; O2SAT 97; BMI 34.7
--- NOTE | 2025-09-02 15:14 | ED_ITS ---
HPI - General Adult General Chief complaint: Urogenital-Female Stated complaint: blood in urine Time Seen by Provider: 09/02/25 20:16 Source: patient Limitations: no limitations History of Present Illness ED Provider: Maribel Deluna PA-C HPI narrative: 45-year-old female presents with dysuria x1 day. Associated hematuria. Denies back pain abdominal pain nausea vomiting or fever Related Data Home Medications ?Medication ?Instructions ?Recorded ?Confirmed lidocaine 5 % topical patch 1 patch transdermal DAILY 07/09/23 07/07/25 dulaglutide 0.75 mg/0.5 mL 0.75 mg subcut QWEEK 07/07/25 subcutaneous pen injector (Trulicity) metformin 1,000 mg tablet 1,000 mg PO BID 07/19/23 duloxetine 60 mg capsule,delayed 60 mg PO DAILY 07/07/25 release enalapril maleate 10 mg tablet 10 mg PO DAILY 02/17/25 07/07/25 terbinafine HCl 250 mg tablet 250 mg PO DAILY 02/17/25 07/07/25 Previous Rx's ?Medication ?Instructions ?Recorded hydroxyzine HCl 10 mg tablet 10 mg PO Q8H PRN itching 3 days #9 01/21/24 tabs srvqdpkxmf-gnntunrbxvxtn-yghrumnn 1 tab PO Q6H PRN hae adace #20 tabs 07/28/24 50 mg-325 mg-40 mg tablet albuterol sulfate 2.5 mg/3 mL 2.5 mg (3 mL) inhalation QID PRN 03/03/25 (0.083 %) solution for nebulization shortness of breat h or wheezing #75 mL ondansetron 4 mg disintegrating 4 mg PO Q8H PRN nausea and 04/02/25 tablet vomiting #20 tabs naltrexone 50 mg tablet 50 mg PO QWEEK 90 days #13 t abs 06/10/25 cephalexin 500 mg capsule 500 mg PO Q12H #13 caps 08/13 01/06 phenazopyridine 200 mg tablet 200 mg PO TID PRN pain # 10 tabs 09/02/25 (Pyridium) Allergies Allergy/AdvReac Type Severity Reaction Status Date / Time latex AdvReac Intermediate Rash Verified 09/02/25 15:15 cucumbers, pickles Allergy Intermediate Rash Uncoded 04/30/25 10:34 Review of Systems 2 Review of Systems: Yes all other systems are reviewed and are negative Constitutional: Constitutional: Denies fatigue and Denies fever(s) Cardiovascular: Cardiovascular: Denies chest pain Gastrointestinal: Gastrointestinal: Denies abdominal pain, Denies nausea and Denies vomiting Genitourinary: Genitourinary: Reports hematuria, Reports dysuria, Denies pelvic pain and Denies flank pain Musculoskeletal: Musculoskeletal: Denies back pain Endocrine: Endocrine: Denies fatigue [facility] Past Medical History Attestation statement: The following information was validated with the patient. Medical History (Updated 09/02/25 @ 21:17 by WOODY Daniel) Diabetes SEEMA (obstructive sleep apnea) Polymyalgia Chronic neck pain Chronic low back pain with bilateral sciatica Pain in joint, multiple sites Surgical History History of surgery on upper extremity Hx of shoulder surgery (01/11/24) Hx of hysterectomy Hx of laparoscopic gastric banding Family History Family History Mother Hypertension Arthritis Father Diabetes Social History Social History Household Members: Children Are you a primary career resource technician to a significant other at home: No Do you presently have visiting nurse or other home services: No Alcohol intake: current Alcohol intake frequency: does not drink Patient Tobacco Use Status: Never used Tobacco Advance Directives: No Advance Directives Information Provided: Yes Current occupational status: employed 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, 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 Physical Exam ED Vital Signs: Vital Signs - 24 hr 09/02/25 15:13 09/02/25 19:52 Temperature 97.9 F 97.8 F Pulse Rate 99 99 Respiratory Rate 17 16 Blood Pressure 133/79 148/89 H Pulse Oximetry 97 98 Oxygen Delivery Method Room Air Room Air BMI result Body Mass Index 34.7 Const Other: Alert well-appearing Orientation/consciousness: patient oriented x3 Resp Effort & Inspection: normal respiratory effort Cardio Other: Normal peripheral perfusion General: Yes no CVA tenderness Back/Spine/Pelvis Back: no CVA tenderness Skin Other: Warm dry no rash Neuro General: patient oriented x3, gait normal, no focal motor deficits and CN's II- XI intact bilaterally Psych Other: Cooperative Course Course Course Narrative: This is a Rapid Medical Examination (RME) performed by Pierce Rush PA-C in triage. Full HPI, ROS, assessment and treatment plan per primary provider in the Main ED. Hx: 45 yo F here w/ dysuria and hematuria since this morning. chronic back pain, unchanged. hx hysterectomy 4 yrs ago. no fever, chills, N/V/D Plan: labs, UA Medical Decision Making Medical Decision Making [facility] Narrative: 45-year-old female presents with dysuria x1 day. Associated hematuria. Denies back pain abdominal pain nausea vomiting or fever No relevant chronic issues History: Per patient I have considered the following differential diagnoses: Renal colic, pyelonephritis, UTI Plan: Screening labs including urinalysis were obtained from triage, the patient has a UTI, renal function normal, she has no associated symptoms to suggest pyelonephritis or renal colic, we will treat appropriately no indication for imaging I have independently reviewed the following tests: Labs: No leukocytosis, not anemic, no electrolyte abnormality, urine is infected Differential Diagnosis Differential Diagnoses: The differential diagnosis associated with the presentation includes See medical decision-making Admission/Observation Consideration of admission/observation: Escalation of care including admission/observation considered not applicable Lab Data [facility] Lab Attestation statement: I reviewed the patient's lab results. 09/02/25 15:26 09/02/25 15:26 Labs: Lab Results 09/02/25 09/02/25 Range/Units 15:26 15:32 WBC 10.2 (4.8-10.8) X10*3/uL RBC 4.83 (4.20-5.50) X10*6/uL Hgb 11.7 L (12.0-16.0) g/dl Hct 38.4 (37.0-47.0) % MCV 79.5 L (80.0-98.0) fL MCH 24.2 L (27.0-33.0) pg MCHC 30.5 L (31.0-35.0) g/dl RDW 15.8 (11.0-16.0) % Plt Count 346 (160-400) X10*3/uL MPV 8.4 L (9.4-12.3) fL Immature Gran % (Auto) 0.2 (0.0-0.4) % Neut % (Auto) 68.7 (45-73) % Lymph % (Auto) 23.9 (20-40) % [place] % (Auto) 5.5 (2-11) % Eos % (Auto) 1.0 (0-4) % Baso % (Auto) 0.7 (0-2) % Lymph # (Auto) 2.4 (1.2-4.9) X10*3/uL [place] # (Auto) 0.6 (0.1-1.2) X10*3/uL Eos # (Auto) 0.1 (0.0-0.4) X10*3/uL Baso # (Auto) 0.1 (0.0-0.2) X10*3/uL Abs Immat Gran (auto) 0.02 (0.00-0.03) X10*3/uL Absolute Neuts (auto) 7.0 (2.0-8.3) x10*3/uL Absolute Nucleated RBC 0.000 (0.0-0.012) X10*3/uL Nucleated RBC % (auto) 0.0 (0.0-0.2) /100WBC Sodium 139 (135-145) mmol/L Potassium 4.2 (3.3-5.1) mmol/L Chloride 105 (96-108) mmol/L Carbon Dioxide 24 (22-29) mmol/L Anion Gap 14 (12-20) BUN 12 (9-16) mg/dL Creatinine 0.66 (0.5-1.4) mg/dL Estim Creat Clear Calc 120.6 Estimated GFR > 60 Random Glucose 192 H (60-115) mg/dL Calcium 9.0 (8.4-10.2) mg/dL Magnesium 1.9 (1.6-2.6) mg/dL Total Bilirubin 0.2 (0.0-1.0) mg/dL AST 21 (5-31) U/L ALT 15 (0-31) U/L Alkaline Phosphatase 73 (39-117) U/L Total Protein 7.8 (6.5-8.0) g/dL Albumin 4.4 (3.5-5.0) g/dL Urine Color Dark Yellow Urine Appearance Cloudy Urine pH 6.0 (5.0-9.0) Ur Specific [place] 1.025 (1.005-1.025) Urine Protein 300 (3+) H (Neg-Trace) mg/dL Urine Glucose (UA) Negative (Negative) mg/dL Urine Ketones Trace (Negative) mg/dL Urine Blood Moderate (2+) H (Negative) Urine Nitrite Negative (Negative) Ur Leukocyte Esterase Small (1+) H (Negative) Urine RBC >20 H (0-2) /HPF Urine WBC >50 H (0-5) /HPF Ur Squamous Epith Cells 11-20 (0-2) /HPF Urine Bacteria 4+ (None Seen) Hyaline Casts 3-5 (0-2) /LPF Discharge Plan Discharge Clinical Impression: Urinary tract infection Patient Disposition: Home, Self-Care Instructions: Urinary Tract Infection in Women (ED) Additional Instructions: You were found to have a urinary tract infection you had no other lab abnormalities. See home care instructions. Take the cephalexin as directed this is an antibiotic. Use the Pyridium as needed for urinary pain. This medication will cause your urine to become fluorescent orange this is normal, increase your fluid intake it will resolve. Follow up with primary care as needed. Prescriptions: New cephalexin 500 mg capsule 500 mg PO Q12H Qty: 13 0RF phenazopyridine [Pyridium] 200 mg tablet 200 mg PO TID PRN (Reason: pain) Qty: 10 0RF No Action hydroxyzine HCl 10 mg tablet 10 mg PO Q8H PRN (Reason: itching) 3 Days Qty: 9 0RF pwqahvoizg-qdznqgwjckhux-tffx 50-325-40 mg tablet 1 tab PO Q6H PRN (Reason: haeadace) Qty: 20 0RF albuterol sulfate 2.5 mg /3 mL (0.083 %) solution for nebulization 2.5 mg inhalation QID PRN (Reason: shortness of breath or wheezing) Qty: 75 0RF ondansetron 4 mg tablet,disintegrating 4 mg PO Q8H PRN (Reason: nausea and vomiting) Qty: 20 0RF terbinafine HCl 250 mg tablet 250 mg PO DAILY duloxetine 60 mg capsule,delayed release(DR/EC) 60 mg PO DAILY enalapril maleate 10 mg tablet 10 mg PO DAILY lidocaine 5 % adhesive patch,medicated 1 patch transdermal DAILY metformin 1,000 mg tablet 1,000 mg PO BID Trulicity 0.75 mg/0.5 mL pen injector 0.75 mg subcut QWEEK naltrexone 50 mg tablet 50 mg PO QWEEK 90 Days Qty: 13 1RF Print Language: Slovak
[2025-09-02 15:29] LABS: MANUAL DIFF FLAG NO
[2025-09-02 15:30] LABS: Hematocrit 38.4 % (37.0-47.0); Hemoglobin 11.7 g/dl (12.0-16.0); Imm Gran Abs Auto 0.02 X10*3/uL (0.00-0.03); Imm Gran Pct Auto 0.2 % (0.0-0.4); Lymphocytes Absolute Auto 2.4 X10*3/uL (1.2-4.9); Mean Corpuscular HGB Conc 30.5 g/dl (31.0-35.0); Mean Corpuscular Hemoglobin 24.2 pg (27.0-33.0); Mean Corpuscular Volume 79.5 fL (80.0-98.0); NRBC Abs Auto 0.000 X10*3/uL (0.0-0.012); NRBC Pct Auto 0.0 /100WBC (0.0-0.2); Platelet Count 346 X10*3/uL (160-400); Red Blood Count 4.83 X10*6/uL (4.20-5.50); White Blood Count 10.2 X10*3/uL (4.8-10.8)
[2025-09-02 15:46] LABS: Alanine Aminotransferase 15 U/L (0-31); Albumin Level 4.4 g/dL (3.5-5.0); Alkaline Phosphatase 73 U/L (39-117); Anion Gap 14 (12-20); Aspartate Amino Transferase 21 U/L (5-31); Blood Urea Nitrogen 12 mg/dL (9-16); Calcium 9.0 mg/dL (8.4-10.2); Carbon Dioxide 24 mmol/L (22-29); Chloride 105 mmol/L (96-108); Creatinine Clr Calc Pharmacy 120.6; Estimated Glomerular Filt Rate > 60; Magnesium 1.9 mg/dL (1.6-2.6); Potassium 4.2 mmol/L (3.3-5.1); Sodium 139 mmol/L (135-145); Total Protein 7.8 g/dL (6.5-8.0)
[2025-09-02 15:49] LABS: Appearance Urine Cloudy; Glucose Urine UA Negative (Negative); PH 6.0 (5.0-9.0); Specific Gravity - Urine 1.025 (1.005-1.025); UMIC TRIGGER UACC YES
[2025-09-02 16:03] LABS: UACC Culture Trigger YES
[2025-09-02 19:52] VITALS: BP 148/89; PULSE 99; RESP 16; TEMP 36.6; O2SAT 98
[2025-09-02 21:27] VITALS: BP 148/89; PULSE 99; RESP 16; TEMP 36.6; O2SAT 98
--- OUTSIDE RECORDS SUMMARY | 2025-09-02 22:31 | XMS_ITS | Encounter Summary ---
Author Organization [employer] Address [address] [place] [address] [address] [place] [address] Care Team Providers Care Seat Maker Name Role Phone Ivania Magallon Primary Care Provider [phone] Reason for Visit * Reason Onset Date Comments Med Refill 08/01/2023 Encounter Details Date Type Department Care Team (Late st Contact Info) Description 08/01/2023 Refill [facility] MEDICINE [address] [place] [address] Ivania Magallon ANP [address] [place] [address] Hypertension associated with diabetes (CMS/HCC) Social History [...] as of this encounter Plan of Treatment Not on file documented as of this encounter Visit Diagnoses Diagnosis Hypertension associated with diabetes (HCC) Unspecified essential hypertension documented in this encounter Additional Health Concerns Assessment Noted Time PHQ-9 Depression Total Score: 0 07/12/20 23 12:00 PM EDT documented as of this encounter Care Teams Seat Maker Relationship Specialty Start Date End Date Ivania Magallon ANP [address] [place] [address] PCP - General Family Medicine 04/30/20 08/19/25 documented as of this encounter
--- OUTSIDE RECORDS SUMMARY | 2025-09-02 22:31 | XMS_ITS | Encounter Summary ---
Author Organization [employer] Address [address] [place] [address] 7 [place] [address] Care Team Providers Care Railroad Design Consultant Name Role Phone Ivania Magallon Primary Care Provider [phone] Encounter Details Date Type Department Care Team (Latest Contact Info) Description 04/14/2021 Abstract [facility] CONVERSIONS Dental, Provider, DDS Social History Tobacco [...] on filedocumented in this encounter Care Teams Railroad Design Consultant Relationship Specialty Start Date End Date Ivania Magallon ANP [address] [place] [id number] PCP - General Family Medicine 04/30/20 08/19/25 documented as of this encounter
--- OUTSIDE RECORDS SUMMARY | 2025-09-02 22:31 | XMS_ITS | Encounter Summary ---
Author Organization [employer] Address [address] [facility] 7 [place] [address] Care Team Providers Care Paint Factory Worker Name Role Phone Ivania Magallon Primary Care Provider [phone] Reason for Visit * Reason Onset Date Comments Nurse Triage 12/24/2024 Encounter Details Date Type Department Care Team ([facility] st Contact Info) Description 12/24/2024 Telephone [facility] MEDICINE [address] [place] [address] Ivania Magallon ANP [address] [place] [address] Nurse Triage Social History Tobacco Use Types [...] Pt is advised to come to [facility] after 5pm for provider to see Pt. [facility] is open till 8pm. Pt agrees with [...] become worse * Telephone Encounter - Brandy Jesus - 12/24/2024 3:54 PM EST Symptom: Hives Outcome: Schedule an urgent appointment (within 1 hour) or talk to a nurse or provider soon Reason: Hives or rash all over the body The caller accepted this outcome. documented in this encounter Plan of Treatment Not on file documented as of this encounter Visit Diagnoses Not on filedocumented in this encounter Additional Health Concerns Assessment Noted Time PHQ-9 Depression Total Score: 16 024 9:54 AM EST documented as of this encounter Care Teams Paint Factory Worker Relationship Specialty Start Date End Date Ivania Magallon ANP [address] [place] [id number] PCP - General Family Medicine 04/30/20 08/19/25 documented as of this encounter
--- OUTSIDE RECORDS SUMMARY | 2025-09-02 22:31 | XMS_ITS | Encounter Summary ---
Author Organization [employer] Address [address] [facility] 7 [place] [address] Care Team Providers Care Adjunct Psychology Faculty Member Name Role Phone Ivania Magallon Primary Care Provider [phone] Reason for Visit * Reason Onset Date Comments Med Refill 09/25/2023 Encounter Details Date Type Department Care Team (Late st Contact Info) Description 09/25/2023 Refill [facility] MEDICINE [address] [place] [address] Ivania Magallon ANP [address] [place] [address] Hypertension associated with diabetes (CMS/HCC) Social History [...] documented as of this encounter Care Teams Adjunct Psychology Faculty Member Relationship Specialty Start Date End Date Ivania Magallon ANP [address] [place] [id number] PCP - General Family Medicine 04/30/20 08/19/25 documented as of this encounter
--- OUTSIDE RECORDS SUMMARY | 2025-09-02 22:31 | XMS_ITS | Encounter Summary ---
Author Organization [employer] Address [address] [place] [address] 7 [place] [address] Care Team Providers Care Flight Operations Dispatch Clerk Name Role Phone Ivania Magallon Primary Care Provider [phone] Encounter Details Date Type Department Care Team (Latest Contact Info) Description 07/14/2022 Abstract [facility] CONVERSIONS Dental, Provider, DDS Social [...] on filedocumented in this encounter Care Teams Flight Operations Dispatch Clerk Relationship Specialty Start Date End Date Ivania Magallon ANP [address] [place] [id number] PCP - General Family Medicine 04/30/20 08/19/25 documented as of this encounter
--- OUTSIDE RECORDS SUMMARY | 2025-09-02 22:31 | XMS_ITS | Clinical Summary ---
Author Organization [facility] Address [address] [place] [address] Phone Care Team Providers Care Business Services Manager Name Role Phone Ivania Magallon NP Primary Care Provider [phone] Allergies No known active allergies Social History [...] 1992 Cervical Cancer Screening: Pap Smear 2003 HPV Vaccines (1 - 3-dose SCDM series) 2009 Depression Screening 11/12/2024 HIV Screening 12/09/2024 Hepatitis C Screening 12/09/2024 Social Influencers of Health Screening 12/09/2024 Diabetes: Annual Urine Albumin-Creatinine Ratio (uACR) 01/29/2025 Hypertension/CHF/CAD Annual BMP Blood Test 01/29/2025 Influenza Vaccine (#1) 2025 , 09/22/2022, 08/08/2021, Additional history exists Diabetes: Blood Sugar Control Test (HGBA1C) 07/23/2025 01/20/2025 DTaP,Tdap,and Td Vaccines (2 - Td or Tdap) 01/08/2027 01/08/2017 Cholesterol Screening (Lipid Panel) 09/07/2027 09/07/2022 RSV Immunization Adult Patients (1 - 1-dose 75+ series) 2057 Pneumococcal Vaccine: Pediatrics (0 to 5 Years) [...] topic Insurance MEDICAID - [place] Care Teams Business Services Manager Relationship Specialty Start Date End Date Ivania Magallon NP [address] [place] [phone] PCP - General 12/09/24
--- OUTSIDE RECORDS SUMMARY | 2025-09-02 22:31 | XMS_ITS | Clinical Summary ---
Author Organization [facility] Address [address] [place] [address] Phone Care Team Providers Care Cloth Piecer Name Role Phone [facility] [phone] Social History Tobacco Use Types Packs/Day Years Used Date Smoking Tobacco: Never Assessed Comments Unknown Sex and Gender Information Value Date Recorded Sex Assigned at Not on file Legal Sex Female 3:55 AM EDT Gender Identity Not on file Sexual Orientation Not on file Plan of Treatment Not on file Care Teams Cloth Piecer Relationship Specialty Start Date End Date [facility] [address] [place] [address] PCP - Insurance PCP 01/21/21
--- OUTSIDE RECORDS SUMMARY | 2025-09-02 22:31 | XMS_ITS | Encounter Summary ---
Author Organization [employer] Address [address] [place] [address] [address] [place] [address] Care Team Providers Care Grocery Store Courtesy Clerk Name Role Phone Ivania Magallon Primary Care Provider [phone] Reason for Visit * Reason Comments Med Refill Encounter Details Date Type Department Care Team ([facility] st Contact Info) Description 07/21/2024 Refill [facility] MEDICINE [address] [place] [address] Ivania Magallon ANP [address] [place] [address] Hypertension associated with diabetes (CMS/HCC) ([facility]/HCC) Social History Tobacco Use Types Packs/Day Years [...] documented as of this encounter Care Teams Grocery Store Courtesy Clerk Relationship Specialty Start Date End Date Ivania Magallon ANP [address] [place] [id number] PCP - General Family Medicine 04/30/20 08/19/25 documented as of this encounter
--- OUTSIDE RECORDS SUMMARY | 2025-09-02 22:31 | XMS_ITS | Clinical Summary ---
Author Organization [employer] Address [address] [facility] 7 [place] [address] Care Team Providers Care Route Sales Delivery Driver Name Role Phone Unavailable Primary Care Provider Unavailabl e Allergies Active Allergy Reactions Criticality Noted Date Comments [place] Extract Rash High 09/07/2021 Other reaction(s): GI [...] showers 80 g 2 09/21/20 23 Active fexofenadine (Marianne) 180 MG tabletIndicatio ns:Atopic dermatitis, unspecified type TAKE 1 TABLET (180 MG) BY MOUTH IF NEEDED EACH DAY (ALLERGIES). 90 tablet 1 09/25/20 24 Active nystatin (Mycostatin) 170132 UNIT/GM powder Apply topically 2 times daily. 60 g 1 12/24/19 25 026 Active triamcinolone (Kenalog) 0.1 % cream Apply topically if needed in the morning and at bedtime (pain and swelling). 30 g 5 12/24/19 25 Active celecoxib (CeleBREX) 200 MG capsule Take 1 capsule by mouth once or twice daily as needed for moderate to severe pain 60 capsule 01/29/20 25 Active betamethasone, augmented, (Diprolene) 0.05 % ointmentIndicat ions:Nummular dermatitis Apply topically 2 times daily. 45 g 02/14/20 25 Active metFORMIN (Glucophage) 1000 MG tabletIndicatio ns:Hypertension associated with diabetes (HCC) TAKE 1 TABLET BY MOUTH two (2) times a day WITH MEALS 180 tablet 1 02/27/20 25 Active enalapril (Vasotec) 10 MG tablet TAKE 1 TABLET BY MOUTH ONCE DAILY 90 tablet 1 02/27/20 25 Active albuterol (2.5 MG/3ML) 0.083% nebulizer solution INHALE THE CONTENT OF 1 VIAL (3mls) VIA NEBULIZER 4 (FOUR) TIMES DAILY NEEDED FOR SHORTNESS OF BREATH OR FOR WHEEZING 03/04/20 25 Active terbinafine (LamISIL) 250 MG tablet Take 250 mg by mouth Once per day. Activ e DULoxetine (Cymbalta) [address] capsule Take 1 capsule by mouth Once per day. 02/27/20 25 Active Cyanocobalamin (Vitamin B-12) 1000 MCG sublingual tabletIndicatio ns:B12 deficiency Place 1 tablet under the tongue Once daily. 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 Do not crush, chew, or split. 45 tablet 1 06/02/20 25 Active butalbital-acet aminophen-caffe ine 50-325-40 MG tablet TAKE 1 TABLET BY MOUTH EVERY 6 HOURS NEEDED FOR HEADACHE 20 tablet 06/05/20 25 Active lidocaine (Lidoderm) 5 % patch APPLY 1 PATCH TOPICALLY TO THE AFFECTED AREA ONCE DAILY. remove patch after 12 hours 30 patch 3 07/06/20 25 Active Trulicity 3 MG/0.5ML solution auto-injector INJECT 3 MG UNDER THE SKIN EVERY WEEK 2 mL 11 07/27/20 25 Active Hospital, Clinic, or Other Facility Administered Medication [...] Morbid obesity with BMI of 40.0-44.9, adult ([facility]) 07/04/2023 Weight loss 07/04/2023 Obstructive sleep apnea syndrome [...] Encounters Date Type Department Care Team Description 08/18/2025 Telephone [facility] MEDICINE [address] [place] [address] Shona Cheng ANP chart prep 07/26/2025 Refill [facility] [address] [place] [address] Shona Cheng ANP 07/20/2025 Telephone [facility] [address] [place] [address] Patricia Mcgregor RN Results 07/04/2025 Refill [facility] [address] [place] [address] Shona Cheng ANP 06/05/2025 Refill [facility] [address] [place] [address] Shona Cheng ANP 06/02/2025 10:15 AM EDT Office Visit [facility] [address] [place] [address] Shona Cheng ANP Hypertension associated with diabetes (CMS/HCC) (Primary Dx); Neuropathic pain of both legs; Chronic bilateral low back pain without sciatica; Essential hypertension; Bilateral hip pain; Generalized weakness; B12 deficiency; 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; Polyarthralgia 06/02/2025 Travel from Last 3 Months Immunizations Immunization [...] 06/02/2025 10:17 AM EDT Plan of Treatment Health Maintenance Due Date [...] AM EDT Hypertension associated with diabetes (CMS/HCC) ALBUMIN, RANDOM URINE W/CREATININE Routine 03/20/2025 9:31 [...] Results * Referral to Orthopaedic Surgery (06/09/2025) [facility] OUTPATIENT REFERRAL ORDERABLES F inal Result * (ABNORMAL) POCT HGB A1C (06/02/2025 10:35 AM EDT) Hemoglobin A1C 6.8(A) 4.0 - 5.7 % QC Media Lot # [id number] Lot# Expiration Date ,[id number] Blood 06/02/2025 10:3 5 AM EDT us Shona Cheng ANP POINT OF CARE TEST ENTER/EDIT OR DERABLES Final Result * POCT Glucose (06/02/2025 10:35 AM EDT) Glucose Blood, POC 103 60 - 200 mg/dL QC Media Lot # [id number] Lot# Expiration Date [id number] Blood Capillary blood specimen / Unknown 06/02/2025 10:35 AM EDT us Shona Cheng ANP POINT OF CARE TEST ENTER/EDIT OR DERABLES Final Result * Albumin, Random Urine W/Creatinine (03/20/2025 9:31 AM EDT) Creatinine, Urine 213.97 mg/dL [facility] Microalbumin Urine 12.0 mg/L [facility] Microalbum Creatinine Ratio Ur 5.6 <30 ug/mg cr [facility] Comment:Albumin/Creatinine R atio Reference Ranges: Normal: < 30 ug/mg creatinine Microalbuminuria: 30 - 300 ug/mg creatinineClinical Albuminuria: > 300 ug/mg creatinine Urine 03/20/2025 9:31 AM EDT 03/20/2025 11:02 AM EDT us Shona Cheng ANP LAB URINE ORDERABLES Final Resul t [facility] [address] [place] [phone] * (ABNORMAL) Lipid Panel, Standard (03/20/2025 7:07 AM EDT) Triglycerides 178(H) <150 mg/dL [facility] Comment:Desirable Triglyceri de: less than 150 mg/dLBorderline High Triglyceride 150-199 mg/dLHigh Triglyceride: 200-499 mg/dLVery High Triglyceride: greater than or equal to 5OO mg/dL Cholesterol 185 <200 mg/dL [facility] Comment:Desirable Cholestero l: less than 200 mg/dLBorderline High Cholesterol: 200-239 mg/dLHigh Cholesterol: greater than 239 mg/dL LDL Cholesterol Calculated 98 <100 mg/dL [facility] Comment:Desirable LDL: less than 100 mg/dLNear Optimal/Above Optimal LDL: 110- 129 mg/dLBorderline High LDL: 130-159 mg/dLHigh LDL: 160-189 mg/dLVery High LDL: greater than or equal to 190 mg/dL HDL Cholesterol 52 >40 mg/dL [facility] Comment:Desirable HDL: great er than 40 mg/dL Note: This HDL assay may give artificially low results in patients with liver disease. Blood Venous blood specimen / Unknown 03/20/2025 7:07 AM EDT 03/20/2025 11:01 AM EDT us Shona Cheng ANP LAB BLOOD ORDERABLES Final Resul t [facility] [address] [place] [phone] * BI US Breast Limited Right (01/30/2025 9:12 AM EDT) Anatomical Region Laterality Modality Breast Right Ultrasound 01/30/2025 9:12 AM EDT Narrative 01/30/2025 10:23 AM EDT [facility] [address] [place] [address] Ultrasound Report Signed Patient: Albania Robles MR#: [id number] : 1980 Acct:[id number] Age/Sex: 44 / F ADM Date: 01/30/25 Loc: HO.MAMMO Attending Dr: Dayton Frazier MD Ordering Physician: Dayton Frazier MD Date of Service: 01/30/25 Procedure(s): US breast RT limited mamm only Accession Number(s): [id number] cc: Dayton Frazier MD; SHONA CHENG NP [...] 01/30/25 1020 DD/ 0912 TD/TT: 01/30/25 0935 Shroudman: Procedure Note Donotuseinterpreter, Image - 01/30/2025 [facility] [address] [place] [address] Ultrasound Report Signed Patient: Robert Robles#: [id number] : 1980Acct:[id number] Age/Sex: 44 / FADM Date: 01/30/25 Loc: ZULMA Attending Dr: Dayton Frazier MD Ordering Physician: Dayton Frazier MD Date of Service: 01/30/25 Procedure(s): US breast RT limited mamm only Accession Number(s): [id number] cc: Dayton Frazier MD; SHONA CHENG NP [...] 01/30/25 1020 DD/ 0912 TD/TT: 01/30/25 0935 Shroudman: us Dayton Perez MD IM US PROCEDURES Fin al Result * HIV Ab/Ag Exposure Source (01/11/2024 2:05 PM EST) HIV AB/AG Nonreactive Nonreactive [facility] Comment:HIV-1 p24 Ag and/or HIV-1/HIV-2 Ab not detected.A test result that is nonreactive does not exclude thepossibility of exposure to or infection with HIV-1 and/orHIV-2. Nonreactive results in this assay for individualswith prior exposure to HIV-1 and/or HIV-2 may be due toantigen and antibody levels that are below the limit ofdetection of this assay.The Yedda Alinity HIV Ag/Ab Combo assay result andsupplemental assay results should be interpreted inconjunction with the patient's clinical presentation,history and other laboratory results. If the results areinconsistent with clinical evidence, additional testing issuggested to confirm the result. 01/11/2024 2:05 PM EST 01/11/2024 2:07 PM EST Generic External Data Provider LAB BLOOD ORDERAB LES Final Result Performing Organization Address [facility] de Phone Number [facility] [address] [place] [phone] * Hepatitis C Ab (01/11/2024 2:05 PM EST) Hepatitis C Antibody Nonreactive Nonreactive [facility] Comment:Antibodies to HCV no t detected; does not exclude early acuteHCV infection. 01/11/2024 2:05 PM EST 01/11/2024 2:07 PM EST [employer] External Data Provider LAB BLOOD ORDERAB LES Final Result Performing Organization Address [facility] de Phone Number [facility] [address] [place] [phone] * HPV mRNA E6/E7 (01/30/2018 10:13 AM EDT) HPV mRNA E6/E7 Not Detected NOT DETECTED [facility] Comment: This test was performed using the APTIMA(R) HPV Assay ([employer] This assay detects E6/E7 viral messenger RNA (mRNA) from 14 high-risk HPV types (16,18,31,33,35,39,45,51, 52,56,58,59,66,68). For additional information please refer to: http://education.Hookflash.Sian's Plan/faq/OKJ637a1 (This link is being provided for informational/ educational purposes only.) Test Performed by [facility], [facility], [address] [place] [address] Jameel Swan M.D., Ph.D., Director of Laboratories , MATT [id number] Please note: Effective 07/24/2016, HPV testing will be performed using [employer]'s APTIMA test which targets mRNA. Detecting mRNA instead of DNA, as in older methods, offers significant improvements in specificity. 01/30/2018 10:1 3 AM EDT us Tosin Putnam CNM HISTORICAL/NON ORDERABLE LABS Final Result [facility] [address] from Last 3 Months or Most Recently Relevant to Health Maintenance Insurance [facility]
== END 2025-09-02 21:28 | disposition home or self-care (01) ==
PROVIDERS: Physician Assistant Medical; Emergency Provider Emergency Medicine
DX: N39.0 Urinary tract infection, site not specified (principal); M54.9 Dorsalgia, unspecified
CPT/HCPCS: 36415; 80053; 81001; 83735; 85025; 87086; 99283

== ENCOUNTER 2025-09-10 08:28 | Outpatient (AMB) | payer MEDICAID, SELFPAY ==
--- NOTE | 2025-09-10 08:54 | A.OFFVIS_ITS ---
Intake Visit Reasons: Neuropathic pain of both legs Allergies latex Adverse Reaction (Intermediate, Verified 09/02/25 15:15) Rash cucumbers, pickles Allergy (Intermediate, Uncoded 04/30/25 10:34) Rash Medication List - Last Reconciled 09/10/25 by Yamileth Stauffer MD albuterol sulfate 2.5 mg (3 mL) inhalation QID PRN kfxurhirqg-ldeqteaumvygf-kxfg 50-325-40 mg 1 tab PO Q6H PRN cephalexin 500 mg PO Q12H dulaglutide (Trulicity) 0.75 mg subcut QWEEK duloxetine 60 mg PO DAILY enalapril maleate 10 mg PO DAILY hydroxyzine HCl 10 mg PO Q8H PRN 3 days lidocaine 5% 1 patch transdermal DAILY metformin 1,000 mg PO BID naltrexone 50 mg PO QWEEK 90 days ondansetron 4 mg PO Q8H PRN phenazopyridine (Pyridium) 200 mg PO TID PRN terbinafine HCl 250 mg PO DAILY HPI Comments Details: The patient is a 45-year-old female presenting with chronic whole body pain. The onset of symptoms aligns with life events surrounding her disabled child born 15 years ago. She reports systemic pain that began over six years ago during a period marked by intense caregiving responsibilities and associated chronic stress. This pain presentation has been characterized by stabbing or tingling sensations primarily in the lower extremities, intensifying over time. According to her medical history, the sleep has been problematic, with signs of sleep apnea managed poorly due to unsuitable CPAP equipment. Her sensation of pain and neuropathy in the ankles, identified during recent consultations, suggests peripheral nerve involvement believed to be compounded by flat feet and weight. Although duloxetine has been prescribed to manage fibromyalgia linked to chronic stress, the patient perceives only partial relief from the ongoing pain syndrome. Other relevant conditions include essential hypertension and type 2 diabetes mellitus, both contributing to the complexity of her clinical picture. [facility] Medical History (Updated 09/10/25 @ 09:11 by Yamileth Stauffer MD) Diabetes SEEMA (obstructive sleep apnea) Polymyalgia Chronic neck pain Chronic low back pain with bilateral sciatica Pain in joint, multiple sites Surgical History History of surgery on upper extremity Hx of shoulder surgery (01/11/24) Hx of hysterectomy Hx of laparoscopic gastric banding Family History Mother Hypertension Arthritis Father Diabetes Social History Household Members: Children Are you a primary home care rn to a significant other at home: No Do you presently have visiting nurse or other home services: No Alcohol intake: current Alcohol intake frequency: does not drink Patient Tobacco Use Status: Never used Tobacco Current occupational status: employed 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, 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 Assessment & Plan Assessment & Plan (1) Fibromyalgia: Comment: PSG at [facility] in 2022: TST AHI 9.4 Code(s): M79.7 - Fibromyalgia Category: Medical (2) Tarsal tunnel syndrome: Comment: EMG/NCS at [facility] in 2024: B/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 Over the years, she suffered from chronic stress and insomnia. Many years ago, her whole body started to hurt which has continued to this day. She had a polysomnogram done in 2022 that revealed mild degree of sleep apnea, which probably was not making significant difference to her overall situation. 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 She was moderately obese in her elementary neurological examination did not reveal any significant finding. She has significant flat feet. Her overall situation is best explain by clinical diagnosis of fibromyalgia triggered by chronic stress and bilateral tarsal tunnel syndrome related to flat feet and obesity. She was educated about all this. As she also mentioned episode of shaking during sleep, I have requested a routine EEG to rule out possibility of seizure disorder though that seems less likely. Orders: Orders EEG Routine Today G40.909 - Epilepsy, unspecified, not intractable, without status epilepticus Coding Level of Care Code New Pt Level 5 (54365) Diagnoses Fibromyalgia M79.7 Tarsal tunnel syndrome of both lower extremities G57.53 Laterality: bilateral
--- OUTSIDE RECORDS SUMMARY | 2025-09-10 09:08 | XMS_ITS | Encounter Summary ---
Author Organization [employer] Address [address] [place] [address] 7 [place] [address] Care Team Providers Care Greenhouse Laborer Name Role Phone Ivania Magallon Primary Care Provider Reason for Visit * Reason Onset Date Comments Med Refill 08/01/2023 Encounter Details Date Type Department Care Team (Late st Contact Info) Description 08/01/2023 Refill [facility] MEDICINE [address] [place] [address] Ivania Magallon ANP [address] [place] [address] Hypertension associated with diabetes (CMS/HCC) Social History [...] documented as of this encounter Care Teams Greenhouse Laborer Relationship Specialty Start Date End Date Ivania Magallon ANP [address] [place] [address] PCP - General Family Medicine 04/30/20 08/19/25 documented as of this encounter
--- OUTSIDE RECORDS SUMMARY | 2025-09-10 09:08 | XMS_ITS | Clinical Summary ---
Author Organization [facility] Address [address] [place] [address] Phone Care Team Providers Care Commutator Presser Name Role Phone [facility] [phone] Social History Tobacco Use Types Packs/Day Years Used Date Smoking Tobacco: Never Assessed Comments Unknown Sex and Gender Information Value Date Recorded Sex Assigned at Not on file Legal Sex Female 3:55 AM EDT Gender Identity Not on file Sexual Orientation Not on file Plan of Treatment Not on file Care Teams Commutator Presser Relationship Specialty Start Date End Date [facility] [address] [place] [address] PCP - Insurance PCP 01/21/21
--- OUTSIDE RECORDS SUMMARY | 2025-09-10 09:08 | XMS_ITS | Encounter Summary ---
Author Organization [employer] Address [address] [place] [address] 7 [place] [address] Care Team Providers Care Printer Slotter Operator Name Role Phone Ivania Magallon Primary Care Provider [phone] Encounter Details Date Type Department Care Team [...] on filedocumented in this encounter Care Teams Printer Slotter Operator Relationship Specialty Start Date End Date Ivania Magallon ANP [address] [place] [phone] PCP - General Family Medicine 04/30/20 08/19/25 documented as of this encounter
--- OUTSIDE RECORDS SUMMARY | 2025-09-10 09:08 | XMS_ITS | Encounter Summary ---
Author Organization [employer] Address [address] [place] [address] 7 [place] [address] Care Team Providers Care Occupational Psychologist Name Role Phone Ivania Magallon Primary Care Provider [phone] Encounter Details Date Type Department Care Team [...] on filedocumented in this encounter Care Teams Occupational Psychologist Relationship Specialty Start Date End Date Ivania Magallon ANP [address] [place] [phone] PCP - General Family Medicine 04/30/20 08/19/25 documented as of this encounter
--- OUTSIDE RECORDS SUMMARY | 2025-09-10 09:09 | XMS_ITS | Encounter Summary ---
Author Organization [employer] Address [address] [place] [address] 7 [place] [address] Care Team Providers Care Bell Captain Name Role Phone Ivania Magallon Primary Care Provider [phone] Reason for Visit * Reason Comments Med Refill Encounter Details Date Type Department Care Team ([facility] st Contact Info) Description 07/21/2024 Refill [facility] MEDICINE [address] [place], [place] [phone] Ivania Magallon ANP [address] [place] [address] Hypertension associated with diabetes (CMS/HCC) ([facility]/HCC) Social History Tobacco Use Types Packs/Day [...] documented as of this encounter Care Teams Bell Captain Relationship Specialty Start Date End Date Ivania Magallon ANP [address] [place] [phone] PCP - General Family Medicine 04/30/20 08/19/25 documented as of this encounter
--- OUTSIDE RECORDS SUMMARY | 2025-09-10 09:09 | XMS_ITS | Clinical Summary ---
Author Organization [facility] Address [address] [place] [address] Phone Care Team Providers Care Water Main Installer Helper Name Role Phone Ivania Magallon NP Primary Care Provider [phone] Allergies No known active allergies Social History [...] topic Insurance MEDICAID - [place] Care Teams Water Main Installer Helper Relationship Specialty Start Date End Date Ivania Magallon NP [address] [place] [phone] PCP - General 12/09/24
--- OUTSIDE RECORDS SUMMARY | 2025-09-10 09:09 | XMS_ITS | Encounter Summary ---
Author Organization [employer] Address [address] [facility] 7 [place] [address] Care Team Providers Care Nail Setter Name Role Phone Ivania Magallon Primary Care Provider [phone] Reason for Visit * Reason Onset Date Comments Nurse Triage 12/24/2024 Encounter Details Date Type Department Care Team ([facility] st Contact Info) Description 12/24/2024 Telephone [facility] MEDICINE [address] [place] [address] Ivania Magallon ANP [address] [place] [address] Nurse Triage Social History Tobacco Use Types [...] needed. Pt is advised to come to [facility] after 5pm for provider to see Pt. [facility] is open till 8pm. Pt agrees [...] documented as of this encounter Care Teams Nail Setter Relationship Specialty Start Date End Date Ivania Magallon ANP [address] [place] [phone] PCP - General Family Medicine 04/30/20 08/19/25 documented as of this encounter
--- OUTSIDE RECORDS SUMMARY | 2025-09-10 09:09 | XMS_ITS | Clinical Summary ---
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 [...] Morbid obesity with BMI of 40.0-44.9, adult ([facility]) 07/04/2023 Weight loss 07/04/2023 Obstructive sleep apnea [...] Type Department Care Team Description 08/18/2025 Telephone [facility] [address] [place] [address] Shona Cheng ANP chart prep 07/26/2025 Refill [facility] [address] [place] [address] Shona Cheng ANP 07/20/2025 Telephone [facility] [address] [place] [address] Patricia Mcgregor RN Results 07/04/2025 Refill [facility] [address] [place] [address] Shona Chneg ANP from Last 3 Months Immunizations Immunization Administration [...] Procedure Name Priority Date/Time Associated Diagnosis Comments POCT GLYCATED HEMOGLOBIN, TOTAL Routine 06/02/2025 10:35 [...] Recently Relevant to Health Maintenance Results * (ABNORMAL) POCT HGB A1C (06/02/2025 10:35 AM EDT) Hemoglobin A1C 6.8(A) 4.0 - 5.7 % QC Media Lot # [id number] Lot# Expiration Date Blood 06/02/2025 10:3 5 AM EDT us Shona [place] POINT OF CARE TEST ENTER/EDIT OR DERABLES Final Result * Albumin, Random Urine W/Creatinine (03/20/2025 9:31 AM EDT) Creatinine, Urine 213.97 mg/dL [facility] Microalbumin Urine 12.0 mg/L H [facility] Microalbum Creatinine Ratio Ur 5.6 <30 ug/mg cr [facility] Comment:Albumin/Creatinine R atio Reference Ranges: Normal: < 30 ug/mg creatinine Microalbuminuria: 30 - 300 ug/mg creatinineClinical Albuminuria: > 300 ug/mg creatinine Urine 03/20/2025 9:31 AM EDT 03/20/2025 11:02 AM EDT us Shona Cheng ANP LAB URINE ORDERABLES Final Resul t [facility] [address] [place] [phone] * (ABNORMAL) Lipid Panel, Standard (03/20/2025 7:07 AM EDT) Triglycerides 178(H) <150 mg/dL [facility] Comment:Desirable Triglyceri de: less than 150 mg/dLBorderline High Triglyceride 150-199 mg/dLHigh Triglyceride: 200-499 mg/dLVery High Triglyceride: greater than or equal to 5OO mg/dL Cholesterol 185 <200 mg/dL [facility] Comment:Desirable Cholestero l: less than 200 mg/dLBorderline High Cholesterol: 200-239 mg/dLHigh Cholesterol: greater than 239 mg/dL LDL Cholesterol Calculated 98 <100 mg/dL [facility] Comment:Desirable LDL: less than 100 mg/dLNear Optimal/Above Optimal LDL: 110- 129 mg/dLBorderline High LDL: 130-159 mg/dLHigh LDL: 160-189 mg/dLVery High LDL: greater than or equal to 190 mg/dL HDL Cholesterol 52 >40 mg/dL [facility] Comment:Desirable HDL: great er than 40 mg/dL Note: This HDL assay may give artificially low results in patients with liver disease. Blood Venous blood specimen / Unknown 03/20/2025 7:07 AM EDT 03/20/2025 11:01 AM EDT [facility] LAB BLOOD ORDERABLES Final Resul t [facility] [address] [place] [phone] * BI US Breast Limited Right (01/30/2025 9:12 AM EDT) Anatomical Region Laterality Modality Breast Right Ultrasound 01/30/2025 9:12 AM EDT Narrative 01/30/2025 10:23 AM EDT [facility] [address] [place] [address] Ultrasound Report Signed Patient: Albania Robles MR#: [id number] : 1980 Acct:[id number] Age/Sex: 44 / F ADM Date: 01/30/25 Loc: HO.MAMMO Attending Dr: Dayton Frazier MD Ordering Physician: Dayton Frazier MD Date of Service: 01/30/25 Procedure(s): US breast RT limited mamm only Accession Number(s): [id number] cc: Dayton Frazier MD; SHONA CHENG NP [...] 01/30/25 1020 DD/ 0912 TD/TT: 01/30/25 0935 [employer]: Procedure Note Donotuseinterpreter, Image - 01/30/2025 [facility] [address] [place] [address] Dr. Leahy, BRISSA [address] Ultrasound Report Signed Patient: Robert Robles#: [id number] : 1980Acct:[id number] Age/Sex: 44 / FADM Date: 01/30/25 Loc: HO.MAMMO Attending Dr: Dayton Frazier MD Ordering Physician: Dayton Frazier MD Date of Service: 01/30/25 Procedure(s): US breast RT limited mamm only Accession Number(s): [id number] cc: Dayton Frazier MD; SHONA CHEGN NP EXAMINATION: MM DIAGNOSTIC DIGITAL BREAST TOMOSYNTHESIS, [...] Haddad DO in OV> 01/30/25 1020 DD/ 1 TD/TT: 01/30/25 0935 [employer]: Dayton Perez MD IM US PROCEDURES Fin al Result * HIV Ab/Ag Exposure Source (01/11/2024 2:05 PM EST) HIV AB/AG Nonreactive Nonreactive [facility] Comment:HIV-1 p24 Ag and/or HIV-1/HIV-2 Ab not detected.A test result that is nonreactive does not exclude thepossibility of exposure to or infection with HIV-1 and/orHIV-2. Nonreactive results in this assay for individualswith prior exposure to HIV-1 and/or HIV-2 may be due toantigen and antibody levels that are below the limit ofdetection of this assay.The [employer] HIV Ag/Ab Combo assay result andsupplemental assay results should be interpreted inconjunction with the patient's clinical presentation,history and other laboratory results. If the results areinconsistent with clinical evidence, additional testing issuggested to confirm the result. 01/11/2024 2:05 PM EST 01/11/2024 2:07 PM EST Generic External Data Provider LAB BLOOD ORDERAB LES Final Result Performing Organization Address [facility]/ZIP Co de Phone Number [facility] [address] [place] [phone] * Hepatitis C Ab (01/11/2024 2:05 PM EST) Hepatitis C Antibody Nonreactive Nonreactive [facility] Comment:Antibodies to HCV no t detected; does not exclude early acuteHCV infection. 01/11/2024 2:05 PM EST 01/11/2024 2:07 PM EST Generic External Data Provider LAB BLOOD ORDERAB LES Final Result Performing Organization Address [facility]/ZIP Co de Phone Number [facility] [address] [place] [phone] * HPV mRNA E6/E7 (01/30/2018 10:13 AM EDT) HPV mRNA E6/E7 Not Detected NOT DETECTED [facility] Comment: This test was performed using the APTIMA(R) HPV Assay ([employer] This assay detects E6/E7 viral messenger RNA (mRNA) from 14 high-risk HPV types (16,18,31,33,35,39,45,51, 52,56,58,59,66,68). For additional information please refer to: http://education.[employer]/faq/EED728u7 (This link is being provided for informational/ educational purposes only.) Test Performed by [employer], [employer] [facility], [address] [place] [id number] Jameel Swan M.D., Ph.D., Director of Laboratories , [facility] [id number] Please note: Effective 07/24/2016, HPV testing will be performed using [employer]'s APTIMA test which targets mRNA. Detecting mRNA instead of DNA, as in older methods, offers significant improvements in specificity. 01/30/2018 10:1 3 AM EDT Tosin Putnam CNM HISTORICAL/NON ORDERABLE LABS Final Result [facility] [address] from Last 3 Months or Most Recently Relevant to Health Maintenance Insurance
--- OUTSIDE RECORDS SUMMARY | 2025-09-10 09:09 | XMS_ITS | Encounter Summary ---
Author Organization [employer] Address [address] [facility] 7 [place] [address] Care Team Providers Care Postal Worker Name Role Phone Ivania Magallon Primary Care Provider [phone] Reason for Visit * Reason Onset Date Comments Med Refill 09/25/2023 Encounter Details Date Type Department Care Team (Late st Contact Info) Description 09/25/2023 Refill [facility] [address] [place] [address] Ivania Magallon ANP [address] [place] [address] Hypertension associated with diabetes (CMS/HCC) Social History [...] documented as of this encounter Care Teams Postal Worker Relationship Specialty Start Date End Date Ivania Magallon ANP [address] [place] [phone] PCP - General Family Medicine 04/30/20 08/19/25 documented as of this encounter
== END 2025-09-10 09:17 | disposition home or self-care (01) ==
LOC: HO.HSM 08:29
PROVIDERS: PCP Nurse Practitioner Primary Care; Visit Provider Psychiatry & Neurology Neurology
DX: M79.7 Fibromyalgia (principal); G57.53 Tarsal tunnel syndrome, bilateral lower limbs
CPT/HCPCS: 99214

== ENCOUNTER → 2025-09-10 08:28 | Outpatient (BNVA) | payer OTHER, SELFPAY | PROVIDERS: PCP Nurse Practitioner Primary Care; Visit Provider Psychiatry & Neurology Neurology | DX: G57.53 Tarsal tunnel syndrome, bilateral lower limbs (principal); M79.7 Fibromyalgia | CPT/HCPCS: 99212 ==

== ENCOUNTER 2025-09-14 09:20 | Outpatient (REF) | payer OTHER, SELFPAY ==
[2025-09-14 13:07] LABS: MANUAL DIFF FLAG NO
[2025-09-14 13:11] LABS: Hematocrit 40.3 % (37.0-47.0); Hemoglobin 12.1 g/dl (12.0-16.0); Imm Gran Abs Auto 0.03 X10*3/uL (0.00-0.03); Imm Gran Pct Auto 0.4 % (0.0-0.4); Lymphocytes Absolute Auto 3.0 X10*3/uL (1.2-4.9); Mean Corpuscular HGB Conc 30.0 g/dl (31.0-35.0); Mean Corpuscular Hemoglobin 24.2 pg (27.0-33.0); Mean Corpuscular Volume 80.8 fL (80.0-98.0); NRBC Abs Auto 0.000 X10*3/uL (0.0-0.012); NRBC Pct Auto 0.0 /100WBC (0.0-0.2); Platelet Count 441 X10*3/uL (160-400); Red Blood Count 4.99 X10*6/uL (4.20-5.50); White Blood Count 8.5 X10*3/uL (4.8-10.8)
[2025-09-14 13:32] LABS: Appearance Urine Turbid; Glucose Urine UA Negative (Negative); PH 5.5 (5.0-9.0); Specific Gravity - Urine >= 1.030 (1.005-1.025)
[2025-09-14 13:43] LABS: Alanine Aminotransferase 17 U/L (0-31); Albumin Level 4.8 g/dL (3.5-5.0); Alkaline Phosphatase 80 U/L (39-117); Anion Gap 11 (12-20); Aspartate Amino Transferase 29 U/L (5-31); Blood Urea Nitrogen 13 mg/dL (9-16); Calcium 9.3 mg/dL (8.4-10.2); Carbon Dioxide 27 mmol/L (22-29); Chloride 104 mmol/L (96-108); Cholesterol 217 mg/dL (<200); Estimated Glomerular Filt Rate > 60; HDL Cholesterol 53 mg/dL (>40); Magnesium 2.1 mg/dL (1.6-2.6); Potassium 3.9 mmol/L (3.3-5.1); Sodium 138 mmol/L (135-145); Total Protein 8.5 g/dL (6.5-8.0); Triglycerides 166 mg/dL (<150)
[2025-09-14 14:00] LABS: Folate 6.9 ng/mL (> or = 4.0); Vitamin B12 518 pg/mL (200-900)
[2025-09-15 06:57] LABS: HBS Num1 226.02 mIU/mL (0-7.99); HBsAGNum1 0.40 S/CO (0.00-0.99); HIV Num 1 0.06 S/CO (0.00-0.99); Hepatitis B Surface Antigen Negative (Negative); ~HepC Num1 0.13 S/CO (0.00-0.79); ~Hepatitis B Surface Antibody REACTIVE (Nonreactive); ~Hepatitis C Antibody Nonreactive (Nonreactive)
[2025-09-19 13:07] LABS: VITAMIN D (1,25 OH) D3 50 pg/mL; Vit D (1,25-Dihydroxy) Total 50 pg/mL (18-72); Vitamin D (1,25 OH) D2 <8 pg/mL
== END 2025-09-14 09:21 | disposition home or self-care (01) ==
LOC: HO.HKASLDS 09:20
PROVIDERS: PCP Student in an Organized Health Care Education/Training Program; Visit Provider Student in an Organized Health Care Education/Training Program
DX: M25.562 Pain in left knee (principal); M25.561 Pain in right knee; M79.7 Fibromyalgia; G89.4 Chronic pain syndrome; M75.91 Shoulder lesion, unspecified, right shoulder; M25.511 Pain in right shoulder; F43.9 Reaction to severe stress, unspecified; I10 Essential (primary) hypertension; E66.9 Obesity, unspecified; K59.00 Constipation, unspecified; G57.53 Tarsal tunnel syndrome, bilateral lower limbs; M21.42 Flat foot [pes planus] (acquired), left foot; M21.41 Flat foot [pes planus] (acquired), right foot; E11.40 Type 2 diabetes mellitus with diabetic neuropathy, unspecified; Z63.79 Other stressful life events affecting family and household; Z68.34 Body mass index [BMI] 34.0-34.9, adult
CPT/HCPCS: 36415; 80053; 80061; 81003; 82607; 82652; 82746; 83036; 83735; 84443; 85025; 86706; 86803; 87340; 87389; 96127; 99202

== ENCOUNTER 2025-09-14 09:20 | Outpatient (AMB) | payer OTHER, SELFPAY ==
--- NOTE | 2025-09-14 09:25 | MHC.PC.OV ---
Vital Signs 09/14/25 09:32 Height 5 ft 5.5 in Weight 208 lb BMI 34.1 BP 138/86 Blood Pressure Location Lt brachial Position Sitting Respiration 16 Pulse 89 Pulse Source Monitor Temp 98.1 F Temp Source Oral Pulse Oximetry (%) 96 Oxygen Delivery Method Room Air Intake Visit Reasons: DIRECTOR OF PUPIL PERSONNEL PROGRAM // Med Management Intake Note: new patient/ med management Accompanied by: Self / Same As Patient Allergies latex Adverse Reaction (Intermediate, Verified 09/14/25 09:29) Rash cucumbers, pickles Allergy (Intermediate, Uncoded 04/30/25 10:34) Rash Medication List - Last Reconciled 09/14/25 by Caleb Cabrera MD [id number] 50-325-40 mg 1 tab PO Q6H PRN dulaglutide (Trulicity) 0.75 mg subcut QWEEK duloxetine 60 mg PO DAILY enalapril maleate 10 mg PO DAILY hydroxyzine HCl 10 mg PO Q8H PRN 3 days lidocaine 5% 1 patch transdermal DAILY metformin 1,000 mg PO BID naltrexone 50 mg PO QWEEK 90 days Tobacco use date assessed: 09/14/25 Dental Screening Dental Screen Date: 09/14/25 Did you have a dental visit in the last 12 months?: Yes Did you have a dental problem in the last 6 months where you did not have access to dental care?: Yes Was dental information given to patient?: Patient has dentist HPI HPI Comments History of Present Illness Details History of Present Illness The patient is a 45-year-old female presenting to [facility] care for management of chronic body pains. Fibromyalgia and Chronic Pain Syndrome: The patient reports struggling with body pains for more than six years, with diagnoses of fibromyalgia and chronic pain. She has seen a neurologist and a rodeo clown for these issues. Pain intensity fluctuates, with periods of more and less pain. She feels her pain has often been attributed solely to her mental health, despite her psychiatrist and therapist reporting that her mental health is currently stable. Peripheral Neuropathy: The patient reports having neuropathy in both ankles. Chronic Stress Disorder: A neurologist previously diagnosed her with a chronic stress disorder, which she and her providers understand is related to her fibromyalgia. The patient is the sole caregiver for her 15-year-old disabled son who is in a wheelchair, a role she has fulfilled since he was born. She acknowledges that in the past, particularly when her son was younger, she did not take good care of herself but is now trying her best. Orthopedic Issues: The patient has a history of a bone spur in the right shoulder, which was evaluated by an orthopedic doctor. She also has a history of a meniscus issue on the right side, and now reports that her left side is bothering her. Gastrointestinal and Genitourinary History: About a week and a half ago, the patient experienced an episode of hematuria, which has since resolved. She also reports issues with urinary incontinence. In the past, she was prescribed iron but stopped taking it because it caused dehydration and constipation; she was not taking MiraLAX at the time. Surgical History: - Procedure for meniscus tear on the right side Medications: - Albuterol: Used in the past due to chemical exposure. - Dulaglutide (Trulicity) - Duloxetine 60 mg - Hydroxyzine - Lidocaine 5% patch - Metformin 1000 mg - Naltrexone 50 mg Social History: - Functional Status: The patient is the sole caregiver for her 15-year-old son, who is disabled and uses a wheelchair. - Stressors: Reports significant stress related to her son's care. - Self-Care: The patient admits she did not prioritize her own health when her son was younger, but is trying to do better now. Diagnostic Results: - Labs (historical): A previous lab result showed a ferritin level of 18. Past Medical History - Fibromyalgia, diagnosed over 6 years ago - Chronic pain syndrome - Peripheral neuropathy - Chronic stress disorder - Bone spur, right shoulder - Right knee meniscus tear, status post-procedure - History of iron deficiency - Urinary incontinence - Possible sleep apnea Health Maintenance - Comprehensive blood work was ordered to check B12, folate, vitamin D, thyroid function, kidney and liver function, a lipid panel, hemoglobin, and a full iron panel. [facility] Medical History (Updated 09/14/25 @ 10:21 by Caleb Cabrera MD) Constipation Peripheral neuropathy Class 1 obesity Hypertension Parent coping with child illness or disability Stress at home Diabetes type 2 Chronic pain Diabetes SEEMA (obstructive sleep apnea) Polymyalgia Chronic neck pain Chronic low back pain with bilateral sciatica Pain in joint, multiple sites Surgical History History of surgery on upper extremity Hx of shoulder surgery (03/01/24) Hx of hysterectomy Hx of laparoscopic gastric banding Family History Mother Hypertension Arthritis Father Diabetes Social History (Updated 09/14/25 @ 09:32 by Aakash Courtney MA) Household Members: Children Housing: House Are you a primary career services representative to a significant other at home: No Do you presently have visiting nurse or other home services: No Alcohol intake: current Alcohol intake frequency: does not drink Patient Tobacco Use Status: Never used Tobacco service: No Current occupational status: employed Current occupation: [employer], 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 1. Little interest or pleasure in doing things: nearly every day 2. Feeling down, depressed, or hopeless: more than half the days 3. Trouble falling or staying asleep, or sleeping too much: nearly every day 4. Feeling tired or having little energy: more than half the days 5. Poor appetite or overeating: nearly every day 6. Feeling bad about yourself - or that you are a failure or have let yourself or your family down: more than half the days 7. Trouble concentrating on things, such as reading the newspaper or watching television: more than half the days 8. Moving or speaking so slowly that other people could have noticed. Or the opposite - being so fidgety or restless that you have been moving around a lot more than usual: several days 9. Thoughts that you would be better off or of hurting yourself in some way: not at all Total score: 18 Depression Screening Interpretation: Positive Depression Screening Follow-up: In treatment Depression Screening Done: Yes 70013 - PHQ-9 Billing: Yes Source: Developed by Drs. Easton Brumfield, Carlene Cortés, Erlin Castillo and colleagues, with an educational bushra from [employer]. Thrive Questionnaire Date Thrive assessed: 09/07/25 I am a: Patient What is your living situation today?: I have a steady place to live Within the past 12 months, did the food you bought not last and you didn't have the money to get more?: Sometimes True Within the past 12 months, did you worry whether your food would run out before you got money to buy more?: Often true Do you have trouble paying for medicines?: I choose not to answer this question Do you have trouble getting transportation to medical appointments?: Yes Do you have trouble paying your heating and electricity bill?: I choose not to answer this question Do you have trouble taking care of your child, family member or friend?: Yes Do you have trouble with day-to-day activities such as bathing, preparing meals, shopping, managing finances, etc.?: Yes Are you currently unemployed and looking for a job?: I choose not to answer this question Are you interested in more education?: No Please select the resources that you would like help with: None Currently or been in a relationship where the following occur: No concerns reported THRIVE Score: 3 AUDIT C Alcohol Use Questionnaire (AUDIT-C) 1. How often do you have a drink containing alcohol?: Never Total Score: 0 ASA-7 AMB Questionnaire ASA-7 Date ASA - 7 assessed: 09/14/25 Feeling nervous, anxious, or on edge: 1 = Several days Not being able to stop or control worryin = Several days Worrying too much about different things: 2 = More than half the days Trouble relaxin = Several days Being so restless that it is hard to sit still: 3 = Nearly every day Becoming easily annoyed or irritable: 1 = Several days Feeling afraid as if something awful might happen: 1 = Several days Total ASA-7 score (0-4 normal; 5-9 mild; 10-14 moderate; 15-21 severe): 10 Source: Developed by Drs. Easton Brumfield, Carlene Cortés, Erlin Castillo and colleagues, with an educational bushra from [employer]. ASA-7 Assessment Billing ASA-7 Assessment Tool: ASA-7 Assessment 28131 Review of Systems Narrative Review of Systems - General: Reports chronic body pains for over six years. - Neurological: Reports neuropathy in both ankles and shaking during the night. - Musculoskeletal: Reports pain from a bone spur in the right shoulder and left knee pain. - Psychiatric: Reports chronic stress, depression, and anxiety related to her chronic pain, but feels she is currently more stable. - Genitourinary: Reports a resolved episode of hematuria and current urinary incontinence. - Gastrointestinal: Reports a history of constipation and dehydration, particularly when taking iron supplements. - Respiratory: Reports possible sleep apnea. 10-point ROS reviewed and negative except as noted in HPI Physical exam (Primary Care) Vital Signs: Last Vital Signs Temp 98.1 F 09/14/25 09:32 Pulse 89 09/14/25 09:32 Resp 16 09/14/25 09:32 BP 138/86 09/14/25 09:32 Pulse Ox 96 09/14/25 09:32 Oxygen Delivery Method Room Air 09/14/25 09:32 BMI result Body Mass Index 34.1 Tobacco/Smoking Status: Tobacco use Status Tobacco use date assessed 09/14/25 09/14/25 09:34 Patient Tobacco Use Status Never used Tobacco 09/14/25 09:32 PHQ-9: PHQ-9 Score PHQ-9: Total score 18 09/14/25 09:28 Depression Screening Interpretation: Positive Depression Screening Follow-up: In treatment Thrive Assessment: Date of Thrive Assessment Date Thrive assessed 09/07/25 09/14/25 09:28 Currently or been in a relationship where the following occur: No concerns reported Narrative Physical Exam General: Well-appearing, in no acute distress. Vital signs: Within normal limits. HEENT: Normocephalic, atraumatic. PERRLA, EOMI. Conjunctiva clear, sclera anicteric. Oropharynx clear, mucous membranes moist. TMs intact bilaterally. Neck: Supple, no lymphadenopathy, no thyromegaly, no JVD or carotid bruits. Cardiovascular: RRR, normal S1/S2, no murmurs, rubs, or gallops. Peripheral pulses 2+ and symmetric. No edema. Respiratory: Lungs clear to auscultation bilaterally, no wheezes, rales, or rhonchi. Normal effort. Abdomen: Soft, non-tender, non-distended. Normoactive bowel sounds. No hepatosplenomegaly, no masses. MSK: Full range of motion, no joint swelling or deformity. Normal gait. Skin: Warm, dry, intact. No rashes, lesions, or pallor. Neuro: Alert and oriented x3. Cranial nerves II-XII intact. Strength 5/5 throughout. Sensation intact. Reflexes 2+ symmetric. Normal coordination and gait. Psych: Appropriate mood and affect. Normal judgment and insight. Chronic stress disorder noted. Coding Level of Care Code New Pt Level 4 (14207) Diagnoses Diabetes type 2 E11.9 Left knee pain M25.562 Right knee pain M25.561 Right shoulder pain M25.511 Fibromyalgia M79.7 Stress at home F43.9 Parent coping with child illness or disability Z63.79 Hypertension I10 Class 1 obesity E66.9 Chronic pain G89.29 Peripheral neuropathy G62.9 Constipation K59.00 Additional Codes ASA-7 Assessment Billing - ASA-7 Assessment Tool: ASA-7 Assessment 29449 ([id number]) PHQ-9 - 86670 - PHQ-9 Billing: Yes ([id number]) Assessment & Plan Assessment & Plan (1) Diabetes type 2: Code(s): E11.9 - Type 2 diabetes mellitus without complications Category: Medical (2) Left knee pain: Code(s): M25.562 - Pain in left knee Category: Medical (3) Right knee pain: Code(s): M25.561 - Pain in right knee Category: Medical (4) Right shoulder pain: Code(s): M25.511 - Pain in right shoulder Category: Medical (5) Fibromyalgia: Comment: PSG at [facility] in 2022: TST AHI 9.4 Code(s): M79.7 - Fibromyalgia Category: Medical (6) Stress at home: Code(s): F43.9 - Reaction to severe stress, unspecified Category: Social Hx (7) Parent coping with child illness or disability: Code(s): Z63.79 - Other stressful life events affecting family and household Category: Social Hx (8) Hypertension: Code(s): I10 - Essential (primary) hypertension Category: Medical (9) Class 1 obesity: Code(s): E66.9 - Obesity, unspecified Category: Medical (10) Chronic pain: Code(s): G89.29 - Other chronic pain Category: Medical (11) Peripheral neuropathy: Code(s): G62.9 - Polyneuropathy, unspecified Category: Medical (12) Constipation: Code(s): K59.00 - Constipation, unspecified Category: Medical Plan Consent The patient provided verbal consent to record the encounter. Patient was informed and verbally consented to the use of an ambient scribe for clinic note documentation during this visit. Plan 1. Chronic Pain Syndrome/Fibromyalgia - The patient will continue her current medications, including duloxetine 60 mg, lidocaine 5% patch, and naltrexone 50 mg. - A referral will be sent to Pain Management for further evaluation and management. 2. Peripheral Neuropathy - A referral will be placed to evaluate for possible tarsal tunnel syndrome and determine if inserts could provide relief. 3. Constipation - It was recommended that the patient take MiraLAX twice daily, increase water intake, and increase dietary fiber. - The patient may also use Metamucil if needed to ensure regular bowel movements. Discussion Notes I have established care with this 45-year-old female who presents with a long-standing, complex history of fibromyalgia and chronic pain. I acknowledged her frustration with prior care, where she felt her physical symptoms were overly attributed to her mental health status. We confirmed her current medication list, which includes duloxetine, hydroxyzine, lidocaine patches, metformin, naltrexone, and Trulicity. To move forward, I explained that I am ordering a new set of comprehensive labs to establish a baseline, including a full iron panel, given her history of low ferritin and constipation with iron supplements. I have placed referrals to a size painter and for an evaluation of her bilateral ankle neuropathy to investigate for tarsal tunnel syndrome. We also discussed management strategies for her constipation, recommending twice-daily MiraLAX with increased fluid and fiber intake. Patient Instructions - A referral has been sent for you to see a social work specialist. - A referral has also been sent for your ankle pain to see if special shoe inserts can help. - Please go to the lab to have your blood drawn for the tests that were ordered today. - To help with constipation, take MiraLAX two times a day (morning and night). - Be sure to drink plenty of water and eat more fiber in your diet. Medical Decision Making This 45-year-old female presents to establish care for management of her complex medical history, which is dominated by chronic pain syndrome, fibromyalgia, and peripheral neuropathy. Her symptoms are significantly compounded by psychosocial stressors, as she is the sole caregiver for her disabled son. The patient feels her pain has not been adequately addressed in the past and has been primarily attributed to her mental health. The management plan is multifaceted to address her diffuse symptoms. Comprehensive lab work is necessary to establish a current baseline and re-evaluate her nutritional status, including a full iron panel given her prior low ferritin and intolerance to iron supplementation due to constipation. Given the chronic and complex nature of her pain, a referral to a dedicated Pain Management clinic is crucial for specialized intervention. Furthermore, a referral to evaluate her ankle neuropathy for a treatable cause like tarsal tunnel syndrome is also indicated. We will continue her current medications while awaiting specialist consultations. Proactive management of constipation was also addressed to improve her quality of life and tolerability of future treatments. Total time spent caring for the patient today was minutes. This includes time spent before the visit reviewing the chart, time spent documenting, and time spent reviewing laboratory results, diagnostic imaging, medications, performing a medically necessary evaluation, counseling on diagnoses, care coordination, ordering appropriate tests, ordering appropriate medications, review of tests performed by other providers, reporting test results with the patient, communication with other healthcare providers. Orders: Orders Hepatitis B Surface Antigen Today Z13.9 - Encounter for screening, unspecified HIV Ab/Ag Today Z13.9 - Encounter for screening, unspecified Lipid Panel Today Z13.9 - Encounter for screening, unspecified Magnesium Today Z13.9 - Encounter for screening, unspecified Vitamin B12 and Folate Today Z13.9 - Encounter for screening, unspecified Vitamin D 1,25 dihydroxy Today Z13.9 - Encounter for screening, unspecified Complete Blood Count Auto Diff Today Z13.9 - Encounter for screening, unspecified Comprehensive Met. Panel Today Z13.9 - Encounter for screening, unspecified Hemoglobin A1c Today Z13.9 - Encounter for screening, unspecified Hepatitis B Surface Antibody Today Z13.9 - Encounter for screening, unspecified Hepatitis C Antibody Today Z13.9 - Encounter for screening, unspecified TSH reflex Free T4 Today Z13.9 - Encounter for screening, unspecified UA CC w/rflx Micro + Cult Today Z13.9 - Encounter for screening, unspecified Referrals Pain Management Referral G89.29 - Other chronic pain, M25.511 - Pain in right shoulder, M25.561 - Pain in right knee, M25.562 - Pain in left knee, M79.7 - Fibromyalgia Podiatry Referral G57.53 - Tarsal tunnel syndrome, bilateral lower limbs, M21.41 - Flat foot [pes planus] (acquired), right foot, M21.42 - Flat foot [pes planus] (acquired), left foot Medications: New polyethylene glycol 3350 17 grams PO BID 476 grams 3RF
[2025-09-14 09:32] VITALS: BP 138/86; PULSE 89; RESP 16; TEMP 36.7; O2SAT 96; BMI 34.1
--- OUTSIDE RECORDS SUMMARY | 2025-09-14 10:26 | XMS_ITS | Encounter Summary ---
Author Organization [employer] Address [address] [place] [address] 7 [place] [address] Care Team Providers Care Chief Resource Officer Name Role Phone Ivania Magallon Primary Care Provider [phone] Encounter Details Date Type Department Care Team [...] on filedocumented in this encounter Care Teams Chief Resource Officer Relationship Specialty Start Date End Date Ivania Magallon ANP [address] [place] [phone] PCP - General Family Medicine 04/30/20 08/19/25 documented as of this encounter
--- OUTSIDE RECORDS SUMMARY | 2025-09-14 10:26 | XMS_ITS | Clinical Summary ---
Author Organization [facility] Address [address] [place] [address] Phone Care Team Providers Care Accounting Support Specialist Name Role Phone [facility] [phone] Social History Tobacco Use Types Packs/Day Years Used Date Smoking Tobacco: Never Assessed Comments Unknown Sex and Gender Information Value Date Recorded Sex Assigned at Not on file Legal Sex Female 3:55 AM EDT Gender Identity Not on file Sexual Orientation Not on file Plan of Treatment Not on file Care Teams Accounting Support Specialist Relationship Specialty Start Date End Date [facility] [address] [place] [address] PCP - Insurance PCP 01/21/21
--- OUTSIDE RECORDS SUMMARY | 2025-09-14 10:26 | XMS_ITS | Encounter Summary ---
Author Organization [employer] Address [address] [place] [address] 7 [place] [address] Care Team Providers Care Hand Binder Cutter Name Role Phone Ivania Magallon Primary Care Provider [phone] Encounter Details Date Type Department Care Team [...] on filedocumented in this encounter Care Teams Hand Binder Cutter Relationship Specialty Start Date End Date Ivania Magallon ANP [address] [place] [phone] PCP - General Family Medicine 04/30/20 08/19/25 documented as of this encounter
--- OUTSIDE RECORDS SUMMARY | 2025-09-14 10:26 | XMS_ITS | Encounter Summary ---
Author Organization [employer] Address [address] [place] [address] [address] [place] [address] Care Team Providers Care Back Sewer Name Role Phone Ivania Magallon Primary Care Provider [phone] Reason for Visit * Reason Onset Date Comments Med Refill 08/01/2023 Encounter Details Date Type Department Care Team (Late st Contact Info) Description 08/01/2023 Refill [facility] [address] [place] [address] Ivania Magallon ANP [address] [place] [address] Hypertension associated with diabetes (CMS/HCC) Social History [...] documented as of this encounter Care Teams Back Sewer Relationship Specialty Start Date End Date Ivania Magallon ANP [address] [place] [address] PCP - General Family Medicine 04/30/20 08/19/25 documented as of this encounter
--- OUTSIDE RECORDS SUMMARY | 2025-09-14 10:27 | XMS_ITS | Encounter Summary ---
Author Organization [employer] Address [address] [place] [address] [address] [place] [address] Care Team Providers Care Elastic Yarn Twister Helper Name Role Phone Ivania Magallon Primary Care Provider [phone] Reason for Visit * Reason Comments Med Refill Encounter Details Date Type Department Care Team ([facility] st Contact Info) Description 07/21/2024 Refill [facility] [address] [place] [address] Ivania Magallon ANP [address] [place] [address] Hypertension associated with diabetes (CMS/HCC) ([facility]/HCC) Social History Tobacco Use Types Packs/Day [...] documented as of this encounter Care Teams Elastic Yarn Twister Helper Relationship Specialty Start Date End Date Ivania Magallon ANP [address] [place] [id number] PCP - General Family Medicine 04/30/20 08/19/25 documented as of this encounter
--- OUTSIDE RECORDS SUMMARY | 2025-09-14 10:27 | XMS_ITS | Clinical Summary ---
Author Organization [facility] Address [address] [place] [address] Phone Care Team Providers Care Manager Apple Name Role Phone Ivania Magallon NP Primary Care Provider [phone] Allergies No known active allergies Social History [...] Insurance MEDICAID - [place] Care Teams Manager Apple Relationship Specialty Start Date End Date Ivania Magallon NP [address] [place] [phone] PCP - General 12/09/24
--- OUTSIDE RECORDS SUMMARY | 2025-09-14 10:27 | XMS_ITS | Encounter Summary ---
Author Organization [employer] Address [address] [facility] [address] [place] [address] Care Team Providers Care Solar Tech Name Role Phone Ivania Magallon Primary Care Provider [phone] Reason for Visit * Reason Onset Date Comments Med Refill 09/25/2023 Encounter Details Date Type Department Care Team (Late st Contact Info) Description 09/25/2023 Refill [facility] [address] [place] [address] Ivania Magallon ANP [address] [place] [address] Hypertension associated with diabetes (CMS/HCC) Social History [...] documented as of this encounter Care Teams Solar Tech Relationship Specialty Start Date End Date Ivania Magallon ANP [address] [place] [phone] PCP - General Family Medicine 04/30/20 08/19/25 documented as of this encounter
--- OUTSIDE RECORDS SUMMARY | 2025-09-14 10:27 | XMS_ITS | Encounter Summary ---
Author Organization [employer] Address [address] [facility] 7 [place] [address] Care Team Providers Care Pad Hand Name Role Phone Ivania Magallon Primary Care Provider [phone] Reason for Visit * Reason Onset Date Comments Nurse Triage 12/24/2024 Encounter Details Date Type Department Care Team ([facility] st Contact Info) Description 12/24/2024 Telephone [facility] MEDICINE [address] [place] [address] Ivania Magallon ANP [address] [place] [address] Nurse Triage Social History Tobacco Use Types [...] needed. Pt is advised to come to [facility] after 5pm for provider to see Pt. [facility] is open till 8pm. Pt [...] documented as of this encounter Care Teams Pad Hand Relationship Specialty Start Date End Date Ivania Magallon ANP [address] [place] [address] PCP - General Family Medicine 04/30/20 08/19/25 documented as of this encounter
--- OUTSIDE RECORDS SUMMARY | 2025-09-14 10:27 | XMS_ITS | Clinical Summary ---
Author Organization [employer] Address [address] [facility] 7 [place] [address] Care Team Providers Care Matchbook Assembler Name Role Phone Unavailable Primary Care Provider Unavailabl e Allergies Active Allergy Reactions Criticality Noted Date Comments [place] Extract Rash High 09/07/2021 Other reaction(s): GI [...] tablet 1 09/25/20 24 Active nystatin (Mycostatin) 366872 UNIT/GM powder Apply topically 2 times daily. [...] Morbid obesity with BMI of 40.0-44.9, adult ([facility]) 07/04/2023 Weight loss 07/04/2023 Obstructive sleep apnea [...] Type Department Care Team Description 08/18/2025 Telephone [facility] MEDICINE [address] [place] [address] Shona Cheng ANP chart prep 07/26/2025 Refill [facility] MEDICINE [address] [place] [address] Shona Cheng ANP 07/20/2025 Telephone [facility] MEDICINE [address] [place] [address] Patricia Mcgregor RN Results 07/04/2025 Refill [facility] MEDICINE [address] [place] [address] Shona Cheng ANP from Last 3 Months Immunizations Immunization [...] 9:31 AM EDT) Creatinine, Urine 213.97 mg/dL [facility] Microalbumin Urine 12.0 mg/L H [facility] Microalbum Creatinine Ratio Ur 5.6 <30 ug/mg cr [facility] Comment:Albumin/Creatinine R atio Reference Ranges: Normal: < 30 ug/mg creatinine Microalbuminuria: 30 - 300 ug/mg creatinineClinical Albuminuria: > 300 ug/mg creatinine Urine 03/20/2025 9:31 AM EDT 03/20/2025 11:02 AM EDT us Shona Cheng ANP LAB URINE ORDERABLES Final Resul t [facility] [address] [place] [address] [phone] * (ABNORMAL) Lipid Panel, Standard (03/20/2025 7:07 AM EDT) Triglycerides 178(H) <150 mg/dL [facility] Comment:Desirable Triglyceri de: less than 150 mg/dLBorderline High Triglyceride 150-199 mg/dLHigh Triglyceride: 200-499 mg/dLVery High Triglyceride: greater than or equal to 5OO mg/dL Cholesterol 185 <200 mg/dL [facility] Comment:Desirable Cholestero l: less than 200 mg/dLBorderline High Cholesterol: 200-239 mg/dLHigh Cholesterol: greater than 239 mg/dL LDL Cholesterol Calculated 98 <100 mg/dL [facility] Comment:Desirable LDL: less than 100 mg/dLNear Optimal/Above Optimal LDL: 110- 129 mg/dLBorderline High LDL: 130-159 mg/dLHigh LDL: 160-189 mg/dLVery High LDL: greater than or equal to 190 mg/dL HDL Cholesterol 52 >40 mg/dL [facility] Comment:Desirable HDL: great er than 40 mg/dL Note: This HDL assay may give artificially low results in patients with liver disease. Blood Venous blood specimen / Unknown 03/20/2025 7:07 AM EDT 03/20/2025 11:01 AM EDT [facility] LAB BLOOD ORDERABLES Final Resul t [facility] [address] [place] [address] [phone] * BI US Breast Limited Right (01/30/2025 9:12 AM EDT) Anatomical Region Laterality Modality Breast Right Ultrasound 01/30/2025 9:12 AM EDT Narrative 01/30/2025 10:23 AM EDT [facility] [address] [place] [address] Ultrasound Report Signed Patient: Albania Robles MR#: [id number] : 1980 Acct:[id number] Age/Sex: 44 / F ADM Date: 01/30/25 Loc: HO.MAMMO Attending Dr: Dayton Frazier MD Ordering Physician: Dayton Frazier MD Date of Service: 01/30/25 Procedure(s): US breast RT limited mamm only Accession Number(s): [id number] cc: Dayton Frazier MD; SHONA CHENG NP [...] 01/30/25 1020 DD/ 0912 TD/TT: 01/30/25 0935 Teachers Assistant: Procedure Note Donotuseinterpreter, Image - 01/30/2025 [facility] [address] [place] [address] Dr. Leahy, BRISSA [address] Ultrasound Report Signed Patient: Robert Robles#: [id number] : 1980Acct:[id number] Age/Sex: 44 / FADM Date: 01/30/25 Loc: HO.MAMMO Attending Dr: Dayton Frazier MD Ordering Physician: Dayton Frazier MD Date of Service: 01/30/25 Procedure(s): US breast RT limited mamm only Accession Number(s): [id number] cc: Dayton Frazier MD; SHONA CHENG NP [...] 01/30/25 1020 DD/ 1 TD/TT: 01/30/25 0935 Teachers Assistant: Dayton Perez MD IM US PROCEDURES Fin al Result * HIV Ab/Ag Exposure Source (01/11/2024 2:05 PM EST) HIV AB/AG Nonreactive Nonreactive [facility] Comment:HIV-1 p24 Ag and/or HIV-1/HIV-2 Ab not detected.A test result that is nonreactive does not exclude thepossibility of exposure to or infection with HIV-1 and/orHIV-2. Nonreactive results in this assay for individualswith prior exposure to HIV-1 and/or HIV-2 may be due toantigen and antibody levels that are below the limit ofdetection of this assay.The [employer] HIV Ag/Ab Combo assay result andsupplemental assay results should be interpreted inconjunction with the patient's clinical presentation,history and other laboratory results. If the results areinconsistent with clinical evidence, additional testing issuggested to confirm the result. 01/11/2024 2:05 PM EST 01/11/2024 2:07 PM EST Generic External Data Provider LAB BLOOD ORDERAB LES Final Result Performing Organization Address [facility]/ZIP Co de Phone Number [facility] [address] [place] [phone] * Hepatitis C Ab (01/11/2024 2:05 PM EST) Hepatitis C Antibody Nonreactive Nonreactive [facility] Comment:Antibodies to HCV no t detected; does not exclude early acuteHCV infection. 01/11/2024 2:05 PM EST 01/11/2024 2:07 PM EST Generic External Data Provider LAB BLOOD ORDERAB LES Final Result Performing Organization Address [facility]/ZIP Co de Phone Number [facility] [address] [place] [phone] * HPV mRNA E6/E7 (01/30/2018 10:13 AM EDT) HPV mRNA E6/E7 Not Detected NOT DETECTED [facility] Comment: This test was performed using the APTIMA(R) HPV Assay ([employer] This assay detects E6/E7 viral messenger RNA (mRNA) from 14 high-risk HPV types (16,18,31,33,35,39,45,51, 52,56,58,59,66,68). For additional information please refer to: http://education.adSage/faq/MMW096h7 (This link is being provided for informational/ educational purposes only.) Test Performed by [facility], [place], [address] [place] [id number] Jameel Swan M.D., Ph.D., Director of Laboratories , [facility] [id number] Please note: Effective 07/24/2016, HPV testing will be performed using [employer]'s APTIMA test which targets mRNA. Detecting mRNA instead of DNA, as in older methods, offers significant improvements in specificity. 01/30/2018 10:1 3 AM EDT Tosin Putnam CNM HISTORICAL/NON ORDERABLE LABS Final Result [facility] [address] from Last 3 Months or Most Recently Relevant to Health Maintenance Insurance
== END 2025-09-14 10:12 | disposition home or self-care (01) ==
LOC: HO.HMCFMS 09:21
PROVIDERS: PCP Nurse Practitioner Primary Care; Visit Provider Student in an Organized Health Care Education/Training Program
DX: E11.42 Type 2 diabetes mellitus with diabetic polyneuropathy (principal); M25.562 Pain in left knee; G62.9 Polyneuropathy, unspecified; M25.561 Pain in right knee; M25.511 Pain in right shoulder; M79.7 Fibromyalgia; F43.9 Reaction to severe stress, unspecified; Z63.79 Other stressful life events affecting family and household; I10 Essential (primary) hypertension; E66.9 Obesity, unspecified; G89.29 Other chronic pain; K59.00 Constipation, unspecified

== ENCOUNTER 2025-09-29 09:24 | Outpatient (AMB) | payer OTHER, SELFPAY ==
--- NOTE | 2025-09-29 09:27 | MHC.PC.OV ---
Vital Signs 09/29/25 09:33 Height 5 ft 4.37 in Weight 207 lb 4 oz BMI 35.2 Respiration 16 Pulse 96 Pulse Source Pulse Oximeter Temp 98.1 F Temp Source Oral Pulse Oximetry (%) 100 Oxygen Delivery Method Room Air Intake Visit Reasons: 2 wk f/u- lab review Intake Note: new patient/ med management Accompanied by: Self / Same As Patient Allergies latex Adverse Reaction (Intermediate, Verified 09/29/25 09:32) Rash cucumbers, pickles Allergy (Intermediate, Uncoded 04/30/25 10:34) Rash Medication List - Last Reconciled 09/29/25 by Caleb Cabrera MD fxwlvzecyu-hnflbzpyjswhu-dzav 50-325-40 mg 1 tab PO Q6H PRN dulaglutide (Trulicity) 0.75 mg subcut QWEEK duloxetine 60 mg PO DAILY enalapril maleate 10 mg PO DAILY guanfacine ER 1 mg PO DAILY hydroxyzine HCl 10 mg PO Q8H PRN 3 days lidocaine 5% 1 patch transdermal DAILY metformin 1,000 mg PO BID naltrexone 50 mg PO QWEEK 90 days polyethylene glycol 3350 17 grams PO BID rosuvastatin 20 mg PO DAILY Tobacco use date assessed: 09/29/25 Dental Screening Dental Screen Date: 09/29/25 Did you have a dental visit in the last 12 months?: Yes Did you have a dental problem in the last 6 months where you did not have access to dental care?: Yes Was dental information given to patient?: Patient has dentist HPI HPI Comments History of Present Illness Details History of Present Illness The patient is a 45-year-old female presenting for a review of lab results and management of chronic conditions. Type 2 diabetes mellitus: The patient has a history of type 2 diabetes mellitus with a recent hemoglobin A1c of 6.9, which she reports is stable from her previous result. She is managed on Trulicity 0.75 mg weekly but has held this week's dose in preparation for a surgery next week. Hyperlipidemia: Recent lab work shows an LDL cholesterol of 131 mg/dL. The patient has no prior history of being on a statin medication. Surgical History: - Scheduled bladder sling surgery next week. Medications: - Trulicity 0.75 mg weekly for type 2 diabetes. Diagnostic Results: - Hemoglobin A1c: 6.9 - LDL cholesterol: 131 mg/dL - Hemoglobin: 12.1 g/dL Past Medical History - Type 2 diabetes mellitus - Hyperlipidemia - History of anemia, with prior hemoglobin reported as 11-12 g/dL. Health Maintenance - Discussed increased risk for cardiovascular disease, kidney disease, eye disease, and peripheral neuropathy associated with type 2 diabetes. - Follow-up scheduled in 3 months (December) to recheck hemoglobin A1c. - Recommended rechecking lipids in 6 months. [facility] Medical History Constipation Peripheral neuropathy Class 1 obesity Hypertension Parent coping with child illness or disability Stress at home Diabetes type 2 Chronic pain Diabetes SEEMA (obstructive sleep apnea) Polymyalgia Chronic neck pain Chronic low back pain with bilateral sciatica Pain in joint, multiple sites Surgical History History of surgery on upper extremity Hx of shoulder surgery (01/11/24) Hx of hysterectomy Hx of laparoscopic gastric banding Family History Mother Hypertension Arthritis Father Diabetes Social History Household Members: Children Housing: House Are you a primary intensive care anaesthetist to a significant other at home: No Do you presently have visiting nurse or other home services: No Alcohol intake: current Alcohol intake frequency: does not drink Patient Tobacco Use Status: Never used Tobacco service: No Current occupational status: employed 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 1. Little interest or pleasure in doing things: nearly every day 2. Feeling down, depressed, or hopeless: more than half the days 3. Trouble falling or staying asleep, or sleeping too much: nearly every day 4. Feeling tired or having little energy: more than half the days 5. Poor appetite or overeating: nearly every day 6. Feeling bad about yourself - or that you are a failure or have let yourself or your family down: more than half the days 7. Trouble concentrating on things, such as reading the newspaper or watching television: more than half the days 8. Moving or speaking so slowly that other people could have noticed. Or the opposite - being so fidgety or restless that you have been moving around a lot more than usual: several days 9. Thoughts that you would be better off or of hurting yourself in some way: not at all Total score: 18 Depression Screening Interpretation: Positive Depression Screening Follow-up: In treatment Depression Screening Done: Yes 24767 - PHQ-9 Billing: Yes Source: Developed by Drs. Easton Brumfield, Carlene Cortés, Erlin Castillo and colleagues, with an educational bushra from [employer]. Thrive Questionnaire Date Thrive assessed: 09/29/25 I am a: Patient What is your living situation today?: I have a steady place to live Within the past 12 months, did the food you bought not last and you didn't have the money to get more?: Sometimes True Within the past 12 months, did you worry whether your food would run out before you got money to buy more?: Often true Do you have trouble paying for medicines?: I choose not to answer this question Do you have trouble getting transportation to medical appointments?: Yes Do you have trouble paying your heating and electricity bill?: I choose not to answer this question Do you have trouble taking care of your child, family member or friend?: Yes Do you have trouble with day-to-day activities such as bathing, preparing meals, shopping, managing finances, etc.?: Yes Are you currently unemployed and looking for a job?: I choose not to answer this question Are you interested in more education?: No Please select the resources that you would like help with: None Currently or been in a relationship where the following occur: No concerns reported THRIVE Score: 3 AUDIT C Alcohol Use Questionnaire (AUDIT-C) 1. How often do you have a drink containing alcohol?: Never Total Score: 0 ASA-7 AMB Questionnaire ASA-7 Date ASA - 7 assessed: 09/29/25 Feeling nervous, anxious, or on edge: 1 = Several days Not being able to stop or control worryin = Several days Worrying too much about different things: 2 = More than half the days Trouble relaxin = Several days Being so restless that it is hard to sit still: 3 = Nearly every day Becoming easily annoyed or irritable: 1 = Several days Feeling afraid as if something awful might happen: 1 = Several days Total ASA-7 score (0-4 normal; 5-9 mild; 10-14 moderate; 15-21 severe): 10 Source: Developed by Drs. Easton Brumfield, Carlene Cortés, Erlin Castillo and colleagues, with an educational bushra from [employer]. ASA-7 Assessment Billing ASA-7 Assessment Tool: ASA-7 Assessment 57054 Review of Systems Narrative Review of Systems - Patient denies any current concerns when asked. 10-point ROS reviewed and negative except as noted in HPI Physical exam (Primary Care) Vital Signs: Last Vital Signs Temp 98.1 F 09/29/25 09:33 Pulse 96 09/29/25 09:33 Resp 16 09/29/25 09:33 Pulse Ox 100 09/29/25 09:33 Oxygen Delivery Method Room Air 09/29/25 09:33 BMI result Body Mass Index 35.2 Tobacco/Smoking Status: Tobacco use Status Tobacco use date assessed 09/29/25 09/29/25 09:36 Patient Tobacco Use Status Never used Tobacco 09/29/25 09:29 PHQ-9: PHQ-9 Score PHQ-9: Total score 18 09/29/25 09:37 Depression Screening Interpretation: Positive Depression Screening Follow-up: In treatment Thrive Assessment: Date of Thrive Assessment Date Thrive assessed 09/29/25 09/29/25 09:36 Currently or been in a relationship where the following occur: No concerns reported Narrative Physical Exam General: Well-appearing, in no acute distress. Vital signs: Blood pressure not documented. HEENT: Normocephalic, atraumatic. PERRLA, EOMI. Conjunctiva clear, sclera anicteric. Oropharynx clear, mucous membranes moist. TMs intact bilaterally. Neck: Supple, no lymphadenopathy, no thyromegaly, no JVD or carotid bruits. Cardiovascular: RRR, normal S1/S2, no murmurs, rubs, or gallops. Peripheral pulses 2+ and symmetric. No edema. Respiratory: Lungs clear to auscultation bilaterally, no wheezes, rales, or rhonchi. Normal effort. Abdomen: Soft, non-tender, non-distended. Normoactive bowel sounds. No hepatosplenomegaly, no masses. MSK: Full range of motion, no joint swelling or deformity. Normal gait. Skin: Warm, dry, intact. No rashes, lesions, or pallor. Neuro: Alert and oriented x3. Cranial nerves II-XII intact. Strength 5/5 throughout. Sensation intact. Reflexes 2+ symmetric. Normal coordination and gait. Psych: Appropriate mood and affect. Normal judgment and insight. Office Procedures Flu Questionnaire Does the patient have a severe egg allergy?: No Does the patient have severe life threatening allergies?: No Does the patient have a fever or illness today?: No Has the patient ever had Guillain-Dania Syndrome?: No Has the patient ever had any past reaction to a flu shot?: No Immunizations Fluarix [id number] (PF) 45 mcg (15 mcg x 3)/0.5 mL IM syringe Performing Provider: Caleb Cabrera MD [place] [facility] Documented (not given) by: Fern Cummings CMA on 09/29/25 09:37 Reason Not Given: Received Previously Coding Level of Care Code Est Pt Level 3 (77913) Diagnoses Diabetes type 2 E11.9 Hypertension I10 Class 1 obesity E66.9 Additional Codes ASA-7 Assessment Billing - ASA-7 Assessment Tool: ASA-7 Assessment 71927 ([id number]) PHQ-9 - 65020 - PHQ-9 Billing: Yes ([id number]) Assessment & Plan Assessment & Plan (1) Diabetes type 2: Code(s): E11.9 - Type 2 diabetes mellitus without complications Category: Medical (2) Hypertension: Code(s): I10 - Essential (primary) hypertension Category: Medical (3) Class 1 obesity: Code(s): E66.9 - Obesity, unspecified Category: Medical Plan Consent The risks, benefits, and alternatives of initiating statin therapy for hyperlipidemia were discussed. It was explained that as a type 2 diabetic, the patient has an increased risk for cardiovascular disease, and a statin is recommended to lower her LDL cholesterol and mitigate this risk. The patient provided verbal consent to start rosuvastatin. Patient was informed and verbally consented to the use of an ambient scribe for clinic note documentation during this visit. Plan 1. Type 2 Diabetes Mellitus - The patient's hemoglobin A1c is 6.9, which is stable but above the glycemic target. - The patient is to hold Trulicity this week due to upcoming bladder sling surgery and can resume afterward. - Plan to recheck hemoglobin A1c in 3 months (December) to assess for any needed medication adjustments. 2. Hyperlipidemia - The patient's LDL cholesterol is 131 mg/dL, which is significantly above the target of <70 mg/dL for a patient with diabetes. - The patient has no history of statin use. - Start rosuvastatin 20 mg daily at night for primary cardiovascular risk reduction. - Plan to recheck a lipid panel in 6 months. Discussion Notes I reviewed the patient's recent lab results, noting her hemoglobin A1c of 6.9 and an LDL cholesterol of 131 mg/dL. I explained that as a person with type 2 diabetes, she has an elevated risk for cardiovascular disease, kidney problems, and eye disease, and that her LDL is above the target of 70 mg/dL. I recommended initiating rosuvastatin 20 mg nightly to lower her cholesterol and reduce this risk, and the patient was agreeable. We confirmed she correctly stopped her Trulicity for this week in preparation for her upcoming bladder sling surgery. Her concern about past low hemoglobin was addressed by noting her current level of 12.1 g/dL is within normal limits. We will plan to recheck her A1c in 3 months and lipids in 6 months. Patient Instructions - Your lab results show your average blood sugar (hemoglobin A1c) is 6.9 and your bad cholesterol (LDL) is 131. - Because you have diabetes, your goal for bad cholesterol is below 70 to help protect your heart. - Please start taking rosuvastatin 20 mg once every night to help lower your cholesterol. - You have correctly stopped your Trulicity injection this week because you have a surgery scheduled next week. - Please schedule a follow-up appointment in 3 months (around December) to recheck your blood sugar levels. - We will check your cholesterol levels again in about 6 months. - Your hemoglobin (blood count) is 12.1, which is a normal result. Medical Decision Making The patient is a 45-year-old female with type 2 diabetes presenting for review of lab results. Her glycemic control is suboptimal with an HbA1c of 6.9, which is unchanged from prior. Her cardiovascular risk is significantly elevated due to concomitant hyperlipidemia, with an LDL of 131 mg/dL, which is well above the guideline-recommended goal of <70 mg/dL for a patient with diabetes. She reports being statin-naive. Given the LDL level, initiation of statin therapy is indicated for primary prevention of atherosclerotic cardiovascular disease. Rosuvastatin 20 mg nightly was prescribed to lower her cardiovascular risk. The plan is to monitor efficacy with a repeat lipid panel in 6 months. Glycemic management will be re-evaluated with a repeat A1c in 3 months, at which point an adjustment to her regimen may be considered. The patient's concern regarding her hemoglobin was addressed; her current value of 12.1 g/dL is within normal limits. Total Time Statement 20 min Total time spent caring for the patient today includes pre-visit chart review, documentation, review of laboratory and diagnostic imaging results, medication reconciliation, medically necessary evaluation, counseling on diagnoses, care coordination, ordering appropriate tests and medications, review of tests performed by other providers, reporting test results to the patient, and communication with other healthcare providers. Orders: Orders Influenza [id number] Immunization Today Z23 - Encounter for immunization Medications: New rosuvastatin 20 mg PO DAILY 90 tabs 0RF E11.9 - Type 2 diabetes mellitus without complications
[2025-09-29 09:33] VITALS: PULSE 96; RESP 16; TEMP 36.7; O2SAT 100; BMI 35.2
== END 2025-09-29 09:52 | disposition home or self-care (01) ==
LOC: HO.HMCFMS 09:24
PROVIDERS: PCP Nurse Practitioner Primary Care; Visit Provider Student in an Organized Health Care Education/Training Program
DX: E11.9 Type 2 diabetes mellitus without complications (principal); I10 Essential (primary) hypertension; E66.9 Obesity, unspecified; Z23 Encounter for immunization

== ENCOUNTER → 2025-09-29 09:24 | Outpatient (BNVA) | payer OTHER, SELFPAY | PROVIDERS: PCP Nurse Practitioner Primary Care; Visit Provider Student in an Organized Health Care Education/Training Program | DX: E11.9 Type 2 diabetes mellitus without complications (principal); I10 Essential (primary) hypertension; E66.9 Obesity, unspecified; Z68.35 Body mass index [BMI] 35.0-35.9, adult; E78.5 Hyperlipidemia, unspecified; Z79.85 Long-term (current) use of injectable non-insulin antidiabetic drugs; Z13.31 Encounter for screening for depression; Z13.39 Encounter for screening examination for other mental health and behavioral disorders | CPT/HCPCS: 90471; 96127; 99212 ==

== ENCOUNTER 2025-09-30 08:45 | Outpatient (AMB) | payer OTHER, SELFPAY ==
--- NOTE | 2025-09-30 08:52 | A.OFFVIS_ITS ---
Vital Signs 09/30/25 08:55 Height 5 ft 4 in Weight 206 lb BMI 35.4 Intake Visit Reasons: Left knee pain and giving way Intake Note: [place] is a 45-year-old female who presents with complaints of progressively worsening left knee pain and giving way. She did undergo right knee arthroscopic surgery on 04/17/2025. She reports mild discomfort in her right knee. She describes her left knee pain as sharp in nature. Most of the pain is along the medial aspect of her knee. She has failed the last 6 weeks of conservative treatment which has included Tylenol, anti-inflammatory medicines, a home exercise program and physical therapy exercises. She states that her left knee will give out several times per day. Allergies latex Adverse Reaction (Intermediate, Verified 09/29/25 09:32) Rash cucumbers, pickles Allergy (Intermediate, Uncoded 04/30/25 10:34) Rash Medication List - Last Reconciled 09/30/25 by Ash Mccoy MD oizbaromwm-rlqhtcfylqccs-pyws 50-325-40 mg 1 tab PO Q6H PRN dulaglutide (Trulicity) 0.75 mg subcut QWEEK duloxetine 60 mg PO DAILY enalapril maleate 10 mg PO DAILY guanfacine ER 1 mg PO DAILY hydroxyzine HCl 10 mg PO Q8H PRN 3 days lidocaine 5% 1 patch transdermal DAILY metformin 1,000 mg PO BID naltrexone 50 mg PO QWEEK 90 days polyethylene glycol 3350 17 grams PO BID rosuvastatin 20 mg PO DAILY PFSH Medical History Constipation Peripheral neuropathy Class 1 obesity Hypertension Parent coping with child illness or disability Stress at home Diabetes type 2 Chronic pain Diabetes SEEMA (obstructive sleep apnea) Polymyalgia Chronic neck pain Chronic low back pain with bilateral sciatica Pain in joint, multiple sites Surgical History History of surgery on upper extremity Hx of shoulder surgery (01/11/24) Hx of hysterectomy Hx of laparoscopic gastric banding Family History Mother Hypertension Arthritis Father Diabetes Social History Household Members: Children Housing: House Are you a primary eye care professional to a significant other at home: No Do you presently have visiting nurse or other home services: No Alcohol intake: current Alcohol intake frequency: does not drink Patient Tobacco Use Status: Never used Tobacco service: No Current occupational status: employed 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, 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 Cognitive needs: No Hearing needs: No Vision needs: Yes (uses glasses) Physical Exam Vital Signs: BMI result Body Mass Index 35.4 Extrem Other: Left knee examination shows a minimal effusion, minimal crepitus with range of motion, tenderness along her medial joint line, positive Lissa's test, no instability Results Reviewed Results Reviewed: Standing full weight-bearing x-rays of the patient's left knee show mild diffuse joint space narrowing, no acute bony abnormalities Assessment & Plan Assessment & Plan (1) Tear of medial meniscus of left knee: Code(s): S83.242A - Other tear of medial meniscus, current injury, left knee, initial encounter Category: Medical Plan Ms. Horace Carballo presents with progressively worsening left knee pain and mechanical symptoms most likely due to a medial meniscus tear. Thus, I will send the patient for an MRI of her left knee for further evaluation. I will see her back once the MRI is completed to discuss the findings and treatment options. Feel free to call me at any time should questions regarding her orthopedic management arise. I spent 20 minutes in reviewing the patient's records and imaging studies, seeing the patient and documenting in the medical record. Coding Level of Care Code Est Pt Level 3 (10135) Complex EM visit Add On G2211 Diagnoses Tear of medial meniscus of left knee S83.242A
[2025-09-30 08:55] VITALS: BMI 35.4
--- OUTSIDE RECORDS SUMMARY | 2025-09-30 16:25 | XMS_ITS | Encounter Summary ---
Author Organization [employer] Address [address] [place] [address] 7 [place] [address] Care Team Providers Care Re Etcher Name Role Phone Ivania Magallon Primary Care Provider [phone] Encounter Details Date Type Department Care Team [...] on filedocumented in this encounter Care Teams Re Etcher Relationship Specialty Start Date End Date Ivania Magallon ANP [address] [place] [phone] PCP - General Family Medicine 04/30/20 08/19/25 documented as of this encounter
--- OUTSIDE RECORDS SUMMARY | 2025-09-30 16:25 | XMS_ITS | Encounter Summary ---
Author Organization [employer] Address [address] [facility] 7 [place] [address] Care Team Providers Care Operator Command Support Systems Name Role Phone Ivania Magallon Primary Care Provider [phone] Reason for Visit * Reason Onset Date Comments Nurse Triage 12/24/2024 Encounter Details Date Type Department Care Team ([facility] st Contact Info) Description 12/24/2024 Telephone [facility] MEDICINE [address] [place] [address] Ivania Magallon ANP [address] [place] [address] Nurse Triage Social History Tobacco Use Types [...] documented as of this encounter Care Teams Operator Command Support Systems Relationship Specialty Start Date End Date Ivania Magallon ANP [address] [place] [phone] PCP - General Family Medicine 04/30/20 08/19/25 documented as of this encounter
--- OUTSIDE RECORDS SUMMARY | 2025-09-30 16:25 | XMS_ITS | Clinical Summary ---
Author Organization [facility] Address [address] [place] [address] Phone Care Team Providers Care Product Marketing Programs Manager Name Role Phone [facility] Social History Tobacco Use Types Packs/Day Years Used Date Smoking Tobacco: Never Assessed Comments Unknown Sex and Gender Information Value Date Recorded Sex Assigned at Not on file Legal Sex Female 3:55 AM EDT Gender Identity Not on file Sexual Orientation Not on file Plan of Treatment Not on file Care Teams Product Marketing Programs Manager Relationship Specialty Start Date End Date [facility] [address] [place] [address] PCP - Insurance PCP 01/21/21
--- OUTSIDE RECORDS SUMMARY | 2025-09-30 16:25 | XMS_ITS | Encounter Summary ---
Author Organization [employer] Address [address] [facility] 7 [place] [address] Care Team Providers Care Associate Professor Of Engineering Name Role Phone Ivania Magallon Primary Care Provider [phone] Reason for Visit * Reason Onset Date Comments Med Refill 09/25/2023 Encounter Details Date Type Department Care Team (Late st Contact Info) Description 09/25/2023 Refill [facility] MEDICINE [address] [place] [address] Ivania Magallon ANP [address] [place] [address] Hypertension associated with diabetes (CMS/HCC) Social History [...] documented as of this encounter Care Teams Associate Professor Of Engineering Relationship Specialty Start Date End Date Ivania Magallon ANP [address] [place] [phone] PCP - General Family Medicine 04/30/20 08/19/25 documented as of this encounter
--- OUTSIDE RECORDS SUMMARY | 2025-09-30 16:25 | XMS_ITS | Encounter Summary ---
Author Organization [employer] Address [address] [place] [address] 7 [place] [address] Care Team Providers Care Household Appliances Salesperson Name Role Phone Ivania Magallon Primary Care Provider [phone] Reason for Visit * Reason Onset Date Comments Med Refill 08/01/2023 Encounter Details Date Type Department Care Team (Late st Contact Info) Description 08/01/2023 Refill [facility] MEDICINE [address] [place] [address] Ivania Magallon ANP [address] [place] [address] Hypertension associated with diabetes (CMS/HCC) Social History [...] documented as of this encounter Care Teams Household Appliances Salesperson Relationship Specialty Start Date End Date Ivania Magallon ANP [address] [place] [address] PCP - General Family Medicine 04/30/20 08/19/25 documented as of this encounter
--- OUTSIDE RECORDS SUMMARY | 2025-09-30 16:25 | XMS_ITS | Clinical Summary ---
Author Organization [address] [facility] Address [address] [place] [address] Phone Care Team Providers Care Analysis Consultant Name Role Phone NaunIvanai Mark Anthony MOSCOSO Primary Care Provider [phone] Allergies No known active allergies Social History [...] 01/29/2025 Hypertension/CHF/CAD Annual BMP Blood Test 01/29/2025 COVID-19 Vaccine ( season) 2025 07/30/2024, 11/23/2023, 08/11/2021, Additional history exists Influenza Vaccine (#1) 2025 , 09/22/2022, 08/08/2021, [...] Hepatitis B Vaccines Completed 02/27/2024, 09/25/2023, 08/28/2023 HIB Vaccines Aged Out No longer eligi [...] topic Insurance MEDICAID - [place] Care Teams Analysis Consultant Relationship Specialty Start Date End Date Ivania Magallon NP [address] [place] [phone] PCP - General 12/09/24
--- OUTSIDE RECORDS SUMMARY | 2025-09-30 16:25 | XMS_ITS | Encounter Summary ---
Author Organization [employer] Address [address] [place] [address] 7 [place] [address] Care Team Providers Care Stock Drier Tender Name Role Phone Ivania Magallon Primary Care Provider [phone] Reason for Visit * Reason Comments Med Refill Encounter Details Date Type Department Care Team ([facility] st Contact Info) Description 07/21/2024 Refill [facility] MEDICINE [address] [place] [address] Ivania Magallon ANP [address] [place] [address] Hypertension associated with diabetes (CMS/HCC) ([facility]/HCC) Social History Tobacco Use Types [...] documented as of this encounter Care Teams Stock Drier Tender Relationship Specialty Start Date End Date Ivania Magallon ANP [address] [place] [phone] PCP - General Family Medicine 04/30/20 08/19/25 documented as of this encounter
--- OUTSIDE RECORDS SUMMARY | 2025-09-30 16:25 | XMS_ITS | Clinical Summary ---
Author Organization [employer] Address [address] [facility] 7 [place] [address] Care Team Providers Care Marine Railway Operator Name Role Phone Unavailable Primary Care Provider Unavailabl e Allergies Active Allergy Reactions Criticality Noted Date Comments Troy Extract Rash High 09/07/2021 Other reaction(s): GI [...] tablet 1 09/25/20 24 Active nystatin (Mycostatin) 434820 UNIT/GM powder Apply topically 2 times daily. [...] mcg IM Every 30 days 03/21/2025 09/17/2025 Ended Active Problems Problem Noted Date Diagnosed Date [...] Morbid obesity with BMI of 40.0-44.9, adult ([facility]) 07/04/2023 Weight loss 07/04/2023 Obstructive [...] Encounters Date Type Department Care Team Description 09/17/2025 Telephone [facility] MEDICINE [address] [place] [address] Shona Cheng ANP Prior Authorization 08/18/2025 Telephone [facility] MEDICINE [address] [place] [address] Shona Cheng ANP chart prep 07/26/2025 Refill [facility] MEDICINE [address] [place] [address] Shona Cheng ANP 07/20/2025 Telephone [facility] MEDICINE [address] [place] [address] Patricia Mcgregor RN Results 07/04/2025 Refill [facility] MEDICINE [address] [place] [address] Cheng, Shona, ANP from Last 3 Months Immunizations Immunization [...] HPV Vaccines (1 - 3-dose series) 1997 COVID-19 Vaccine ( season) 2025 11/23/2023 Depression Monitoring 07/23/2025 01/20/2025, 025 Diabetes: Hemoglobin A1C 12/03/2025 025, 01/20/2025, 10/14/2024, Additional history exists SDOH Screening 01/09/2026 01/09/2025 Alcohol/Substance Use Screening 01/20/2026 01/20/2025 Mammogram 01/30/2026 01/30/2025, 03/2 11/2024, 01/30/2025 Disability Screening 03/06/2026 03/06/2025 Diabetes: Urine [...] Hepatitis B Vaccines Completed 02/27/2024, 09/25/2023, 08/28/2023 Influenza Vaccine Completed 09/17/2025, , 09/22/2022, Additional history exists HIB Vaccines Aged Out [...] 10:35 AM EDT Hypertension associated with diabetes ([facility]) ALBUMIN, RANDOM URINE W/CREATININE Routine 03/20/2025 9:31 [...] Media Lot # [id number] Lot# Expiration Date [id number] Blood 06/02/2025 10:3 5 AM EDT us Shona [place] POINT OF CARE TEST ENTER/EDIT OR DERABLES Final Result * Albumin, Random Urine W/Creatinine (03/20/2025 9:31 AM EDT) Creatinine, Urine 213.97 mg/dL [facility] Microalbumin Urine 12.0 mg/L [facility] Microalbum Creatinine Ratio Ur 5.6 <30 ug/mg cr [facility] Comment:Albumin/Creatinine R atio Reference Ranges: Normal: < 30 ug/mg creatinine Microalbuminuria: 30 - 300 ug/mg creatinineClinical Albuminuria: > 300 ug/mg creatinine Urine 03/20/2025 9:31 AM EDT 03/20/2025 11:02 AM EDT us Shona Cheng ANP LAB URINE ORDERABLES Final Resul t Performing Organization Address [facility] de Phone Number [facility] [address] [place] [address] [phone] * (ABNORMAL) Lipid Panel, Standard (03/20/2025 7:07 AM EDT) Triglycerides 178(H) <150 mg/dL [facility] Comment:Desirable Triglyceri de: less than 150 mg/dLBorderline High Triglyceride 150-199 mg/dLHigh Triglyceride: 200-499 mg/dLVery High Triglyceride: greater than or equal to 5OO mg/dL Cholesterol 185 <200 mg/dL [facility] Comment:Desirable Cholestero l: less than 200 mg/dLBorderline High Cholesterol: 200-239 mg/dLHigh Cholesterol: greater than 239 mg/dL LDL Cholesterol Calculated 98 <100 mg/dL [facility] Comment:Desirable LDL: less than 100 mg/dLNear Optimal/Above Optimal LDL: 110- 129 mg/dLBorderline High LDL: 130-159 mg/dLHigh LDL: 160-189 mg/dLVery High LDL: greater than or equal to 190 mg/dL HDL Cholesterol 52 >40 mg/dL [facility] Comment:Desirable HDL: great er than 40 mg/dL Note: This HDL assay may give artificially low results in patients with liver disease. Blood Venous blood specimen / Unknown 03/20/2025 7:07 AM EDT 03/20/2025 11:01 AM EDT us Shona Cheng ANP LAB BLOOD ORDERABLES Final Resul t Performing Organization Address [facility] Co de Phone Number [facility] [address] [place] [address] [phone] * BI US Breast Limited Right (01/30/2025 9:12 AM EDT) Anatomical Region Laterality Modality Breast Right Ultrasound 01/30/2025 9:12 AM EDT Narrative 01/30/2025 10:23 AM EDT [facility] [address] [place] [address] Ultrasound Report Signed Patient: Albania Robles MR#: [id number] : 1980 Acct:[id number] Age/Sex: 44 / F ADM Date: 01/30/25 Loc: HO.MAMMO Attending Dr: Dayton Frazier MD Ordering Physician: Dayton Frazier MD Date of Service: 01/30/25 Procedure(s): US breast RT limited mamm only Accession Number(s): [id number] cc: Dayton Frazier MD; SHONA CHENG NP [...] 01/30/25 1020 DD/ 0912 TD/TT: 01/30/25 0935 Station Worker: Procedure Note Donotuseinterpreter, Image - 01/30/2025 [facility] [address] [place], [place] [address] Ultrasound Report Signed Patient: Robert Robles#: [id number] : 1980Acct:[id number] Age/Sex: 44 / FADM Date: 01/30/25 Loc: HO.MAMMO Attending Dr: Dayton Frazier MD Ordering Physician: Dayton Frazier MD Date of Service: 01/30/25 Procedure(s): US breast RT limited mamm only Accession Number(s): [id number] cc: Dayton Frazier MD; SHONA CHENG NP [...] DO Signed By: <Electronically signed by Noy Haddad, in OV> 01/30/25 1020 DD/ 0912 TD/TT: 01/30/25 0935 Station Worker: us Dayton Perez MD IMG US PROCEDURES Fin al Result * HIV Ab/Ag Exposure Source (01/11/2024 2:05 PM EST) HIV AB/AG Nonreactive Nonreactive [facility] Comment:HIV-1 p24 Ag and/or HIV-1/HIV-2 Ab not detected.A test result that is nonreactive does not exclude thepossibility of exposure to or infection with HIV-1 and/orHIV-2. Nonreactive results in this assay for individualswith prior exposure to HIV-1 and/or HIV-2 may be due toantigen and antibody levels that are below the limit ofdetection of this assay.[facility] [employer] [place] HIV Ag/Ab Combo assay result andsupplemental assay results should be interpreted inconjunction with the patient's clinical presentation,history and other laboratory results. If the results areinconsistent with clinical evidence, additional testing issuggested to confirm the result. 01/11/2024 2:05 PM EST 01/11/2024 2:07 PM EST us Generic External Data Provider LAB BLOOD ORDERAB LES Final Result Performing Organization Address [facility]/ZIP Co de Phone Number [facility] [address] [place] [phone] * Hepatitis C Ab (01/11/2024 2:05 PM EST) Hepatitis C Antibody Nonreactive Nonreactive [facility] Comment:Antibodies to HCV no t detected; does not exclude early acuteHCV infection. 01/11/2024 2:05 PM EST 01/11/2024 2:07 PM EST us Generic External Data Provider LAB BLOOD ORDERAB LES Final Result [facility] [address] [place] [address] [phone] * HPV mRNA E6/E7 (01/30/2018 10:13 AM EDT) HPV mRNA E6/E7 Not Detected NOT DETECTED [facility] Comment: This test was performed using the APTIMA(R) HPV Assay ([employer] This assay detects E6/E7 viral messenger RNA (mRNA) from 14 high-risk HPV types (16,18,31,33,35,39,45,51, 52,56,58,59,66,68). For additional information please refer to: http://education.[employer]/faq/ASO402j1 (This link is being provided for informational/ educational purposes only.) Test Performed by [facility], [facility], [address] [place] [phone] Jameel Swan M.D., Ph.D., Director of Laboratories , [facility] [id number] Please note: Effective 07/24/2016, HPV testing will be performed using [employer]'s APTIMA test which targets mRNA. Detecting mRNA instead of DNA, as in older methods, offers significant improvements in specificity. 01/30/2018 10:1 3 AM EDT Tosin Putnam CNM HISTORICAL/NON ORDERABLE LABS Final Result [facility] [address] from Last 3 Months or Most Recently Relevant to Health Maintenance Insurance [facility]
--- OUTSIDE RECORDS SUMMARY | 2025-09-30 16:25 | XMS_ITS | Encounter Summary ---
Author Organization [employer] Address [address] [place] [address] 7 [place] [address] Care Team Providers Care Editor City Name Role Phone Ivania Magallon Primary Care Provider [phone] Encounter Details Date Type Department Care Team [...] on filedocumented in this encounter Care Teams Editor City Relationship Specialty Start Date End Date Ivania Magallon ANP [address] [place] [phone] PCP - General Family Medicine 04/30/20 08/19/25 documented as of this encounter
== END 2025-09-30 09:03 | disposition home or self-care (01) ==
PROVIDERS: PCP Nurse Practitioner Primary Care; Visit Provider Orthopaedic Surgery
DX: S83.242A Other tear of medial meniscus, current injury, left knee, initial encounter (principal)
CPT/HCPCS: 99213

== ENCOUNTER → 2025-09-30 08:45 | Outpatient (BNVA) | payer OTHER, SELFPAY | PROVIDERS: PCP Nurse Practitioner Primary Care; Visit Provider Orthopaedic Surgery | DX: M25.562 Pain in left knee (principal); S83.242A Other tear of medial meniscus, current injury, left knee, initial encounter | CPT/HCPCS: 99212 ==

== ENCOUNTER 2025-10-05 08:17 | Outpatient (REF) | payer OTHER, SELFPAY ==
--- OUTSIDE RECORDS SUMMARY | 2025-10-05 08:26 | XMS_ITS | Clinical Summary ---
Author Organization [facility] Address [address] [place] [address] Phone Care Team Providers Care Grizzlyman Name Role Phone NaunIvania Mark Anthony MOSCOSO Primary Care Provider [phone] Allergies No known active allergies Social History [...] topic Insurance MEDICAID - [place] Care Teams Grizzlyman Relationship Specialty Start Date End Date Ivania Magallon NP [address] [place] [phone] PCP - General 12/09/24
--- NOTE | 2025-10-05 09:29 | EEG_ITS ---
History: Diabetes, SEEMA (obstructive sleep apnea), Polymyalgia, Chronic neck pain, Chronic low back pain with bilateral sciatica, Pain in joint, multiple sites - Patient reports episodes of witnessed shaking during her sleep. PAtient states it has happened atleast 3 times this year. Last one being 3 weeks ago and she woke up with blood on her lips. Medication: albuterol sulfate, butalbital-acetaminophen- caff, cephalexin, dulaglutide, duloxetine, enalapril, maleate, hydroxyzine HCl, lidocaine, metformin, naltrexone, ondansetron, phenazopyridine, terbinafine HCl Technical Description Photic Stimulation: Completed Hyperventilation: performed - good effort Behavioral State: pleasant State of Consciousness: awake and sleep Skull Defect: none Sedation: none Handedness: right Duration: 32 min 10 sec Floor Installation Mechanic Comments: Last Meal: 10/05 12 AM Time / date of last symptom: 09/14/25 Description: This is a 16 channel EEG with an EKG lead. Patient is reported awake and-sleep during the tracing. Patient is awake and asleep during the tracing. Background EEG rhythm during wakefulness is low to medium amplitude fast. Patient transitioned into stage 1-2 sleep. During drowsiness and sleep periods of generalize sharp waves were noted that seemed to sometime originate in left hemisphere. Photic stimulation does not produce any significant driving. Hyperventilation does not produce any significant changes. Cardiac lead does not produce any significant arrhythmia. Impression: Abnormal EEG suggestive of underlying tendency for generalized seizure probably originating in left hemisphere MTDD
== END 2025-10-05 08:18 | disposition home or self-care (01) ==
LOC: HO.NEURO 08:17
PROVIDERS: PCP Nurse Practitioner Primary Care; Visit Provider Psychiatry & Neurology Neurology
DX: G40.909 Epilepsy, unspecified, not intractable, without status epilepticus (principal)
CPT/HCPCS: 95819

== ENCOUNTER → 2025-10-05 09:29 | Outpatient (BNV) | payer OTHER, SELFPAY | PROVIDERS: PCP Nurse Practitioner Primary Care; Visit Provider Psychiatry & Neurology Neurology | DX: G40.909 Epilepsy, unspecified, not intractable, without status epilepticus (principal); R94.01 Abnormal electroencephalogram [EEG] | CPT/HCPCS: 95819 ==

== ENCOUNTER 2025-10-12 10:12 | Outpatient (AMB) | payer OTHER, SELFPAY ==
--- NOTE | 2025-10-12 10:20 | A.OFFVIS_ITS ---
Vital Signs 10/12/25 10:22 Height 5 ft 4 in Weight 205 lb BMI 35.2 BP 149/72 H Blood Pressure Location Rt radial Position Sitting Respiration 16 Pulse 92 Pulse Source Pulse Oximeter Pulse Oximetry (%) 96 Oxygen Delivery Method Room Air Intake Visit Reasons: Fibromyalgia Director Labor Standards Required: No Allergies latex Adverse Reaction (Intermediate, Verified 10/12/25 10:23) Rash cucumbers, pickles Allergy (Intermediate, Uncoded 10/12/25 10:23) Rash Medication List - Last Reconciled 10/12/25 by Maday Lechuga LPN [id number] 50-325-40 mg 1 tab PO Q6H PRN dulaglutide (Trulicity) 0.75 mg subcut QWEEK duloxetine 60 mg PO DAILY enalapril maleate 10 mg PO DAILY guanfacine ER 1 mg PO DAILY hydroxyzine HCl 10 mg PO Q8H PRN 3 days lidocaine 5% 1 patch transdermal DAILY metformin 1,000 mg PO BID naltrexone 50 mg PO QWEEK 90 days polyethylene glycol 3350 17 grams PO BID rosuvastatin 20 mg PO DAILY HPI HPI Fibromyalgia: Details: History of Present Illness The patient is a 45 year old individual presenting for evaluation of back pain. The back pain began approximately 14 years ago after the patient had to sleep on a hospital floor for six months while the patient's son was in the NICU. The pain encompasses the entire spine, but is most prominent in the lower back, with occasional radiation down the legs, greater on the left than the right. 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 The patient's living situation has improved with the acquisition of a lift chair and a Jose lift, which has reduced the frequency of lifting, though the patient still assists with transfers for activities like showering. The patient reports widespread pain, rating it as 10/10 at its most intense, affecting the neck, ankles, knees, and hips, in addition to the back. The patient notes experiencing numbness and a sensation of needles in the ankles, knees, and hips concurrently, which can disrupt sleep. The patient had right shoulder surgery last year and reports the shoulder is bothering the patient again. Past treatments include cortisone injections in the hips, hands, and back/neck, as well as physical therapy, which reportedly worsened symptoms. The patient has undergone nerve decompression surgeries in both hands, with the last one in November, after which the patient noted a loss of ob gyn physician assistant strength. Recently, the patient has been experiencing convulsions at night, which are witnessed by the patient's boyfriend. A recent EEG, conducted while both awake and asleep, showed possible epileptiform activity in the left hemisphere. The patient has a follow-up appointment scheduled with neurology today to discuss these findings. Pain Description - Onset: Approximately 14 years ago after sleeping on a hospital floor for an extended period. - Location: Pain affects the entire spine, with a focus on the lower back, neck, ankles, knees, and hips. - Radiation: Occasional radiation down the legs, predominantly on the left side. - Quality: Described as an odd low back pain, with associated numbness and needles sensation in the ankles, knees, and hips. - Intensity: Rated as 10/10 at times. - Exacerbating Factors: Pain is worsened by caretaking duties for the patient's disabled son, including lifting. - Interference with Function: Pain and associated symptoms can interfere with sleep. Physical Exam Results - Imaging: Spine imaging (details not specified) shows a couple of slightly degenerated discs that are not herniated. - EEG: A recent EEG performed while awake and asleep showed probable epileptiform activity originating in the left hemisphere. Pain Management - Analgesia: The patient is taking duloxetine (Cymbalta). - The patient has previously received cortisone shots in the hips, hands, and neck. - Current pain level is rated up to 10 out of 10. - Pregabalin (Lyrica) was discussed as a potential medication for neuropathy, to be considered by neurology. 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 - Pain can interfere with sleep. - The patient has acquired a lift chair and Jose lift to reduce the physical demands of caregiving. - Affect: The patient states that after the son's , the patient stopped taking care of self for many years and feels no relief despite trying everything. - Adverse Effects: No adverse effects from current medications were discussed. - Aberrant Drug Related Behaviors: No aberrant drug-related behaviors were discussed. [facility] Medical History Constipation Peripheral neuropathy Class 1 obesity Hypertension Parent coping with child illness or disability Stress at home Diabetes type 2 Chronic pain Diabetes SEEMA (obstructive sleep apnea) Polymyalgia Chronic neck pain Chronic low back pain with bilateral sciatica Pain in joint, multiple sites Surgical History History of surgery on upper extremity Hx of shoulder surgery (01/11/24) Hx of hysterectomy Hx of laparoscopic gastric banding Family History Mother Hypertension Arthritis Father Diabetes Social History Household Members: Children Housing: House Are you a primary daycare director to a significant other at home: No Do you presently have visiting nurse or other home services: No Alcohol intake: current Alcohol intake frequency: does not drink Patient Tobacco Use Status: Never used Tobacco service: No Current occupational status: employed 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, 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 Cognitive needs: No Hearing needs: No Vision needs: Yes (uses glasses) Physical Exam Vital Signs: Last Vital Signs Pulse 92 10/12/25 10:22 Resp 16 10/12/25 10:22 BP 149/72 H 10/12/25 10:22 Pulse Ox 96 10/12/25 10:22 Oxygen Delivery Method Room Air 10/12/25 10:22 BMI result Body Mass Index 35.2 Assessment & Plan Assessment & Plan (1) Low back pain radiating to both legs: Code(s): M54.50 - Low back pain, unspecified; M79.604 - Pain in right leg; M79.605 - Pain in left leg Category: Medical (2) Seizure disorder: Code(s): G40.909 - Epilepsy, unspecified, not intractable, without status epilepticus Category: Medical (3) Peripheral neuropathy: Code(s): G62.9 - Polyneuropathy, unspecified Category: Medical (4) Chronic pain: Code(s): G89.29 - Other chronic pain Category: Medical Plan Plan Patient was informed and verbally consented to the use of an ambient scribe for clinic note documentation during this visit. 1. Chronic Pain - The patient's pain is likely multifactorial, related to degenerative disc disease and chronic physical strain from caregiving activities. - Continue current dosage of duloxetine (Cymbalta). - Recommended initiating a home exercise program with a focus on core and cervical extensor strengthening, to be performed twice daily. - Advised that interventions like cortisone injections provide only temporary relief and are not a long-term solution, though they remain an option if conservative measures fail. - Advised to follow up as needed, particularly if there is no improvement after a few months of exercise or if sharp pain develops. 2. Nocturnal Seizures And Neuropathy - The patient reports new onset nocturnal convulsions and has a recent EEG showing probable epileptiform activity in the left hemisphere. - Concomitant symptoms of neuropathy in the lower extremities were also noted. - The patient will follow up with Neurology later today to discuss EEG results and management. - Discussed the possibility that the neurologist may prescribe an anticonvulsant medication, such as pregabalin (Lyrica), which could also treat the patient's neuropathy. - The plan is to await the neurologist's evaluation and prescribed treatment to see if it provides dual benefit for both seizures and neuropathy before considering additional medications from this service. Discussion Notes I had a detailed discussion with the patient regarding the patient's chronic pain affecting multiple areas, including the back, neck, and extremities. I explained that for a person of the patient's age and spinal condition, the most effective long-term strategy is strengthening the core muscles through daily exercise. I emphasized that other treatments like injections offer only temporary relief and are not a sustainable solution. We discussed the patient's new-onset nocturnal convulsions and recent abnormal EEG. I noted the patient has an appointment with neurology today and discussed the possibility that an anticonvulsant medication, which may be prescribed, cou ld also help with the reported neuropathy symptoms. I recommended waiting for the neurologist's assessment and treatment plan. My primary recommendation is to continue duloxetine and to initiate a consistent home exercise program for core and cervical strengthening. I advised the patient to follow up with me as needed, especially if the pain does not improve with exercise over a few months or if there is any sharp pains. The patient understood the plan. Patient Instructions - Start doing exercises every morning and evening to strengthen the muscles in your belly, back, and neck. - You can find good exercises on websites like [employer] by searching for core strengthening exercises. It is best to do these while lying on a mat on the floor. - Continue taking your Cymbalta (duloxetine) medication as prescribed. - Follow up with your neurologist today to discuss your recent test results and the shaking you experience at night. - The medication your neurologist prescribes may also help with the numbness and tingling in your legs. - Please return to see me if your pain does not get better after a few months of exercising, or if you develop any new sharp pain. Coding Level of Care Code New Pt Level 4 (93756) Diagnoses Low back pain radiating to both legs M54.50; M79.604; M79.605 Seizure disorder G40.909 Peripheral neuropathy G62.9 Chronic pain G89.29
[2025-10-12 10:22] VITALS: BP 149/72; PULSE 92; RESP 16; O2SAT 96; BMI 35.2
--- OUTSIDE RECORDS SUMMARY | 2025-10-12 12:34 | XMS_ITS | Encounter Summary ---
Author Organization [employer] Address [address] [place] [address] 7 [place] [address] Care Team Providers Care Email Deployment Specialist Name Role Phone Ivania Magallon Primary Care Provider [phone] Encounter Details Date Type Department Care Team [...] on filedocumented in this encounter Care Teams Email Deployment Specialist Relationship Specialty Start Date End Date Ivania Magallon ANP [address] [place] [id number] PCP - General Family Medicine 04/30/20 08/19/25 documented as of this encounter
--- OUTSIDE RECORDS SUMMARY | 2025-10-12 12:34 | XMS_ITS | Clinical Summary ---
Author Organization [facility] Address [address] [place] [address] Phone Care Team Providers Care Product Steward Name Role Phone [facility] [phone] Social History Tobacco Use Types Packs/Day Years Used Date Smoking Tobacco: Never Assessed Comments Unknown Sex and Gender Information Value Date Recorded Sex Assigned at Not on file Legal Sex Female 3:55 AM EDT Gender Identity Not on file Sexual Orientation Not on file Plan of Treatment Not on file Care Teams Product Steward Relationship Specialty Start Date End Date [facility] [address] [place] [address] PCP - Insurance PCP 01/21/21
--- OUTSIDE RECORDS SUMMARY | 2025-10-12 12:34 | XMS_ITS | Encounter Summary ---
Author Organization [facility] [employer] Address [address] [place] [address] [address] [place] [address] Care Team Providers Care Furniture Assembler Name Role Phone Ivania Magallon Primary Care Provider [phone] Encounter Details Date Type Department Care Team [...] on filedocumented in this encounter Care Teams Furniture Assembler Relationship Specialty Start Date End Date Ivania Magallon ANP [address] [place] [id number] PCP - General Family Medicine 04/30/20 08/19/25 documented as of this encounter
--- OUTSIDE RECORDS SUMMARY | 2025-10-12 12:34 | XMS_ITS | Encounter Summary ---
Author Organization [facility] [employer] Address [address] [place] [address] [address] [place] [address] Care Team Providers Care Documentation Improvement Specialist Name Role Phone Ivania Magallon Primary Care Provider [phone] Reason for Visit * Reason Comments Med Refill Encounter Details Date Type Department Care Team ([facility] st Contact Info) Description 07/21/2024 Refill [facility] [address] [place] [address] Ivania Magallon ANP [address] [place] [address] Hypertension associated with diabetes (CMS/HCC) ([facility]/HCC) Social History Tobacco Use Types [...] documented as of this encounter Care Teams Documentation Improvement Specialist Relationship Specialty Start Date End Date Ivania Magallon ANP [address] [place] [id number] PCP - General Family Medicine 04/30/20 08/19/25 documented as of this encounter
--- OUTSIDE RECORDS SUMMARY | 2025-10-12 12:34 | XMS_ITS | Clinical Summary ---
Author Organization [employer] Address [address] [facility] 7 [place] [address] Care Team Providers Care Sr. Manager Name Role Phone Unavailable Primary Care Provider Unavailabl e Allergies Active Allergy Reactions Criticality Noted Date Comments [place] Extract Rash High 09/07/2021 Other reaction(s): GI [...] tablet 1 09/25/20 24 Active nystatin (Mycostatin) 822304 UNIT/GM powder Apply topically 2 times daily. [...] patch after 12 hours 30 patch 3 5 10:43 AM EST 07/06/20 25 Active Trulicity 3 MG/0.5ML solution [...] Morbid obesity with BMI of 40.0-44.9, adult ([facility]) 07/04/2023 Weight loss 07/04/2023 Obstructive sleep apnea [...] Type Department Care Team Description 09/17/2025 Telephone [facility] [address] [place] [phone] Shona Cheng ANP Prior Authorization 08/18/2025 Telephone [facility] [address] [place] [address] Shona Cheng ANP chart prep 07/26/2025 Refill [facility] [address] [place] [address] Shona Cheng ANP 07/20/2025 Telephone [facility] [address] [place] [phone] Patricia Mcgregor, ANAMARIA Results from Last 3 Months Immunizations Immunization Administration [...] Screening 01/20/2026 01/20/2025 Mammogram 01/30/2026 01/30/2025, 01/11, 01/30/2025, Additional history exists Eye Exam 02/27/2026 02/27/2025, 0406/2025, 02/27/2025, Additional history exists Disability Screening 03/06/2026 03/06/2025 Diabetes: Urine Protein [...] 9:31 AM EDT) Creatinine, Urine 213.97 mg/dL [facility] Microalbumin Urine 12.0 mg/L [facility] Microalbum Creatinine Ratio Ur 5.6 <30 ug/mg cr [facility] Comment:Albumin/Creatinine R atio Reference Ranges: Normal: < 30 ug/mg creatinine Microalbuminuria: 30 - 300 ug/mg creatinineClinical Albuminuria: > 300 ug/mg creatinine Urine 03/20/2025 9:31 AM EDT 03/20/2025 11:02 AM EDT us Shona CORONA LAB URINE ORDERABLES Final Resul t [facility] [address] [place] [phone] * (ABNORMAL) Lipid Panel, Standard (03/20/2025 7:07 AM EDT) Triglycerides 178(H) <150 mg/dL [facility] Comment:Desirable Triglyceri de: less than 150 mg/dLBorderline High Triglyceride 150-199 mg/dLHigh Triglyceride: 200-499 mg/dLVery High Triglyceride: greater than or equal to 5OO mg/dL Cholesterol 185 <200 mg/dL [facility] Comment:Desirable Cholestero l: less than 200 mg/dLBorderline High Cholesterol: 200-239 mg/dLHigh Cholesterol: greater than 239 mg/dL LDL Cholesterol Calculated 98 <100 mg/dL [facility] Comment:Desirable LDL: less than 100 mg/dLNear Optimal/Above Optimal LDL: 110- 129 mg/dLBorderline High LDL: 130-159 mg/dLHigh LDL: 160-189 mg/dLVery High LDL: greater than or equal to 190 mg/dL HDL Cholesterol 52 >40 mg/dL [facility] Comment:Desirable HDL: great er than 40 mg/dL Note: This HDL assay may give artificially low results in patients with liver disease. Blood Venous blood specimen / Unknown 03/20/2025 7:07 AM EDT 03/20/2025 11:01 AM EDT [facility] LAB BLOOD ORDERABLES Final Resul t [facility] [address] [place] [phone] * BI US Breast Limited Right (01/30/2025 9:12 AM EDT) Anatomical Region Laterality Modality Breast Right Ultrasound 01/30/2025 9:12 AM EDT Narrative 01/30/2025 10:23 AM EDT [facility] [address] [place] [address] Ultrasound Report Signed Patient: Albania Robles MR#: [id number] : 1980 Acct:[id number] Age/Sex: 44 / F ADM Date: 01/30/25 Loc: ZULMA Attending Dr: Dayton Frazier MD Ordering Physician: Dayton Frazier MD Date of Service: 01/30/25 Procedure(s): US breast RT limited mamm only Accession Number(s): [id number] cc: Dayton Frazier MD; SHONA CHENG NP [...] 01/30/25 1020 DD/ 0912 TD/TT: 01/30/25 0935 Manager Eligibility: Procedure Note Donotuseinterpreter, Image - 01/30/2025 [facility] [address] [place] [address] [place] [address] Ultrasound Report Signed Patient: Robert Robles#: [id number] : 1980Acct:[id number] Age/Sex: 44 / FADM Date: 01/30/25 Loc: HO.MAMMO Attending Dr: Dayton Frazier MD Ordering Physician: Dayton Frazier MD Date of Service: 01/30/25 Procedure(s): US breast RT limited mamm only Accession Number(s): [id number] cc: Dayton Frazier MD; SHONA CHENG NP [...] 01/30/25 1020 DD/ 0912 TD/TT: 01/30/25 0935 Manager Eligibility: Dayton Perez MD IM US PROCEDURES Fin al Result * HIV Ab/Ag Exposure Source (01/11/2024 2:05 PM EST) HIV AB/AG Nonreactive Nonreactive [facility] Comment:HIV-1 p24 Ag and/or HIV-1/HIV-2 Ab not detected.A test result that is nonreactive does not exclude thepossibility of exposure to or infection with HIV-1 and/orHIV-2. Nonreactive results in this assay for individualswith prior exposure to HIV-1 and/or HIV-2 may be due toantigen and antibody levels that are below the limit ofdetection of this assay.The [employer] HIV Ag/Ab Combo assay result andsupplemental assay results should be interpreted inconjunction with the patient's clinical presentation,history and other laboratory results. If the results areinconsistent with clinical evidence, additional testing issuggested to confirm the result. 01/11/2024 2:05 PM EST 01/11/2024 2:07 PM EST us Generic External Data Provider LAB BLOOD ORDERAB LES Final Result Performing Organization Address [facility]/ZIP Co de Phone Number [facility] [address] [place] [phone] * Hepatitis C Ab (01/11/2024 2:05 PM EST) Hepatitis C Antibody Nonreactive Nonreactive [facility] Comment:Antibodies to HCV no t detected; does not exclude early acuteHCV infection. 01/11/2024 2:05 PM EST 01/11/2024 2:07 PM EST Generic External Data Provider LAB BLOOD ORDERAB LES Final Result Performing Organization Address [facility]/ZIP Co de Phone Number [facility] [address] [place] [phone] * HPV mRNA E6/E7 (01/30/2018 10:13 AM EDT) HPV mRNA E6/E7 Not Detected NOT DETECTED [facility] Comment: This test was performed using the APTIMA(R) HPV Assay ([employer] This assay detects E6/E7 viral messenger RNA (mRNA) from 14 high-risk HPV types (16,18,31,33,35,39,45,51, 52,56,58,59,66,68). For additional information please refer to: http://education.[employer]/faq/PBY242d7 (This link is being provided for informational/ educational purposes only.) Test Performed by [employer], [employer] [facility], [address] [place] [phone] Jameel Swan M.D., Ph.D., Director of Laboratories , [facility] [id number] Please note: Effective 07/24/2016, HPV testing will be performed using [employer]'s APTIMA test which targets mRNA. Detecting mRNA instead of DNA, as in older methods, offers significant improvements in specificity. 01/30/2018 10:1 3 AM EDT Tosin Putnam CNM HISTORICAL/NON ORDERABLE LABS Final Result [facility] Anywhere [address] from Last 3 Months or Most Recently Relevant to Health Maintenance Insurance [employer] C3
--- OUTSIDE RECORDS SUMMARY | 2025-10-12 12:34 | XMS_ITS | Encounter Summary ---
Author Organization [employer] Address [address] [facility] 7 [place] [address] Care Team Providers Care Maintenance Advisor Name Role Phone Ivania Magallon Primary Care Provider [phone] Reason for Visit * Reason Onset Date Comments Nurse Triage 12/24/2024 Encounter Details Date Type Department Care Team ([facility] st Contact Info) Description 12/24/2024 Telephone [facility] [address] [place] [address] Ivania Magallon ANP [address] [place] [address] Nurse Triage Social History Tobacco Use Types [...] is your housing situation today? I have seugndo agosto 10/02/[address] you [...] needed. Pt is advised to come to [facility] after 5pm for provider to see Pt. [facility] is open till 8pm. Pt agrees with [...] documented as of this encounter Care Teams Maintenance Advisor Relationship Specialty Start Date End Date Ivania Magallon ANP [address] [place] [phone] PCP - General Family Medicine 04/30/20 08/19/25 documented as of this encounter
--- OUTSIDE RECORDS SUMMARY | 2025-10-12 12:34 | XMS_ITS | Encounter Summary ---
Author Organization [employer] Address [address] [facility] 7 [place] [address] Care Team Providers Care Connection Worker Name Role Phone Ivania Magallon Primary Care Provider [phone] Reason for Visit * Reason Onset Date Comments Med Refill 09/25/2023 Encounter Details Date Type Department Care Team (Late st Contact Info) Description 09/25/[address] [facility] [address] [place] [address] Ivania Magallon ANP [address] [place] [address] Hypertension associated with diabetes (CMS/HCC) Social History [...] documented as of this encounter Care Teams Connection Worker Relationship Specialty Start Date End Date Ivania Magallon ANP [address] [place] [phone] PCP - General Family Medicine 04/30/20 08/19/25 documented as of this encounter
--- OUTSIDE RECORDS SUMMARY | 2025-10-12 12:34 | XMS_ITS | Encounter Summary ---
Author Organization [employer] Address [address] [place] [address] 7 [place] [address] Care Team Providers Care Electric Meter Repairer Apprentice Name Role Phone Ivania Magallon Primary Care Provider [phone] Reason for Visit * Reason Onset Date Comments Med Refill 08/01/2023 Encounter Details Date Type Department Care Team (Late st Contact Info) Description 08/01/2023 Refill [facility] [address] [place] [address] Ivania Magallon ANP [address] [place] [address] Hypertension associated with diabetes (CMS/HCC) Social History [...] documented as of this encounter Care Teams Electric Meter Repairer Apprentice Relationship Specialty Start Date End Date Ivania Magallon ANP [address] [place] [address] PCP - General Family Medicine 04/30/20 08/19/25 documented as of this encounter
== END 2025-10-12 11:29 | disposition home or self-care (01) ==
LOC: HO.PMC 10:13
PROVIDERS: PCP Student in an Organized Health Care Education/Training Program; Visit Provider Internal Medicine
DX: M54.50 Low back pain, unspecified (principal); M79.604 Pain in right leg; M79.605 Pain in left leg; G40.909 Epilepsy, unspecified, not intractable, without status epilepticus; G62.9 Polyneuropathy, unspecified; G89.29 Other chronic pain
CPT/HCPCS: 99204

== ENCOUNTER → 2025-10-12 10:12 | Outpatient (BNVA) | payer OTHER, SELFPAY | PROVIDERS: PCP Student in an Organized Health Care Education/Training Program; Visit Provider Internal Medicine | DX: M79.7 Fibromyalgia (principal); G40.409 Other generalized epilepsy and epileptic syndromes, not intractable, without status epilepticus; M54.50 Low back pain, unspecified; M79.604 Pain in right leg; M79.605 Pain in left leg; G62.9 Polyneuropathy, unspecified; G89.29 Other chronic pain; Z79.899 Other long term (current) drug therapy | CPT/HCPCS: 99202; 99212 ==

== ENCOUNTER 2025-10-12 11:11 | Outpatient (AMB) | payer MEDICAID, SELFPAY ==
--- OUTSIDE RECORDS SUMMARY | 2025-10-07 10:51 | XMS_ITS | Continuity of Care Document ---
Author Organization [facility] ter Address [address] [place] [id number]- Care Team Providers Care Technical Systems Architect Name Role Phone Caleb Cabrera MD Primary Care Physician En[place] [facility] [id number] Date(s): 10/07/25 - 10/07/[address] [address] Discharge Disposition: A-D/C Home Attending Physician: Lizzy Alvarado DO Admitting Physician: Lizzy Alvarado DO Referring Physician: Lizzy Alvarado DO Encounter Type: Disch Daystay Allergies, Adverse Reactions, Alerts Substance Criticality Severity Reaction Reaction Severity Status Latex redness, itchy skin Active Other Food Allergy 1 Unable to assess criticality Persistent Moderate CUCUMBERS- RASH/ GI UPSET rash Active 1pt allergic to pickles Functional Status Functional Status Assessment Assessment Assessment Component Result Effecti ve Date Unspecifed Functional Status Assessment Skin abnormality typ e (observable entity) Puncture 10/07/25 Functional Status Assessment Assessment Assessment Component Result Effecti ve Date Unspecifed Functional Status Assessment Skin abnormality typ e (observable entity) Puncture 10/07/25 Medications Colace sodium 100 mg oral capsule 100 mg, 1, capsule, By Mouth, 2 times a day, PRN, # 20 capsule, Refills 0, Tot. Refills 0, Maintenance, for constipation, 10/07/25 9:36:00 AM EST, Route to Pharmacy Electronically, [facility] - [place], [place] - [phone], Partial fill upon patient request if the prescription is for a schedule II opioid drug., 162.5, cm, 09/24/25 11:06:00 EST, Height, 92.5, kg, 10/07/25 8:32:00 EST, Dry Weight Start Date: 10/07/25 Status: Ordered Medication Dispense Status: Completed Quantity: 20.0 Unit: capsule Total Allowed Fills: 1 Fills Dispensed: 0 duloxetine 30 mg oral enteric coated capsule 1 capsule = 30 mg, By Mouth, Daily at bedtime, # 30 capsule, 0 Refills, Maintenance, 10/01/25 9:59:00 AM EST, Partial fill upon patient request if the prescription is for a schedule II opioid drug. Start Date: 10/01/25 Status: Ordered Medication Dispense Status: Completed Quantity: 30.0 Unit: capsule Total Allowed Fills: 1 Fills Dispensed: 0 duloxetine 60 mg oral enteric coated capsule 1 capsule = 60 mg, By Mouth, Daily in AM, do not crush or chew, 0 Refills, Maintenance, 10/01/25 10:00:00 AM EST, CR Capsule, Partial fill upon patient request if the prescription is for a schedule II opioid drug. Start Date: 10/01/25 Status: Ordered Medication Dispense Status: Completed Total Allowed Fills: 1 Fills Dispensed: 0 Enalapril = 10 mg, Daily, 0 Refills, Maintenance, 02/25/25 11:04:00 AM EDT, Partial fill upon patient request if the prescription is for a schedule II opioid drug. Start Date: 02/25/25 Status: Ordered Medication Dispense Status: Completed Total Allowed Fills: 1 Fills Dispensed: 0 ibuprofen 600 mg oral tablet 600 mg, 1, tablet, By Mouth, 4 times a day, PRN, # 40 tablet, Refills 0, Tot. Refills 0, Acute 10/08/25 9:36:00 AM EST, for pain, 10/07/25 9:36:00 AM EST, Route to Pharmacy Electronically, [place], [place] - [phone], Partial fill upon patient request if the prescription is for a schedule II opioid drug., 162.5, cm, 09/24/25 11:06:00 EST, Height, 92.5, kg, 10/07/25 8:32:00 EST,Dry Weight Start Date: 10/07/25 Stop Date: 10/08/25 Status: Ordered Medication Dispense Status: Completed Quantity: 40.0 Unit: tablet Total Allowed Fills: 1 Fills Dispensed: 0 Metformin By Mouth, 0 Refills, Maintenance, 02/25/25 11:04:00 AM EDT, Partial fill upon patient request if theprescription is for a schedule II opioid drug. Start Date: 02/25/25 Status: Ordered Medication Dispense Status: Completed Total Allowed Fills: 1 Fills Dispensed: 0 naltrexone 50 mg oral tablet Daily at bedtime, 0 Refills, Maintenance, 09/24/25 11:04:00 AM EST, Partial fill upon patient request if the prescription is for a schedule II opioid drug. Start Date: 09/24/25 Status: Ordered Medication Dispense Status: Completed Total Allowed Fills: 1 Fills Dispensed: 0 Trulicity Pen Subcutaneous Infusion, 0 Refills, Maintenance, 02/25/25 11:04:00 AM EDT, Partial fill upon patient request if the prescription is for a schedule II opioid drug. Start Date: 02/25/25 Status: Ordered Medication Dispense Status: Completed Total Allowed Fills: 1 Fills Dispensed: 0 Tylenol Extra Strength 500 mg oral tablet 1 tablet = 500 mg, By Mouth, Every 4 hours, PRN for pain, # 60 tablet, 0 Refills, Acute 10/08/25 9:36:00 AM EST, 10/07/25 9:36:00 AM EST, Tablet, [place], [place] - [phone], Partial fill upon patient request if the prescription is for a schedule II opioid drug., 162.5, cm, 09/24/25 11:06:00 EST, Height, 92.5, kg, 10/07/25 8:32:00 EST, Dry Weight Start Date: 10/07/25 Stop Date: 10/08/25 Status: Ordered Medication Dispense Status: Completed Quantity: 60.0 Unit: tablet Total Allowed Fills: 1 Fills Dispensed: 0 Problem List Condition Confirmation Course Effective Dates Status Health St atus Informant Adjustment disorder with mixed anxiety and depressed mood Confirmed Active Binge eating disorder, mild, in partial remission Confirmed Active Morbid obesity with BMI of 40.0-44.9, adult Confirmed Active Diabetes mellitus Confirmed Active S/P laparoscopic sleeve gastrectomy Confirmed Active HTN (hypertension) Confirmed Active SEEMA on CPAP Confirmed Active Severe obesity (BMI 35.0-39.9) with comorbidity Confirmed Active Weight loss Confirmed Active Vital Signs Most recent to oldest [Reference Range]: 1 2 3 Weight 92.5 kg (10/07/25 8:32 AM) Oxygen Saturation [94-100 %] 98 % (10/07/25 10:15 AM) 100 % (10/07/25 10:00 AM) 100 % (10/07/25 9:50 AM) Pulse Rate [55-90 bpm] 93 bpm *H* (10/07/25 8:32 AM) Blood Pressure [90-138/55-84 mm Hg] 130/80mm Hg (10/07/25 10:15 AM) 128/78mm Hg (10/07/25 10:00 AM) 136/79mm Hg (10/07/25 9:50 AM) Respiratory Rate [16-30 br/min] 22 br/min (10/07/25 10:15 AM) 17 br/min (10/07/25 10:00 AM) 16 br/min (10/07/25 9:50 AM) Temperature [96.8-100.4 DegF] 97.3 DegF (10/07/25 10:15 AM) 97.2 DegF (10/07/25 9:50 AM) 97 DegF (10/07/25 8:32 AM) Liters per Minute 6 L/min (10/07/25 9:50 AM) Mode of Delivery (Oxygen) Room air (10/07/25 10:15 AM) Room air (10/07/25 10:00 AM) Simple face mask (10/07/25 9:50 AM) Blood pressure sites Arm, left (10/07/25 8:32 AM) Temperature Route Temporal (10/07/25 10:15 AM) Temporal (10/07/25 9:50 AM) Temporal (10/07/25 8:32 AM) Dry Weight 92.5 kg (10/07/25 8:32 AM) Weight Obtained Via Standing scale (10/07/25 8:32 AM) Dry Weight Obtained Via Standing scale (10/07/25 8:32 AM) Social History Social History Type Response Sexual Sexually involved in last 6 months: Yes. Smoking Status Never (less than 100 in lifetime) entered on: 02/25/25 Sex Sex Representation Female (finding) History and physical note * Event Display: History and Physical Hospital Authored Date: [id number] Note * Gabby Kuhn RN: PERFORM Event Display: Discharge/Transfer Note Hospital Authored Date: [id number] Nursing Discharge Note Entered On: 10/07/2025 11:12 EST Performed On: 10/07/2025 10:51 EST by Gabby Kuhn RN Nursing Discharge Note 2 Discharge Level of Care at Discharge : Home/Retirement/Foster Care Discharge Time : 10/07/2025 10:51 EST Outreach Specialist Utilized : No Patient Left Unit Via : Wheelchair Patient Accompanied Off Unit with : Significant other DC Instructions Provided & Signed by Pt : Yes Patient Understands D/C Instructions : Yes Verbalized Understanding of D/C Plan By : Family, Significant other Patient Instructions Discharge Signed : Yes Did Pt have Specialty Bed or Wound Vac : No Gabby Kuhn RN - 10/07/2025 11:12 EST Electronically Signed on 10/07/25 11:12 AM Gabby Kuhn RN * Gabby Kuhn RN: PERFORM Event Display: Patient Education/Instruction Authored Date: [id number] Surgery Adult Discharge Instructions [place] [id number] Name: XIAO BROWN : 1980?? Visit: 10/07/2025 08:04?? Current Date: 10/07/2025 10:21 ?? Account: [id number]?? Surgery Discharge Instructions We would like to thank you for allowing us to assist you with your healthcare needs. The following includes patient education materials and information regarding your injury/illness. Our entire staffstrives to provide an excellent experience for our patients and their families. PLEASE ENSURE YOU FOLLOW-UP PER THE INSTRUCTIONS BELOW! ?? YOUR OPINION IS IMPORTANT TO US! Please complete the survey you may receive by mail or email. Your feedback will be used to make improvements to the healthcare experiences of our patients and their families. Surveys are administered by [employer] ?? If further treatment with your primary care physician or another doctor is recommended, it is important for you to keep the appointment. Call your primary care physician or return to the Emergency Department immediately if your condition worsens, fails to improve, or new symptoms develop. If you need to find a doctor, you can call [facility] for a referral at [phone] or toll free at [phone] ([phone]) or log in to [email or web address].. ?? [facility], in keeping with [facility] guidance, no longer requires face masks for staff, patientsor visitors in most situations. Similiar to time spent indoors at other locations, there is the chance that you were exposed to repiratory viruses during your time with us (such as flu or COVID-19). If you develop symptoms concerning for a viral respiratory infection, please seek testing (and treatment if indicated) from your medical provider or home test kit. ?? You can view and manage your care through the patient portal or by using a health care jean of your choosing. [employer] is a website that allows you to securely view your medical information including your hospital discharge summary, office visit summaries, medications and follow-up visits. You can also request appointments, renew medications, and request access to your medical information using a health care jean of your choosing, or just ask a question. You are entitled to know the individuals who participated in your treatment. This information is available within your medical record and will be provided upon your request. You can enroll at [email or web address] or register d uring your next office visit. You have been discharged from [facility], Patient Care Unit: [facility]??. If you have any questions regarding these instructions after you leave, please call us and we will be happy to assist you. [facility] Your Care Team Attending Physician Lizzy Alvarado DO?? Discharging Providers Lizzy Alvarado DO Reason for Admission STRESS URINARY INCONTINENCECS DS Primary Care Provider Caleb Cabrera MD? Advance Directive Health Care Proxy on File Yes - Health Care Proxy What to do next Instructions From Your Doctor ?? Orders? 10/07/25 9:36:00 EST?? Instructions from your Care Team Alternate Tylenol and Ibuprofen for pain Take Tylenol(Acetaminophen) at: 430pm Take Ibuprofen (Mortin/Advil)??at: 430pm ?? Please call??Surgeon's office with any questions or concerns. Scheduled Follow-Up Appointments 2024 11:40 AM EST ?? Type: Post-Op With: Lizzy Alvarado DO Where: [facility] [address] [place] [address]- Status: Pending You Need to Schedule the Following Appointments Follow Up with AISALOME: [facility] [phone] Follow Up with??Lizzy Alvarado DO When:Within 1 to 2 weeks Where:[facility] [place] [address]- Discharge Medications XIAO BANGURA :1980 Visit Date:10/07/2025 Medications: Please continue your medications until treatment is completed or stopped by your provider. You may resume your daily prescription medications. Discuss any questions related to medications with your provider. What How Much When Instructions Next Dose New Acetaminophen (Tylenol Extra Strength 500 mg oral tablet) 1 tab(s) Oral Every 4 hours as needed for for pain Ordering Physician: Lizzy Alvarado DO Pickup at [facility] [phone] 430pm New Docusate (Colace sodium 100 mg oral capsule) 1 capsule Oral Twice a day as needed for for constipation Ordering Physician: Lizzy Alvarado DOup at [facility] [phone] Tonight New Ibuprofen (ibuprofen 600 mg oral tablet) 1 tab(s) Oral 4 times a day as needed for for pain Ordering Physician: Lizzy Alvarado DO Pickup at [facility] [phone] 430pm Unchanged dulaglutide (Trulicity Pen) Subcutaneous Infusion resume Unchanged Duloxetine (duloxetine 30 mg oral enteric coated capsule) 1 capsule Oral Daily at Bedtime resume Unchanged Duloxetine (duloxetine 60 mg oral enteric coated capsule) 1 capsule Oral Daily in the morning Special Instructions: do not crush or chew ?? resume Unchanged Enalapril 10 Milligram Daily resume Unchanged Metformin Oral resume Unchanged Naltrexone (naltrexone 50 mg oral tablet) Daily at Bedtime resume Pharmacy Information [facility] - [place] - [phone]: [address] [facility] [place] [phone] Allergies (NKA means No Known Allergies) Other Food Allergy (Persistent Moderate)??CUCUMBERS- RASH/ GI UPSET, rash Latex??redness, itchy skin Education Materials Below is the list of Educational Leaflet Providered with your Discharge Instructions. [employer] Patient Education - Surgery Medical Daystay Surgical Overnight Discharge Instructions?? [employer] Patient Education - ??NSAID Analgesic Schedule?? Valuables and Belongings I fully understand and agree that [facility] accepts no responsibility for all my personal property including clothing, toilet articles, radios, jewelry, dentures, hearing aids, rings, money, or any other property that is in my possession or is brought to me after admission. I understand certain valuables may be placed in a hospital safe for a short period of time. I understand that the hospital is not liable for loss or damage due to accident, fire, or other natural occurrence while said property is in the safe. I accept full responsibility for any personal property that I keep with me, and will not hold the hospital responsible in case of loss or disappearance. I acknowledge that i have been encouraged to send valuables and belongings home. ?? Date for Pt to Sign Valuables/Belongings: 10/07/25 08:32:00 ?? Valuables & Belongings ?? Clothes Electronic devices Jewelry Monetary Items Personal devices Miscellaneous Medications (Valuables) Valuables at Bedside Pants, Shirt, Shoes, Undergarments Cell phone ?? Purse Glasses ? Valuables Sent Home ? Valuables Sent to Security ? Valuables Sent to Locker ? Other Discharge Information ? Pulmonary Rehab Status?? Pulmonary Rehab Discharge Status?? Respiratory Rate: 16 br/min ? Common Emergency Awareness Tips IS IT A STROKE? Act FAST and Check for these signs: FACE Does the face look uneven? ARM Does one arm drift down? SPEECH Does their speech sound strange? TIME Call at any sign of stroke ?? Heart Attack Signs Chest discomfort: Most heart attacks involve discomfort in the center of the chest and lasts more than a few minutes, or goes away and comes back. It can feel like uncomfortable pressure, squeezing, fullness or pain. Discomfort in upper body: Symptoms can include pain or discomfort in one or both arms, back, neck, jaw or stomach. Shortness of breath: With or without discomfort. Other signs: Breaking out in a cold sweat, nausea, or lightheaded. Remember, MINUTES DO MATTER. If you experience any of these heart attack warning signs, call to get immediate medical attention! ?? Smoking can increase your chances of developing chronic health problems and can cause harmful effects to other family members in your house. If you smoke, you are strongly encouraged to quit. Please call [facility] [employer] at [phone] or [phone]) or log in to [email or web address] for referrals to smoking cessation programs. ?? The National Suicide Prevention Hotline is available 04/06 if you or someone you know needs to find a reason to keep living. By calling 8-444-201-[employer] (1620) you'll be connected to a skilled, trained counselor at a crisis center in your area. SURGERY DISCHARGE INSTRUCTIONS SIGNATURE PAGE XIAO BANGURA Location:[facility] Registration Date and Time:10/07/2025 08:04 EST Primary Care Physician: Caleb Cabrera MD, Attending Physician: Lizzy Alvarado DO, I XIAO BANGURA, have received the above patient education materials/instructions and have verbalized understanding. If ambulance or transport services are being used I further acknowledge being given a choice of service. ?? If you need to contact me, please call me at this number: . Patient/Electromechanical Assembly Technician Name: Patient/Electromechanical Assembly Technician Signature: Relationship to Patient: Witness Name/Signature: Date: * Gabby Kuhn RN: PERFORM Event Display: Patient Education Leaflets Authored Date: [id number] Surgery Medical Daystay Surgical Overnight Discharge Instructions ?? 295 Medical Daystay/Surgical Overnight Discharge Instructions ? Since your coordination and judgment may be altered by medication and/or anesthesia, a responsible adult must drive you home from the hospital. ? If you have received medication for pain or sedation while under our care, you should not drive, operate machinery, drink alcohol, or sign any legal documents for 24 hours.?? You should have someone with you at home tonight. ? Remain at home the day of discharge.?? You may be up and about unless otherwise instructed by your physician. ? You may resume your daily prescription medication schedule.?? Any depressant medication should be avoided for 24 hours unless otherwise instructed by your surgeon or anesthesiologist. ? Call your physician for a follow-up appointment.? If you experience unusual or severe pain not relied by your pain medication, excessive bleedingor drainage, persistent nausea and vomiting, excessive swelling or redness, foul odor from incisionsite or fever over 100.6F, you need to call your physician. ? A follow-up phone call by a nurse will be made the day after your procedure.?? If you have stayed with us over night, you will not be receiving a follow-up phone call. ? Nausea and vomiting are a common side effect of prescription pain medication.?? We recommend that pills are not taken on an empty stomach.?? While taking any prescription pain medication you should not drive or drink alcohol. ? * Gabby Kuhn RN: PERFORM Event Display: Patient Education Leaflets Authored Date: [id number] NSAID Analgesic Schedule ?? 604 NSAID???s Analgesic Schedule ?? Pain is the primary source of illness following your procedure and can include dehydration, difficulty and painful swallowing, and weight loss. These symptoms can lead to increased post-operative visits and hospital readmission. The best way to control pain is to take pain medications regularly. Your doctor has recommended both Ibuprofen and Acetaminophen (generic/store brands are okay, too). These can be picked up over the counter at your pharmacy of choice. Follow the instructions on the bottle to determine the proper dosage to give. The simplest way to take these medications it to rotate the two at 3-hour intervals. Here is a sample diagram. The time you take your medications may vary from this example. Do not give Ibuprofen more than every 6 hours or Acetaminophen every 4 hours. Do not give Acetaminophen if your doctor has given you a prescription that contains Acetaminophen. ? Patient Care team information Care Team Personnel Name: Qing Navarro RN Position: S RN Member Role: Primary Care Nurse Name: Caleb Cabrera MD Position: Reference Physician Member Role: PCP Address: [address] [place] [address] Telecom: Care Team Related Persons Name: OANH BUITRAGO Name: OANH SANTANA Name: LILIAM SAXENA Name: GRAEME CHRISTIANSON Insurance Providers Guarantor name: [facility] [employer] Plan Information #: 1 Payer: [employer] Payer Identifier: KRYSTYNA Member Number: [id number] Group Number: [id number] Subscriber Identifier: [id number] Relationship to Subscriber: self Coverage Type: NA Coverage Verification Date: NA Telecom: NA Address:
--- NOTE | 2025-10-12 11:35 | A.OFFVIS_ITS ---
Intake Visit Reasons: AFTER EEG Allergies latex Adverse Reaction (Intermediate, Verified 10/12/25 10:23) Rash cucumbers, pickles Allergy (Intermediate, Uncoded 10/12/25 10:23) Rash HPI Comments Details: 45 years old woman who has been under chronic stressful situation since her child was born in 2009, who suffered from spina bifida syndrome and had complicated medical course that included more than 40 surgical procedures. Over the years, she suffered from chronic stress and insomnia. Many years ago, her whole body started to hurt which has continued to this day. She had a polysomnogram done in 2022 that revealed mild degree of sleep apnea, which p robably was not making significant difference to her overall situation. 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 She was moderately obese in her elementary neurological examination did not reveal any significant finding. She has significant flat feet. Her overall pain situation is best explain by clinical diagnosis of fibromyalgia triggered by chronic stress and bilateral tarsal tunnel syndrome related to flat feet and obesity. She also had complain of episodes of shaking while asleep. Sometime her would found her in that shape and would not be able to wake her up. Couple of time she noted blood in her mouth. There was no history of incontinence. Some of her family members suffered from seizure disorder. Her son also suffered from seizure disorder but he had complicated medical history including history of meningitis. She is presenting for evaluation of nocturnal seizures. The patient reports experiencing shaking episodes during sleep, confirmed by the patient's . The patient also notes involuntary movements when starting to fall asleep, with a sensation of falling. During one shaking episode, the patient's had a difficult time waking the patient. Following these episodes, the patient reports waking up with a headache. The patient confirms having woken up with blood in the mouth from biting the lip on two occasions but denies urinary incontinence. The patient has no history of a prior brain scan. There is a family history of epilepsy, with both the maternal grandmother and paternal grandfather having been epileptic. The patient's son also has a history of seizures, which began at age three after meningitis, and is treated with Keppra. [facility] Medical History Constipation Peripheral neuropathy Class 1 obesity Hypertension Parent coping with child illness or disability Stress at home Diabetes type 2 Chronic pain Diabetes SEEMA (obstructive sleep apnea) Polymyalgia Chronic neck pain Chronic low back pain with bilateral sciatica Pain in joint, multiple sites Surgical History History of surgery on upper extremity Hx of shoulder surgery (01/11/24) Hx of hysterectomy Hx of laparoscopic gastric banding Family History Mother Hypertension Arthritis Father Diabetes Social History Household Members: Children Housing: House Are you a primary social worker palliative care to a significant other at home: No Do you presently have visiting nurse or other home services: No Alcohol intake: current Alcohol intake frequency: does not drink Patient Tobacco Use Status: Never used Tobacco service: No Current occupational status: employed 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 - Reports waking with blood in the mouth on two occasions. - Denies urinary incontinence with episodes. - Denies awareness of daytime seizures. - Constitutional: Denies other systemic symptoms. Physical Exam Neuro Other: Mental Status: Alert and oriented to person, place, and time. Normal attention. Normal spontaneous speech, fluency, and comprehension. No obvious issues with mood and memory. Affect is appropriate. Cranial Nerves: CN II: Visual shirley full to confrontation, visual acuity intact. CN III, IV, : Pupils equal, round, reactive to light and accommodation. Extraocular movements are normal. CN V: Facial sensation is normal. CN VII: Facial movements symmetrical. CN VIII: Hearing intact to bedside conversation is normal. CN IX, X: Palate elevates symmetrically. CN XI: Shoulder shrug and head turn symmetrical. CN XII: Tongue midline without atrophy or fasciculations. Extrapyramidal: Full facial expressions and blinking. No rigidity. Movements are appropriate with no tremor or abnormality. Speech: Normal; no dysarthria or tremor. Assessment & Plan Assessment & Plan (1) Fibromyalgia: Comment: PSG at [facility] in 2022: TST AHI 9.4 Code(s): M79.7 - Fibromyalgia Category: Medical (2) Seizure disorder: Comment: EEG at [facility] in 2024: Generalized epileptic discharges Code(s): G40.909 - Epilepsy, unspecified, not intractable, without status epilepticus Category: Medical (3) Nocturnal epileptic seizures: Code(s): G40.802 - Other epilepsy, not intractable, without status epilepticus Category: Medical Plan Impression: a: Fibromyalgia b: Nocturnal seizure disorder Rec: a: Education about her condition b: Levetiracetam 500mg one at bedtime c: MRI brain WWO Orders: Orders MR head/brain wo/w con Today G40.909 - Epilepsy, unspecified, not intractable, without status epilepticus Medications: New levetiracetam 500 mg orally at bedtime; 90 tabs 0RF Coding Level of Care Code Est Pt Level 4 (92199) Diagnoses Fibromyalgia M79.7 Seizure disorder G40.909 Nocturnal epileptic seizures G40.802
--- OUTSIDE RECORDS SUMMARY | 2025-10-12 14:39 | XMS_ITS | Clinical Summary ---
Author Organization [address] [facility] Address [address] [place] [address] Phone Care Team Providers Care Monument Letterer Name Role Phone NaunIvania [place] MOSCOSO Primary Care Provider [phone] Allergies No known active allergies Social History [...] topic Insurance MEDICAID - [place] Care Teams Monument Letterer Relationship Specialty Start Date End Date Ivania Magallon NP [address] [place] [phone] PCP - General 12/09/24
== END 2025-10-12 11:58 | disposition home or self-care (01) ==
LOC: HO.HSM 11:12
PROVIDERS: PCP Nurse Practitioner Primary Care; Visit Provider Psychiatry & Neurology Neurology
DX: M79.7 Fibromyalgia (principal); G40.909 Epilepsy, unspecified, not intractable, without status epilepticus; G40.802 Other epilepsy, not intractable, without status epilepticus
CPT/HCPCS: 99214

== ENCOUNTER 2025-10-16 17:58 | Emergency (ER) | payer OTHER, SELFPAY ==
--- NOTE | ~2025-10-16 | CT_ITS ---
CLINICAL HISTORY: headache, vision change CT head without contrast Comparison: None provided. Findings: No intracranial mass, midline shift, hydrocephalus, or acute hemorrhage. Moderate mucosal thickening present at the left ethmoid air cells with near-complete opacification of the left maxillary sinus. The bilateral mastoid air cells appear clear. No acute skull fracture. Impression: 1. No acute intracranial abnormality. No acute intracranial hemorrhage. 2. Paranasal sinus disease as described above with near-complete opacification of the visualized left maxillary sinus, which may be seen with acute sinusitis. This document has been electronically signed by: Pankaj Berger MD on 10/16/2025 22:04:13
[2025-10-16 18:02] VITALS: BP 141/94; PULSE 120; RESP 18; TEMP 36.3; O2SAT 99; BMI 34.5
--- NOTE | 2025-10-16 18:04 | ED_ITS ---
HPI - General Adult General Chief complaint: Headache Stated complaint: Headache Time Seen by Provider: 10/16/25 21:57 Source: patient, RN notes reviewed and old records reviewed Mode of arrival: ambulatory Limitations: no limitations History of Present Illness ED Provider: Sanjeev HPI narrative: Patient is a 45 year old female with a past medical history of migraines, fibromyalgia, a seizure disorder, HTN, and type 2 diabetes presenting today with a 3 day history of left sided headache. Pt has tried ibuprofen, tylenol, and fioricet without any improvement of her symptom. Endorses congestion that started today. Denies fever, dizziness, weakness, n/v/d, cough, sore throat. Pt is concerned that this could mean she is going to have a seizure because typically they preceed with left sided headaches. She was just started on Keppra this week, she has not had a seizure for a couple weeks. Related Data Home Medications ?Medication ?Instructions ?Recorded ?Confirmed lidocaine 5 % topical patch 1 patch transdermal DAILY 07/09/23 10/12/25 dulaglutide 0.75 mg/0.5 mL 0.75 mg subcut QWEEK 10/12/25 subcutaneous pen injector (Trulicity) metformin 1,000 mg tablet 1,000 mg PO BID 07/19/2312/06 duloxetine 60 mg capsule,delayed 60 mg PO DAILY 10/12/25 release enalapril maleate 10 mg tablet 10 mg PO DAILY 02/17/25 10/12/25 guanfacine 1 mg tablet,extended 1 mg PO DAILY 09/29/25 10/12/25 release 24 hr Previous Rx's ?Medication ?Instructions ?Recorded hydroxyzine HCl 10 mg tablet 10 mg PO Q8H PRN itching 3 days #9 01/21/24 tabs rgtyqltmpo-tiylwrmaroazi-wqujbyfz 1 tab PO Q6H PRN hae adace #20 tabs 07/28/24 50 mg-325 mg-40 mg tablet naltrexone 50 mg tablet 50 mg PO QWEEK 90 days #13 t abs 06/10/25 polyethylene glycol 3350 17 17 g PO BID #476 grams 02/03 gram/dose oral powder rosuvastatin 20 mg tablet 20 mg PO DAILY #90 tabs 09/12 07/06 levetiracetam 500 mg tablet 500 mg PO .COMPLEX #90 tab s 10/12/25 amoxicillin 875 mg-potassium 1 tab PO BID #14 tabs 04/05 clavulanate 125 mg tablet Allergies Allergy/AdvReac Type Severity Reaction Status Date / Time latex AdvReac Intermediate Rash Verified 10/16/25 18:03 cucumbers, pickles Allergy Intermediate Rash Uncoded 10/16/25 18:03 Review of Systems 2 Constitutional: Constitutional: Reports as per HPI, Denies chills, Denies fatigue, Denies fever(s) and Reports headache(s) Eyes: Eyes: Reports photophobia ENT: Reports headache(s) Cardiovascular: Cardiovascular: Denies chest pain and Denies dyspnea Respiratory: Respiratory: Denies cough and Denies dyspnea Gastrointestinal: Gastrointestinal: Denies abdominal pain, Denies constipation and Denies vomiting Genitourinary: Genitourinary: Denies dysuria Integumentary/Breasts: Skin/Breast: Denies rash Neurologic: Reports headache(s) and Denies focal weakness Endocrine: Endocrine: Denies fatigue PENDING SALE TO [facility] Past Medical History Medical History Constipation Peripheral neuropathy Class 1 obesity Hypertension Parent coping with child illness or disability Stress at home Diabetes type 2 Chronic pain Diabetes SEEMA (obstructive sleep apnea) Polymyalgia Chronic neck pain Chronic low back pain with bilateral sciatica Pain in joint, multiple sites Surgical History History of surgery on upper extremity Hx of shoulder surgery (01/11/24) Hx of hysterectomy Hx of laparoscopic gastric banding Family History Family History Mother Hypertension Arthritis Father Diabetes Social History Social History Household Members: Children Housing: House Are you a primary animal care assistant to a significant other at home: No Do you presently have visiting nurse or other home services: No Alcohol intake: current Alcohol intake frequency: does not drink Patient Tobacco Use Status: Never used Tobacco Advance Directives: No Advance Directives Information Provided: No Do you have a plan to hurt others: No Plan service: No Current occupational status: employed 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, 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 Cognitive needs: No Hearing needs: No Vision needs: Yes (uses glasses) Physical Exam ED Vital Signs: Vital Signs - 24 hr 10/16/25 18:02 10/16/25 21:59 Temperature 97.3 F Pulse Rate 120 H 72 Respiratory Rate 18 20 Blood Pressure 141/94 H 140/88 H Pulse Oximetry 99 96 Oxygen Delivery Method Room Air Room Air BMI result Body Mass Index 34.5 Const General: healthy appearing, comfortable, no acute distress, alert and awake Nutritional Appearance: well nourished Orientation/consciousness: patient oriented x3 HENMT Head: Yes normocephalic and Yes atraumatic Face and sinus: Yes sinus tenderness Eyes Eyelids: Yes eyelids normal Conjunctivae: conjunctivae normal Sclerae: sclerae normal Corneas: corneas normal Pupils: Equal, round and reactive pupils present EOM: EOMs intact bilaterally Direct Ophthalmoscopy: photophobia Neck Neck: Yes full ROM Resp Effort & Inspection: normal respiratory effort, able to speak in complete sentences, no audible wheezes and not labored Skin General skin exam: no rashes or lesions noted and elasticity normal Neuro General: patient oriented x3 Cranial nerves: Yes CN's II-XII intact bilaterally, Yes Equal, round and reactive pupils present and Yes Bilaterally intact EOM present Cognition (Neuro): normal cognition Gait exam (Neuro): Normal gait present Motor exam (neuro): 5/5 motor strength present throughout Extrem Other: Moving all extremities well without any obvious deformities Course Course Course Narrative: Rapid medical examination performed in triage by Maday Huffman PA-C: Patient is a 45 year old assigned female at presenting to the emergency department with a headache. Patient states that she has a history of migraines and her medication isn't helping. Patient states that she is having intermittent left sided vision changes. Detailed physical exam and review of systems are deferred to the credit counselor. Labs and imaging ordered. Patient placed back in the waiting room pending room availability and results. Reevaluation(s) Reevaluation #1: patient reports feeling much better after treatment for headache. We will discharge him with Augmentin for sinusitis and she will follow up with the PCP Time: 00:21 Medications Administered Discontinued Medications Generic Name Dose Route Start Last Admin Trade Name Freq PRN Reason Stop Dose Admin Diphenhydramine HCl 25 mg 10/16/25 22:57 10/16/25 23:22 Diphenhydramine Hcl 50 Mg/Ml Vial IVPUSH 10/16/25 22:58 25 mg ONCE ONE Administration Sodium Chloride 1,000 mls @ 999 mls/hr 10/16/25 23:00 10/16/25 23:26 Ns IV 10/17/25 00:00 999 mls/hr .Q1H1M DOMONIQUE Administration Ketorolac Tromethamine 30 mg 10/16/25 22:57 10/16/25 23:22 Ketorolac Tromethamine 30 Mg/Ml Vial IVPUSH 10/16/25 22:58 30 mg ONCE ONE Administration Prochlorperazine Edisylate 5 mg 10/16/25 22:59 10/16/25 23:22 Prochlorperazine Edisylate 10 Mg/2 Ml Vial IVPUSH 10/16/25 23:00 5 mg ONCE ONE Administration Medical Decision Making Medical Decision Making [facility] Narrative: 45-year-old female with a past medical history as above presents for evaluation of a headache. She has a history of migraines. There was no trauma, she has no focal neurologic deficits. No evidence of not confused whatsoever. She does have some upper respiratory symptoms consistent with a sinusitis. CT scan of the head shows Sinus disease. this may be the trigger for the patient's migraine headache. She is quite well appearing, labs are reassuring. She was offered viral swabs but she declined. plan to treat her headache as well as your sinusitis and I feel she can safely be discharged Differential Diagnosis Differential Diagnoses: The differential diagnosis associated with the presentation includes acute headache Tension headache Migraine headache Sinus disease Intracranial heavy Lab Data [facility] Lab Attestation statement: I reviewed the patient's lab results. no leukocytosis or anemia. Normal platelet count. No significant electrolyte abnormalities warranting dimension. Random glucose of 223 but no evidence of DKA. The patient is a known diabetic 10/16/25 19:36 10/16/25 19:36 Labs: Lab Results 10/16/25 Range/Units 19:36 WBC 10.2 (4.8-10.8) X10*3/uL RBC 4.84 (4.20-5.50) X10*6/uL Hgb 12.0 (12.0-16.0) g/dl Hct 38.8 (37.0-47.0) % MCV 80.2 (80.0-98.0) fL MCH 24.8 L (27.0-33.0) pg MCHC 30.9 L (31.0-35.0) g/dl RDW 16.3 H (11.0-16.0) % Plt Count 399 (160-400) X10*3/uL MPV 8.4 L (9.4-12.3) fL Immature Gran % (Auto) 0.4 (0.0-0.4) % Neut % (Auto) 72.7 (45-73) % Lymph % (Auto) 18.5 L (20-40) % [place] % (Auto) 6.1 (2-11) % Eos % (Auto) 1.7 (0-4) % Baso % (Auto) 0.6 (0-2) % Lymph # (Auto) 1.9 (1.2-4.9) X10*3/uL [place] # (Auto) 0.6 (0.1-1.2) X10*3/uL Eos # (Auto) 0.2 (0.0-0.4) X10*3/uL Baso # (Auto) 0.1 (0.0-0.2) X10*3/uL Abs Immat Gran (auto) 0.04 H (0.00-0.03) X10*3/uL Absolute Neuts (auto) 7.4 (2.0-8.3) x10*3/uL Absolute Nucleated RBC 0.000 (0.0-0.012) X10*3/uL Nucleated RBC % (auto) 0.0 (0.0-0.2) /100WBC Sodium 136 (135-145) mmol/L Potassium 4.6 (3.3-5.1) mmol/L Chloride 106 (96-108) mmol/L Carbon Dioxide 21 L (22-29) mmol/L Anion Gap 14 (12-20) BUN 13 (9-16) mg/dL Creatinine 0.61 (0.5-1.4) mg/dL Estim Creat Clear Calc 130.1 Estimated GFR > 60 Random Glucose 223 H (60-115) mg/dL Calcium 9.5 (8.4-10.2) mg/dL Magnesium 1.8 (1.6-2.6) mg/dL Total Bilirubin 0.2 (0.0-1.0) mg/dL AST 19 (5-31) U/L ALT 10 (0-31) U/L Alkaline Phosphatase 90 (39-117) U/L Total Protein 7.9 (6.5-8.0) g/dL Albumin 4.3 (3.5-5.0) g/dL Beta HCG, Quant < 2 mIU/mL Discharge Plan Discharge Clinical Impression: Sinusitis, Headache Patient Disposition: Home, Self-Care Instructions: Sinusitis (ED) Additional Instructions: Your workup in the ER today was reassuring. This includes your labs, CT scan. You do appear to have a sinus infection. Take Augmentin twice daily for 1 week. Follow up with your primary doctor, return for new or worsening symptoms Prescriptions: New amoxicillin-pot clavulanate 875-125 mg tablet 1 tab PO BID Qty: 14 0RF No Action hydroxyzine HCl 10 mg tablet 10 mg PO Q8H PRN (Reason: itching) 3 Days Qty: 9 0RF bbaksskrqv-figvbsgiozhwa-trbe 50-325-40 mg tablet 1 tab PO Q6H PRN (Reason: haeadace) Qty: 20 0RF duloxetine 60 mg capsule,delayed release(DR/EC) 60 mg PO DAILY enalapril maleate 10 mg tablet 10 mg PO DAILY guanfacine 1 mg tablet extended release 24 hr 1 mg PO DAILY rosuvastatin 20 mg tablet 20 mg PO DAILY Qty: 90 0RF lidocaine 5 % adhesive patch,medicated 1 patch transdermal DAILY metformin 1,000 mg tablet 1,000 mg PO BID Trulicity 0.75 mg/0.5 mL pen injector 0.75 mg subcut QWEEK naltrexone 50 mg tablet 50 mg PO QWEEK 90 Days Qty: 13 1RF polyethylene glycol 3350 17 gram/dose powder 17 g PO BID Qty: 476 3RF levetiracetam 500 mg tablet 500 mg PO .COMPLEX Qty: 90 0RF Rx Instructions: 500 mg orally at bedtime; Print Language: Dominican
[2025-10-16 19:39] LABS: MANUAL DIFF FLAG NO
[2025-10-16 19:40] LABS: Hematocrit 38.8 % (37.0-47.0); Hemoglobin 12.0 g/dl (12.0-16.0); Imm Gran Abs Auto 0.04 X10*3/uL (0.00-0.03); Imm Gran Pct Auto 0.4 % (0.0-0.4); Lymphocytes Absolute Auto 1.9 X10*3/uL (1.2-4.9); Mean Corpuscular HGB Conc 30.9 g/dl (31.0-35.0); Mean Corpuscular Hemoglobin 24.8 pg (27.0-33.0); Mean Corpuscular Volume 80.2 fL (80.0-98.0); NRBC Abs Auto 0.000 X10*3/uL (0.0-0.012); NRBC Pct Auto 0.0 /100WBC (0.0-0.2); Platelet Count 399 X10*3/uL (160-400); Red Blood Count 4.84 X10*6/uL (4.20-5.50); White Blood Count 10.2 X10*3/uL (4.8-10.8)
[2025-10-16 20:07] LABS: Alanine Aminotransferase 10 U/L (0-31); Albumin Level 4.3 g/dL (3.5-5.0); Alkaline Phosphatase 90 U/L (39-117); Anion Gap 14 (12-20); Aspartate Amino Transferase 19 U/L (5-31); Blood Urea Nitrogen 13 mg/dL (9-16); Calcium 9.5 mg/dL (8.4-10.2); Carbon Dioxide 21 mmol/L (22-29); Chloride 106 mmol/L (96-108); Creatinine Clr Calc Pharmacy 130.1; Estimated Glomerular Filt Rate > 60; Magnesium 1.8 mg/dL (1.6-2.6); Potassium 4.6 mmol/L (3.3-5.1); Sodium 136 mmol/L (135-145); Total Protein 7.9 g/dL (6.5-8.0)
--- OUTSIDE RECORDS SUMMARY | 2025-10-16 20:50 | XMS_ITS | Clinical Summary ---
Author Organization [facility] Address [address] [place] [address] Phone Care Team Providers Care High School Music Instructor Name Role Phone [facility] [phone] Social History Tobacco Use Types Packs/Day Years Used Date Smoking Tobacco: Never Assessed Comments Unknown Sex and Gender Information Value Date Recorded Sex Assigned at Not on file Legal Sex Female 3:55 AM EDT Gender Identity Not on file Sexual Orientation Not on file Plan of Treatment Not on file Care Teams High School Music Instructor Relationship Specialty Start Date End Date [facility] [address] [place] [address] PCP - Insurance PCP 01/21/21
--- OUTSIDE RECORDS SUMMARY | 2025-10-16 20:50 | XMS_ITS | Clinical Summary ---
Author Organization [employer] Address [address] [facility] 7 [place] [address] Care Team Providers Care Cardiology Physician Assistant Name Role Phone Unavailable Primary Care Provider Unavailabl e Allergies Active Allergy Reactions Criticality Noted Date Comments [place] Extract Rash High 09/07/2021 Other reaction(s): GI [...] tablet 1 09/25/20 24 Active nystatin (Mycostatin) 805122 UNIT/GM powder Apply topically 2 times daily. [...] Morbid obesity with BMI of 40.0-44.9, adult ([facility]) 07/04/2023 Weight loss 07/04/2023 Obstructive sleep [...] Type Department Care Team Description 09/17/2025 Telephone [facility] [address] [place] [phone] Shnoa Cheng ANP Prior Authorization 08/18/2025 Telephone [facility] [address] [place] [address] Shona Cheng ANP chart prep 07/26/2025 Refill [facility] [address] [place] [address] Shona Cheng ANP 07/20/2025 Telephone [facility] [address] [place] [phone] Patricia Mcgregor, ANAMARIA Results from Last 3 [...] 9:31 AM EDT) Creatinine, Urine 213.97 mg/dL [facility] Microalbumin Urine 12.0 mg/L [facility] Microalbum Creatinine Ratio Ur 5.6 <30 ug/mg cr [facility] Comment:Albumin/Creatinine R atio Reference Ranges: Normal: < 30 ug/mg creatinine Microalbuminuria: 30 - 300 ug/mg creatinineClinical Albuminuria: > 300 ug/mg creatinine Urine 03/20/2025 9:31 AM EDT 03/20/2025 11:02 AM EDT us Shona [facility] LAB URINE ORDERABLES Final Resul t [facility] [address] [place] [address] [phone] * (ABNORMAL) Lipid Panel, Standard (03/20/2025 7:07 AM EDT) Triglycerides 178(H) <150 mg/dL [facility] Comment:Desirable Triglyceri de: less than 150 mg/dLBorderline High Triglyceride 150-199 mg/dLHigh Triglyceride: 200-499 mg/dLVery High Triglyceride: greater than or equal to 5OO mg/dL Cholesterol 185 <200 mg/dL [facility] Comment:Desirable Cholestero l: less than 200 mg/dLBorderline High Cholesterol: 200-239 mg/dLHigh Cholesterol: greater than 239 mg/dL LDL Cholesterol Calculated 98 <100 mg/dL [facility] Comment:Desirable LDL: less than 100 mg/dLNear Optimal/Above Optimal LDL: 110- 129 mg/dLBorderline High LDL: 130-159 mg/dLHigh LDL: 160-189 mg/dLVery High LDL: greater than or equal to 190 mg/dL HDL Cholesterol 52 >40 mg/dL [facility] Comment:Desirable HDL: great er than 40 mg/dL Note: This HDL assay may give artificially low results in patients with liver disease. Blood Venous blood specimen / Unknown 03/20/2025 7:07 AM EDT 03/20/2025 11:01 AM EDT Pending sale to [facility] LAB BLOOD ORDERABLES Final Resul t [facility] [address] [place] [address] [phone] * BI US Breast Limited Right (01/30/2025 9:12 AM EDT) Anatomical Region Laterality Modality Breast Right Ultrasound 01/30/2025 9:12 AM EDT Narrative 01/30/2025 10:23 AM EDT [facility] [address] [place] [address] Ultrasound Report Signed Patient: Albania Robles MR#: [id number] : 1980 Acct:[id number] Age/Sex: 44 / F ADM Date: 01/30/25 Loc: ZULMA Attending Dr: Dayton Frazier MD Ordering Physician: Dayton Frazier MD Date of Service: 01/30/25 Procedure(s): US breast RT limited mamm only Accession Number(s): [id number] cc: Dayton Frazier MD; SHONA CHENG NP [...] 01/30/25 1020 DD/ 0912 TD/TT: 01/30/25 0935 Creping Machine Operator Helper: Procedure Note Donotuseinterpreter, Image - 01/30/2025 [facility] [address] [place] [address] [place] [address] Ultrasound Report Signed Patient: Robert Robles#: [id number] : 1980Acct:[id number] Age/Sex: 44 / FADM Date: 01/30/25 Loc: HO.MAMMO Attending Dr: Dayton Frazier MD Ordering Physician: Dayton Frazier MD Date of Service: 01/30/25 Procedure(s): US breast RT limited mamm only Accession Number(s): [id number] cc: Dayton Frazier MD; SHONA CHENG NP [...] 01/30/25 1020 DD/ 0912 TD/TT: 01/30/25 0935 Creping Machine Operator Helper: Dayton Perez MD IM US PROCEDURES Fin al Result * HIV Ab/Ag Exposure Source (01/11/2024 2:05 PM EST) HIV AB/AG Nonreactive Nonreactive [facility] Comment:HIV-1 p24 Ag and/or HIV-1/HIV-2 Ab not detected.A test result that is nonreactive does not exclude thepossibility of exposure to or infection with HIV-1 and/orHIV-2. Nonreactive results in this assay for individualswith prior exposure to HIV-1 and/or HIV-2 may be due toantigen and antibody levels that are below the limit ofdetection of this assay.The Reveal HIV Ag/Ab Combo assay result andsupplemental assay results should be interpreted inconjunction with the patient's clinical presentation,history and other laboratory results. If the results areinconsistent with clinical evidence, additional testing issuggested to confirm the result. 01/11/2024 2:05 PM EST 01/11/2024 2:07 PM EST us Generic External Data Provider LAB BLOOD ORDERAB LES Final Result Performing Organization Address [facility]/ZIP Co de Phone Number [facility] [address] [place] [phone] * Hepatitis C Ab (01/11/2024 2:05 PM EST) Hepatitis C Antibody Nonreactive Nonreactive [facility] Comment:Antibodies to HCV no t detected; does not exclude early acuteHCV infection. 01/11/2024 2:05 PM EST 01/11/2024 2:07 PM EST Generic External Data Provider LAB BLOOD ORDERAB LES Final Result Performing Organization Address [facility]/ZIP Co de Phone Number [facility] [address] [place] [phone] * HPV mRNA E6/E7 (01/30/2018 10:13 AM EDT) HPV mRNA E6/E7 Not Detected NOT DETECTED [facility] Comment: This test was performed using the APTIMA(R) HPV Assay ([employer] This assay detects E6/E7 viral messenger RNA (mRNA) from 14 high-risk HPV types (16,18,31,33,35,39,45,51, 52,56,58,59,66,68). For additional information please refer to: http://education.Trusteer/faq/PIC423d8 (This link is being provided for informational/ educational purposes only.) Test Performed by [employer], [employer] [facility], [address] [place] [phone] Jameel Swan M.D., Ph.D., Director of Laboratories , [facility] [id number] Please note: Effective 07/24/2016, HPV testing will be performed using [employer] APTIMA test which targets mRNA. Detecting mRNA instead of DNA, as in older methods, offers significant improvements in specificity. 01/30/2018 10:1 3 AM EDT Tosin Putnam CNM HISTORICAL/NON ORDERABLE LABS Final Result [facility] Anywhere [address] from Last 3 Months or Most Recently Relevant to Health Maintenance Insurance [employer]
--- OUTSIDE RECORDS SUMMARY | 2025-10-16 20:50 | XMS_ITS | Encounter Summary ---
Author Organization [email or web address] Address [address] [place] [address] 7 [place] [address] Care Team Providers Care Composition Board Press Operator Name Role Phone Ivania Magallon Primary Care Provider [phone] Encounter Details Date Type Department Care Team [...] on filedocumented in this encounter Care Teams Composition Board Press Operator Relationship Specialty Start Date End Date Ivania Magallon ANP [address] [place] [phone] PCP - General Family Medicine 04/30/20 08/19/25 documented as of this encounter
--- OUTSIDE RECORDS SUMMARY | 2025-10-16 20:50 | XMS_ITS | Encounter Summary ---
Author Organization [employer] Address [address] [place] [address] 7 [place] [address] Care Team Providers Care Radio Program Checker Name Role Phone Ivania Magallon Primary Care Provider [phone] Encounter Details Date Type Department Care Team [...] on filedocumented in this encounter Care Teams Radio Program Checker Relationship Specialty Start Date End Date Ivania Magallon ANP [address] [place] [phone] PCP - General Family Medicine 04/30/20 08/19/25 documented as of this encounter
--- OUTSIDE RECORDS SUMMARY | 2025-10-16 20:50 | XMS_ITS | Encounter Summary ---
Author Organization [employer] Address [address] [facility] 7 [place] [address] Care Team Providers Care Bow Making Machine Operator Name Role Phone Ivania Magallon Primary Care Provider [phone] Reason for Visit * Reason Onset Date Comments Nurse Triage 12/24/2024 Encounter Details Date Type Department Care Team ([facility] st Contact Info) Description 12/24/2024 Telephone [facility] MEDICINE [address] [place] [address] Ivania Magallon ANP [address] [place] [address] Nurse Triage Social History Tobacco Use Types [...] needed. Pt is advised to come to [facility] after 5pm for provider to see Pt. [facility] is open till 8pm. Pt agrees [...] documented as of this encounter Care Teams Bow Making Machine Operator Relationship Specialty Start Date End Date Ivania Magallon ANP [address] [place] [phone] PCP - General Family Medicine 04/30/20 08/19/25 documented as of this encounter
--- OUTSIDE RECORDS SUMMARY | 2025-10-16 20:50 | XMS_ITS | Encounter Summary ---
Author Organization [employer] Address [address] [facility] 7 [place] [address] Care Team Providers Care Steam Setter Name Role Phone Ivania Magallon Primary Care Provider [phone] Reason for Visit * Reason Onset Date Comments Med Refill 09/25/2023 Encounter Details Date Type Department Care Team (Late st Contact Info) Description 09/25/2023 Refill [facility] MEDICINE [address] [place] [address] Ivania Magallon ANP [address] [place] [address] Hypertension associated with diabetes (CMS/HCC) Social History [...] documented as of this encounter Care Teams Steam Setter Relationship Specialty Start Date End Date Ivania Magallon ANP [address] [place] [phone] PCP - General Family Medicine 04/30/20 08/19/25 documented as of this encounter
--- OUTSIDE RECORDS SUMMARY | 2025-10-16 20:50 | XMS_ITS | Encounter Summary ---
Author Organization [employer] Address [address] [place] [address] 7 [place] [address] Care Team Providers Care Model Builder Name Role Phone Ivania Magallon Primary Care Provider [phone] Reason for Visit * Reason Onset Date Comments Med Refill 08/01/2023 Encounter Details Date Type Department Care Team (Late st Contact Info) Description 08/01/2023 Refill [facility] MEDICINE [address] [place] [address] Ivania Magallon ANP [address] [place] [address] Hypertension associated with diabetes (CMS/HCC) Social History [...] documented as of this encounter Care Teams Model Builder Relationship Specialty Start Date End Date Ivania Magallon ANP [address] [place] [address] PCP - General Family Medicine 04/30/20 08/19/25 documented as of this encounter
--- OUTSIDE RECORDS SUMMARY | 2025-10-16 20:51 | XMS_ITS | Clinical Summary ---
Author Organization [address] [facility] Address [address] [place] [address] Phone Care Team Providers Care Heavy Equipment Mechanic Name Role Phone NaunIvania Mark Anthony MOSCOSO Primary Care Provider [phone] Allergies No known active allergies Social History [...] topic Insurance MEDICAID - [place] Care Teams Heavy Equipment Mechanic Relationship Specialty Start Date End Date Ivania Magallon NP [address] [place] [phone] PCP - General 12/09/24
--- OUTSIDE RECORDS SUMMARY | 2025-10-16 20:51 | XMS_ITS | Encounter Summary ---
Author Organization [employer] Address [address] [place] [address] 7 [place] [address] Care Team Providers Care Zone Maintenance Technician Name Role Phone Ivania Magallon Primary Care Provider [phone] Reason for Visit * Reason Comments Med Refill Encounter Details Date Type Department Care Team ([facility] st Contact Info) Description 07/21/2024 Refill [facility] MEDICINE [address] [place] [address] Ivania Magallon ANP [address] [place] [address] Hypertension associated with diabetes (CMS/HCC) ([facility]/HCC) Social History Tobacco Use Types Packs/Day Years [...] documented as of this encounter Care Teams Zone Maintenance Technician Relationship Specialty Start Date End Date Ivania Magallon ANP [address] [place] [phone] PCP - General Family Medicine 04/30/20 08/19/25 documented as of this encounter
[2025-10-16 21:59] VITALS: BP 140/88; PULSE 72; RESP 20; O2SAT 96
[2025-10-16 23:52] VITALS: RESP 18
[2025-10-17 00:37] VITALS: BP 146/89; PULSE 93; RESP 16; TEMP 36.9; O2SAT 95
[2025-10-17 00:48] VITALS: BP 146/89; PULSE 93; RESP 16; TEMP 36.9; O2SAT 95
== END 2025-10-17 00:49 | disposition home or self-care (01) ==
PROVIDERS: Physician Assistant Medical; Emergency Provider Emergency Medicine; PCP Student in an Organized Health Care Education/Training Program
DX: J32.9 Chronic sinusitis, unspecified (principal); R51.9 Headache, unspecified; E11.9 Type 2 diabetes mellitus without complications; R11.0 Nausea; I10 Essential (primary) hypertension; Z79.899 Other long term (current) drug therapy
CPT/HCPCS: 36415; 70450; 80053; 83735; 84702; 85025; 96361; 96374; 96375; 99284; J0737; J1200; J1885

== ENCOUNTER → 2025-10-16 18:05 | Outpatient (BNV) | payer OTHER, SELFPAY | PROVIDERS: PCP Student in an Organized Health Care Education/Training Program; Visit Provider Radiology Diagnostic Radiology | DX: J32.0 Chronic maxillary sinusitis (principal) | CPT/HCPCS: 70450 ==

== ENCOUNTER 2025-10-21 08:48 | Outpatient (AMB) | payer OTHER, SELFPAY ==
[2025-10-21 08:58] VITALS: BMI 35.5
--- NOTE | 2025-10-21 08:58 | A.OFFVIS_ITS ---
Vital Signs 3 10/21/25 08:58 Height 5 ft 4 in Weight 207 lb BMI 35.5 Intake Visit Reasons: Flat Feet, Tarsal Tunnel Syndrome Intake Note: Albania is a 45 year old female who presents to the office today as a new patient visit for Flat Feet, Tarsal Tunnel Syndrome referred by Dr. Claeb Courtney. Pt states she experiences pain in her heels and she had an MRI done of her right foot at [facility]. The pain is worst in the right foot vs her left and she had tried OTC pain medication and has found no relief for her symptoms. She had found slight relief with the ankle brace and kinesiology strap tape. She was prescribed inserts by her orthopedic provider however the scrip was lost. Allergies latex Adverse Reaction (Intermediate, Verified 10/21/25 11:37) Rash cucumbers, pickles Allergy (Intermediate, Uncoded 10/16/25 18:03) Rash HPI HPI Flat Feet, Tarsal Tunnel Syndrome: Details: The patient is a 45 year old female presenting with chronic bilateral foot and ankle pain. The pain has been long-standing and occurs bilaterally, though it is more significant on the right side. She describes the pain as a big needle sensation that occurs with walking. She also experiences numbness in the entire foot area, particularly in the mornings. She also reports nocturnal pain in her ankles, knees, and hips. 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 She mentioned that she recently saw an orthopedic surgeon who took x-rays and told her if she has an accessory bone/hypertrophied growth. She had an MRI performed last week but does not have the results. Previous physical therapy, which included strengthening and stretching exercises, reportedly worsened her symptoms. Social History: - Functional Status: The patient reports wearing shoes at all times for foot protection. [facility] Medical History (Updated 10/21/25 @ 14:36 by Chacho Gutiérrez DPM) Itch Constipation Peripheral neuropathy Class 1 obesity Hypertension Parent coping with child illness or disability Stress at home Diabetes type 2 Chronic pain Diabetes SEEMA (obstructive sleep apnea) Polymyalgia Chronic neck pain Chronic low back pain with bilateral sciatica Pain in joint, multiple sites Surgical History History of surgery on upper extremity Hx of shoulder surgery (01/11/24) Hx of hysterectomy Hx of laparoscopic gastric banding Family History Mother Hypertension Arthritis Father Diabetes Social History Household Members: Children Housing: House Are you a primary lawn care specialist to a significant other at home: No Do you presently have visiting nurse or other home services: No Alcohol intake: current Alcohol intake frequency: does not drink Patient Tobacco Use Status: Never used Tobacco e-Cigarette/Vaping Use: Never Used service: No Current occupational status: employed Current occupation: [employer], 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 Cognitive needs: No Hearing needs: No Vision needs: Yes (uses glasses) Review of Systems Const All systems reviewed & are unremarkable except as noted in HPI and below Physical Exam Vital Signs: BMI result Body Mass Index 35.5 Extrem Other: *Bilateral Lower Extremity Focused Exam Vascular: DP/PT 2/4, CFT<3s to all digits, TG warm to cool, no pedal edema or varicosities Derm: no open wounds or clinical signs of infections Neuro: positive tinel's sign bilateral ankles MSK: Severe plastic planus deformity bilateral feet with heel valgus, tailor bulging. No transverse plane deformity/too many toe sign. Mild pain to the tarsal tunnel region on ankle eversion. Genu recurvatum bilateral legs Assessment & Plan Assessment & Plan (1) Tarsal tunnel syndrome: Comment: EMG/NCS at [facility] in 2024: B/L distal tibial neuropathy in feet Code(s): G57.50 - Tarsal tunnel syndrome, unspecified lower limb Category: Medical Qualifiers: Laterality: bilateral Qualified Code(s): G57.53 - Tarsal tunnel syndrome, bilateral lower limbs Plan: * The patient's symptoms are consistent with tarsal tunnel syndrome, may be secondary to severe pes planus and PTTD causing tarsal tunnel syndrome. * The patient should retrieve her recent MRI and X-ray reports for further evaluation. * If symptoms persist despite inserts, a corticosteroid injection may be considered. Surgical intervention is a potential option if conservative measures fail. * Follow up in one month to assess progress and discuss next steps. (2) Pes planus of both feet: Code(s): M21.41 - Flat foot [pes planus] (acquired), right foot; M21.42 - Flat foot [pes planus] (acquired), left foot Category: Medical Plan: * Rx weight-bearing bilateral foot ankle and calcaneus x-rays * The patient has severe, flexible pes planus and associated genu recurvatum, which are contributing to mechanical stress on the ankles, knees, and hips. * Recommended Powerstep flat feet orthotics. The primary intervention is to use supportive shoe inserts to correct the arch. The patient has not trialed orthotics since she was a child. If [id number] inserts are not effective, custom orthotics may be considered. Orders: Orders 2 XR Calcaneus Zechariah min 2V Today G57.53 - Tarsal tunnel syndrome, bilateral lower limbs, M21.6X9 - Other acquired deformities of unspecified foot XR Ankle Zechariah min 3V Today G57.53 - Tarsal tunnel syndrome, bilateral lower limbs, Q66.6 - Other congenital valgus deformities of feet XR Foot Zechariah 3V Today Q66.6 - Other congenital valgus deformities of feet Coding Level of Care Code New Pt Level 4 (26509) Diagnoses Tarsal tunnel syndrome of both lower extremities G57.53 Laterality: bilateral Pes planus of both feet M21.41; M21.42
== END 2025-10-21 09:35 | disposition home or self-care (01) ==
LOC: HO.HPODS 08:49
PROVIDERS: PCP Nurse Practitioner Primary Care; Visit Provider Student in an Organized Health Care Education/Training Program
DX: G57.53 Tarsal tunnel syndrome, bilateral lower limbs (principal); M21.41 Flat foot [pes planus] (acquired), right foot; M21.42 Flat foot [pes planus] (acquired), left foot
CPT/HCPCS: 99204

== ENCOUNTER → 2025-10-21 08:48 | Outpatient (BNVA) | payer OTHER, SELFPAY | PROVIDERS: PCP Nurse Practitioner Primary Care; Visit Provider Student in an Organized Health Care Education/Training Program | DX: G40.909 Epilepsy, unspecified, not intractable, without status epilepticus (principal); F41.9 Anxiety disorder, unspecified; L29.9 Pruritus, unspecified; M21.41 Flat foot [pes planus] (acquired), right foot; M21.42 Flat foot [pes planus] (acquired), left foot | CPT/HCPCS: 90471; 96127; 99202; 99212 ==

== ENCOUNTER 2025-10-21 11:26 | Outpatient (AMB) | payer OTHER, SELFPAY ==
--- NOTE | 2025-10-21 11:30 | A.OFFPC_ITS ---
Vital Signs 10/21/25 11:31 Height 5 ft 4 in Intake Visit Reasons: Skin dryness Accompanied by: Self / Same As Patient Allergies latex Adverse Reaction (Intermediate, Verified 10/21/25 11:31) Rash cucumbers, pickles Allergy (Intermediate, Uncoded 10/16/25 18:03) Rash Tobacco use date assessed: 10/21/25 Dental Screening Dental Screen Date: 10/21/25 Did you have a dental visit in the last 12 months?: No PFSH Medical History Constipation Peripheral neuropathy Class 1 obesity Hypertension Parent coping with child illness or disability Stress at home Diabetes type 2 Chronic pain Diabetes SEEMA (obstructive sleep apnea) Polymyalgia Chronic neck pain Chronic low back pain with bilateral sciatica Pain in joint, multiple sites Surgical History History of surgery on upper extremity Hx of shoulder surgery (01/11/24) Hx of hysterectomy Hx of laparoscopic gastric banding Family History Mother Hypertension Arthritis Father Diabetes Social History Household Members: Children Housing: House Are you a primary physician assistant primary care to a significant other at home: No Do you presently have visiting nurse or other home services: No Alcohol intake: current Alcohol intake frequency: does not drink Patient Tobacco Use Status: Never used Tobacco service: No Current occupational status: employed 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 1. Little interest or pleasure in doing things: nearly every day 2. Feeling down, depressed, or hopeless: more than half the days 3. Trouble falling or staying asleep, or sleeping too much: nearly every day 4. Feeling tired or having little energy: more than half the days 5. Poor appetite or overeating: nearly every day 6. Feeling bad about yourself - or that you are a failure or have let yourself or your family down: more than half the days 7. Trouble concentrating on things, such as reading the newspaper or watching television: more than half the days 8. Moving or speaking so slowly that other people could have noticed. Or the opposite - being so fidgety or restless that you have been moving around a lot more than usual: several days 9. Thoughts that you would be better off or of hurting yourself in some way: not at all Total score: 18 Depression Screening Interpretation: Positive Depression Screening Follow-up: In treatment Depression Screening Done: Yes 02349 - PHQ-9 Billing: Yes Source: Developed by Drs. Easton Brumfield, Carlene Cortés, Erlin Castillo and colleagues, with an educational bushra from [employer]. Thrive Questionnaire Date Thrive assessed: 10/21/25 I am a: Patient What is your living situation today?: I have a steady place to live Within the past 12 months, did the food you bought not last and you didn't have the money to get more?: Sometimes True Within the past 12 months, did you worry whether your food would run out before you got money to buy more?: Often true Do you have trouble paying for medicines?: I choose not to answer this question Do you have trouble getting transportation to medical appointments?: Yes Do you have trouble paying your heating and electricity bill?: I choose not to answer this question Do you have trouble taking care of your child, family member or friend?: Yes Do you have trouble with day-to-day activities such as bathing, preparing meals, shopping, managing finances, etc.?: Yes Are you currently unemployed and looking for a job?: I choose not to answer this question Are you interested in more education?: No Please select the resources that you would like help with: None Currently or been in a relationship where the following occur: No concerns reported THRIVE Score: 3 AUDIT C Alcohol Use Questionnaire (AUDIT-C) 1. How often do you have a drink containing alcohol?: Never Total Score: 0 ASA-7 AMB Questionnaire ASA-7 Date ASA - 7 assessed: 10/21/25 Feeling nervous, anxious, or on edge: 1 = Several days Not being able to stop or control worryin = Several days Worrying too much about different things: 2 = More than half the days Trouble relaxin = Several days Being so restless that it is hard to sit still: 3 = Nearly every day Becoming easily annoyed or irritable: 1 = Several days Feeling afraid as if something awful might happen: 1 = Several days Total ASA-7 score (0-4 normal; 5-9 mild; 10-14 moderate; 15-21 severe): 10 Source: Developed by Drs. Easton Brumfield, Carlene Cortés, Erlin Castillo and colleagues, with an educational bushra from [employer]. ASA-7 Assessment Billing ASA-7 Assessment Tool: ASA-7 Assessment 67222 Physical exam (Primary Care) Tobacco/Smoking Status: Tobacco use Status Tobacco use date assessed 09/29/25 09/29/25 09:36 Patient Tobacco Use Status Never used Tobacco 09/29/25 09:29 Depression Screening Interpretation: Positive Depression Screening Follow-up: In treatment Thrive Assessment: Date of Thrive Assessment Date Thrive assessed 09/07/25 10/18/25 11:51 Currently or been in a relationship where the following occur: No concerns reported Coding Additional Codes PHQ-9 - 98122 - PHQ-9 Billing: Yes ([id number]) ASA-7 Assessment Billing - ASA-7 Assessment Tool: ASA-7 Assessment 85651 ([id number]) Assessment & Plan Assessment & Plan Orders: Orders Influenza [id number] Immunization Today Z23 - Encounter for immunization Medications: New Fluarix (PF) (flu vac ts (6mos up)-PF) 0.5 mL IM ONCE 0.5 mL 0RF NS Z23 - Encounter for immunization
[2025-10-21 11:31] VITALS: BP 130/78; PULSE 108; TEMP 36.5; O2SAT 97; BMI 35.3
--- NOTE | 2025-10-21 11:36 | A.OFFPC_ITS ---
Vital Signs 10/21/25 11:31 Height 5 ft 4 in Weight 205 lb 8 oz BMI 35.3 BP 130/78 Blood Pressure Location Rt brachial Position Sitting Pulse 108 H Pulse Source Pulse Oximeter Temp 97.7 F Temp Source Oral Pulse Oximetry (%) 97 Oxygen Delivery Method Room Air Intake Visit Reasons: Skin dryness Accompanied by: grandchild Allergies latex Adverse Reaction (Intermediate, Verified 10/21/25 11:37) Rash cucumbers, pickles Allergy (Intermediate, Uncoded 10/16/25 18:03) Rash Tobacco use date assessed: 10/21/25 Dental Screening Dental Screen Date: 10/21/25 Did you have a dental visit in the last 12 months?: No PFSH Medical History Constipation Peripheral neuropathy Class 1 obesity Hypertension Parent coping with child illness or disability Stress at home Diabetes type 2 Chronic pain Diabetes SEEMA (obstructive sleep apnea) Polymyalgia Chronic neck pain Chronic low back pain with bilateral sciatica Pain in joint, multiple sites Surgical History History of surgery on upper extremity Hx of shoulder surgery (01/11/24) Hx of hysterectomy Hx of laparoscopic gastric banding Family History Mother Hypertension Arthritis Father Diabetes Social History Household Members: Children Housing: House Are you a primary regular senior care provider to a significant other at home: No Do you presently have visiting nurse or other home services: No Alcohol intake: current Alcohol intake frequency: does not drink Patient Tobacco Use Status: Never used Tobacco e-Cigarette/Vaping Use: Never Used service: No Current occupational status: employed 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 1. Little interest or pleasure in doing things: nearly every day 2. Feeling down, depressed, or hopeless: more than half the days 3. Trouble falling or staying asleep, or sleeping too much: nearly every day 4. Feeling tired or having little energy: more than half the days 5. Poor appetite or overeating: nearly every day 6. Feeling bad about yourself - or that you are a failure or have let yourself or your family down: more than half the days 7. Trouble concentrating on things, such as reading the newspaper or watching television: more than half the days 8. Moving or speaking so slowly that other people could have noticed. Or the opposite - being so fidgety or restless that you have been moving around a lot more than usual: several days 9. Thoughts that you would be better off or of hurting yourself in some way: not at all Total score: 18 Depression Screening Interpretation: Positive Depression Screening Follow-up: In treatment Depression Screening Done: Yes 82879 - PHQ-9 Billing: Yes Source: Developed by Drs. Easton Brumfield, Carlene Cortés, Erlin Castillo and colleagues, with an educational bushra from [employer]. Thrive Questionnaire Date Thrive assessed: 10/21/25 I am a: Patient What is your living situation today?: I have a steady place to live Within the past 12 months, did the food you bought not last and you didn't have the money to get more?: Sometimes True Within the past 12 months, did you worry whether your food would run out before you got money to buy more?: Often true Do you have trouble paying for medicines?: I choose not to answer this question Do you have trouble getting transportation to medical appointments?: Yes Do you have trouble paying your heating and electricity bill?: I choose not to answer this question Do you have trouble taking care of your child, family member or friend?: Yes Do you have trouble with day-to-day activities such as bathing, preparing meals, shopping, managing finances, etc.?: Yes Are you currently unemployed and looking for a job?: I choose not to answer this question Are you interested in more education?: No Please select the resources that you would like help with: None Currently or been in a relationship where the following occur: No concerns reported THRIVE Score: 3 AUDIT C Alcohol Use Questionnaire (AUDIT-C) 1. How often do you have a drink containing alcohol?: Never Total Score: 0 ASA-7 AMB Questionnaire ASA-7 Date ASA - 7 assessed: 10/21/25 Feeling nervous, anxious, or on edge: 1 = Several days Not being able to stop or control worryin = Several days Worrying too much about different things: 2 = More than half the days Trouble relaxin = Several days Being so restless that it is hard to sit still: 3 = Nearly every day Becoming easily annoyed or irritable: 1 = Several days Feeling afraid as if something awful might happen: 1 = Several days Total ASA-7 score (0-4 normal; 5-9 mild; 10-14 moderate; 15-21 severe): 10 Source: Developed by Drs. Easton Brumfield, Carlene Cortés, Erlin Castillo and colleagues, with an educational bushra from [employer]. Physical exam (Primary Care) Vital Signs: Last Vital Signs Temp 97.7 F 10/21/25 11:31 Pulse 108 H 10/21/25 11:31 BP 130/78 10/21/25 11:31 Pulse Ox 97 10/21/25 11:31 Oxygen Delivery Method Room Air 10/21/25 11:31 BMI result Body Mass Index 35.3 Tobacco/Smoking Status: Tobacco use Status Tobacco use date assessed 10/21/25 10/21/25 11:44 Patient Tobacco Use Status Never used Tobacco 10/21/25 11:44 e-Cigarette/Vaping Use Never Used 10/21/25 11:44 PHQ-9: PHQ-9 Score PHQ-9: Total score 18 10/21/25 11:44 Depression Screening Interpretation: Positive Depression Screening Follow-up: In treatment Thrive Assessment: Date of Thrive Assessment Date Thrive assessed 10/21/25 10/21/25 11:44 Currently or been in a relationship where the following occur: No concerns reported Office Procedures Flu Questionnaire Does the patient have a severe egg allergy?: No Does the patient have severe life threatening allergies?: No Does the patient have a fever or illness today?: No Has the patient ever had Guillain-[place] Syndrome?: No Has the patient ever had any past reaction to a flu shot?: No Immunizations Fluarix [id number] (PF) 45 mcg (15 mcg x 3)/0.5 mL IM syringe Performing Provider: Caleb Cabrera MD Performing Location: [facility] Documented (not given) by: Fern Cummings CMA on 10/21/25 11:45 Reason Not Given: Received Previously Coding Additional Codes PHQ-9 - 56325 - PHQ-9 Billing: Yes ([id number]) Assessment & Plan Assessment & Plan Orders: Orders Influenza [id number] Immunization Today Z23 - Encounter for immunization
== END 2025-10-21 11:59 | disposition home or self-care (01) ==
PROVIDERS: PCP Student in an Organized Health Care Education/Training Program; Visit Provider Student in an Organized Health Care Education/Training Program
DX: Z23 Encounter for immunization (principal)

== ENCOUNTER 2025-11-10 13:40 | Outpatient (AMB) | payer OTHER, SELFPAY ==
[2025-11-10 13:44] VITALS: BP 147/78; PULSE 99; RESP 16; TEMP 36.6; O2SAT 97; BMI 35.3
--- NOTE | 2025-11-10 13:44 | A.OFFPC_ITS ---
Vital Signs 3 11/10/25 13:44 Height 5 ft 4 in Weight 205 lb 7 oz BMI 35.3 BP 147/78 H Blood Pressure Location Rt brachial Position Sitting Respiration 16 Pulse 99 Pulse Source Pulse Oximeter Temp 97.8 F Temp Source Oral Pulse Oximetry (%) 97 Oxygen Delivery Method Room Air Intake Visit Reasons: 2 wk f/u Accompanied by: grandchild Allergies latex Adverse Reaction (Intermediate, Verified 11/10/25 13:53) Rash cucumbers, pickles Allergy (Intermediate, Uncoded 10/16/25 18:03) Rash Tobacco use date assessed: 11/10/25 Dental Screening Dental Screen Date: 11/10/25 Did you have a dental visit in the last 12 months?: No Did you have a dental problem in the last 6 months where you did not have access to dental care?: No Was dental information given to patient?: Patient has dentist HPI HPI Comments 2 History of Present Illness0 Details History of Present Illness The patient is a 45 year old female presenting with a skin rash on her arms. Atopic Dermatitis: The patient has a history of a recurrent skin rash which typically appears on her arms. A smash fixer previously attributed this condition to her childhood history of asthma. The current flare began after she saw a neurologist and started taking Keppra, although she has had the rash on previous occasions. She has noticed that the rash worsens with stress, and she reports feeling particularly stressed after her EEG results and the need to start a new medication were discussed. Previous treatments include a combination of CeraVe and a steroid cream from a smash fixer, as well as hydrocortisone prescribed during a prior visit which was not effective. Medications: - Keppra, started after a visit with a n eurologist. - Hydrocortisone cream, previously presc ribed for her rash. - CeraVe with a steroid, as previously p rescribed by a smash fixer. Social History: - Stress: The patient reports feeling ve ry stressed after learning about her EEG results and the need to start a new medication. - She states that she is usually the per son who manages all situations in her life. Diagnostic Results: - EEG: Patient recently had an EEG, and the results prompted a neurologist to start her on medication. Past Medical History - Asthma in childhood. - Atopic dermatitis, diagnosed by a derm atologist. - Recent neurological evaluation includi ng an EEG, leading to the initiation of Keppra. Health Maintenance [facility] Medical History (Updated 11/11/25 @ 18:04 by Caleb Cabrera MD) Anxiety Itch Constipation Peripheral neuropathy Class 1 obesity Hypertension Parent coping with child illness or disability Stress at home Diabetes type 2 Chronic pain Diabetes SEEMA (obstructive sleep apnea) Polymyalgia Chronic neck pain Chronic low back pain with bilateral sciatica Pain in joint, multiple sites Surgical History History of surgery on upper extremity Hx of shoulder surgery (01/11/24) Hx of hysterectomy Hx of laparoscopic gastric banding Family History Mother Hypertension Arthritis Father Diabetes Social History Household Members: Children Housing: House Are you a primary college and career counselor to a significant other at home: No Do you presently have visiting nurse or other home services: No Alcohol intake: current Alcohol intake frequency: does not drink Patient Tobacco Use Status: Never used Tobacco e-Cigarette/Vaping Use: Never Used service: No Current occupational status: employed 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 1. Little interest or pleasure in doing things: nearly every day 2. Feeling down, depressed, or hopeless: more than half the days 3. Trouble falling or staying asleep, or sleeping too much: nearly every day 4. Feeling tired or having little energy: more than half the days 5. Poor appetite or overeating: nearly every day 6. Feeling bad about yourself - or that you are a failure or have let yourself or your family down: more than half the days 7. Trouble concentrating on things, such as reading the newspaper or watching television: more than half the days 8. Moving or speaking so slowly that other people could have noticed. Or the opposite - being so fidgety or restless that you have been moving around a lot more than usual: several days 9. Thoughts that you would be better off or of hurting yourself in some way: not at all Total score: 18 Depression Screening Interpretation: Positive Depression Screening Follow-up: In treatment Depression Screening Done: Yes 67375 - PHQ-9 Billing: Yes Source: Developed by Drs. Easton Brumfield, Erlin Penaloza and colleagues, with an educational bushra from [employer]. Thrive Questionnaire Date Thrive assessed: 11/10/25 I am a: Patient What is your living situation today?: I have a steady place to live Within the past 12 months, did the food you bought not last and you didn't have the money to get more?: Sometimes True Within the past 12 months, did you worry whether your food would run out before you got money to buy more?: Often true Do you have trouble paying for medicines?: I choose not to answer this question Do you have trouble getting transportation to medical appointments?: Yes Do you have trouble paying your heating and electricity bill?: I choose not to answer this question Do you have trouble taking care of your child, family member or friend?: Yes Do you have trouble with day-to-day activities such as bathing, preparing meals, shopping, managing finances, etc.?: Yes Are you currently unemployed and looking for a job?: I choose not to answer this question Are you interested in more education?: No Currently or been in a relationship where the following occur: No concerns reported THRIVE Score: 3 AUDIT C Alcohol Use Questionnaire (AUDIT-C) 1. How often do you have a drink containing alcohol?: Never Total Score: 0 ASA-7 AMB Questionnaire ASA-7 Date ASA - 7 assessed: 11/10/25 Feeling nervous, anxious, or on edge: 1 = Several days Not being able to stop or control worryin = Several days Worrying too much about different things: 2 = More than half the days Trouble relaxin = Several days Being so restless that it is hard to sit still: 3 = Nearly every day Becoming easily annoyed or irritable: 1 = Several days Feeling afraid as if something awful might happen: 1 = Several days Total ASA-7 score (0-4 normal; 5-9 mild; 10-14 moderate; 15-21 severe): 10 Source: Developed by Carlene Cheek Kurt Kroenke and colleagues, with an educational bushra from [employer]. Review of Systems Narrative Review of Systems - Integumentary: Reports a recurring rash, currently present only on the arms. - Psychiatric: Reports an increase in stress. 10-point ROS reviewed and negative except as noted in HPI Physical exam (Primary Care) Vital Signs: Last Vital Signs Temp 97.8 F 11/10/25 13:44 Pulse 99 11/10/25 13:44 Resp 16 11/10/25 13:44 BP 147/78 H 11/10/25 13:44 Pulse Ox 97 11/10/25 13:44 Oxygen Delivery Method Room Air 11/10/25 13:44 BMI result Body Mass Index 35.3 Tobacco/Smoking Status: Tobacco use Status Tobacco use date assessed 11/10/25 11/10/25 13:49 Patient Tobacco Use Status Never used Tobacco 11/10/25 13:49 e-Cigarette/Vaping Use Never Used 11/10/25 13:49 PHQ-9: PHQ-9 Score PHQ-9: Total score 18 11/10/25 13:56 Depression Screening Interpretation: Positive Depression Screening Follow-up: In treatment Thrive Assessment: Date of Thrive Assessment Date Thrive assessed 11/10/25 11/10/25 13:49 Currently or been in a relationship where the following occur: No concerns reported Narrative Physical Exam General: Well-appearing, in no acute distress. Vital signs: Within normal limits. HEENT: Normocephalic, atraumatic. PERRLA, EOMI. Conjunctiva clear, sclera anicteric. Oropharynx clear, mucous membranes moist. TMs intact bilaterally. Neck: Supple, no lymphadenopathy, no thyromegaly, no JVD or carotid bruits. Cardiovascular: RRR, normal S1/S2, no murmurs, rubs, or gallops. Peripheral pulses 2+ and symmetric. No edema. Respiratory: Lungs clear to auscultation bilaterally, no wheezes, rales, or rhonchi. Normal effort. Abdomen: Soft, non-tender, non-distended. Normoactive bowel sounds. No hepatosplenomegaly, no masses. MSK: Full range of motion, no joint swelling or deformity. Normal gait. Skin: Warm, dry, intact. No rashes, lesions, or pallor. Noted eczema-like rash primarily on the arms, exacerbated by stress. Patient uses a combination of CeraVe and a steroid cream, previously hydrocortisone, now switching to triamcinolone for more potency. Neuro: Alert and oriented x3. Cranial nerves II-XII intact. Strength 5/5 throughout. Sensation intact. Reflexes 2+ symmetric. Normal coordination and gait. Psych: Appropriate mood and affect. Normal judgment and insight. Reports increased stress levels, particularly after starting new medication (Keppra) following EEG results. Coding Level of Care Code Est Pt Level 3 (87693) Add On Problem Visit Only Diagnoses Atopic dermatitis L20.9 Asthma, mild intermittent J45.20 Hypertension I10 Anxiety F41.9 Diabetes type 2 E11.9 Class 1 obesity E66.9 Stress at home F43.9 Parent coping with child illness or disability Z63.79 Additional Codes PHQ-9 - 89280 - PHQ-9 Billing: Yes ([id number]) Assessment & Plan Assessment & Plan (1) Atopic dermatitis: Code(s): L20.9 - Atopic dermatitis, unspecified Category: Medical (2) Asthma, mild intermittent: Code(s): J45.20 - Mild intermittent asthma, uncomplicated Category: Medical (3) Hypertension: Code(s): I10 - Essential (primary) hypertension Category: Medical (4) Anxiety: Code(s): F41.9 - Anxiety disorder, unspecified Category: Medical (5) Diabetes type 2: Code(s): E11.9 - Type 2 diabetes mellitus without complications Category: Medical (6) Class 1 obesity: Code(s): E66.9 - Obesity, unspecified Category: Medical (7) Stress at home: Code(s): F43.9 - Reaction to severe stress, unspecified Category: Social Hx (8) Parent coping with child illness or disability: Code(s): Z63.79 - Other stressful life events affecting family and household Category: Social Hx Plan Consent Patient was informed and verbally consented to the use of an ambient scribe for clinic note documentation during this visit. Plan 1. Atopic Dermatitis - The patient's rash is a flare of atopic dermatitis, likely exacerbated by stress. - As hydrocortisone cream was ineffective, a more potent topical steroid is warranted. - Prescribed betametasone cream to be used for 7 days. - Instructed to discontinue hydrocortisone cream. - Recommended follow-up in one week to assess treatment response. Discussion Notes I discussed with the patient that her current rash is a recurrence of her skin condition, which can be triggered by stress. Because the previously prescribed hydrocortisone was not effective, I am prescribing a stronger steroid cream, betametasone. I instructed her to use this new cream for seven days and to stop using the hydrocortisone. We will re-evaluate her condition in a one-week follow-up appointment. Patient Instructions - Stop using the hydrocortisone cream. - Use the new prescription cream, betametasone on the rash for 7 days. - Return for a follow-up appointment in one week. Medical Decision Making The patient is a 45-year-old female presenting with a flare-up of a recurrent rash on her arms, consistent with her history of atopic dermatitis linked to childhood asthma. The exacerbation is associated with significant stress following a new neurological diagnosis and the recent initiation of Keppra. Given the failure to respond to low-potency hydrocortisone cream, the treatment plan involves escalating to a more potent topical steroid, betametasone. I have prescribed a 7-day course and scheduled a follow-up in one week to assess the clinical response and determine the next steps in management. Total Time Statement 20 min Total time spent caring for the patient today includes pre-visit chart review, documentation, review of laboratory and diagnostic imaging results, medication reconciliation, medically necessary evaluation, counseling on diagnoses, care coordination, ordering appropriate tests and medications, review of tests performed by other providers, reporting test results to the patient, and communication with other healthcare providers. Medications: New 2 betamethasone dipropionate 0.05% 1 appl topical DAILY 45 grams 0RF Discontinued 2 hydrocortisone 1% Discontinued Reason: Doctor's Order 1 appl topical BID-QID PRN 28.4 grams 0RF skin irritation L29.9 - Pruritus, unspecified
--- OUTSIDE RECORDS SUMMARY | 2025-11-10 17:32 | XMS_ITS | Encounter Summary ---
Author Organization [employer] Address [address] [place] [address] 7 [place] [address] Care Team Providers Care Major Gifts Director Name Role Phone Ivania Magallon Primary Care Provider [phone] Encounter Details Date Type Department Care Team (Latest Contact Info) Description 07/14/2022 Abstract [facility] CONVERSIONS Dental, Provider, DDS Social [...] Care Team (Late st Contact Info) Description 03/08/2026 9:00 AM EDT Office Visit [facility] OPTOMETRY [address] [place] [address] Justus, Anjali, OD [address] [place] [address] documented as of this encounter Visit Diagnoses Not on filedocumented in this encounter Care Teams Major Gifts Director Relationship Specialty Start Date End Date Ivania Magallon ANP [address] [place] [address] PCP - General Family Medicine 04/30/20 08/19/25 documented as of this encounter
--- OUTSIDE RECORDS SUMMARY | 2025-11-10 17:32 | XMS_ITS | Encounter Summary ---
Author Organization [employer] Address [address] [facility] 7 [place] [address] Care Team Providers Care Senior Maintenance Technician Name Role Phone Ivania Magallon Primary Care Provider [phone] Reason for Visit * Reason Onset Date Comments Nurse Triage 12/24/2024 Encounter Details Date Type Department Care Team ([facility] st Contact Info) Description 12/24/2024 Telephone [facility] MEDICINE [address] [place] [address] Ivania Magallon ANP [address] [place] [address] Nurse Triage Social History Tobacco Use Types [...] needed. Pt is advised to come to [facility] after 5pm for provider to see Pt. [facility] is open till 8pm. Pt [...] Description 03/08/2026 9:00 AM EDT Office Visit [facility] OPTOMETRY [address] [place], [place] [phone] Anjali Jerome, ROBERTA [address] [place] [address] documented as of this encounter Visit Diagnoses Not on filedocumented in this encounter Additional Health Concerns Assessment Noted Time PHQ-9 Depression Total Score: 16 024 9:54 AM EST documented as of this encounter Care Teams Senior Maintenance Technician Relationship Specialty Start Date End Date Ivania Magallon ANP [address] [place] [address] PCP - General Family Medicine 04/30/20 08/19/25 documented as of this encounter
--- OUTSIDE RECORDS SUMMARY | 2025-11-10 17:32 | XMS_ITS | Clinical Summary ---
Author Organization [facility] Address [address] [place] [address] Phone Care Team Providers Care Roof Bolter Operator Name Role Phone [facility] [phone] Social History Tobacco Use Types Packs/Day Years Used Date Smoking Tobacco: Never Assessed Comments Unknown Sex and Gender Information Value Date Recorded Sex Assigned at Not on file Legal Sex Female 3:55 AM EDT Gender Identity Not on file Sexual Orientation Not on file Plan of Treatment Not on file Care Teams Roof Bolter Operator Relationship Specialty Start Date End Date [facility] [address] [place] [address] PCP - Insurance PCP 01/21/21
--- OUTSIDE RECORDS SUMMARY | 2025-11-10 17:32 | XMS_ITS | Clinical Summary ---
Author Organization [facility] Address [address] [place] [address] Phone Care Team Providers Care French Pastry Cook Name Role Phone NaunIvania Mark Anthony MOSCOSO Primary Care Provider [phone] Allergies No known active allergies Social History [...] topic Insurance MEDICAID - [place] Care Teams French Pastry Cook Relationship Specialty Start Date End Date Ivania Magallon NP [address] [place] [id number] PCP - General 12/09/24
--- OUTSIDE RECORDS SUMMARY | 2025-11-10 17:32 | XMS_ITS | Encounter Summary ---
Author Organization [employer] Address [address] [place] [address] [address] [place] [address] Care Team Providers Care Delivery Associate Name Role Phone Ivania Magallon Primary Care Provider [phone] Reason for Visit * Reason Onset Date Comments Med Refill 08/01/2023 Encounter Details Date Type Department Care Team (Late Contact Info) Description 08/01/2023 Refill [facility] MEDICINE [address] [place] [address] Ivania Magallon ANP [address] [place] [address] Hypertension associated with diabetes (CMS/HCC) Social History [...] Encounters Date Type Department Care Team (Late Contact Info) Description 03/08/2026 9:00 AM EDT Office Visit [facility] OPTOMETRY [address] [place] [address] Anjali Jerome OD [address] [place] [address] documented as of this encounter Visit Diagnoses Diagnosis Hypertension associated with diabetes (HCC) Unspecified essential hypertension documented in this encounter Additional Health Concerns Assessment Noted Time PHQ-9 Depression Total Score: 0 07/12/20 23 12:00 PM EDT documented as of this encounter Care Teams Delivery Associate Relationship Specialty Start Date End Date Ivania Magallon ANP [address] [place] [address] PCP - General Family Medicine 04/30/20 08/19/25 documented as of this encounter
--- OUTSIDE RECORDS SUMMARY | 2025-11-10 17:32 | XMS_ITS | Encounter Summary ---
Author Organization [employer] Address [address] [place] [address] 7 [place] [address] Care Team Providers Care License Distributor Name Role Phone Ivania Magallon Primary Care Provider [phone] Reason for Visit * Reason Comments Med Refill Encounter Details Date Type Department Care Team ([facility] st Contact Info) Description 07/21/2024 Refill [facility] MEDICINE [address] [place], [place] [phone] Ivania Magallon ANP [address] [place] [address] Hypertension associated with diabetes (CMS/HCC) ([facility]/HCC) Social History Tobacco Use Types Packs/Day Years [...] Description 03/08/2026 9:00 AM EDT Office Visit [facility] OPTOMETRY [address] [place] [address] Justus, Anjali, OD [address] [place] [address] documented as of this encounter Visit Diagnoses Diagnosis Hypertension associated with diabetes (HCC) Unspecified essential hypertension documented in this encounter Additional Health Concerns Assessment Noted Time PHQ-9 Depression Total Score: 0 07/12/20 23 12:00 PM EDT documented as of this encounter Care Teams License Distributor Relationship Specialty Start Date End Date Ivania Magallon ANP [address] [place] [address] PCP - General Family Medicine 04/30/20 08/19/25 documented as of this encounter
--- OUTSIDE RECORDS SUMMARY | 2025-11-10 17:32 | XMS_ITS | Encounter Summary ---
Author Organization [employer] Address [address] [place] [address] [address] [place] [address] Care Team Providers Care Cutter Wet Machine Name Role Phone Ivania Magallon Primary Care Provider [phone] Encounter Details Date Type Department Care Team (Latest Contact Info) Description 04/14/2021 Abstract [facility] CONVERSIONS Dental, Provider, DDS Social History [...] Description 03/08/2026 9:00 AM EDT Office Visit [facility] OPTOMETRY [address] [place] [address] Justus, Anjali, OD [address] [place] [address] documented as of this encounter Visit Diagnoses Not on filedocumented in this encounter Care Teams Cutter Wet Machine Relationship Specialty Start Date End Date Ivania Magallon ANP [address] [place] [address] PCP - General Family Medicine 04/30/20 08/19/25 documented as of this encounter
--- OUTSIDE RECORDS SUMMARY | 2025-11-10 17:32 | XMS_ITS | Clinical Summary ---
Author Organization [employer] Address [address] [facility] 7 [place] [address] Care Team Providers Care Urban Anthropologist Name Role Phone Unavailable Primary Care Provider Unavailabl e Allergies Active Allergy Reactions Criticality Noted Date Comments [place] Extract Rash High 09/07/2021 Other reaction(s): GI [...] tablet 1 09/25/20 24 Active nystatin (Mycostatin) 145281 UNIT/GM powder Apply topically 2 times daily. [...] after 12 hours 30 patch 3 5 6:17 PM EST 07/06/20 25 Active Trulicity 3 MG/0.5ML solution auto-injector INJECT 3 MG UNDER THE SKIN EVERY WEEK 2 mL 11 07/27/20 25 Active Active Problems Problem Noted Date Diagnosed Date Nocturnal epilepsy (CMS/HCC) 11/02/2025 Overview (11/02/2025): EEG 2024 w/ [facility] neuro Started on keppra 500mg daily Impingement of right shoulder 06/02/2025 Status post [...] Morbid obesity with BMI of 40.0-44.9, adult ([facility]) 07/04/2023 Weight loss 07/04/2023 Obstructive sleep apnea [...] Encounters Date Type Department Care Team Description 11/04/2025 Travel 10/27/2025 Travel 09/17/2025 Telephone [facility] [address] [place] [address] Shona Cheng ANP Prior Authorization 08/18/2025 Telephone [facility] [address] [place] [address] Shona Cheng ANP chart prep from Last 3 Months Immunizations Immunization Administration [...] Description 03/08/2026 9:00 AM EDT Office Visit [facility] OPTOM[facility] [address] [place] [address] Justus, Anjali, OD [address] [place] [address] Health Maintenance Due Date Last Done Comments Diabetes: Foot Exam 1992 HPV Vaccines (1 - 3-dose series) 1997 COVID-19 Vaccine ( season) 2025 07/30/2024, 11/23/2023, 08/11/2021, Additional history exists Depression Monitoring 07/23/2025 01/20/2025, 025 Diabetes: Hemoglobin A1C 12/03/2025 025, 01/20/2025, 10/14/2024, Additional history exists SDOH Screening 01/09/2026 01/09/2025 Alcohol/Substance Use Screening 01/20/2026 01/20/2025 Mammogram 01/30/2026 01/30/2025, 032 11/2024, 01/30/2025, Additional history exists Eye Exam 02/27/2026 02/27/2025, 02/10, 02/27/2025, Additional history exists Disability Screening 03/06/2026 [...] Media Lot # [id number] Lot# Expiration Date ,330 Blood 06/02/2025 10:3 5 AM EDT [facility] POINT OF CARE TEST ENTER/EDIT OR DERABLES Final Result * Albumin, Random Urine W/Creatinine (03/20/2025 9:31 AM EDT) Creatinine, Urine 213.97 mg/dL [facility] Microalbumin Urine 12.0 mg/L H [facility] Microalbum Creatinine Ratio Ur 5.6 <30 ug/mg cr [facility] Comment:Albumin/Creatinine R atio Reference Ranges: Normal: < 30 ug/mg creatinine Microalbuminuria: 30 - 300 ug/mg creatinineClinical Albuminuria: > 300 ug/mg creatinine Urine 03/20/2025 9:31 AM EDT 03/20/2025 11:02 AM EDT Shona Cheng ANP LAB URINE ORDERABLES Final Resul t Performing Organization Address [facility] Co de Phone Number [facility] [address] [place] [phone] * (ABNORMAL) Lipid Panel, Standard (03/20/2025 7:07 AM EDT) Triglycerides 178(H) <150 mg/dL [facility] Comment:Desirable Triglyceri de: less than 150 mg/dLBorderline High Triglyceride 150-199 mg/dLHigh Triglyceride: 200-499 mg/dLVery High Triglyceride: greater than or equal to 5OO mg/dL Cholesterol 185 <200 mg/dL [facility] Comment:Desirable Cholestero l: less than 200 mg/dLBorderline High Cholesterol: 200-239 mg/dLHigh Cholesterol: greater than 239 mg/dL LDL Cholesterol Calculated 98 <100 mg/dL [facility] Comment:Desirable LDL: less than 100 mg/dLNear Optimal/Above Optimal LDL: 110- 129 mg/dLBorderline High LDL: 130-159 mg/dLHigh LDL: 160-189 mg/dLVery High LDL: greater than or equal to 190 mg/dL HDL Cholesterol 52 >40 mg/dL [facility] Comment:Desirable HDL: great er than 40 mg/dL Note: This HDL assay may give artificially low results in patients with liver disease. Blood Venous blood specimen / Unknown 03/20/2025 7:07 AM EDT 03/20/2025 11:01 AM EDT Shona Cheng ANP LAB BLOOD ORDERABLES Final Resul t Performing Organization Address City/[facility]/ZIP Co de Phone Number [facility] [address] [place] [phone] * BI US Breast Limited Right (01/30/2025 9:12 AM EDT) Anatomical Region Laterality Modality Breast Right Ultrasound 01/30/2025 9:12 AM EDT Narrative 01/30/2025 10:23 AM EDT [facility] [address] [place] [address] Ultrasound Report Signed Patient: Albania Robles MR#: [id number] : 1980 Acct:[id number] Age/Sex: 44 / F ADM Date: 01/30/25 Loc: HO.MAMMO Attending Dr: Dayton Frazier MD Ordering Physician: Dayton Frazier MD Date of Service: 01/30/25 Procedure(s): US breast RT limited mamm only Accession Number(s): [id number] cc: Dayton Frazier MD; SHONA CHENG NP [...] 01/30/25 1020 DD/ 0912 TD/TT: 01/30/25 0935 Mumps Developer: Procedure Note Donotuseinterpreter, Image - 01/30/2025 [facility] [address] [place] [address] Ultrasound Report Signed Patient: Robert Robles#: [id number] : 1980Acct:[id number] Age/Sex: 44 / FADM Date: 01/30/25 Loc: HO.MAMMO Attending Dr: Dayton Frazier MD Ordering Physician: Dayton Frazier MD Date of Service: 01/30/25 Procedure(s): US breast RT limited mamm only Accession Number(s): [id number] cc: Dayton Frazier MD; SHONA CHENG NP [...] 01/30/25 1020 DD/ 0912 TD/TT: 01/30/25 0935 Mumps Developer: Dayton Perez MD IMG US PROCEDURES Fin al Result * HIV Ab/Ag Exposure Source (01/11/2024 2:05 PM EST) HIV AB/AG Nonreactive Nonreactive [facility] Comment:HIV-1 p24 Ag and/or HIV-1/HIV-2 Ab not detected.A test result that is nonreactive does not exclude thepossibility of exposure to or infection with HIV-1 and/orHIV-2. Nonreactive results in this assay for individualswith prior exposure to HIV-1 and/or HIV-2 may be due toantigen and antibody levels that are below the limit ofdetection of this assay.The [employer] HIV Ag/Ab Combo assay result andsupplemental assay results should be interpreted inconjunction with the patient's clinical presentation,history and other laboratory results. If the results areinconsistent with clinical evidence, additional testing issuggested to confirm the result. 01/11/2024 2:05 PM EST 01/11/2024 2:07 PM EST Generic External Data Provider LAB BLOOD ORDERAB LES Final Result [facility] [address] [place] [phone] * Hepatitis C Ab (01/11/2024 2:05 PM EST) Hepatitis C Antibody Nonreactive Nonreactive [facility] Comment:Antibodies to HCV no t detected; does not exclude early acuteHCV infection. 01/11/2024 2:05 PM EST 01/11/2024 2:07 PM EST us Generic External Data Provider LAB BLOOD ORDERAB LES Final Result [facility] [address] [place] [phone] * HPV mRNA E6/E7 (01/30/2018 10:13 AM EDT) HPV mRNA E6/E7 Not Detected NOT DETECTED [facility] Comment: This test was performed using the APTIMA(R) HPV Assay ([employer] This assay detects E6/E7 viral messenger RNA (mRNA) from 14 high-risk HPV types (16,18,31,33,35,39,45,51, 52,56,58,59,66,68). For additional information please refer to: http://education.[employer]/faq/DCX684b5 (This link is being provided for informational/ educational purposes only.) Test Performed by [employer] [facility], [facility], [address] [place] [address] Jameel Swan M.D., Ph.D., Director of Laboratories , [facility] [id number] Please note: Effective 07/24/2016, HPV testing will be performed using [employer]'s APTIMA test which targets mRNA. Detecting mRNA instead of DNA, as in older methods, offers significant improvements in specificity. 01/30/2018 10:1 3 AM EDT us Tosin Putnam CNM HISTORICAL/NON ORDERABLE LABS Final Result [facility] [address] from Last 3 Months or Most Recently Relevant to Health Maintenance Insurance [id number]
--- OUTSIDE RECORDS SUMMARY | 2025-11-10 17:32 | XMS_ITS | Encounter Summary ---
Author Organization [employer] Address [address] [facility] [address] [place] [address] Care Team Providers Care Chief Environmental Commitment Officer Name Role Phone Ivania Magallon Primary Care Provider [phone] Reason for Visit * Reason Onset Date Comments Med Refill 09/25/2023 Encounter Details Date Type Department Care Team (Late st Contact Info) Description 09/25/2023 Refill [facility] [address] [place] [address] Ivania Magallon ANP [address] [place] [address] Hypertension associated with diabetes (CMS/HCC) Social History [...] Description 03/08/2026 9:00 AM EDT Office Visit [facility] OPTOMETRY [address] [place] [address] Justus, Anjali, OD [address] [place] [address] documented as of this encounter Visit Diagnoses Diagnosis Hypertension associated with diabetes (HCC) Unspecified essential hypertension documented in this encounter Additional Health Concerns Assessment Noted Time PHQ-9 Depression Total Score: 0 07/12/20 23 12:00 PM EDT documented as of this encounter Care Teams Chief Environmental Commitment Officer Relationship Specialty Start Date End Date Ivania Magallon ANP [address] [place] [address] PCP - General Family Medicine 04/30/20 08/19/25 documented as of this encounter
== END 2025-11-10 14:32 | disposition home or self-care (01) ==
LOC: HO.HMCFMS 13:41
PROVIDERS: PCP Student in an Organized Health Care Education/Training Program; Visit Provider Student in an Organized Health Care Education/Training Program
DX: L20.9 Atopic dermatitis, unspecified (principal); J45.20 Mild intermittent asthma, uncomplicated; I10 Essential (primary) hypertension; F41.9 Anxiety disorder, unspecified; E11.9 Type 2 diabetes mellitus without complications; E66.9 Obesity, unspecified; F43.9 Reaction to severe stress, unspecified; Z63.79 Other stressful life events affecting family and household

== ENCOUNTER → 2025-11-10 13:40 | Outpatient (BNVA) | payer OTHER, SELFPAY | PROVIDERS: PCP Student in an Organized Health Care Education/Training Program; Visit Provider Student in an Organized Health Care Education/Training Program | DX: L20.9 Atopic dermatitis, unspecified (principal); J45.20 Mild intermittent asthma, uncomplicated; I10 Essential (primary) hypertension; F41.9 Anxiety disorder, unspecified; E11.9 Type 2 diabetes mellitus without complications; F43.9 Reaction to severe stress, unspecified; E66.9 Obesity, unspecified; Z68.35 Body mass index [BMI] 35.0-35.9, adult; Z63.79 Other stressful life events affecting family and household; Z71.3 Dietary counseling and surveillance | CPT/HCPCS: 96127; 99212 ==